=== PATIENT | male | born 1965 | race African-American/Black ===

== ENCOUNTER 2019-12-10 09:25 | Outpatient (CLI) | payer MEDICARE, SELFPAY ==
--- NOTE | 2019-12-10 11:38 | ONC FU_ITS ---
Dr. Leal Patient Follow-Up Note Patient: Alek Hopper Unit #: [id number]: [id number] Dicatated By: Aristeo Leal M.D.Date of Visit:Dec 10, 2019 Onc Med Follow-up/Prog Note Chief Complaint: Colon cancer. 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 He was found on colonoscopy to have a large adenocarcinoma of the ascending colon along with a 2 cm sigmoid polyp with a high-grade dysplasia. His baseline CEAlevel n July 2012 was 4.4 ng/mL. His staging PET/CT on 09/21/2012 revealed an uptake in ascending colon. There were multiple nonspecific findings but no definitive evidence of metastatic disease. These included multiple foci of bilateral axillary and inguinal uptake and FDG-positive left pelvic peritoneal nodular thickening in the close proximity to the prior inguinal surgery. There was a dermal thickening throughout. He had an FDG negative thyroid nodule, a cystic lesion in the right kidney, right fifth rib sclerosis, 2.5 cm left adrenal nodule with SUV of 1.5, and a septal foci in scalp. On 10/22/2012 he underwent a total colectomy by Dr. Jose Luis Serrano, [place], [place]. His surgical pathology showed a 4.5 cm invasive moderately differentiated adenocarcinoma with mucinous features invading into pericolonic fat, with negative margins, indeterminate lymphovascular invasion, but no perineural invasion. There was no involvement in 12 lymph nodes. Thus, his disease was staage IIA (pT3, N0, M0). Post-operatively he had no immediate complications, but he did report a rapid weight loss. He was reportedly referred to the medical oncologist, but he did not proceed with the evaluation at that time. He was first seen by Dr. Weeks on 01/25/2013. Surveillance was established. No adjuvant chemotherapy was given. His PET scan on 02/15/2013 was negative for metastatic disease. His MMR testing showed proficient repair mechanism. Colaris test was negative for HNPCC. CEA was 2.2 ng/mL. Sigmoidoscopy on 05/20/2014 showed only a hyperplastic polyp. He was last seen for a follow-up visit here on 11/16/2015. At that time there was no evidence of recurrence of the colon cancer. He had a subsequent CT abdomen/pelvis on 05/23/2016. It showed no evidence of metastatic disease or disease progression. His other medical illnesses include hypertension, type II diabetes with peripheral neuropathy, peripheral arterial disease, COPD, gout, and depression. He also has chronic pain, managed by Dr. Wilcox in [place]. INTERIM HISTORY: He was seen for a scheduled follow-up visit in 07/06/2017. At that time there was no evidence of recurrence of his colon cancer, but his surveillance CT scans subsequent to the visit showed abnormal soft tissue arising from the distal end of the fundus of the gallbladder or adjacent gallbladder bed, suspicious for a mass lesion. Abdominal MRI on 08/29/2017 showed a complex 1.8 cm lesion at the fundus of the all bladder with moderate enhancement, possibly representing a complicated gallbladder polyp, though primary neoplastic lesion was not excluded. He returned to his surgeon in [place], where his further evaluation showed multicystic lesions in the gallbladder fundus consistent with adenomyomatosis, though underlying carcinoma could not be excluded. He underwent laparoscopic cholecystectomy on 01/04/2018. Pathology showed adenomyoma with no evidence of malignancy. He continued on observation/expectant management. He is seen for a follow-up visit. He has been feeling pretty good generally, though he says his energy comes and goes. He is able to do light work. ECOG score is 1. He says his appetite has not been good. His weight is down about 4 pounds. He does not have fever or night sweats. His breathing is pretty good. He does have a smoker's cough, and he continues to smoke less than a pack of cigarettes daily. He does not complain of chest pain. He has a little bit of nausea. His acid reflux is adequately managed with medication. Bowel function has been okay. He has frequent urination. He has no significant joint or bone pain. He sometimes has headache. He has dizziness if he gets up too fast. He has numbness/tingling in his feet. Medications: Albuterol 2 (90 mcg/act) Aerosol, solution Inhalation q 4 hours PRN, Aspirin Low Dose 1 (81 mg) Tablet Oral daily, Basaglar KwikPen 48 Units (of 100 Units/mL) Subcutaneous at bedtime, [employer] Stool Softener 1 (100 mg) Capsule Oral daily PRN, Famotidine 1 (20 mg) Tablet Oral daily PRN, Hydrocodone-Acetaminophen 1 Tablet (of 10-325 mg) Oral q 4 hours, Metoprolol Tartrate 1 (100 mg) Tablet Oral b.i.d., Neurontin 1 (800 mg) Tablet Oral four times a day, NexIUM 1 (40 mg) Capsule Delayed Release Oral daily, NovoLOG FlexPen 28 Units Subcutaneous t.i.d. Allergies: No Known Allergies. Review of Systems: Constitutional - He has not been doing alot. His appetite is fair and his weight is down 4 pounds from last visit. No fever, night sweats, or hot flashes. ECOG score is 1, ENMT - No sinus congestion/drainage. No mouth sores. No sore throat or difficulty swallowing, Hematologic/Lymphatic - No abnormal bruising or bleeding, Respiratory - No shortness of breath. He has a smoker's cough. No pleuritic pain or hemoptysis, Cardiovascular - No angina pain. No palpitations, Gastrointestinal - He has a little bit of nausea or vomiting. His acid reflux is adequately managed. No diarrhea or constipation. No blood in the stool or black stools, Genitourinary (M) - No dysuria or hematuria. He has urinary frequency. No urgency or incontinence, Musculoskeletal - No joint or bone pain, Integumentary - No skin complications, Neurologic - He sometimes has headache. He has dizziness if he gets up too fast. He has numbness/tingling in his feet. No other focal neurologic symptoms, Psychiatric - No anxiety or depression. He does not sleep well at night. Vital Signs: Performed on Dec 10, 2019 09:40 Height - 70.00 in Weight - 202.8 lbs (LOW) BSA - 2.10 sq.m BMI - 29.10 Temperature - 98.0 F (LOW) Pulse - 91 /min Respiration - 24 /min BP - 163/88 mm(hg) (HIGH) O2 Sat - 96 % Pain - 0 Physical Examination: Constitutional - He looks pretty good generally, Eyes - Sclerae nonicteric. Conjunctivae clear, ENMT - No lesions noted in the oral cavity, Hematologic/Lymphatic - No cervical, clavicular, or axillary adenopathy, Respiratory - Lungs sound clear. He has pretty good air movement bilaterally, Cardiovascular - Heart rhythm is regular. There is no murmur, gallop, or rub noted, Abdomen - Soft and non-tender. Liver and spleen are not enlarged. There is no abdominal mass or ascites noted and there is no inguinal adenopathy, Extremities - No edema, Neurologic - No focal neurologic deficits noted. Impression: 1. Patient with moderately differentiated adenocarcinoma of ascending colon, stage IIA (pT3, N0, M0). He underwent total colectomy on 10/22/12. He had no adjuvant therapy, and he has been followed on surveillance. 2. He has a strong family history of colon cancer and prostate cancer. His other medical illnesses include: 3. Hypertension. 4. Type II diabetes with peripheral neuropathy. 5. Peripheral arterial disease. 6. COPD. 7. Gout. 8. Depression. 9. Chronic pain. On 01/04/2018 he underwent laparoscopic cholecystectomy for adenomyoma of the gallbladder. There was no evidence of malignancy. He has since then continued on observation/expectant management. His clinical status appears stable with no evidence of recurrence of the colon cancer. He does remind me today that he has a strong family history of prostate cancer, and has not recently had any screening for that. Plan: He remains on observation/expectant management. I will include CEA and PSA levels with his next lab draw at Dr. Navarro's office. I will just plan to see him again in 1 year. Signed By: Aristeo Leal M.D. <<Signature on File>>
== END 2019-12-10 09:26 | disposition home or self-care (01) ==
LOC: ONCMED 09:32
PROVIDERS: PCP Family Medicine; Visit Provider Internal Medicine Medical Oncology
DX: Z08 Encounter for follow-up examination after completed treatment for malignant neoplasm (principal); Z85.038 Personal history of other malignant neoplasm of large intestine; Z80.42 Family history of malignant neoplasm of prostate; Z80.0 Family history of malignant neoplasm of digestive organs; Z90.49 Acquired absence of other specified parts of digestive tract; I10 Essential (primary) hypertension; E11.42 Type 2 diabetes mellitus with diabetic polyneuropathy; E11.51 Type 2 diabetes mellitus with diabetic peripheral angiopathy without gangrene; J44.9 Chronic obstructive pulmonary disease, unspecified; M10.9 Gout, unspecified; F32.9 Major depressive disorder, single episode, unspecified; G89.29 Other chronic pain; Z86.018 Personal history of other benign neoplasm
CPT/HCPCS: G0463

== ENCOUNTER 2020-12-31 14:46 | Outpatient (CLI) | payer MEDICARE, SELFPAY ==
--- NOTE | 2021-01-01 07:36 | ONC FU_ITS ---
Dr. Leal Patient Follow-Up Note Patient: Alek Hopper Unit #: [id number]: [id number] Dicatated By: Aristeo Leal M.D.Date of Visit:Dec 31, 2020 Onc Med Follow-up/Prog Note Chief Complaint: Colon cancer. 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 He was found on colonoscopy to have a large adenocarcinoma of the ascending colon along with a 2 cm sigmoid polyp with a high-grade dysplasia. His baseline CEA level n July 2012 was 4.4 ng/mL. His staging PET/CT on 09/21/2012 revealed an uptake in ascending colon. There were multiple nonspecific findings but no definitive evidence of metastatic disease. These included multiple foci of bilateral axillary and inguinal uptake and FDG-positive left pelvic peritoneal nodular thickening in the close proximity to the prior inguinal surgery. There was a dermal thickening throughout. He had an FDG negative thyroid nodule, a cystic lesion in the right kidney, right fifth rib sclerosis, 2.5 cm left adrenal nodule with SUV of 1.5, and a septal foci in scalp. On 10/22/2012 he underwent a total colectomy by Dr. Jose Luis Serrano, [place], [place]. His surgical pathology showed a 4.5 cm invasive moderately differentiated adenocarcinoma with mucinous features invading into pericolonic fat, with negative margins, indeterminate lymphovascular invasion, but no perineural invasion. There was no involvement in 12 lymph nodes. Thus, his disease was staage IIA (pT3, N0, M0). Post-operatively he had no immediate complications, but he did report a rapid weight loss. He was reportedly referred to the medical oncologist, but he did not proceed with the evaluation at that time. He was first seen by Dr. Weeks on 01/25/2013. Surveillance was established. No adjuvant chemotherapy was given. His PET scan on 02/15/2013 was negative for metastatic disease. His MMR testing showed proficient repair mechanism. Colaris test was negative for HNPCC. CEA was 2.2 ng/mL. Sigmoidoscopy on 05/20/2014 showed only a hyperplastic polyp. His CT abdomen/pelvis on 05/23/2016 showed no evidence of recurrent or metastatic disease. He was seen for a scheduled follow-up visit on 07/06/2017. At that time there was no evidence of recurrence of his colon cancer, but his surveillance CT scans subsequent to that visit showed abnormal soft tissue arising from the distal end of the fundus of the gallbladder or adjacent gallbladder bed, suspicious for a mass lesion. Abdominal MRI on 08/29/2017 showed a complex 1.8 cm lesion at the fundus of the all bladder with moderate enhancement, possibly representing a complicated gallbladder polyp, though primary neoplastic lesion was not excluded. He returned to his surgeon in [place] where his further evaluation showed multicystic lesions in the gallbladder fundus consistent with adenomyomatosis, though underlying carcinoma could not be excluded. He underwent laparoscopic cholecystectomy on 01/04/2018. Pathology showed adenomyoma with no evidence of malignancy. His other medical illnesses include hypertension, hyperlipidemia, type II diabetes with peripheral neuropathy, peripheral arterial disease, COPD, gout, and depression. He also has chronic pain, managed by Dr. Wilcox in [place]. INTERIM HISTORY: He is seen for a follow-up visit. He has been feeling good generally. He has been exercising and generally more active. His ECOG score is 0. He has good appetite. With the increased activity, he has been able to lose weight. He does not have fever or night sweats. He has no shortness of breath, cough, or chest pain. He has a little bit of nausea at times. His acid reflux is adequately managed with medication. He says his stools are sometimes watery and he occasionally has a burning in the rectal area. He has no complaints. He has joint pain, mainly in his hands and both hips. He does not complain of headache. He sometimes has dizziness. He has neuropathy in his feet, but gabapentin does help with those symptoms. Medications: Albuterol 2 (90 mcg/act) Aerosol, solution Inhalation q 4 hours PRN, Aspirin Low Dose 1 (81 mg) Tablet Oral daily, Basaglar KwikPen 48 Units (of 100 Units/mL) Subcutaneous at bedtime, [employer] Stool Softener 1 (100 mg) Capsule Oral daily PRN, Famotidine 1 (20 mg) Tablet Oral daily PRN, Hydrocodone-Acetaminophen 1 Tablet (of 10-325 mg) Oral q 4 hours, Metoprolol Tartrate 1 (100 mg) Tablet Oral b.i.d., Neurontin 1 (800 mg) Tablet Oral four times a day, NexIUM 1 (40 mg) Capsule Delayed Release Oral daily, NovoLOG FlexPen 28 Units Subcutaneous t.i.d. Allergies: No Known Allergies. Vital Signs: Performed on Dec 31, 2020 14:58 Height - 70.00 in Weight - 207.8 lbs (HIGH) BSA - 2.12 sq.m BMI - 29.82 Temperature - 97.6 F (LOW) Pulse - 71 /min Respiration - 18 /min BP - 164/88 mm(hg) (HIGH) O2 Sat - 98 % Pain - 0 Fatigue - 2 Physical Examination: Constitutional - He looks pretty good generally, Eyes - Sclerae nonicteric. Conjunctivae clear, ENMT - No lesions noted in the oral cavity, Hematologic/Lymphatic - No cervical, clavicular, or axillary adenopathy, Respiratory - Lungs sound clear, Cardiovascular - Heart rhythm is regular. There is no murmur, gallop, or rub noted, Abdomen - Soft. Liver and spleen are not enlarged. There is no abdominal mass or ascites noted and there is no inguinal adenopathy, Extremities - No edema, Neurologic - No focal neurologic deficits noted. Problem List: 1. Moderately differentiated adenocarcinoma of ascending colon, stage IIA (pT3, N0, M0). He underwent total colectomy on 10/22/2012. 2. On 01/04/2018 he underwent laparoscopic cholecystectomy for adenomyoma of the gallbladder. There was no evidence of malignancy. 3. Hypertension. 4. Type II diabetes with peripheral neuropathy. 5. Peripheral arterial disease. 6. COPD. 7. Gout. 8. Depression. 9. Chronic pain. 10. He has a strong family history of colon cancer and prostate cancer. Problems Addressed with this Encounter and Plan: 1. Patient with moderately differentiated adenocarcinoma of ascending colon, stage IIA (pT3, N0, M0). He underwent total colectomy on 10/22/12. He had no adjuvant therapy, and he was followed on expectant management. Overall, he has been doing well clinically. He is now 8 years out from surgery with no evidence of recurrence of the colon cancer. He remains on expectant management. At this interval from his surgery he does not require any further routine surveillance CT imaging. I will have to verify with his surgeon whether he requires any additional surveillance endoscopy. He did have a follow-up sigmoidoscopy in 2014, and that may need to be repeated. At this point he can otherwise just continue his regular follow-up with Dr. Navarro. He is scheduled to see Dr. Vieira again next week, and he would like to have laboratory studies done here in preparation for that visit. As such, I will have him return tomorrow for fasting labs to include CBC, comprehensive metabolic profile, TSH level, hemoglobin A1c level, and fasting lipid profile. I also will include a CEA level. I will plan to see him again only as needed. 2. He has a strong family history of colon cancer and prostate cancer. His genetic screening was negative. He should, however, continue screening for prostate cancer, and I will recheck his PSA level with his laboratory studies tomorrow. Signed By: Aristeo Leal M.D. <<Signature on File>>
== END 2020-12-31 14:47 | disposition home or self-care (01) ==
LOC: ONCMED 14:51
PROVIDERS: PCP Family Medicine; Visit Provider Internal Medicine Medical Oncology
DX: Z08 Encounter for follow-up examination after completed treatment for malignant neoplasm (principal); I10 Essential (primary) hypertension; E11.42 Type 2 diabetes mellitus with diabetic polyneuropathy; I73.9 Peripheral vascular disease, unspecified; J44.9 Chronic obstructive pulmonary disease, unspecified; F32.A Depression, unspecified; M10.9 Gout, unspecified; Z85.038 Personal history of other malignant neoplasm of large intestine; Z80.42 Family history of malignant neoplasm of prostate; Z80.8 Family history of malignant neoplasm of other organs or systems
CPT/HCPCS: 99214

== ENCOUNTER 2021-01-01 08:53 | Outpatient (CLI) | payer MEDICARE, SELFPAY ==
[2021-01-01 09:19] LABS: Basophils # 0.1 10^3/uL (0.0-0.1); Basophils % 0.7 %; Eosinophils # 0.1 10^3/uL (0.0-0.8); Eosinophils % 1.2 %; Hematocrit 41.6 % (42.0-52.0); Hemoglobin 13.7 g/dL (11.7-16.6); Lymphocytes # 2.7 10^3/uL (0.8-4.8); Lymphocytes % 23.7 %; Mean Corpuscular HGB Conc 32.9 g/dL (30.0-36.0); Mean Corpuscular Hemoglobin 30.6 pg (28.0-34.0); Mean Corpuscular Volume 92.9 fl (80-94); Mean Platelet Volume 10.8 fL (7.4-10.4); Monocytes # 0.7 10^3/uL (0.2-0.9); Neutrophils % 68.1 %; Nucleated Red Blood Cells % 0 %; Platelet Count 196 10^3/cmm (130-400); Red Blood Count 4.48 10^6/uL (4.1-5.3); White Blood Count 11.5 10^3/uL (4.0-10.0)
[2021-01-01 09:50] LABS: Thyroid Stimulating Hormone 0.84 uIU/mL (0.27-4.20)
[2021-01-01 10:01] LABS: Alanine Aminotransferase 12 U/L (0-41); Albumin Level 3.8 g/dL (3.5-5.2); Alkaline Phosphatase 113 IU/L (40-130); Aspartate Amino Transferase 13 U/L (0-40); Blood Urea Nitrogen 11 mg/dL (6-20); Calcium 8.8 mg/dL (8.5-10.5); Carbon Dioxide 25 mmol/L (22-29); Chloride 109 mmol/L (98-107); Chol HDL Ratio 3.57 mg/dL (1.0-5.00); Cholesterol 150 mg/dL (0-200); Globulin 2.9 g/dL (1.3-4.6); Glomerular Filtration Rate 75.5 mL/min (90-130); Glucose 148 mg/dL (65-115); HDL Cholesterol 42 mg/dL (60-100); LDL Cholesterol Calculated 79 mg/dL (50-129); LDL HDL Ratio 1.88 RATIO (0.00-3.22); Osmolality Calculated 296 mOsm/kg (285-295); Sodium 142 mmol/L (136-145); Total Bilirubin 0.2 mg/dL (0.15-1.2); Total Protein 6.7 g/dL (6.6-8.7); Triglycerides 145 mg/dL (0-150)
[2021-01-01 10:06] LABS: Anion Gap 12.8 (5-19); Potassium 4.8 mmol/L (3.5-5.1)
[2021-01-01 10:32] LABS: Estmated Average Glucose 151; Hemoglobin A1C 6.9 % (4.0-6.0)
[2021-01-01 10:34] LABS: Carcinoembryonic Antigen 2.5 ng/mL (0.0-4.7)
== END 2021-01-01 08:54 | disposition home or self-care (01) ==
LOC: ONCMED 08:54
PROVIDERS: PCP Family Medicine; Visit Provider Internal Medicine Medical Oncology
DX: C18.2 Malignant neoplasm of ascending colon (principal); I10 Essential (primary) hypertension; E11.42 Type 2 diabetes mellitus with diabetic polyneuropathy; I73.9 Peripheral vascular disease, unspecified; Z80.42 Family history of malignant neoplasm of prostate; Z12.5 Encounter for screening for malignant neoplasm of prostate
CPT/HCPCS: 36415; 80053; 80061; 82378; 83036; 84153; 84443; 85025

== ENCOUNTER 2021-12-21 10:12 | Emergency (ER) | payer MEDICARE, SELFPAY ==
[2021-12-21 10:37] VITALS: BP 170/75; PULSE 74; RESP 16; TEMP 36.8; O2SAT 92; BMI 29.5
--- NOTE | 2021-12-21 10:56 | XRR_ITS ---
PROCEDURE INFORMATION: Exam: XR Chest Exam date and time: 12/21/2021 11:52 AM Age: 56 years old Clinical indication: Cough and shortness of breath; Patient HX: Cough and wheezing. Patient says for the past week he has had cough with chest congestion. Says his cough is productive and has clear sputum. He endorses having some shortness of breath and wheezing. He says his shortness of breath and cough worsen when he lays flat. TECHNIQUE: Imaging protocol: Radiologic exam of the chest. Views: 1 view. COMPARISON: CR XR chest 1V [id number] 05/20/2018 12:06 AM FINDINGS: Lungs: Subtle airspace disease/atelectasis right and left lung bases. Pleural spaces: Unremarkable. No pleural effusion. No pneumothorax. Heart/Mediastinum: Unremarkable. No cardiomegaly. Bones/joints: Unremarkable. XR/XR chest 1V portable [id number] IMPRESSION: Subtle airspace disease/atelectasis right and left lung bases.
--- NOTE | 2021-12-21 10:59 | W.ED.GENADLT ---
HPI - General Adult General: Chief complaint: General Medical Stated complaint: congestion Time Seen by Provider: 12/21/21 10:44 History of Present Illness: Patient is a 56-year-old male comes to the ED with cough and wheezing. Past medical history of diabetes. Patient says for the past week he has had cough with chest congestion. Says his cough is productive and has clear sputum. He endorses having some shortness of breath and wheezing. He says his shortness of breath and cough worsen when he lays flat. Denies any fevers, chills, chest pain, nausea/vomiting, abdominal pain, bladder or bowel symptoms. Associated symptoms: Reports dyspnea; Deny chest pain, headache(s), nausea, rash, palpitations or vomiting Review of Systems Const: Denies: fever(s), chills or fatigue Eyes: Denies: change in vision or eye discomfort ENMT: Denies: throat pain, odynophagia, nasal discharge or nasal congestion Card: Denies: chest pain, palpitations, edema, swelling of feet/ankles, dyspnea on exertion or orthopnea Resp: Reports: dyspnea, productive cough and wheezing; Denies: non-productive cough GI: Denies: abdominal pain, nausea, vomiting, diarrhea, constipation or hematochezia : Denies: flank pain, difficulty urinating, dysuria or hematuria Musc: Denies: neck pain, back pain or extremity swelling Skin/Breast: Denies: rash or new lesions Neuro: Denies: headache(s), numbness in extremities or weakness in extremities PFSH ED PFSH: Medical History Cancer Diabetes mellitus Glaucoma Hypertension Social History Smoking and tobacco status: current every day smoker Quit status (tobacco): has tried quititng Second hand smoke exposure: Yes Alcohol intake: never Adopted: No Caregiver/support person: No Lives independently: Yes Household members: spouse Housing: Apartment Marital status: Number of children: 4 Number of grandchildren: 1 Highest education level completed: 12th Grade, No Diploma service: No Current occupational status: disabled Current occupational exposures/hazards: No Pets and animals: No History of recent travel: No Leisure activites: exercise and clubs Sexually active: No Current gender identity: Male Shelly/Evangelical: Adventist Special shelly needs: No Agree to transfusion: Yes Financial difficulty paying for basics: Somewhat Hard Physical Exam Const: COMMON NORMALS: no acute distress, patient oriented x3 and alert GENERAL APPEARANCE: cooperative HENMT: COMMON NORMALS: normocephalic HEAD & SCALP: normocephalic MOUTH: Normal oral and palatal mucosa present THROAT: posterior oropharynx normal and uvula midline Neck/C-Spine: COMMON NORMALS: supple GENERAL: Yes normal visual inspection Resp: COMMON NORMALS: normal respiratory effort, No retractions and No use of accessory muscles EFFORT & INSPECTION: Yes able to speak in complete sentences, No respiratory distress and No labored AUSCULTATION: wheezes expiratory wheezes and lower bilaterally Cardio: COMMON NORMALS: regular rate, regular rhythm, S1 normal heart sound present, S2 normal heart sound present, No gallops present (Cardio), No clicks present (Cardio), No murmurs present (Cardio) and Peripheral pulses 2+ throughout RATE: regular rate RHYTHM: regular rhythm HEART SOUNDS: S1 normal heart sound present and S2 normal heart sound present PERIPHERAL PULSES: Peripheral pulses 2+ throughout GI: COMMON NORMALS: Normal to inspection, nondistended, normoactive bowel sounds present, Soft to palpation, non-tender and no masses PALPATION: Yes Soft to palpation : COMMON NORMALS: Yes no CVA tenderness BLADDER/KIDNEY EXAM: Yes no CVA tenderness Back/Pelvis: COMMON NORMALS: no CVA tenderness Extremity: COMMON NORMALS: normal to inspection Neuro: COMMON NORMALS: patient oriented x3 SENSORIUM/ORIENTATION: Yes alert GAIT: Yes Normal gait present Skin: GENERAL SKIN EXAM: dry skin Course Vital Signs: Vital signs: Vital Signs Temperature 98.3 F 12/21/21 10:37 Pulse Rate 71 12/21/21 11:12 Respiratory Rate 16 12/21/21 11:10 Blood Pressure 170/75 12/21/21 10:37 Pulse Oximetry 93 12/21/21 11:10 Oxygen Delivery Tx thod 12/21/21 11:10 [facility] - General Adult Medical Decision Making Patient is a 56-year-old male comes to the ED with cough and wheezing. Past medical history of diabetes. Patient says for the past week he has had cough with chest congestion. Says his cough is productive and has clear sputum. Vitals are stable. Patient appears nontoxic in no acute distress. He has little bit of wheezing in his lower lungs bilaterally but the rest of exam is benign. Chest x-ray shows some subtle atelectasis in the right and left lung bases. Patient was given DuoNeb breathing treatment here in the ED along with Solu-Medrol. Symptoms improved. Patient diagnosed with bronchitis and was discharged home with a prescription for doxycycline. Told to follow-up with his PCP within the next week for reevaluation. Return to ED precautions given. Lab Data Radiology Impressions Chest X-Ray 12/21/21 10:56 IMPRESSION: Subtle airspace disease/atelectasis right and left lung bases. Discharge Plan Discharge Patient Disposition: Home Clinical Impression: Bronchitis Condition: Stable Prescriptions: New doxycycline hyclate 100 mg capsule 100 mg PO BID 10 Days Qty: 20 0RF albuterol sulfate 90 mcg/actuation HFA aerosol inhaler 2 inh inhalation Q6H PRN (Reason: shortness of breath or wheezing) Qty: 8.5 0RF No Action hydrocodone-acetaminophen 10-325 mg tablet 1 tab PO Q4H PRN albuterol sulfate 90 mcg/actuation HFA aerosol inhaler 2 puff inhalation Q6H PRN allopurinol 100 mg tablet 100 mg PO DAILY aspirin [Adult Aspirin Regimen] 81 mg tablet,delayed release (DR/EC) 81 mg PO DAILY colchicine 0.6 mg tablet 0.6 mg PO BID docusate sodium 100 mg capsule 100 mg PO BID dulaglutide 1.5 mg/0.5 mL pen injector SUBCUT esomeprazole magnesium 40 mg capsule,delayed release(DR/EC) 40 mg PO DAILY gabapentin 600 mg tablet 600 mg PO BID hydrocortisone 2.5 % cream 1 applic topical BID PRN insulin aspart U-100 [Novolog PenFill U-100 Insulin] 100 unit/mL cartridge 30 unit SUBCUT TID insulin glargine 100 unit/mL (3 mL) insulin pen 54 unit SUBCUT .QPM lisinopril 10 mg tablet 10 mg PO BID metoprolol tartrate 100 mg tablet 100 mg PO BID amoxicillin-pot clavulanate 875-125 mg tablet 1 tab PO BID 7 Days Qty: 14 0RF ciprofloxacin HCl 500 mg tablet 500 mg PO Q12H Qty: 14 0RF Discharge Orders: Discharge ED (Routine); Ordered 12/21/21 Ordered By: Danny Dos Santos Referrals: Yenny Navarro MD [Primary Care Provider] - Discharge Diet: Regular Discharge Activity: Increase activity as tolerated Patient Instructions: Acute Bronchitis (ED) Activity Restrictions/Additional Instructions: Follow-up with medical provider as directed in the next 5 to 7 days for reevaluation. Take medications as prescribed. Return to the ER or your medical provider if condition worsens. Please read and understand discharge instructions. Thank you for choosing [facility] for your healthcare needs today. Please realize this is an emergency room and that we are providing you with a medical screening exam and this may not be complete and all inclusive of all the testing and or work up that you may need to determine your ailment or severity of your illness. It is very important that you follow up as instructed or that you return to the Emergency Department should you have concerns or if your condition changes or worsens in any way. Coding Level of Care Code ED Mold Clamper for Mary Fwd Exam Comprehensive
[2021-12-21] MEDS: ipratropium-albuterol 3 mL Neb 6 ML INHALATION (11:07)
[2021-12-21 11:10] VITALS: PULSE 74; RESP 16; O2SAT 93
[2021-12-21 11:12] VITALS: PULSE 71
== END 2021-12-21 13:46 | disposition home or self-care (01) ==
PROVIDERS: Emergency Provider Physician Assistant; PCP Family Medicine
DX: J40 Bronchitis, not specified as acute or chronic (principal); Z79.82 Long term (current) use of aspirin; Z79.4 Long term (current) use of insulin; E11.9 Type 2 diabetes mellitus without complications; I10 Essential (primary) hypertension; F17.210 Nicotine dependence, cigarettes, uncomplicated
CPT/HCPCS: 71045; 94640; 96374; 99284; J2930

== ENCOUNTER 2021-12-23 04:20 | Inpatient (IN) | payer MEDICARE, SELFPAY ==
[2021-12-23] VITALS (44 sets, daily range): BP systolic 137–189; BP diastolic 59–100; PULSE 81–113; RESP 0–27; TEMP 36.4–37.4; O2SAT 93–98; BMI 31.5
--- NOTE | 2021-12-23 04:22 | XRR_ITS ---
PROCEDURE INFORMATION: Exam: XR Chest Exam date and time: 12/23/2021 4:43 AM Age: 56 years old Clinical indication: Pain; Chest pressure; Additional info: SOB TECHNIQUE: Imaging protocol: Radiologic exam of the chest. Views: 1 view. COMPARISON: CR XR chest 1V portable [id number] 12/21/2021 11:52 AM FINDINGS: Lungs: There are normal lung volumes. Increased minimal perihilar interstitial prominence is seen, suggestive of pulmonary vascular congestion. Minimal right basilar atelectasis is seen. No airspace opacities in the lungs. Pleural spaces: No pleural effusion. No pneumothorax. Heart/Mediastinum: Normal heart size. Normal mediastinum. Midline trachea. Bones/joints: No acute osseous abnormalities seen. XR/XR chest 1V portable [id number] IMPRESSION: Increased minimal perihilar interstitial prominence, suggestive of pulmonary vascular congestion. Minimal right basilar atelectasis.
--- NOTE | 2021-12-23 04:22 | ECG_ITS ---
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 Measurements Intervals [place] Rate: 90 P: 64 [place]: 171 QRS: 0 QRSD: 100 T: 129 QT: 354 QTc: 434 Interpretive Statements SINUS RHYTHM POSSIBLE LEFT ATRIAL ENLARGEMENT [-0.1mV P-WAVE IN V1/V2] INCOMPLETE RIGHT BUNDLE BRANCH BLOCK [90+ ms QRS DURATION, TERMINAL R IN V1/V2, 40+ ms S IN I/aVL/V4/V5/V6] ST DEVIATION AND MODERATE T-WAVE ABNORMALITY, CONSIDER LATERAL ISCHEMIA [-0.1+ mV T-WAVE IN I/aVL/V5/V6] Compared to ECG 05/20/2018 00:23:14 T-wave abnormality now present Possible ischemia now present Electronically Signed On 12-23-2021 11:07:24 CDT by Bakari Fisher M.D. [id number]
--- NOTE | 2021-12-23 04:30 | W.ED.SOB ---
Documented by User: Maverick Soliz MD 12/23/21 04:32 HPI - SOB/Dyspnea General: Chief Complaint: Shortness of Breath/Dyspnea Stated Complaint: SOB Time Seen by Provider: 12/23/21 04:21 Source: patient Mode of arrival: ambulatory Limitations: no limitations History of Present Illness: HPI Narrative: 56-year-old male who was seen here 2 days ago and diagnosed with bronchitis he has had an inhaler along with antibiotics at home states that tonight he started having worsening shortness of breath he does have wheezing here and tachypnea. He has had a dry cough he denies any chest pain denies any fever denies any worsening or improving factors. Associated symptoms: Deny abdominal pain, chest pain, fever(s), nausea or vomiting Review of Systems Const: Denies: fever(s), chills, body aches or change in appetite Eyes: Denies: blurry vision or eye discomfort ENMT: Denies: throat pain or dental pain Card: Denies: chest pain Resp: Reports: dyspnea and non-productive cough GI: Denies: abdominal pain, nausea, vomiting or diarrhea : Denies: dysuria Musc: Denies: neck pain or back pain Skin/Breast: Denies: rash Neuro: Denies: headache(s) Psych: Denies: depression Robin/Lymph: Denies: easy bruising All/Imm: Denies: urticaria PFSH ED PFSH: Medical History Cancer Diabetes mellitus Glaucoma Hypertension Social History Smoking and tobacco status: current every day smoker Quit status (tobacco): has tried quititng Second hand smoke exposure: Yes Alcohol intake: never Adopted: No Caregiver/support person: No Lives independently: Yes Household members: spouse Housing: Apartment Marital status: Number of children: 4 Number of grandchildren: 1 Highest education level completed: 12th Grade, No Diploma service: No Current occupational status: disabled Current occupational exposures/hazards: No Pets and animals: No History of recent travel: No Leisure activites: exercise and clubs Sexually active: No Current gender identity: Male Shelly/Baptism: Sikh Special shelly needs: No Agree to transfusion: Yes Financial difficulty paying for basics: Somewhat Hard Physical Exam Const: COMMON NORMALS: no acute distress, patient oriented x3 and healthy appearing HENMT: COMMON NORMALS: normocephalic and atraumatic HEAD & SCALP: normocephalic and atraumatic Eye: COMMON NORMALS: Equal, round and reactive pupils present and EOMs intact bilaterally PUPIL: Yes Equal, round and reactive pupils present Neck/C-Spine: COMMON NORMALS: full ROM and supple Chest: COMMONS NORMALS: normal inspection of the chest and normal palpation of entire chest wall Resp: COMMON NORMALS: No retractions EFFORT & INSPECTION: Yes tachypneic and Yes labored AUSCULTATION: wheezes Cardio: COMMON NORMALS: regular rate, regular rhythm and No murmurs present (Cardio) RATE: regular rate RHYTHM: regular rhythm GI: COMMON NORMALS: Normal to inspection, nondistended, normoactive bowel sounds present, Soft to palpation, non-tender and no masses PALPATION: Yes Soft to palpation Extremity: COMMON NORMALS: normal to inspection and full ROM Neuro: COMMON NORMALS: patient oriented x3, moves all extremities and no focal motor deficits Psych: COMMON NORMALS: mental status grossly normal, Normal thought process present and cooperative THOUGHT PROCESS: Normal thought process present Skin: COMMON NORMALS: no rashes or lesions noted and no wounds GENERAL SKIN EXAM: no rashes or lesions noted Course Vital Signs: Vital signs: Vital Signs Temperature 97.6 F 12/23/21 04:25 Pulse Rate 98 12/23/21 09:43 Respiratory Rate 17 12/23/21 07:37 Blood Pressure 153/68 12/23/21 09:43 Pulse Oximetry 98 12/23/21 09:43 Oxygen Delivery Me thod 12/23/21 09:43 MDM - SOB/Dyspnea Lab Data : 12/23/21 04:34 12/23/21 04:34 Labs/Radiology: Radiology Impressions Chest X-Ray 12/23/21 04:22 IMPRESSION: Increased minimal perihilar interstitial prominence, suggestive of pulmonary vascular congestion. Minimal right basilar atelectasis. Chest CTA 12/23/21 05:48 IMPRESSION: 1. No CTA evidence of pulmonary embolism, thoracic aortic aneurysm or thoracic aortic dissection. 2. Minimal right middle lobe, inferior lingular and bilateral lower lobe hazy ground-glass opacities, suggestive of hypoaeration and atelectasis. There may also be mild pulmonary vascular congestion. Tiny bilateral pleural effusions, right greater than left. 3. Nonspecific mediastinal lymphadenopathy, as noted above. Laboratory Results WBC 13.4 10^3/uL (4.0-10.0) H 12/23/21 04:34 RBC 4.03 10^6/uL (4.1-5.3) L 12/23/21 04:34 Hgb 12.4 g/dL (11.7-16.6) 12/23/21 04:34 Hct 38.3 % (42.0-52.0) L 12/23/21 04:34 MCV 95.0 fl (80-94) H 12/23/21 04:34 MCH 30.8 pg (28.0-34.0) 12/23/21 04:34 MCHC 32.4 g/dL (30.0-36.0) 12/23/21 04:34 RDW 12.8 % (12.1-15.1) 12/23/21 04:34 Plt Count 214 10^3/cmm (130-400) 12/23/21 04:34 MPV 11.4 fL (7.4-10.4) H 12/23/21 04:34 Neut % (Auto) 58.7 % 12/23/21 04:34 Lymph % (Auto) 32.3 % 12/23/21 04:34 [place] % (Auto) 6.6 % 12/23/21 04:34 Eos % (Auto) 1.6 % 12/23/21 04:34 Baso % (Auto) 0.5 % 12/23/21 04:34 Neut # (Auto) 7.85 10^3/uL (1.8-7.7) H 12/23/21 04:34 Lymph # (Auto) 4.3 10^3/uL (0.8-4.8) 12/23/21 04:34 [place] # (Auto) 0.9 10^3/uL (0.2-0.9) 12/23/21 04:34 Eos # (Auto) 0.2 10^3/uL (0.0-0.8) 12/23/21 04:34 Baso # (Auto) 0.1 10^3/uL (0.0-0.1) 12/23/21 04:34 Nucleated RBC % (auto) 0 % 12/23/21 04:34 Nucleated RBCs # 0.0 /100WBC 12/23/21 04:34 D-Dimer 0.98 ug/mIFEU (0-0.59) H 12/23/21 04:34 Specimen Type Arterial 12/23/21 04:31 Sample Site Radial, right 12/23/21 04:31 ABG pH 7.38 (7.35-7.45) 12/23/21 04:31 ABG pCO2 41.9 mmHg (35-45) 12/23/21 04:31 ABG pO2 58.5 mmHg (80.0-100.0) L 12/23/21 04:31 ABG HCO3 24.6 mmol/L (22-26) 12/23/21 04:31 ABG Base Excess -0.6 mmol/L (-2.0-2.0) 12/23/21 04:31 Khanh Test Pos 12/23/21 04:31 Hematocrit 35.6 % (42-52) L 12/23/21 04:31 Hgb O2 Saturation 87.0 % (95-100) L 12/23/21 04:31 Carboxyhemoglobin 3.9 %THgb (0.4-20.1) 12/23/21 04:31 Methemoglobin 0.9 % (0.4-1.5) 12/23/21 04:31 Total Hemoglobin 11.6 g/dL (14-18) L 12/23/21 04:31 O2 Delivery Device None 12/23/21 04:31 FiO2 21.0 % 12/23/21 04:31 Catering Convention Services Manager ID Bhargavi 12/23/21 04:31 Sodium 138 mmol/L (136-145) 12/23/21 04:34 Potassium 4.8 mmol/L (3.5-5.1) 12/23/21 04:34 Chloride 104 mmol/L (98-107) 12/23/21 04:34 Carbon Dioxide 24 mmol/L (22-29) 12/23/21 04:34 Anion Gap 14.8 (5-19) 12/23/21 04:34 BUN 22 mg/dL (6-20) H 12/23/21 04:34 Creatinine 1.8 mg/dL (0.7-1.2) H 12/23/21 04:34 GFR Calculation 47.1 mL/min (90-130) L 12/23/21 04:34 Glucose 119 mg/dL (65-115) H 12/23/21 04:34 POC Glucose 145 mg/dL (70-110) H 12/23/21 07:28 Calculated Osmolality 290 mOsm/kg (285-295) 12/23/21 04:34 Calcium 8.8 mg/dL (8.5-10.5) 12/23/21 04:34 Total Bilirubin 0.2 mg/dL (0.15-1.2) 12/23/21 04:34 AST 14 U/L (0-40) 12/23/21 04:34 ALT 14 U/L (0-41) 12/23/21 04:34 Alkaline Phosphatase 117 U/L (40-130) 12/23/21 04:34 Troponin T Baseline 67 ng/L (0-15) H 12/23/21 04:34 Troponin T 120 Minute 57.89 ng/L (0-15) H 12/23/21 06:27 Delta Troponin T -9.11 ABS# (0-10) L 12/23/21 06:27 NT-Pro-B Natriuret Pep 1609 pg/mL (0-125) H 12/23/21 04:34 Total Protein 6.9 g/dL (6.6-8.7) 12/23/21 04:34 Albumin 3.6 g/dL (3.5-5.2) 12/23/21 04:34 Globulin 3.3 g/dL (1.3-4.6) 12/23/21 04:34 SARS-CoV-2 Ag (Rapid) negative (Negative) 12/23/21 05:01 EKG Data EKG 1: I personally reviewed and interpreted this EKG as follows: EKG Interpretation Date: 12/23/21 EKG interpretation time: 04:28 Interpretation: nsr hr [address] or t wave abnormalities qrs 100 qtc 402 Discharge Plan Discharge Patient Disposition: Admitted As Inpatient Clinical Impression: Dyspnea on exertion, Peripheral arterial disease, Stable angina, Diabetes mellitus, Hypertension, COPD (chronic obstructive pulmonary disease) Condition: Stable Prescriptions: No Action hydrocodone-acetaminophen 10-325 mg tablet 1 tab PO Q4H PRN (Reason: Pain) albuterol sulfate 90 mcg/actuation HFA aerosol inhaler 2 puff inhalation Q6H PRN (Reason: Shortness Of Breath) allopurinol 100 mg tablet 100 mg PO DAILY aspirin [Adult Aspirin Regimen] 81 mg tablet,delayed release (DR/EC) 81 mg PO DAILY colchicine 0.6 mg tablet 0.6 mg PO BID docusate sodium 100 mg capsule 100 mg PO BID dulaglutide 1.5 mg/0.5 mL pen injector 1.5 mg SUBCUT Q7D Rx Instructions: On Monday hydrocortisone 2.5 % cream 1 applic topical BID PRN (Reason: Rash) lisinopril 10 mg tablet 10 mg PO BID metoprolol tartrate 100 mg tablet 100 mg PO BID latanoprost 0.005 % drops 2 drp ophthalmic (eye) DAILY doxycycline hyclate 100 mg capsule 100 mg PO BID 10 Days Qty: 20 0RF albuterol sulfate 90 mcg/actuation HFA aerosol inhaler 2 inh inhalation Q6H PRN (Reason: shortness of breath or wheezing) Qty: 8.5 0RF Referrals: Yenny Navarro MD [Primary Care Provider] - Sign Out Sign Out Data: Patient Sign Out occurred on 12/23/21 at 06:02. Patient's care was discussed, and care was transferred from to Boom To DO. Coding Level of Care Code ED Bilingual Teacher Assistant for Chg Fwd Exam Comprehensive Documented by User: Boom To DO 12/23/21 09:48 HPI - SOB/Dyspnea General: Chief Complaint: Shortness of Breath/Dyspnea Stated Complaint: SOB Time Seen by Provider: 12/23/21 04:21 PFSH ED PFSH: Medical History Cancer Diabetes mellitus Glaucoma Hypertension Social History Smoking and tobacco status: current every day smoker Quit status (tobacco): has tried quititng Second hand smoke exposure: Yes Alcohol intake: never Adopted: No Caregiver/support person: No Lives independently: Yes Household members: spouse Housing: Apartment Marital status: Number of children: 4 Number of grandchildren: 1 Highest education level completed: 12th Grade, No Diploma service: No Current occupational status: disabled Current occupational exposures/hazards: No Pets and animals: No History of recent travel: No Leisure activites: exercise and clubs Sexually active: No Current gender identity: Male Shelly/Baptism: Sikh Special shelly needs: No Agree to transfusion: Yes Financial difficulty paying for basics: Somewhat Hard Course Vital Signs: Vital signs: Vital Signs Temperature 97.6 F 12/23/21 04:25 Pulse Rate 98 12/23/21 09:43 Respiratory Rate 17 12/23/21 07:37 Blood Pressure 153/68 12/23/21 09:43 Pulse Oximetry 98 12/23/21 09:43 Oxygen Delivery Me thod 12/23/21 09:43 MDM - SOB/Dyspnea Medical Decision Making Care assumed from Dr. Soliz at change of shift. Initially chest x-ray and BNP seem to suggest congestive heart failure did give him some Lasix his BUN/creatinine are elevated. He is not really having any orthopnea. He was significantly hypertensive he was given medicines to lower his blood pressure. He had been seen couple days ago for what was thought to be a COPD exacerbation. His oxygen sats at rest remain normal but he is reporting severe shortness of breath with activity. Patient is a smoker history hypertension diabetes mellitus and peripheral artery disease. We ambulated him to do home O2 evaluation when he walked just 100 feet he developed chest pain abnormal shortness of breath for his exertional level but no hypoxia was noted. He has significant risk factors for coronary artery disease and should be evaluated further. He was given Lovenox Plavix topical nitro and aspirin discussed with cardiology as well as with hospitalist. Hospitalist to admit cardiology to consult discussed with patient and his family the results and the plan they understand our plan all questions were answered. Medical Records I reviewed the patient's medical records. Lab Data I reviewed the patient's lab results. : 12/23/21 04:34 12/23/21 04:34 Labs/Radiology: Radiology Impressions Chest X-Ray 12/23/21 04:22 IMPRESSION: Increased minimal perihilar interstitial prominence, suggestive of pulmonary vascular congestion. Minimal right basilar atelectasis. Chest CTA 12/23/21 05:48 IMPRESSION: 1. No CTA evidence of pulmonary embolism, thoracic aortic aneurysm or thoracic aortic dissection. 2. Minimal right middle lobe, inferior lingular and bilateral lower lobe hazy ground-glass opacities, suggestive of hypoaeration and atelectasis. There may also be mild pulmonary vascular congestion. Tiny bilateral pleural effusions, right greater than left. 3. Nonspecific mediastinal lymphadenopathy, as noted above. Laboratory Results WBC 13.4 10^3/uL (4.0-10.0) H 12/23/21 04:34 RBC 4.03 10^6/uL (4.1-5.3) L 12/23/21 04:34 Hgb 12.4 g/dL (11.7-16.6) 12/23/21 04:34 Hct 38.3 % (42.0-52.0) L 12/23/21 04:34 MCV 95.0 fl (80-94) H 12/23/21 04:34 MCH 30.8 pg (28.0-34.0) 12/23/21 04:34 MCHC 32.4 g/dL (30.0-36.0) 12/23/21 04:34 RDW 12.8 % (12.1-15.1) 12/23/21 04:34 Plt Count 214 10^3/cmm (130-400) 12/23/21 04:34 MPV 11.4 fL (7.4-10.4) H 12/23/21 04:34 Neut % (Auto) 58.7 % 12/23/21 04:34 Lymph % (Auto) 32.3 % 12/23/21 04:34 [place] % (Auto) 6.6 % 12/23/21 04:34 Eos % (Auto) 1.6 % 12/23/21 04:34 Baso % (Auto) 0.5 % 12/23/21 04:34 Neut # (Auto) 7.85 10^3/uL (1.8-7.7) H 12/23/21 04:34 Lymph # (Auto) 4.3 10^3/uL (0.8-4.8) 12/23/21 04:34 [place] # (Auto) 0.9 10^3/uL (0.2-0.9) 12/23/21 04:34 Eos # (Auto) 0.2 10^3/uL (0.0-0.8) 12/23/21 04:34 Baso # (Auto) 0.1 10^3/uL (0.0-0.1) 12/23/21 04:34 Nucleated RBC % (auto) 0 % 12/23/21 04:34 Nucleated RBCs # 0.0 /100WBC 12/23/21 04:34 D-Dimer 0.98 ug/mIFEU (0-0.59) H 12/23/21 04:34 Specimen Type Arterial 12/23/21 04:31 Sample Site Radial, right 12/23/21 04:31 ABG pH 7.38 (7.35-7.45) 12/23/21 04:31 ABG pCO2 41.9 mmHg (35-45) 12/23/21 04:31 ABG pO2 58.5 mmHg (80.0-100.0) L 12/23/21 04:31 ABG HCO3 24.6 mmol/L (22-26) 12/23/21 04:31 ABG Base Excess -0.6 mmol/L (-2.0-2.0) 12/23/21 04:31 Khanh Test Pos 12/23/21 04:31 Hematocrit 35.6 % (42-52) L 12/23/21 04:31 Hgb O2 Saturation 87.0 % (95-100) L 12/23/21 04:31 Carboxyhemoglobin 3.9 %THgb (0.4-20.1) 12/23/21 04:31 Methemoglobin 0.9 % (0.4-1.5) 12/23/21 04:31 Total Hemoglobin 11.6 g/dL (14-18) L 12/23/21 04:31 O2 Delivery Device None 12/23/21 04:31 FiO2 21.0 % 12/23/21 04:31 Catering Convention Services Manager ID Bhargavi 12/23/21 04:31 Sodium 138 mmol/L (136-145) 12/23/21 04:34 Potassium 4.8 mmol/L (3.5-5.1) 12/23/21 04:34 Chloride 104 mmol/L (98-107) 12/23/21 04:34 Carbon Dioxide 24 mmol/L (22-29) 12/23/21 04:34 Anion Gap 14.8 (5-19) 12/23/21 04:34 BUN 22 mg/dL (6-20) H 12/23/21 04:34 Creatinine 1.8 mg/dL (0.7-1.2) H 12/23/21 04:34 GFR Calculation 47.1 mL/min (90-130) L 12/23/21 04:34 Glucose 119 mg/dL (65-115) H 12/23/21 04:34 POC Glucose 145 mg/dL (70-110) H 12/23/21 07:28 Calculated Osmolality 290 mOsm/kg (285-295) 12/23/21 04:34 Calcium 8.8 mg/dL (8.5-10.5) 12/23/21 04:34 Total Bilirubin 0.2 mg/dL (0.15-1.2) 12/23/21 04:34 AST 14 U/L (0-40) 12/23/21 04:34 ALT 14 U/L (0-41) 12/23/21 04:34 Alkaline Phosphatase 117 U/L (40-130) 12/23/21 04:34 Troponin T Baseline 67 ng/L (0-15) H 12/23/21 04:34 Troponin T 120 Minute 57.89 ng/L (0-15) H 12/23/21 06:27 Delta Troponin T -9.11 ABS# (0-10) L 12/23/21 06:27 NT-Pro-B Natriuret Pep 1609 pg/mL (0-125) H 12/23/21 04:34 Total Protein 6.9 g/dL (6.6-8.7) 12/23/21 04:34 Albumin 3.6 g/dL (3.5-5.2) 12/23/21 04:34 Globulin 3.3 g/dL (1.3-4.6) 12/23/21 04:34 SARS-CoV-2 Ag (Rapid) negative (Negative) 12/23/21 05:01 Discharge Plan Discharge Patient Disposition: Admitted As Inpatient Clinical Impression: Dyspnea on exertion, Peripheral arterial disease, Stable angina, Diabetes mellitus, Hypertension, COPD (chronic obstructive pulmonary disease) Condition: Stable Prescriptions: No Action hydrocodone-acetaminophen 10-325 mg tablet 1 tab PO Q4H PRN (Reason: Pain) albuterol sulfate 90 mcg/actuation HFA aerosol inhaler 2 puff inhalation Q6H PRN (Reason: Shortness Of Breath) allopurinol 100 mg tablet 100 mg PO DAILY aspirin [Adult Aspirin Regimen] 81 mg tablet,delayed release (DR/EC) 81 mg PO DAILY colchicine 0.6 mg tablet 0.6 mg PO BID docusate sodium 100 mg capsule 100 mg PO BID dulaglutide 1.5 mg/0.5 mL pen injector 1.5 mg SUBCUT Q7D Rx Instructions: On Monday hydrocortisone 2.5 % cream 1 applic topical BID PRN (Reason: Rash) lisinopril 10 mg tablet 10 mg PO BID metoprolol tartrate 100 mg tablet 100 mg PO BID latanoprost 0.005 % drops 2 drp ophthalmic (eye) DAILY doxycycline hyclate 100 mg capsule 100 mg PO BID 10 Days Qty: 20 0RF albuterol sulfate 90 mcg/actuation HFA aerosol inhaler 2 inh inhalation Q6H PRN (Reason: shortness of breath or wheezing) Qty: 8.5 0RF Referrals: Yenny Navarro MD [Primary Care Provider] - Sign Out Sign Out Data: Patient Sign Out occurred on 12/23/21 at 06:02. Patient's care was discussed, and care was transferred from to Boom To DO. Coding Level of Care Code ED Bilingual Teacher Assistant for g Fwd Exam Comprehensive
[2021-12-23 04:43] LABS: ABG PCO2 41.9 mmHg (35-45); ABG PH Result 7.38 (7.35-7.45); Arterial Blood Gas Hematocrit 35.6 % (42-52); Base Excess ABG -0.6 mmol/L (-2.0-2.0); Blood Gas Allen Test Pos; Blood Gas Operator Identificat WALCI; Blood Gas Sample Site Radial, right; Blood Gas Sample Type Arterial; Carboxyhemoglobin 3.9 %THgb (0.4-20.1); HCO3 ABG 24.6 mmol/L (22-26); Methemoglobin 0.9 % (0.4-1.5); PO2 ABG 58.5 mmHg (80.0-100.0); Total Hemoglobin 11.6 g/dL (14-18)
[2021-12-23 04:45] LABS: Basophils # 0.1 10^3/uL (0.0-0.1); Basophils % 0.5 %; Eosinophils # 0.2 10^3/uL (0.0-0.8); Eosinophils % 1.6 %; Hematocrit 38.3 % (42.0-52.0); Hemoglobin 12.4 g/dL (11.7-16.6); Lymphocytes # 4.3 10^3/uL (0.8-4.8); Lymphocytes % 32.3 %; Mean Corpuscular HGB Conc 32.4 g/dL (30.0-36.0); Mean Corpuscular Hemoglobin 30.8 pg (28.0-34.0); Mean Platelet Volume 11.4 fL (7.4-10.4); Monocytes # 0.9 10^3/uL (0.2-0.9); Monocytes % 6.6 %; Neutrophils # 7.85 10^3/uL (1.8-7.7); Neutrophils % 58.7 %; Nucleated Red Blood Cells % 0 %; Platelet Count 214 10^3/cmm (130-400); Red Blood Count 4.03 10^6/uL (4.1-5.3); Red Cell Distribution Width 12.8 % (12.1-15.1); White Blood Count 13.4 10^3/uL (4.0-10.0)
[2021-12-23] MEDS: ipratropium-albuterol 3 mL Neb INHALATION (04:45)
[2021-12-23 05:06] LABS: Troponin(5th) Baseline 67 ng/L (0-15)
[2021-12-23 05:13] LABS: Alanine Aminotransferase 14 U/L (0-41); Albumin Level 3.6 g/dL (3.5-5.2); Alkaline Phosphatase 117 U/L (40-130); Anion Gap 14.8 (5-19); Aspartate Amino Transferase 14 U/L (0-40); Blood Urea Nitrogen 22 mg/dL (6-20); Calcium 8.8 mg/dL (8.5-10.5); Carbon Dioxide 24 mmol/L (22-29); Chloride 104 mmol/L (98-107); Globulin 3.3 g/dL (1.3-4.6); Glomerular Filtration Rate 47.1 mL/min (90-130); Glucose 119 mg/dL (65-115); NT Pro B Type Natriuretic Pept 1609 pg/mL (0-125); Osmolality Calculated 290 mOsm/kg (285-295); Potassium 4.8 mmol/L (3.5-5.1); Sodium 138 mmol/L (136-145); Total Bilirubin 0.2 mg/dL (0.15-1.2); Total Protein 6.9 g/dL (6.6-8.7)
[2021-12-23 05:29] LABS: SARS Covid-2 Antigen negative (Negative)
[2021-12-23 05:42] LABS: D Dimer 0.98 ug/mIFEU (0-0.59)
--- NOTE | 2021-12-23 05:48 | CTR_ITS ---
PROCEDURE INFORMATION: Exam: CTA Chest With Contrast Exam date and time: 12/23/2021 6:10 AM Age: 56 years old Clinical indication: Shortness of breath; Patient HX: HX of colon and gb cancer; Additional info: SOB TECHNIQUE: Imaging protocol: Computed tomographic angiography of the chest with contrast. 3D rendering (Not supervised by radiologist): MIP and/or 3D reconstructed images were created by the technologist. Radiation optimization: All CT scans at this facility use at least one of these dose optimization techniques: automated exposure control; mA and/or kV adjustment per patient size (includes targeted exams where dose is matched to clinical indication); or iterative reconstruction. Contrast material: OMNI 350; Contrast volume: 85 ml; Contrast route: INTRAVENOUS (IV); COMPARISON: CT chest w con* [id number] 12/06/2017 12:13 PM RADIATION DOSE METRICS: Total DLP (mGy-cm): 935.35 FINDINGS: Pulmonary arteries: No CTA evidence of segmental or subsegmental pulmonary embolism. Unremarkable CT appearance of the central pulmonary arteries. Aorta: No thoracic aortic aneurysm. No thoracic aortic dissection. Trachea: The central airway is normal. Lungs: Normal lung volumes. Minimal right middle lobe, inferior lingular and bilateral lower lobe hazy ground-glass opacities are seen, suggestive of hypoaeration and atelectasis. There may also be mild pulmonary vascular congestion. No regions of consolidation. No interlobular septal thickening or honeycombing seen to suggest interstitial lung disease on CT. Pleural spaces: Tiny bilateral pleural effusions, right larger than left. No pneumothorax. Heart: The heart size is within normal limits. The RV/LV ratio is normal (no CT evidence of RV strain). There is no pericardial effusion. Minimal coronary arterial atherosclerotic vascular calcifications. Lymph nodes: Enlarged bilateral hilar, pretracheal, right paratracheal and subcarinal lymph nodes are seen, the largest measuring 1.6 x 1 cm. Bones/joints: No acute osseous abnormalities. Unchanged right 5th lateral rib small sclerotic lesion. Soft tissues: Unremarkable. Unchanged prominent bilateral thyroid glands. CT/CT angio chest PE protcl [id number] IMPRESSION: 1. No CTA evidence of pulmonary embolism, thoracic aortic aneurysm or thoracic aortic dissection. 2. Minimal right middle lobe, inferior lingular and bilateral lower lobe hazy ground-glass opacities, suggestive of hypoaeration and atelectasis. There may also be mild pulmonary vascular congestion. Tiny bilateral pleural effusions, right greater than left. 3. Nonspecific mediastinal lymphadenopathy, as noted above.
[2021-12-23] MEDS: iohexol 350 mg/mL 100 mL Btl IV (05:58)
--- NOTE | 2021-12-23 06:01 | ECG_ITS ---
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 Measurements Intervals [place] Rate: 88 P: 60 MI: 180 QRS: -18 QRSD: 108 T: 125 QT: 354 QTc: 430 Interpretive Statements SINUS RHYTHM INCOMPLETE RIGHT BUNDLE BRANCH BLOCK [90+ ms QRS DURATION, TERMINAL R IN V1/V2, 40+ ms S IN I/aVL/V4/V5/V6] ST DEVIATION AND MODERATE T-WAVE ABNORMALITY, CONSIDER LATERAL ISCHEMIA [-0.1+ mV T-WAVE IN I/aVL/V5/V6] Compared to ECG 05/20/2018 00:23:14 T-wave abnormality now present Possible ischemia now present Electronically Signed On 12-23-2021 11:09:08 CDT by Bakari Fisher M.D. [id number]
[2021-12-23] MEDS: FUROsemide 10 mg/mL SDV 4mL 40 MG IVP (06:27)
[2021-12-23] MEDS: hyDRALAzine 20 mg/mL INJ 1 mL IVP (06:27)
[2021-12-23 07:04] LABS: Troponin 5 2HR 57.89 ng/L (0-15)
[2021-12-23 07:10] LABS: Troponin 5 2HR Delta -9.11 ABS# (0-10)
[2021-12-23 07:32] LABS: Glucose Point of Care 145 mg/dL (70-110)
[2021-12-23] MEDS: sodium chloride 0.9% 1,000 ML 999 ML IV (08:02)
--- NOTE | 2021-12-23 08:13 | ECG_ITS ---
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 Measurements Intervals [place] Rate: 98 P: 65 SD: 175 QRS: -35 QRSD: 103 T: 120 QT: 350 QTc: 449 Interpretive Statements SINUS RHYTHM POSSIBLE LEFT ATRIAL ENLARGEMENT [-0.1mV P-WAVE IN V1/V2] LEFT AXIS DEVIATION [QRS AXIS < -30] INCOMPLETE RIGHT BUNDLE BRANCH BLOCK [90+ ms QRS DURATION, TERMINAL R IN V1/V2, 40+ ms S IN I/aVL/V4/V5/V6] ST DEVIATION AND MODERATE T-WAVE ABNORMALITY, CONSIDER LATERAL ISCHEMIA [-0.1+ mV T-WAVE IN I/aVL/V5/V6] Compared to ECG 12/23/2021 06:01:19 Left-axis deviation now present T-wave abnormality still present Possible ischemia still present Electronically Signed On 12-23-2021 11:08:50 CDT by Bakari Fisher M.D. [id number]
--- NOTE | 2021-12-23 09:29 | P.CONIM_ITS ---
Providers/Reason For Consult Consulting Physician/Specialty*: JESUS Vaughn MD/cardiology Reason for Consult*: Patient with chest pain/new EKG changes/shortness of breath Requesting Physician: Dr. Wang/Dr. Navarro Primary Care Provider: Yenny Navarro MD History of Present Illness History of Present Illness Alek Hopper is a 56 year old male with history of hypertension, d yslipidemia, type 2 diabetes, chronic kidney disease, likely artery disease and peripheral artery disease, was brought to the emergency room this morning with complaints acute worsening of shortness of breath. His initial cardiac work-up was negative. He was getting ready to be discharged. As he was walking towards the bathroom, he started having chest pain. The pain was in the mid substernal region radiating across the chest. It was moderate in intensity. Either lasted for 3 or 4 minutes and then subsided spontaneously. His EKG showed some new T wave changes in the inferolateral leads. For this reason, it was decided to admit him to the hospital for further evaluation management. He had 2 more episodes of chest pains in the emergency room with ambulation. He had 1 more episode of pain after being admitted to the telemetry floor. He has no other associated symptoms or radiation of pain. He has no previous history for coronary artery disease, myocardial infarction or congestive heart failure. He is known to have peripheral artery disease and had aortofemoral bypass surgery in 2011. In 2014, he presented with a leg pain. Repeat peripheral angiogram revealed total occlusion of the bypass graft. He had a reconstitution of the superficial femoral artery through collaterals. He had a mild to moderate disease on the right side. He never had a cardiac catheterization. 3 days ago, he was seen in the emergency room with a worsening of shortness of breath. His symptoms are suggesting COPD exacerbation. He was treated with the steroids, bronchodilators and antibiotics. Since the cough improved symptomatically, was discharged from the emergency room. Apparently he had some improvement of the shortness of breath since then up until early this morning. He has no previous history for heart failure. His CT of the chest showed some features of pulmonary venous congestion. His BNP was found to be elevated. The patient has a strong family history for premature atherosclerotic heart disease. He has 5 brothers and 6 sisters. 3 of the brothers had coronary day ry disease starting in their 40s. 2 sisters also are known to have coronary disease starting in their 40s. Both parents had atherosclerotic heart disease in their 60s and 70s and of the same. He smoked 1 1/2 pack a day for 40 years ([id number] history of smoking )or so and now cut back to half a pack a day for the last 6 months. No alcohol use or any other substance abuse. Review of Systems Narrative: CONSTITUTIONAL: No fever or chills. EYES: No blurring of vision or other visual disturbances lately. ENT: No hoarseness of voice, auditory disturbances or sore throat. CARDIOVASCULAR: As mentioned above. RESPIRATORY: As mentioned above GASTROINTESTINAL: No hematemesis or melena. History of stage IIa colon cancer. Also a cardiac catheterization of the gallbladder? GENITOURINARY: History of chronic kidney disease INTEGUMENTARY: No skin rashes or history of skin cancer. NEURO: No transient ischemic attacks or amaurosis. PSYCHIATRIC: No history of psychosis or major depression. HEMATOLOGIC: No bleeding disorders or significant anemia. ENDOCRINE: History of type 2 diabetes MUSCULOSKELETAL: No recent joint pain or swelling. ALLERGY/IMMUNOLOGY: As mentioned above. Medications/Allergies Home Medications Medication Instructions Recorded Confirmed Last Taken Type albuterol sulfate 90 mcg/actuation 2 puff inhalation Q6H PRN 03/10/20 12/23/21 Unknown History aerosol inhaler Shortness Of Breath allopurinol 100 mg tablet 100 mg PO DAILY 03/10/20 12/23/21 Unknown History aspirin 81 mg tablet,delayed 81 mg PO DAILY 03/10/20 12/23/21 12/22/21 History release (Adult Aspirin Regimen) colchicine 0.6 mg tablet 0.6 mg PO BID 03/10/20 12/23/21 12/22/21 History docusate sodium 100 mg capsule 100 mg PO BID 03/10/20 12/23/21 12/22/21 History dulaglutide 1.5 mg/0.5 mL 1.5 mg SUBCUT Q7D 03/10/20 12/23/21 12/19/21 History subcutaneous pen injector hydrocodone 10 mg-acetaminophen 1 tab PO Q4H PRN Pain 03/10/20 12/23/21 Unknown History 325 mg tablet hydrocortisone 2.5 % topical cream 1 applic topical BID PRN Rash 03/10/20 12/23/21 Unknown History lisinopril 10 mg tablet 10 mg PO BID 03/10/20 12/23/21 12/22/21 History metoprolol tartrate 100 mg tablet 100 mg PO BID 03/10/20 12/23/21 12/22/21 History albuterol sulfate 90 mcg/actuation 2 inh inhalation Q6H PRN shortness 12/21/21 12/23/21 Unknown Rx aerosol inhaler of breath or wheezing #8.5 grams doxycycline hyclate 100 mg capsule 100 mg PO BID 10 days #20 caps 12/21/21 12/23/21 12/22/21 Rx latanoprost 0.005 % eye drops 2 drp ophthalmic (eye) DAILY 12/23/21 12/23/21 12/22/21 History Allergies Allergy/AdvReac Type Severity Reaction Status Date / Time No Known Allergies Allergy Verified 12/23/21 04:28 PFSH Acute PFSH: Medical History Cancer Colon cancer Diabetes mellitus Gallbladder cancer Glaucoma Gout Hypertension Peripheral vascular disease History of peripheral stenting Surgical History History of cholecystectomy History of partial colectomy Family History Other CAD (coronary artery disease) Diabetes Social History Smoking and tobacco status: current every day smoker Quit status (tobacco): has tried quititng Second hand smoke exposure: Yes Alcohol intake: never Adopted: No Caregiver/support person: No Lives independently: Yes Household members: spouse Housing: Apartment Marital status: Number of children: 4 Number of grandchildren: 1 Highest education level completed: 12th Grade, No Diploma service: No Current occupational status: disabled Current occupational exposures/hazards: No Pets and animals: No History of recent travel: No Leisure activites: exercise and clubs Sexually active: No Current gender identity: Male Shelly/Lutheran: Restorationist Special shelly needs: No Agree to transfusion: Yes Financial difficulty paying for basics: Somewhat Hard Vitals/I&O/Wt Last Vital Signs Temp 97.6 F 12/23/21 04:25 Pulse 94 12/23/21 08:42 Resp 17 12/23/21 07:37 BP 189/94 12/23/21 08:42 Pulse Ox 95 12/23/21 08:42 O2 Del Method 12/23/21 08:42 Weight last 48 hrs Weight 220 lb Physical Exam Narrative: GENERAL: The patient is alert and oriented times three. Not in any acute distress. HEENT: No significant pallor, icterus or lymphadenopathy.Oral cavity: There are no mucous membrane lesions. NECK: Trachea appears to be central. No masses noted. No JVD or thyromegaly appreciated. RESPIRATORY: Chest is symmetrical. No intercostals muscle retraction or any accessory muscle activation. There is no chest wall tenderness. Breath sounds are heard bilaterally. No rales or rhonchi heard. No evidence of any c onsolidation. BREASTS: Deferred. HEART: The heart sounds are normal. No S3 or S4. No significant murmurs. No pericardial rub ABDOMEN: No vessel pulsations or distention. No tenderness. No organomegaly appreciated. Bowel sounds are normally heard. : Deferred. RECTAL: Deferred. LYMPHATIC: No lymphadenopathy noted in the neck. EXTREMITIES: No edema or cyanosis. The dorsalis pedis and posterior pulses are weak bilaterally more so on the left side. MUSCULOSKELETAL: No acute joint deformities or swelling SKIN: There are no significant rashes or ecchymosis NEUROPSYCHIATRIC: The patient is alert and oriented x3. Appears to be in a good mood. No tremors or rigidity noted. Data : 12/23/21 04:34 12/23/21 04:34 Other Labs: Laboratory Last Values WBC 13.4 10^3/uL (4.0-10.0) H 12/23/21 04:34 RBC 4.03 10^6/uL (4.1-5.3) L 12/23/21 04:34 Hgb 12.4 g/dL (11.7-16.6) 12/23/21 04:34 Hct 38.3 % (42.0-52.0) L 12/23/21 04:34 MCV 95.0 fl (80-94) H 12/23/21 04:34 MCH 30.8 pg (28.0-34.0) 12/23/21 04:34 MCHC 32.4 g/dL (30.0-36.0) 12/23/21 04:34 RDW 12.8 % (12.1-15.1) 12/23/21 04:34 Plt Count 214 10^3/cmm (130-400) 12/23/21 04:34 MPV 11.4 fL (7.4-10.4) H 12/23/21 04:34 Neut % (Auto) 58.7 % 12/23/21 04:34 Lymph % (Auto) 32.3 % 12/23/21 04:34 Valencia % (Auto) 6.6 % 12/23/21 04:34 Eos % (Auto) 1.6 % 12/23/21 04:34 Baso % (Auto) 0.5 % 12/23/21 04:34 Neut # (Auto) 7.85 10^3/uL (1.8-7.7) H 12/23/21 04:34 Lymph # (Auto) 4.3 10^3/uL (0.8-4.8) 12/23/21 04:34 Valencia # (Auto) 0.9 10^3/uL (0.2-0.9) 12/23/21 04:34 Eos # (Auto) 0.2 10^3/uL (0.0-0.8) 12/23/21 04:34 Baso # (Auto) 0.1 10^3/uL (0.0-0.1) 12/23/21 04:34 Nucleated RBC % (auto) 0 % 12/23/21 04:34 Nucleated RBCs # 0.0 /100WBC 12/23/21 04:34 D-Dimer 0.98 ug/mIFEU (0-0.59) H 12/23/21 04:34 Specimen Type Arterial 12/23/21 04:31 Sample Site Radial, right 12/23/21 04:31 ABG pH 7.38 (7.35-7.45) 12/23/21 04:31 ABG pCO2 41.9 mmHg (35-45) 12/23/21 04:31 ABG pO2 58.5 mmHg (80.0-100.0) L 12/23/21 04:31 ABG HCO3 24.6 mmol/L (22-26) 12/23/21 04:31 ABG Base Excess -0.6 mmol/L (-2.0-2.0) 12/23/21 04:31 Khanh Test Pos 12/23/21 04:31 Hematocrit 35.6 % (42-52) L 12/23/21 04:31 Hgb O2 Saturation 87.0 % (95-100) L 12/23/21 04:31 Carboxyhemoglobin 3.9 %THgb (0.4-20.1) 12/23/21 04:31 Methemoglobin 0.9 % (0.4-1.5) 12/23/21 04:31 Total Hemoglobin 11.6 g/dL (14-18) L 12/23/21 04:31 O2 Delivery Device None 12/23/21 04:31 FiO2 21.0 % 12/23/21 04:31 Cutch Cleaner ID [place] 12/23/21 04:31 Sodium 138 mmol/L (136-145) 12/23/21 04:34 Potassium 4.8 mmol/L (3.5-5.1) 12/23/21 04:34 Chloride 104 mmol/L (98-107) 12/23/21 04:34 Carbon Dioxide 24 mmol/L (22-29) 12/23/21 04:34 Anion Gap 14.8 (5-19) 12/23/21 04:34 BUN 22 mg/dL (6-20) H 12/23/21 04:34 Creatinine 1.8 mg/dL (0.7-1.2) H 12/23/21 04:34 GFR Calculation 47.1 mL/min (90-130) L 12/23/21 04:34 Glucose 119 mg/dL (65-115) H 12/23/21 04:34 POC Glucose 145 mg/dL (70-110) H 12/23/21 07:28 Calculated Osmolality 290 mOsm/kg (285-295) 12/23/21 04:34 Calcium 8.8 mg/dL (8.5-10.5) 12/23/21 04:34 Total Bilirubin 0.2 mg/dL (0.15-1.2) 12/23/21 04:34 AST 14 U/L (0-40) 12/23/21 04:34 ALT 14 U/L (0-41) 12/23/21 04:34 Alkaline Phosphatase 117 U/L (40-130) 12/23/21 04:34 Troponin T Baseline 67 ng/L (0-15) H 12/23/21 04:34 Troponin T 120 Minute 57.89 ng/L (0-15) H 12/23/21 06:27 Delta Troponin T -9.11 ABS# (0-10) L 12/23/21 06:27 NT-Pro-B Natriuret Pep 1609 pg/mL (0-125) H 12/23/21 04:34 Total Protein 6.9 g/dL (6.6-8.7) 12/23/21 04:34 Albumin 3.6 g/dL (3.5-5.2) 12/23/21 04:34 Globulin 3.3 g/dL (1.3-4.6) 12/23/21 04:34 SARS-CoV-2 Ag (Rapid) negative (Negative) 12/23/21 05:01 EKG 1: My Interpretation: Rhythm with a rate of 98 bpm. Possible left atrial enlargement. Minimal left axis deviation. Incomplete right bundle branch block. Nonspecific T wave changes in the high lateral leads, V5 V6, 1 and aVL EKG computer-generated impression: Chest X-Ray 12/23/21 04:22 IMPRESSION: Increased minimal perihilar interstitial prominence, suggestive of pulmonary vascular congestion. Minimal right basilar atelectasis. Chest CTA 12/23/21 05:48 IMPRESSION: 1. No CTA evidence of pulmonary embolism, thoracic aortic aneurysm or thoracic aortic dissection. 2. Minimal right middle lobe, inferior lingular and bilateral lower lobe hazy ground-glass opacities, suggestive of hypoaeration and atelectasis. There may also be mild pulmonary vascular congestion. Tiny bilateral pleural effusions, right greater than left. 3. Nonspecific mediastinal lymphadenopathy, as noted above. Patient had peripheral angiogram in 2014 The procedure was done from the right common femoral artery. A right ?femoral venous sheath was also placed into lack of IV access peripherally. ?Lower abdominal angiography with bilateral iliac angiography and runoff on ?the left were performed. The renal arteries and the lower abdominal aorta ?are essentially normal. The bypass graft is occluded at the origin. The ?left commo n iliac artery, external and internal iliac arteries, and the ?femoral vessels are occluded on the left. One can see the profunda ?femoris, superficial femoral and popliteal on the left as they ?reconstitute from collateral flow. On the right, the iliac vessels are ?mildly to moderately diffusely diseased. The femoral vessels are patent. ? ?Collaterals are formed from the right common iliac and right internal ?iliac arteries which extend to the ostial profunda and superficial femoral ?arteries on the left. A&P Assessment and plan (1) Chest pain: Patient's chest pain may suggest underlying coronary ischemia. Seems to have some unstable pattern to the chest pain. The EKG changes are nonspecific. At this point, in view of his multiple risk factors, it would be appropriate to go ahead and treat as unstable angina. For further evaluation of the symptoms, echocardiogram would be helpful. He may be treated with heparin, beta-chele, nitrates and aspirin. Further is no evidence of any myocardial injury (2) Hypertension: The blood pressure is of stage II. Need to optimize antihypertensive medication. (3) Acute diastolic heart failure: Patient has elevated BNP. CT scan evidence of pulmonary venous congestion. Most likely this is related to the ischemia. He will be carefully treated with IV diuretics (4) Diabetes mellitus: Aggressive management of the diabetes would be appropriate. (5) COPD (chronic obstructive pulmonary disease): May continue on the current medication. (6) Tobacco dependency: Strongly advised to quit smoking. (7) Peripheral arterial disease: Currently the patient has no specific symptoms of peripheral artery in sufficiency. May continue on the current treatment measures. Plan After reviewing the echocardiogram a decision as to whether to go ahead with a stress test or angiogram will be decided. Based on the results of the above tests and the patient's clinical progress, further recommendations will be made. Thank you for the opportunity to evaluate this patient make these recommendations Consult Attestations Medical Necessity Statement: Patient requires continued hospital stay for close monitoring and further management Coding Level of Care Code Acute [facility] Pickler for Chg Fwd History Expanded Problem Focused Exam Expanded Problem Focused Medical Decision Making High Complexity Diagnoses Chest pain R07.9 Hypertension I10 Acute diastolic heart failure I50.31 Diabetes mellitus E11.9 COPD (chronic obstructive pulmonary disease) J44.9 Tobacco dependency F17.200 Peripheral arterial disease I73.9
[2021-12-23] MEDS: clopidogrel 300 mg Tablet PO (09:36)
[2021-12-23] MEDS: nitroglycerin 1 gm/inch oint Pkt 1 INCH TOPICAL ×3 (09:36→18:50)
[2021-12-23] MEDS: enoxaparin 100 mg/mL Syringe SUBCUT ×2 (09:36→21:40)
[2021-12-23] MEDS: aspirin 81 mg Chew Tablet 324 MG PO (09:36)
[2021-12-23 11:13] LABS: Troponin 5 6HR 52.02 ng/L (0-15)
--- NOTE | 2021-12-23 11:17 | PM.HP ---
Providers/Chief Complaint Admitting Physician: Mikhail Navarro MD Primary Care Provider: Yenny Navarro MD Chief Complaint: SOB History of Present Illness Alek Hopper is a 56 year old male with complaints of cough and shortness of breath over the last 2 days. He was recently in the emergency department, on December 21 and diagnosed with acute bronchitis and given an inhaler and some doxycycline. While in the emergency department, this visit he had chest discomfort upon walking to the bathroom that went away with rest. He reported this was in his lower chest, and seem to be a pinching type discomfort. He reports he has been coughing up a little bit of clear sputum for the last week. Occasional nausea. No vomiting or diarrhea. No blood in stool. He reports for the last 2 weeks he has felt bloated upon laying down at night, and got short of breath where he had to sit up some. He reports he does not really have a lot of lower extremity edema, which she has had in the past, because he wears KENN hose. No fever at home. Some chills. Denies any ill exposures. Had a rapid COVID in the emergency department that was negative. Denies any prior history of heart disease or heart failure, but does have history of peripheral vascular disease. Also mentions he occasionally has difficulty starting his stream and urinating. In the emergency department he received Lovenox, Plavix, aspirin, hydralazine, a breathing treatment, Solu-Medrol, Nitropaste, and some IV fluids. He also received some Lasix IV. Review of Systems General: Reports: 10 or more systems reviewed and unremarkable except in HPI and below Const: Reports: chills and fatigue; Denies: fever(s) Eyes: Denies: change in vision ENMT: Denies: throat pain Card: Reports: chest pain and orthopnea Resp: Reports: dyspnea and productive cough GI: Reports: nausea; Denies: abdominal pain, vomiting, hematochezia or melena : Reports: difficulty urinating; Denies: flank pain Musc: Denies: neck pain Skin/Breast: Denies: rash Neuro: Denies: headache(s) Psych: Reports: sleeping more; Denies: anxiety or depression Endo: Denies: polyuria Robin/Lymph: Denies: easy bruising All/Imm: Denies: urticaria Medications/Allergies Home Medications Medication Instructions Recorded Confirmed Last Taken Type albuterol sulfate 90 mcg/actuation 2 puff inhalation Q6H PRN 03/10/20 12/23/21 Unknown History aerosol inhaler Shortness Of Breath allopurinol 100 mg tablet 100 mg PO DAILY 03/10/20 12/23/21 Unknown History aspirin 81 mg tablet,delayed 81 mg PO DAILY 03/10/20 12/23/21 12/22/21 History release (Adult Aspirin Regimen) colchicine 0.6 mg tablet 0.6 mg PO BID 03/10/20 12/23/21 12/22/21 History docusate sodium 100 mg capsule 100 mg PO BID 03/10/20 12/23/21 12/22/21 History dulaglutide 1.5 mg/0.5 mL 1.5 mg SUBCUT Q7D 03/10/20 12/23/21 12/19/21 History subcutaneous pen injector hydrocodone 10 mg-acetaminophen 1 tab PO Q4H PRN Pain 03/10/20 12/23/21 Unknown History 325 mg tablet hydrocortisone 2.5 % topical cream 1 applic topical BID PRN Rash 03/10/20 12/23/21 Unknown History lisinopril 10 mg tablet 10 mg PO BID 03/10/20 12/23/21 12/22/21 History metoprolol tartrate 100 mg tablet 100 mg PO BID 03/10/20 12/23/21 12/22/21 History albuterol sulfate 90 mcg/actuation 2 inh inhalation Q6H PRN shortness 12/21/21 12/23/21 Unknown Rx aerosol inhaler of breath or wheezing #8.5 grams doxycycline hyclate 100 mg capsule 100 mg PO BID 10 days #20 caps 12/21/21 12/23/21 12/22/21 Rx latanoprost 0.005 % eye drops 2 drp ophthalmic (eye) DAILY 12/23/21 12/23/21 12/22/21 History Allergies Allergy/AdvReac Type Severity Reaction Status Date / Time No Known Allergies Allergy Verified 12/23/21 04:28 PFSH Acute PFSH: Medical History (Updated 12/23/21 @ 11:36 by Mikhail Navarro MD) Cancer Colon cancer Diabetes mellitus Gallbladder cancer Glaucoma Gout Hypertension Peripheral vascular disease History of peripheral stenting Surgical History (Updated 12/23/21 @ 11:23 by Mikhail Navarro MD) History of cholecystectomy History of partial colectomy Family History Other CAD (coronary artery disease) Diabetes Social History Smoking and tobacco status: current every day smoker Quit status (tobacco): has tried quititng Second hand smoke exposure: Yes Alcohol intake: never Adopted: No Caregiver/support person: No Lives independently: Yes Household members: spouse Housing: Apartment Marital status: Number of children: 4 Number of grandchildren: 1 Highest education level completed: 12th Grade, No Diploma service: No Current occupational status: disabled Current occupational exposures/hazards: No Pets and animals: No History of recent travel: No Leisure activites: exercise and clubs Sexually active: No Current gender identity: Male Shelly/Islam: Catholic Special shelly needs: No Agree to transfusion: Yes Financial difficulty paying for basics: Somewhat Hard Vitals/I&O/Wt Last Vital Signs Temp 97.6 F 12/23/21 04:25 Pulse 98 12/23/21 09:43 Resp 17 12/23/21 07:37 BP 153/68 12/23/21 09:43 Pulse Ox 98 12/23/21 09:43 O2 Del Method 12/23/21 10:51 12/22/21 12/23/21 12/23/21 22:59 06:59 14:59 Intake Total 1000 / 1000 Balance 1000 / 1000 Weight last 48 hrs Weight 99.79 kg Physical Exam Narrative: General exam no distress HEENT: Pupils equally round. Oropharynx clear. Neck supple no lymphadenopathy thyromegaly Cardiovascular regular rate and rhythm, heart sounds distant Lungs crackles right lung base. Left is clear Abdomen is soft nontender positive bowel sounds. No obvious organomegaly exams deferred Extremities no cyanosis clubbing or edema. Note that he had KENN hose on just prior to the exam. Skin no rash Neuro no focal deficits. Data : 12/23/21 04:34 12/23/21 04:34 Other Labs: Dimer 0.98 ABG demonstrates pH 7.38, PCO2 42, PO2 of 58 on room air LFTs are normal Troponin elevated 67, repeat 58 and 6-hour at 52 BNP elevated at 1609 Calcium is normal Chest x-ray today demonstrates interstitial prominence, question pulmonary vascular congestion and minimal right basilar atelectasis. CTA demonstrated no evidence of pulmonary embolism. Some groundglass opacities right middle lobe and teeny bilateral pleural effusions. EKG demonstrates likely left atrial enlargement, incomplete right bundle, flipped T waves noted aVL, 1, V5 and V6. No ST elevation. A&P Assessment and plan (1) Congestive heart failure, acute: Symptoms currently are most consistent with acute congestive heart failure. I think this is likely to be acute diastolic heart failure although echocardiogram will be useful. Cannot rule out underlying coronary disease, with unstable angina. He has received fluids, Lasix IV, radiological dye. Considering he appears clinically stable currently we will hold off on further fluids or Lasix. Hold his MACARIO inhibitor, and recheck renal function tomorrow as long as he remains clinically stable. I do not want to worsen his renal function overnight with continued diuresis considering his clinical comorbidities. Check TSH, blood in lab (2) Elevated troponin: Elevated troponin on admission. This may be secondary to strain versus non-ST elevation myocardial infarction. Is received Plavix, aspirin, full dose anticoagulation, nitroglycerin ointment. He is already on beta-chele. Continue nitroglycerin ointment, Lovenox, aspirin Cardiology consultation Reassess for Plavix need tomorrow Telemetry (3) Diabetes mellitus: Sliding scale insulin Consistent carb diet (4) Hypertension: Continue home medicines with the exception of MACARIO inhibitor (5) Tobacco dependency: Encourage abstinence (6) Acute kidney injury: Patient presents with evidence of acute kidney injury. Check bladder scan Hold MACARIO inhibitor, NSAIDs. Recheck function tomorrow Will not give any significant further fluids secondary to CHF Plan Symptoms suggesting BPH. Initiate Flomax. Check bladder scan. If renal function does not improve consider ultrasound. Check COVID PCR secondary to groundglass noted on CT, history of chills. Rapid was negative. Full code Lovenox will suffice for DVT prophylaxis Attestations Medical Necessity Statement*: Will need greater than 2 midnight stay for evaluation and treatment of elevated troponin, acute CHF, acute kidney injury Coding Level of Care Code Acute Nursing Home Admissions Director for [facility] Fwd Diagnoses Congestive heart failure, acute I50.9 Elevated troponin R77.8 Diabetes mellitus E11.9 Hypertension I10 Tobacco dependency F17.200 Acute kidney injury N17.9
--- NOTE | 2021-12-23 11:23 | USCV_ITS ---
Alek Hopper Age: 56 Gender: M : 1965 Exam Date: 12/23/2021 12:40 Ordering Phys: Mikhail Navarro MD Technologist: Yann Rodriguez [place] [facility] [place] chf BP: 134 / 78 HR: 87 Rhythm: Sinus Technical Quality: Adequate MEASUREMENTS (Male / Female) Normal Values 2D ECHO LV Diastolic Diameter PLAX 3.9 cm 4.2 - 5.9 / 3.9 - 5.3 cm LV Systolic Diameter PLAX 2.5 cm IVS Diastolic Thickness 1.1 cm 0.6 - 1.0 / 0.6 - 0.9 cm IVS Systolic Thickness 1.5 cm LVPW Diastolic Thickness 1.3 cm 0.6 - 1.0 / 0.6 - 0.9 cm LVPW Systolic Thickness 1.8 cm LVOT Diameter 2.0 cm LV Ejection Fraction 2D Teich 67.7 % LV Ejection Fraction MOD 2C 70.4 % LV Ejection Fraction 2C AL 69.5 % LA Diameter 4.1 cm IVC Diameter 1.7 cm M-MODE Aortic Annulus Diameter 3.7 cm LA Ao Ratio MM 1.3 MV E Point Septal Separation 0.9 cm DOPPLER AV Peak Velocity 114.0 cm/s LVOT Peak Velocity 89.0 cm/s AV Area Cont Eq vti 3.3 cm squared AV Area Cont Eq pk 2.5 cm squared MV Area PHT 5.0 cm squared Mitral E to A Ratio 0.7 MV E' Velocity 34.0 cm/s Mitral E to MV E' Ratio 8.0 Mitral E to LV E' Lateral Ratio 6.8 Mitral E to LV E' Septal Ratio 9.7 TR Peak Velocity 160.7 cm/s TR Peak Gradient 10.3 mmHg TV Peak E Velocity 172.0 cm/s Right Atrial Pressure 3.0 mmHg Pulmonary Artery Systolic Pressu 13.3 mmHg FINDINGS Left Ventricle Normal left ventricular size and systolic function, EF 69 %. No regional wall motion abnormalities. Moderate left ventricular hypertrophy. Grade I/IV diastolic dysfunction (abnormal relaxation filling pattern), normal to mildly elevated filling pressures. Right Ventricle The right ventricle is normal in size and function. Right Atrium The right atrium is normal in size. Left Atrium The left atrium is normal in size. Mitral Valve Thickened mitral valve. Trace mitral valve regurgitation. Mild mitral annular calcification. Aortic Valve Thickened aortic valve. Tricuspid Valve Trace tricuspid valve regurgitation. Estimated PA pressure within normal limits Pulmonic Valve No gross abnormalities noted Pericardium Normal pericardium without effusion. Aorta Normal ascending aorta dimension. IVC Normal inferior vena cava. CONCLUSIONS Normal left ventricular size and systolic function, EF 69 %. No regional wall motion abnormalities. Moderate left ventricular hypertrophy. Grade I/IV diastolic dysfunction (abnormal relaxation filling pattern), normal to mildly elevated filling pressures. Thickened mitral valve. Trace mitral valve regurgitation. Mild mitral annular calcification. Trace tricuspid valve regurgitation. Estimated PA pressure within normal limits. Thickened aortic valve. There is no pericardial effusion. There are no intracardiac masses. No similar previous studies are available for comparison Dr Akiko Vaughn MD [facility] (Electronically Signed) Final Date: 23 December 2021 18:14 S
[2021-12-23] MEDS: tamsulosin 0.4 mg Capsule PO (13:00)
[2021-12-23] MEDS: insulin lispro 100 unit/1 mL SUBCUT ×2 (13:06→21:40)
[2021-12-23 13:15] LABS: Glucose Point of Care 164 mg/dL (70-110)
[2021-12-23 17:29] LABS: Glucose Point of Care 135 mg/dL (70-110)
--- NOTE | 2021-12-23 18:26 | ECG_ITS ---
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 Interpretive Statements NAME OF STUDY: LEXISCAN SESTAMIBI STRESS TEST INDICATION: Chest Pain, PROCEDURE: At the baseline, the EKG revealed normal sinus rhythm with some nonspecific T wave changes in the high lateral leads. Possible old high lateral wall OH. The baseline heart was 78 bpm with a blood pressue of 166/95 mm of Hg Lexiscan was infused over a period of 20 seconds. A total of 0.4 milligrams of Lexiscan was infused. The stress phase was continued for a total of 5 minutes. Heart rate at the end of the stress phase was 89 bpm with a blood pressure 175/87 mm of Hg. The EKG at the peak infusion revealed no significant changes. Sestamibi was injected 20 seconds after the Lexiscan infusion. Heart rate at the end of the recovery phase was 89 bpm with a blood pressure of 171/86 mm of Hg. CONCLUSION: 1. No significant EKG changes with the LexiScan infusion 2. No LexiScan induced chest pain or cardiac arrhythmia 3. Normal blood pressure and heart rate response 4. Sestamibi/sestamibi perfusion scan pending; see separate report. Electronically Signed On 12-24-2021 12:42:06 CDT by Akiko Vaughn M.D. [id number]
[2021-12-23] MEDS: colchicine 0.6 mg Tablet PO (18:50)
[2021-12-23] MEDS: metoprolol tartrate 50 mg Tablet 100 MG PO (18:50)
[2021-12-23] MEDS: docusate sodium 100 mg Capsule PO (18:50)
[2021-12-23 21:10] LABS: Adenovirus Not Detected (NOT DETECT); Chlamydia Pneumoniae Not Detected (NOT DETECT); Coronavirus 229E,HKU1,NL63,OC4 Not Detected (NOT DETECT); Human Metapneumovirus Not Detected (NOT DETECT); Human Rhinovirus/Enterovirus Not Detected (NOT DETECT); Influenza A Not Detected (NOT DETECT); Influenza A H1 Not Detected (NOT DETECT); Influenza A H1-2009 Not Detected (NOT DETECT); Influenza A H3 Not Detected (NOT DETECT); Influenza B Not Detected (NOT DETECT); Mycoplasma Pneumoniae Not Detected (NOT DETECT); Parainfluenza Virus Type 1 Not Detected (NOT DETECT); Parainfluenza Virus Type 2 Not Detected (NOT DETECT); Parainfluenza Virus Type 3 Not Detected (NOT DETECT); Parainfluenza Virus Type 4 Not Detected (NOT DETECT); Respiratory Syncytial Virus A Not Detected (NOT DETECT); Respiratory Syncytial Virus B Not Detected (NOT DETECT); SARS-COV-2 Not Detected (NOT DETECT)
[2021-12-23 21:52] LABS: Glucose Point of Care 226 mg/dL (70-110)
[2021-12-24] VITALS (15 sets, daily range): BP systolic 150–171; BP diastolic 77–94; PULSE 72–88; RESP 12–21; TEMP 36.8–37.1; O2SAT 96–97
[2021-12-24] MEDS: nitroglycerin 1 gm/inch oint Pkt 1 INCH TOPICAL ×3 (00:16→12:20)
[2021-12-24 01:35] LABS: Bilirubin Urine Neg (Negative); Blood Urine 2+ (Negative); Glucose Urine UA Norm (Normal); Ketones Urine 1+ (Negative); Leukocyte Esterase Urine Negative (Negative); Nitrate Urine Negative (Negative); Protein Urine 1+ (Negative); Urine Appearance Clear (CLEAR); Urine Color Light Yellow (Yellow); Urobilinogen Urine Norm (Negative); pH Urine 5 (5-7)
[2021-12-24 01:36] LABS: Add Urine Culture? No; Amorphous Sediment Urine 1+ /hpf
[2021-12-24 05:12] LABS: Basophils % 0.1 %; Eosinophils % 0.1 %; Hematocrit 30.7 % (42.0-52.0); Hemoglobin 9.9 g/dL (11.7-16.6); Lymphocytes # 3.4 10^3/uL (0.8-4.8); Lymphocytes % 24.7 %; Mean Corpuscular HGB Conc 32.2 g/dL (30.0-36.0); Mean Corpuscular Hemoglobin 30.3 pg (28.0-34.0); Mean Corpuscular Volume 93.9 fl (80-94); Mean Platelet Volume 11.6 fL (7.4-10.4); Monocytes # 1.3 10^3/uL (0.2-0.9); Monocytes % 9.7 %; Neutrophils # 8.77 10^3/uL (1.8-7.7); Neutrophils % 64.8 %; Nucleated Red Blood Cells % 0 %; Platelet Count 176 10^3/cmm (130-400); Red Blood Count 3.27 10^6/uL (4.1-5.3); Red Cell Distribution Width 12.9 % (12.1-15.1); White Blood Count 13.6 10^3/uL (4.0-10.0)
[2021-12-24 05:55] LABS: Anion Gap 12.5 (5-19); Blood Urea Nitrogen 35 mg/dL (6-20); Calcium 8.2 mg/dL (8.5-10.5); Carbon Dioxide 23 mmol/L (22-29); Chloride 108 mmol/L (98-107); Glomerular Filtration Rate 41.7 mL/min (90-130); Glucose 108 mg/dL (65-115); Osmolality Calculated 297 mOsm/kg (285-295); Potassium 4.5 mmol/L (3.5-5.1); Sodium 139 mmol/L (136-145)
[2021-12-24 06:49] LABS: Glucose Point of Care 107 mg/dL (70-110)
--- NOTE | 2021-12-24 07:23 | PC.NURSE ---
Nurse called and updated the patients , Kait on patients condition and planned Stress test time.
--- NOTE | 2021-12-24 07:36 | US_ITS ---
WS: [id number] RENAL ULTRASOUND HISTORY: renal failure COMPARISON: 04/10/2015 TECHNIQUE: 2-D and color Doppler imaging of the kidney submitted. Right kidney: 12.4 cm x 7.6 cm x 7.8 cm. Normal size kidney. No hydronephrosis. New cortical cysts are identified that were not present on the prior study. The largest in the mid kidney measures 4.2 x 4.3 x 3.6 cm. Smaller cyst in the upper po le measures 3.0 x 2.6 x 2.1 cm. No solid mass. Left kidney: 12.5 cm x 4.2 cm x 4.5 cm. Normal echogenicity with no hydronephrosis or mass. Aorta: Normal. Urinary Bladder: Normal distention. US/US renal BI* [id number] IMPRESSION: 1. No hydronephrosis. 2. Simple cyst RIGHT kidney. The largest measures 4.2 x 4.3 x 3.6 cm.
[2021-12-24] MEDS: regadenoson 0.4 Mg/5 ml Syringe IVP (07:42)
[2021-12-24 08:03] LABS: Procalcitonin 0.14 ng/mL (0-0.5)
[2021-12-24] MEDS: docusate sodium 100 mg Capsule PO ×2 (10:07→17:21)
[2021-12-24] MEDS: enoxaparin 100 mg/mL Syringe SUBCUT (10:07)
[2021-12-24] MEDS: allopurinol 100 mg Tablet PO (10:07)
[2021-12-24] MEDS: tamsulosin 0.4 mg Capsule PO (10:08)
[2021-12-24] MEDS: metoprolol tartrate 50 mg Tablet 100 MG PO ×2 (10:08→17:21)
[2021-12-24] MEDS: aspirin 81 mg EC Tablet PO (10:08)
--- NOTE | 2021-12-24 11:07 | PM.PN ---
Subjective Subjective: Alek reports he is no feels okay. He is not too short of breath. He reports no significant swelling. He is wheezing a little bit. Medications: Reviewed: Yes Vitals/I&O/Wt Last Vital Signs Temp 98.3 F 12/24/21 04:00 Pulse 88 12/24/21 07:56 Resp 14 12/24/21 04:00 BP 171/86 12/24/21 07:56 Pulse Ox 96 12/24/21 04:00 O2 Del Method 12/24/21 04:00 12/23/21 12/24/21 12/24/21 22:59 06:59 14:59 Intake Total 720 / 1720 360 / 2080 120 / 120 Output Total 225 / 225 Balance 720 / 1720 135 / 1855 120 / 120 Weight last 48 hrs Weight 99.79 kg Physical Exam Narrative: General exam no distress Neck supple no lymphadenopathy thyromegaly Cardiovascular regular rate and rhythm, heart sounds distant Lungs faint expiratory wheezing is heard today Abdomen is soft nontender positive bowel sounds. No obvious organomegaly Extremities no cyanosis clubbing or edema. Skin without rash Data : 12/24/21 04:41 12/24/21 04:41 A&P Assessment and plan (1) Congestive heart failure, acute: Symptoms currently are most consistent with acute congestive heart failure. I think this is likely to be acute diastolic heart failure although echocardiogram will be useful. Cannot rule out underlying coronary disease, with unstable angina. He has received fluids, Lasix IV, radiological dye. He appears to be clinically stable today. Creatinine has worsened slightly. Hold off on diuresis today. Encourage oral hydration TSH was checked and normal. Echo shows preserved EF, 1/4 diastolic dysfunction (2) Elevated troponin: Elevated troponin on admission. This may be secondary to strain versus non-ST elevation myocardial infarction. He is receiving Plavix, aspirin, full dose anticoagulation, nitroglycerin ointment. He is already on beta-chele. Continue nitroglycerin ointment, Lovenox, aspirin Cardiology consultation appreciated. Nuclear stress test today. Continue Plavix currently. (3) Diabetes mellitus: Sliding scale insulin Consistent carb diet (4) Hypertension: Continue home medicines with the exception of MACARIO inhibitor Add hydralazine (5) Tobacco dependency: Encourage abstinence (6) Acute kidney injury: Patient presents with evidence of acute kidney injury. Check renal ultrasound Hold MACARIO inhibitor, NSAIDs. Recheck function tomorrow Plan Symptoms suggesting BPH. Initiate Flomax. Check bladder scan. If renal function does not improve consider ultrasound. COVID was checked and negative secondary to groundglass noted on CT, history of chills. He has some consistent wheezing. Continue doxycycline for bronchitis. Pulmonary toilet will be given. Full code Lovenox will suffice for DVT prophylaxis Attestations Medical Necessity Statement*: Needs continued hospital stay for close follow-up of acute kidney injury with worsening creatinine, evaluation of chest discomfort with nuclear stress test Coding Level of Care Code Acute Physician In Private Practice for Chg Fwd Diagnoses Congestive heart failure, acute I50.9 Elevated troponin R77.8 Diabetes mellitus E11.9 Hypertension I10 Tobacco dependency F17.200 Acute kidney injury N17.9
[2021-12-24 11:31] LABS: Glucose Point of Care 160 mg/dL (70-110)
[2021-12-24] MEDS: ipratropium-albuterol 3 mL Neb INHALATION ×3 (11:40→20:37)
--- NOTE | 2021-12-24 12:14 | PC.NURSE ---
Patient left floor for can labeler at 1215.
[2021-12-24] MEDS: clopidogrel 75 mg Tablet PO (12:20)
[2021-12-24] MEDS: insulin lispro 100 unit/1 mL SUBCUT ×2 (12:20→17:19)
[2021-12-24] MEDS: doxycycline 100 mg Tablet PO ×2 (12:20→17:20)
--- NOTE | 2021-12-24 13:02 | P.PN_ITS ---
Subjective Subjective: ? He is doing okay. He has some amount of wheezing. He was given bronchodilator therapy. Seems to be feeling better. He had the Myocardial perfusion imaging today. He was found to have a small to moderate area of scarring with a very small area of ischemia in the distribution of the right cor onary artery. His vital signs remained stable. Has not had any recurrence of chest pain since yesterday afternoon. Medications: Medication Review Details: Current Medications Acetaminophen (Acetaminophen 325 Mg Tablet) 650 mg PO Q6H PRN PRN Reason: Mild/Mod Pain Or Temp >/= 101 Hydrocodone Bitart/Acetaminophen (Hydrocodone-Acetaminophen 10-325 Mg Tablet) 1 tab PO Q4H PRN PRN Reason: Pain Albuterol/Ipratropium (Ipratropium-Albuterol 3 Ml Neb) 3 ml INHALATION Q6H [facility] Last Admin: 12/24/21 11:40 Dose: 3 ml Allopurinol (Allopurinol 100 Mg Tablet) 100 mg PO DAILY EV Last Admin: 12/24/21 10:07 Dose: 100 mg Aminophylline (Aminophylline 25 Mg/Ml Sdv 10 Ml) 25 mg IVP Q2M PRN PRN Reason: see dose instructions Stop: 12/25/21 06:48 Aspirin (Aspirin 81 Mg Ec Tablet) 81 mg PO DAILY EV Last Admin: 12/24/21 10:08 Dose: 81 mg Budesonide (Budesonide 0.5 Mg/2 Ml Neb) 0.5 mg INHALATION BID.RESPIRATORY EV Clopidogrel Bisulfate (Clopidogrel 75 Mg Tablet) 75 mg PO DAILY EV Last Admin: 12/24/21 12:20 Dose: 75 mg Dextrose (Dextrose 50% Syringe 50 Ml) 25 ml IVP ONCE PRN; Protocol PRN Reason: hypoglycemia protocol Dextrose (Dextrose 50% Syringe 50 Ml) 50 ml IVP PRN PRN; Protocol PRN Reason: hypoglycemia protocol Docusate Sodium (Docusate Sodium 100 Mg Capsule) 100 mg PO BID EV Last Admin: 12/24/21 10:07 Dose: 100 mg Doxycycline Monohydrate (Doxycycline 100 Mg Tablet) 100 mg PO BID [facility]; Protocol Last Admin: 12/24/21 12:20 Dose: 100 mg Enoxaparin Sodium (Enoxaparin 100 Mg/Ml Syringe) 100 mg 1 mg/kg (100 mg) SUBCUT Q12H EV Last Admin: 12/24/21 10:07 Dose: 100 mg Glucagon (Glucagon 1 Mg/Ml Inj 1 Ml) 1 mg IM ONCE PRN; Protocol PRN Reason: Adult Acute Hypoglycemia Prot. Hydralazine HCl (Hydralazine 25 Mg Tablet) 25 mg PO TID [facility] Dextrose (D5w) 500 mls @ 100 mls/hr IV ONCE PRN; Protocol PRN Reason: Adult Acute Hypoglycemia Prot Insulin Human Lispro (Insulin Lispro 100 Unit/1 Ml) 0 unit SUBCUT WM&BEDTIME [facility]; Protocol Last Admin: 12/24/21 12:20 Dose: 2 unit Latanoprost (Latanoprost 0.005% Op Soln 2.5 Ml Btl) 2 drop EYE-BOTH DAILY [facility] Last Admin: 12/24/21 10:10 Dose: Not Given Metoprolol Tartrate (Metoprolol Tartrate 50 Mg Tablet) 100 mg PO BID [facility] Last Admin: 12/24/21 10:08 Dose: 100 mg Morphine Sulfate (Morphine 4 Mg/Ml Sdv 1 Ml) 2 mg IVP Q4H PRN PRN Reason: SEVERE PAIN Nitroglycerin (Nitroglycerin 1 Gm/Inch Oint Pkt) 1 inch TOPICAL Q6H [facility] Last Admin: 12/24/21 12:20 Dose: 1 inch Nitroglycerin (Nitroglycerin 0.4 Mg Sublingual Tablet) 0.4 mg SUBLINGUAL Q5M PRN PRN Reason: CHEST PAIN Stop: 12/25/21 06:48 Ondansetron HCl (Ondansetron 2 Mg/Ml Sdv 2 Ml) 4 mg IVP Q6H PRN PRN Reason: NAUSEA AND VOMITING Ondansetron HCl (Ondansetron 2 Mg/Ml Sdv 2 Ml) 4 mg IVP Q2M PRN PRN Reason: NAUSEA Tamsulosin HCl (Tamsulosin 0.4 Mg Capsule) 0.4 mg PO DAILY [facility] Last Admin: 12/24/21 10:08 Dose: 0.4 mg Vitals/I&O/Wt Last Vital Signs Temp 98.2 F 12/24/21 11:48 Pulse 77 12/24/21 11:48 Resp 12 12/24/21 11:48 BP 150/81 12/24/21 11:48 Pulse Ox 96 12/24/21 11:48 O2 Del Method 12/24/21 11:48 12/23/21 12/24/21 12/24/21 22:59 06:59 14:59 Intake Total 720 / 1720 360 / 2080 120 / 120 Output Total 225 / 225 Balance 720 / 1720 135 / 1855 120 / 120 Weight last 48 hrs Weight 220 lb Physical Exam Narrative: GENERAL: The patient is alert and oriented times three. Not in any acute distress. HEENT: No significant pallor, icterus or lymphadenopathy.Oral cavity: There are no mucous membrane lesions. NECK: Trachea appears to be central. No masses noted. No JVD or thyromegaly appreciated. RESPIRATORY: Chest is symmetrical. No intercostals muscle retraction or any accessory muscle activation. There is no chest wall tenderness. Breath sounds are heard bilaterally. No rales or rhonchi heard. No evidence of any consolidation. BREASTS: Deferred. HEART: The heart sounds are normal. No S3 or S4. No significant murmurs. No pericardial rub ABDOMEN: No vessel pulsations or distention. No tenderness. No organomegaly appreciated. Bowel sounds are normally heard. : Deferred. RECTAL: Deferred. LYMPHATIC: No lymphadenopathy noted in the neck. EXTREMITIES: No edema or cyanosis. The dorsalis pedis and posterior pulses are weak bilaterally more so on the left side. MUSCULOSKELETAL: No acute joint deformities or swelling SKIN: There are no significant rashes or ecchymosis NEUROPSYCHIATRIC: The patient is alert and oriented x3. Appears to be in a good mood. No tremors or rigidity noted. Data : 12/24/21 04:41 12/24/21 04:41 Other Labs: Laboratory Last Values WBC 13.6 10^3/uL (4.0-10.0) H 12/24/21 04:41 RBC 3.27 10^6/uL (4.1-5.3) L 12/24/21 04:41 Hgb 9.9 g/dL (11.7-16.6) L 12/24/21 04:41 Hct 30.7 % (42.0-52.0) L 12/24/21 04:41 MCV 93.9 fl (80-94) 12/24/21 04:41 MCH 30.3 pg (28.0-34.0) 12/24/21 04:41 MCHC 32.2 g/dL (30.0-36.0) 12/24/21 04:41 RDW 12.9 % (12.1-15.1) 12/24/21 04:41 Plt Count 176 10^3/cmm (130-400) 12/24/21 04:41 MPV 11.6 fL (7.4-10.4) H 12/24/21 04:41 Neut % (Auto) 64.8 % 12/24/21 04:41 Lymph % (Auto) 24.7 % 12/24/21 04:41 Isabella % (Auto) 9.7 % 12/24/21 04:41 Eos % (Auto) 0.1 % 12/24/21 04:41 Baso % (Auto) 0.1 % 12/24/21 04:41 Neut # (Auto) 8.77 10^3/uL (1.8-7.7) H 12/24/21 04:41 Lymph # (Auto) 3.4 10^3/uL (0.8-4.8) 12/24/21 04:41 Isabella # (Auto) 1.3 10^3/uL (0.2-0.9) H 12/24/21 04:41 Eos # (Auto) 0.0 10^3/uL (0.0-0.8) 12/24/21 04:41 Baso # (Auto) 0.0 10^3/uL (0.0-0.1) 12/24/21 04:41 Nucleated RBC % (auto) 0 % 12/24/21 04:41 Nucleated RBCs # 0.0 /100WBC 12/24/21 04:41 D-Dimer 0.98 ug/mIFEU (0-0.59) H 12/23/21 04:34 Specimen Type Arterial 12/23/21 04:31 Sample Site Radial, right 12/23/21 04:31 ABG pH 7.38 (7.35-7.45) 12/23/21 04:31 ABG pCO2 41.9 mmHg (35-45) 12/23/21 04:31 ABG pO2 58.5 mmHg (80.0-100.0) L 12/23/21 04:31 ABG HCO3 24.6 mmol/L (22-26) 12/23/21 04:31 ABG Base Excess -0.6 mmol/L (-2.0-2.0) 12/23/21 04:31 Khanh Test Pos 12/23/21 04:31 Hematocrit 35.6 % (42-52) L 12/23/21 04:31 Hgb O2 Saturation 87.0 % (95-100) L 12/23/21 04:31 Carboxyhemoglobin 3.9 %THgb (0.4-20.1) 12/23/21 04:31 Methemoglobin 0.9 % (0.4-1.5) 12/23/21 04:31 Total Hemoglobin 11.6 g/dL (14-18) L 12/23/21 04:31 O2 Delivery Device None 12/23/21 04:31 FiO2 21.0 % 12/23/21 04:31 Road Gang Supervisor ID [place] 12/23/21 04:31 Sodium 139 mmol/L (136-145) 12/24/21 04:41 Potassium 4.5 mmol/L (3.5-5.1) 12/24/21 04:41 Chloride 108 mmol/L (98-107) H 12/24/21 04:41 Carbon Dioxide 23 mmol/L (22-29) 12/24/21 04:41 Anion Gap 12.5 (5-19) 12/24/21 04:41 BUN 35 mg/dL (6-20) H 12/24/21 04:41 Creatinine 2.0 mg/dL (0.7-1.2) H 12/24/21 04:41 GFR Calculation 41.7 mL/min (90-130) L 12/24/21 04:41 Glucose 108 mg/dL (65-115) 12/24/21 04:41 POC Glucose 160 mg/dL (70-110) H 12/24/21 11:15 Calculated Osmolality 297 mOsm/kg (285-295) H 12/24/21 04:41 Calcium 8.2 mg/dL (8.5-10.5) L 12/24/21 04:41 Total Bilirubin 0.2 mg/dL (0.15-1.2) 12/23/21 04:34 AST 14 U/L (0-40) 12/23/21 04:34 ALT 14 U/L (0-41) 12/23/21 04:34 Alkaline Phosphatase 117 U/L (40-130) 12/23/21 04:34 Troponin T Baseline 67 ng/L (0-15) H 12/23/21 04:34 Troponin T 120 Minute 57.89 ng/L (0-15) H 12/23/21 06:27 Delta Troponin T -9.11 ABS# (0-10) L 12/23/21 06:27 Troponin T Hi Sens 6Hr 52.02 ng/L (0-15) H 12/23/21 10:36 Troponin T Hi Sens 6Hr Delta -14.98 ng/L (0-12) L 12/23/21 10:36 NT-Pro-B Natriuret Pep 1609 pg/mL (0-125) H 12/23/21 04:34 Total Protein 6.9 g/dL (6.6-8.7) 12/23/21 04:34 Albumin 3.6 g/dL (3.5-5.2) 12/23/21 04:34 Globulin 3.3 g/dL (1.3-4.6) 12/23/21 04:34 Procalcitonin 0.14 ng/mL (0-0.5) 12/24/21 04:41 TSH 2.60 uIU/mL (0.27-4.20) 12/23/21 04:34 Urine Color Light yellow (Yellow) 12/23/21 00:45 Urine Appearance Clear (CLEAR) 12/23/21 00:45 Urine pH 5 (5-7) 12/23/21 00:45 Ur Specific [place] 1.010 (1.005-1.030) 12/23/21 00:45 Urine Protein 1+ (Negative) H 12/23/21 00:45 Urine Glucose (UA) Norm (Normal) 12/23/21 00:45 Urine Ketones 1+ (Negative) H 12/23/21 00:45 Urine Blood 2+ (Negative) H 12/23/21 00:45 Urine Nitrate Negative (Negative) 12/23/21 00:45 Urine Bilirubin Neg (Negative) 12/23/21 00:45 Urine Urobilinogen Norm mg/dL (Negative) 12/23/21 00:45 Ur Leukocyte Esterase Negative (Negative) 12/23/21 00:45 Urine RBC 5-10 /hpf (0-2) H 12/23/21 00:45 Urine WBC None /hpf (0-5) 12/23/21 00:45 Ur Squamous Epith Cells None /hpf (0-5) 12/23/21 00:45 Amorphous Sediment 1+ /hpf 12/23/21 00:45 Urine Bacteria None /hpf (NONE) 12/23/21 00:45 Coronavirus 229E (PCR) Not detected (NOT DETECT) 12/23/21 19:09 SARS-CoV-2 (PCR) Not detected (NOT DETECT) 12/23/21 19:09 SARS-CoV-2 Ag (Rapid) negative (Negative) 12/23/21 05:01 A&P Assessment and plan (1) Chest pain: In view of the abnormal Myocardial perfusion imaging, I may continue the aspirin and Plavix. Discontinue the Lovenox. Also start him on a low-dose of beta- chele and nitrates. Patient is encouraged to ambulate on telemetry. (2) Hypertension: Still the blood pressures are stage II. Hopefully the metoprolol and the isosorbide mononitrate may bring down the blood pressure. (3) Acute diastolic heart failure: Patient clinically appears to be compensated. We will continue on the current medications. (4) Diabetes mellitus: Aggressive management of the diabetes would be appropriate. (5) COPD (chronic obstructive pulmonary disease): May continue on the current medication. Bronchodilator therapy as per the primary (6) Tobacco dependency: Strongly advised to quit smoking. (7) Peripheral arterial disease: Currently the patient has no specific symptoms of peripheral artery insufficienc y. May continue on the current treatment measures. Plan I discussed the patient about implicates the test findings. In view of his abnormal kidney functions and the small area of ischemia by the perfusion scan, diastolic appropriate to optimize medical treatment at this point. If he continues to have chest pain, may need to consider cardiac catheterization. If he continues to remain stable, may be discharged home tomorrow. Discussed my recommendation with the Dr. Navarro. Dr. Vieira concurred with this plan Attestations Medical Necessity Statement*: Disposition as per the primary Coding Level of Care Code Acute Pastrycook for Chg Fwd History Expanded Problem Focused Exam Expanded Problem Focused Medical Decision Making Moderate Complexity Diagnoses Chest pain R07.9 Hypertension I10 Acute diastolic heart failure I50.31 Diabetes mellitus E11.9 COPD (chronic obstructive pulmonary disease) J44.9 Tobacco dependency F17.200 Peripheral arterial disease I73.9
[2021-12-24] MEDS: isosorbide mononitrate ER 30 mg Tablet PO (15:11)
[2021-12-24] MEDS: hyDRALAzine 25 mg Tablet PO ×2 (16:16→21:01)
[2021-12-24 17:02] LABS: Glucose Point of Care 168 mg/dL (70-110)
--- NOTE | 2021-12-24 18:27 | NMCV_ITS ---
NM lynette perf SPECT r/s* [id number] Alek Hopper Age: 56 Gender: M : 1965 Exam Date: 12/24/2021 07:02 Ordering Phys: Akiko Vaughn MD ([email or web address]) Technologist: ANNIE Titus Exam Location: [facility] Indications: CHEST PAIN STRESS TEST [facility] IMAGE PROTOCOL Rest/Stress 1 Lexiscan Day Radiopharmaceutical Dose (mCi) Administration Site Administered by Rest: Tc-99m 10.6 IV ANNIE Hennessy Sestamibi Stress:Tc-99m 32.9 IV ANNIE Hennessy Sestamibi Rest: 24-Dec-2021 60 Discovery 630 Stress: 24-Dec-2021 30 Discovery 630 0.4mg Lexiscan. Images obtained in supine and prone position. SPECT RESULTS Technical Quality: Excellent Raw Data Analysis: Normal Image Corrections: No attenuation or motion correction applied Summed Stress Score: 3 Summed Rest Score: 2 Summed Difference Score: 1 PERFUSION FINDINGS Small to moderate area of moderately decreased tracer uptake y was noted in the inferior wall region. Some reversibility was noted in the apical region FUNCTIONAL RESULTS (calculated via Gated SPECT) Stress Image LV EF (%): 49 Stress EDV (mL):184 TID: 0.99 Stress ESV (mL):94 FUNCTIONAL FINDINGS: Segmental wall motion analysis revealed a mild diffuse hypokinesia of the LV apex IMPRESSIONS 1. Myocardial perfusion imaging revealing features suggesting small to moderate area of myocardial scarring with a very small area of aashish-infarction ischemia, in the distribution of the right coronary artery. 2. Slightly diminished LV ejection fraction 49%. 3. Segmental wall motion analysis revealing mild diffuse hypokinesia of the LV apex. 4. Mildly dilated LV cavity with an end-systolic volume of 94 ml. No similar previous studies are available for comparison Dr Akiko Vaughn MD [facility] (Electronically Signed) Final Date: 24 December 2021 13:01 S
[2021-12-24] MEDS: budesonide 0.5 mg/2 mL Neb INHALATION (20:37)
[2021-12-24 20:45] LABS: Glucose Point of Care 136 mg/dL (70-110)
[2021-12-25] VITALS (13 sets, daily range): BP systolic 150–179; BP diastolic 66–92; PULSE 73–89; RESP 13–20; TEMP 36.4–37; O2SAT 93–98
[2021-12-25] MEDS: ipratropium-albuterol 3 mL Neb INHALATION ×4 (03:00→20:09)
[2021-12-25 04:46] LABS: Basophils # 0.1 10^3/uL (0.0-0.1); Basophils % 0.5 %; Eosinophils # 0.1 10^3/uL (0.0-0.8); Eosinophils % 1.1 %; Hematocrit 31.4 % (42.0-52.0); Hemoglobin 10.3 g/dL (11.7-16.6); Lymphocytes # 4.1 10^3/uL (0.8-4.8); Lymphocytes % 33.9 %; Mean Corpuscular HGB Conc 32.8 g/dL (30.0-36.0); Mean Corpuscular Hemoglobin 30.8 pg (28.0-34.0); Mean Platelet Volume 11.1 fL (7.4-10.4); Monocytes # 1.1 10^3/uL (0.2-0.9); Monocytes % 8.7 %; Neutrophils # 6.77 10^3/uL (1.8-7.7); Neutrophils % 55.5 %; Nucleated Red Blood Cells % 0 %; Platelet Count 179 10^3/cmm (130-400); Red Blood Count 3.34 10^6/uL (4.1-5.3); Red Cell Distribution Width 12.9 % (12.1-15.1); White Blood Count 12.2 10^3/uL (4.0-10.0)
[2021-12-25 05:13] LABS: Anion Gap 12.4 (5-19); Blood Urea Nitrogen 32 mg/dL (6-20); Calcium 8.3 mg/dL (8.5-10.5); Carbon Dioxide 24 mmol/L (22-29); Chloride 107 mmol/L (98-107); Glomerular Filtration Rate 37.4 mL/min (90-130); Glucose 107 mg/dL (65-115); Osmolality Calculated 295 mOsm/kg (285-295); Potassium 4.4 mmol/L (3.5-5.1); Sodium 139 mmol/L (136-145)
[2021-12-25 06:13] LABS: Glucose Point of Care 112 mg/dL (70-110)
[2021-12-25] MEDS: docusate sodium 100 mg Capsule PO ×2 (08:41→17:42)
[2021-12-25] MEDS: allopurinol 100 mg Tablet PO (08:41)
[2021-12-25] MEDS: doxycycline 100 mg Tablet PO ×2 (08:41→17:42)
[2021-12-25] MEDS: hyDRALAzine 25 mg Tablet PO ×3 (08:41→20:24)
[2021-12-25] MEDS: acetaminophen 325 mg Tablet 650 MG PO (08:42)
[2021-12-25] MEDS: metoprolol tartrate 50 mg Tablet 100 MG PO ×2 (08:43→17:42)
[2021-12-25] MEDS: isosorbide mononitrate ER 30 mg Tablet PO ×2 (08:43→12:13)
[2021-12-25] MEDS: aspirin 81 mg EC Tablet PO (08:43)
[2021-12-25] MEDS: clopidogrel 75 mg Tablet PO (08:44)
[2021-12-25] MEDS: budesonide 0.5 mg/2 mL Neb INHALATION ×2 (08:58→20:09)
--- NOTE | 2021-12-25 11:01 | PM.PN ---
Subjective Subjective: He denies any chest pains. BP still running high. Medications: Reviewed: Yes Vitals/I&O/Wt Last Vital Signs Temp 98.4 F 12/25/21 07:54 Pulse 86 12/25/21 07:54 Resp 17 12/25/21 07:54 BP 179/87 12/25/21 07:54 Pulse Ox 98 12/25/21 07:54 O2 Del Method 12/25/21 04:00 12/24/21 12/25/21 12/25/21 22:59 06:59 14:59 Intake Total 460 / 1060 240 / 1300 480 / 480 Output Total 225 / 225 550 / 775 530 / 530 Balance 235 / 835 -310 / 525 -50 / -50 Physical Exam Narrative: GENERAL: obese man laying in bed in no acute distress HEENT: Extraocular movement intact. No pallor or icterus. NECK: central trachea, No JVD, No carotid bruit. CARDIOVASCULAR SYSTEM: S1-S2 regular. No S3 or S4 present. No murmur rubs or gallops. RESPIRATORY SYSTEM: Chest clear to auscultation. Mild wheezes, No rhonchi or rubs heard. ABDOMEN: Soft, nontender and nondistended. Normal bowel sounds present. EXTREMITIES: No cyanosis or edema. No signs of chronic venous insufficiency. 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 No focal neurological deficits. PSYCH: Normal insight and judgment. Data : 12/25/21 04:28 12/25/21 04:28 A&P Assessment and plan (1) Chest pain: Mildly abnormal Myocardial perfusion imaging -continue the aspirin and Plavix, metoprolol and ISNN. -remains CP free with ambulation. -increase ISMN to 60 mg (2) Hypertension: We will continue to monitor closely. -May uptitrate ISMN/hydralalzine based on BP. (3) Acute diastolic heart failure: Clinically appears to be compensated. (4) Peripheral arterial disease: Continue on the current treatment. (5) Diabetes mellitus: Aggressive management of the diabetes would be appropriate. (6) Tobacco dependency: Strongly advised to quit smoking. (7) COPD (chronic obstructive pulmonary disease): As per the primary Plan RIP on CKD: Creatinine has increased today to 2.2 Attestations Medical Necessity Statement*: As per primary team. Time Spent in Patient Care: 16 - 35 minutes Coding Level of Care Code Acute Melter Supervisor [employer] for Chg Fwd Diagnoses Chest pain R07.9 Hypertension I10 Acute diastolic heart failure I50.31 Peripheral arterial disease I73.9 Diabetes mellitus E11.9 Tobacco dependency F17.200 COPD (chronic obstructive pulmonary disease) J44.9
[2021-12-25 12:09] LABS: Glucose Point of Care 137 mg/dL (70-110)
[2021-12-25] MEDS: heparin 5,000 unit/mL INJ 1 mL 5000 UNIT SUBCUT ×2 (12:13→20:24)
--- NOTE | 2021-12-25 12:13 | PM.PN ---
Subjective Subjective: Patient was seen twice this morning, also bedside, family is concerned about patient's elevated kidney function, they have denied any prior history of kidney issues, he does have history of peripheral vascular disease, does have diabetes, does have hypertension, he denies any chest pain, no shortness of breath Vitals/I&O/Wt Last Vital Signs Temp 98.4 F 12/25/21 07:54 Pulse 86 12/25/21 07:54 Resp 17 12/25/21 07:54 BP 179/87 12/25/21 07:54 Pulse Ox 98 12/25/21 07:54 O2 Del Method 12/25/21 04:00 12/24/21 12/25/21 12/25/21 22:59 06:59 14:59 Intake Total 460 / 1060 240 / 1300 480 / 480 Output Total 225 / 225 550 / 775 530 / 530 Balance 235 / 835 -310 / 525 -50 / -50 Physical Exam Const: COMMON NORMALS: no acute distress and patient oriented x3 Resp: COMMON NORMALS: normal respiratory effort, No retractions, No use of accessory muscles and clear to auscultation bilaterally AUSCULTATION: clear to auscultation bilaterally Cardio: COMMON NORMALS: regular rate, regular rhythm, S1 normal heart sound present and S2 normal heart sound present RATE: regular rate RHYTHM: regular rhythm HEART SOUNDS: S1 normal heart sound present and S2 normal heart sound present GI: COMMON NORMALS: Normal to inspection, nondistended, normoactive bowel sounds present, non-tender, no masses and no bruits Extremity: COMMON NORMALS: no pedal edema Neuro: COMMON NORMALS: patient oriented x3 Psych: COMMON NORMALS: mental status grossly normal Data : 12/25/21 04:28 12/25/21 04:28 A&P Assessment and plan (1) Congestive heart failure, acute: Symptoms currently are most consistent with acute congestive heart failure. Cannot rule out underlying coronary disease, with unstable angina. Cardiac echo Normal left ventricular size and systolic function, EF 69 %. No ?regional wall motion abnormalities. Moderate left ventricular ?hypertrophy. Grade I/IV diastolic dysfunction (abnormal ?relaxation filling pattern), normal to mildly elevated filling ?pressures. ?Thickened mitral valve. Trace mitral valve regurgitation. Mild ?mitral annular calcification. ?Trace tricuspid valve regurgitation.? Estimated PA pressure ?within normal limits. ?Thickened aortic valve. ?There is no pericardial effusion. ?There are no intracardiac masses. ?No similar previous studies are available for comparison He has received fluids, Lasix IV, radiological dye. He appears to be clinically stable, creatinine up to 2.1 Creatinine has worsened slightly. Hold off on diuresis today. Encourage oral hydration TSH was checked and normal. Cardiology on consult Full code Heparin for DVT prophylaxis (2) Elevated troponin: Elevated troponin on admission. This may be secondary to strain versus non-ST elevation myocardial infarction. He is receiving Plavix, aspirin, He is already on beta-chele. Continue nitroglycerin ointment, aspirin Cardiology consultation appreciated. Nuclear stress test ?1.? Myocardial perfusion imaging revealing features suggesting small to ?moderate area of myocardial scarring with a very small area of aashish-infarction ?ischemia, in the distribution of the right coronary artery. ?2.? Slightly diminished LV ejection fraction 49%. ?3.? Segmental wall motion analysis revealing mild diffuse hypokinesia of the LV ?apex. ?4.? Mildly dilated LV cavity with an end-systolic volume of 94 ml. ?No similar previous studies are available for comparison Continueasa, Plavix currently. (3) Diabetes mellitus: Sliding scale insulin Consistent carb diet (4) Hypertension: Continue home medicines, given moderate LVH, MACARIO inhibitor's or ARB will be significantly beneficial will consider based on kidney function Add hydralazine (5) Tobacco dependency: Encourage abstinence (6) Acute kidney injury: Patient presents with evidence of acute kidney injury. Hold MACARIO inhibitor, NSAIDs. Consult nephrology Plan Symptoms suggesting BPH. Initiate Flomax. Check bladder scan. If renal function does not improve consider ultrasound. COVID was checked and negative secondary to groundglass noted on CT, history of chills. He has some consistent wheezing. Continue doxycycline for bronchitis. Pulmonary toilet will be given. 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
[2021-12-25] MEDS: tamsulosin 0.4 mg Capsule PO (12:14)
--- NOTE | 2021-12-25 15:32 | P.CONIM_ITS ---
Providers/Reason For Consult Consulting Physician/Specialty*: Lauren Marquez DO, telenephrology Reason for Consult*: Acute kidney injury Requesting Physician: Jose Johnson MD Attending Physician: Jose Johnson MD Primary Care Provider: Yenny Navarro MD History of Present Illness History of Present Illness Alek Hopper is a 56 year old male presented for evaluation of shortness of breath. States he has not had blood work in one year. Has been taking aleve for bilateral leg pain. Review of Systems Card: Denies: chest pain Resp: Reports: other (dyspnea resolved) Medications/Allergies Home Medications Medication Instructions Recorded Confirmed Last Taken Type albuterol sulfate 90 mcg/actuation 2 puff inhalation Q6H PRN 03/10/20 12/23/21 Unknown History aerosol inhaler Shortness Of Breath allopurinol 100 mg tablet 100 mg PO DAILY 03/10/20 12/23/21 Unknown History aspirin 81 mg tablet,delayed 81 mg PO DAILY 03/10/20 12/23/21 12/22/21 History release (Adult Aspirin Regimen) colchicine 0.6 mg tablet 0.6 mg PO BID 03/10/20 12/23/21 12/22/21 History docusate sodium 100 mg capsule 100 mg PO BID 03/10/20 12/23/21 12/22/21 History dulaglutide 1.5 mg/0.5 mL 1.5 mg SUBCUT Q7D 03/10/20 12/23/21 12/19/21 History subcutaneous pen injector hydrocodone 10 mg-acetaminophen 1 tab PO Q4H PRN Pain 03/10/20 12/23/21 Unknown History 325 mg tablet hydrocortisone 2.5 % topical cream 1 applic topical BID PRN Rash 03/10/20 12/23/21 Unknown History lisinopril 10 mg tablet 10 mg PO BID 03/10/20 12/23/21 12/22/21 History metoprolol tartrate 100 mg tablet 100 mg PO BID 03/10/20 12/23/21 12/22/21 History albuterol sulfate 90 mcg/actuation 2 inh inhalation Q6H PRN shortness 12/21/21 12/23/21 Unknown Rx aerosol inhaler of breath or wheezing #8.5 grams doxycycline hyclate 100 mg capsule 100 mg PO BID 10 days #20 caps 12/21/21 12/23/21 12/22/21 Rx latanoprost 0.005 % eye drops 2 drp ophthalmic (eye) DAILY 12/23/21 12/23/21 12/22/21 History Allergies Allergy/AdvReac Type Severity Reaction Status Date / Time No Known Allergies Allergy Verified 12/23/21 04:28 Current Medications Generic Name Dose Route Start Last Admin Trade Name Freq PRN Reason Stop Dose Admin Acetaminophen 650 mg 12/23/21 11:40 12/25/21 08:42 Acetaminophen 325 Mg Tablet PO 650 mg Q6H PRN Administration Mild/Mod Pain Or Temp >/= 101 Albuterol/Ipratropium 3 ml 12/24/21 14:00 12/25/21 14:38 Ipratropium-Albuterol 3 Ml Neb INHALATION 3 ml Q6H.RESP EV Administration Allopurinol 100 mg 12/24/21 09:00 12/25/21 08:41 Allopurinol 100 Mg Tablet PO 100 mg DAILY EV Administration Aspirin 81 mg 12/24/21 09:00 12/25/21 08:43 Aspirin 81 Mg Ec Tablet PO 81 mg DAILY EV Administration Budesonide 0.5 mg 12/24/21 20:00 12/25/21 08:58 Budesonide 0.5 Mg/2 Ml Neb INHALATION 0.5 mg BID.RESPIRATORY EV Administration Clopidogrel Bisulfate 75 mg 12/24/21 11:10 12/25/21 08:44 Clopidogrel 75 Mg Tablet PO 75 mg DAILY EV Administration Docusate Sodium 100 mg 12/23/21 18:00 12/25/21 08:41 Docusate Sodium 100 Mg Capsule PO 100 mg BID EV Administration Doxycycline Monohydrate 100 mg 12/24/21 11:05 12/25/21 08:41 Doxycycline 100 Mg Tablet PO 100 mg BID EV Administration Protocol Heparin Sodium (Porcine) 5,000 unit 12/25/21 10:00 12/25/21 12:13 Heparin 5,000 Unit/Ml Inj 1 Ml SUBCUT 5,000 unit Q12H EV Administration Hydralazine HCl 25 mg 12/24/21 15:00 12/25/21 14:53 Hydralazine 25 Mg Tablet PO 25 mg TID EV Administration Insulin Human Lispro 0 unit 12/23/21 12:00 12/25/21 12:41 Insulin Lispro 100 Unit/1 Ml SUBCUT Not Given WM&BEDTIME EV Protocol Latanoprost 2 drop 12/24/21 09:00 12/25/21 09:47 Latanoprost 0.005% Op Soln 2.5 Ml Btl EYE-BOTH Not Given DAILY EV Metoprolol Tartrate 100 mg 12/23/21 18:00 12/25/21 08:43 Metoprolol Tartrate 50 Mg Tablet PO 100 mg BID EV Administration Tamsulosin HCl 0.4 mg 12/23/21 11:25 12/25/21 12:14 Tamsulosin 0.4 Mg Capsule PO 0.4 mg DAILY EV Administration PFSH Acute PFSH: Medical History Cancer Colon cancer Diabetes mellitus Gallbladder cancer Glaucoma Gout Hypertension Peripheral vascular disease History of peripheral stenting Surgical History History of cholecystectomy History of partial colectomy Family History Other CAD (coronary artery disease) Diabetes Social History Smoking and tobacco status: current every day smoker Quit status (tobacco): has tried quititng Second hand smoke exposure: Yes Alcohol intake: never Adopted: No Caregiver/support person: No Lives independently: Yes Household members: spouse Housing: Apartment Marital status: Number of children: 4 Number of grandchildren: 1 Highest education level completed: 12th Grade, No Diploma service: No Current occupational status: disabled Current occupational exposures/hazards: No Pets and animals: No History of recent travel: No Leisure activites: exercise and clubs Sexually active: No Current gender identity: Male Shelly/Hoahaoism: Sikh Special shelly needs: No Agree to transfusion: Yes Financial difficulty paying for basics: Somewhat Hard Vitals/I&O/Wt Last Vital Signs Temp 97.8 F 12/25/21 12:00 Pulse 82 12/25/21 14:39 Resp 16 12/25/21 14:39 BP 160/86 12/25/21 12:00 Pulse Ox 97 12/25/21 14:39 O2 Del Method 12/25/21 14:39 12/25/21 12/25/21 12/25/21 06:59 14:59 22:59 Intake Total 240 / 1300 960 / 960 Output Total 550 / 775 530 / 530 Balance -310 / 525 430 / 430 Physical Exam Const: COMMON NORMALS: no acute distress and alert Extremity: NARRATIVE EXTREMITY EXAM: no edema Neuro: SENSORIUM/ORIENTATION: Yes alert Data : 12/25/21 04:28 12/25/21 04:28 US: Radiologist's impression: Right kidney: 12.4 cm x 7.6 cm x 7.8 cm. Normal size kidney. No hydronephrosis. New cortical cysts are identified that were not present on the prior study. The largest in the mid kidney measures 4.2 x 4.3 x 3.6 cm. Smaller cyst in the upper pole measures 3.0 x 2.6 x 2.1 cm. No solid mass. Left kidney: 12.5 cm x 4.2 cm x 4.5 cm. Normal echogenicity with no hydronephrosis or mass. Other data: 1.? Myocardial perfusion imaging revealing features suggesting small to moderate area of myocardial scarring with a very small area of aashish-infarction ?ischemia, in the distribution of the right coronary artery. ?2.? Slightly diminished LV ejection fraction 49%. ?3.? Segmental wall motion analysis revealing mild diffuse hypokinesia of the LV?apex. ?4.? Mildly dilated LV cavity with an end-systolic volume of 94 ml. A&P Assessment and plan (1) Acute kidney injury: seen via telemedicine with assistance of RN at bedside Plan 1. Acute kidney injury. Exact duration of impaired renal function unknown. Serum Cr 1.2 mg/dL one year ago. Likely has CKD due to hypertension and diabetes. Acute decline in eGFR due to contrast, diuresis 2. Heart failure 3. Anemia 4. Hypertension 5. Diabetes Rec: Agree with discontinuing ACEi for now. Discontinue colchicine and NSAIDs (pt advised). Increase hydralazine as needed. Quantify urine protein, check HbA1C, iron studies, phos, uric acid. 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
[2021-12-25 17:31] LABS: Glucose Point of Care 171 mg/dL (70-110)
[2021-12-25] MEDS: insulin lispro 100 unit/1 mL SUBCUT (17:42)
[2021-12-25 18:52] LABS: Creatinine Urine, Random 161 mg/dL (39-259)
[2021-12-25 19:07] LABS: Urine Protein Random 60 mg/dL
[2021-12-25 20:16] LABS: Glucose Point of Care 133 mg/dL (70-110)
[2021-12-26] VITALS (8 sets, daily range): BP systolic 145–163; BP diastolic 72–89; PULSE 75–89; RESP 13–18; TEMP 36.9–37.1; O2SAT 94–97
[2021-12-26] MEDS: ipratropium-albuterol 3 mL Neb INHALATION ×2 (02:46→08:01)
[2021-12-26 05:03] LABS: Basophils # 0.1 10^3/uL (0.0-0.1); Basophils % 0.6 %; Eosinophils # 0.2 10^3/uL (0.0-0.8); Eosinophils % 1.4 %; Hemoglobin 10.8 g/dL (11.7-16.6); Lymphocytes # 2.9 10^3/uL (0.8-4.8); Lymphocytes % 26.4 %; Mean Corpuscular HGB Conc 33.8 g/dL (30.0-36.0); Mean Corpuscular Hemoglobin 31.1 pg (28.0-34.0); Mean Corpuscular Volume 92.2 fl (80-94); Mean Platelet Volume 11.5 fL (7.4-10.4); Monocytes # 0.9 10^3/uL (0.2-0.9); Monocytes % 8.6 %; Neutrophils # 6.83 10^3/uL (1.8-7.7); Neutrophils % 62.6 %; Nucleated Red Blood Cells % 0 %; Platelet Count 177 10^3/cmm (130-400); Red Blood Count 3.47 10^6/uL (4.1-5.3); Red Cell Distribution Width 12.7 % (12.1-15.1); White Blood Count 10.9 10^3/uL (4.0-10.0)
[2021-12-26 05:20] LABS: Estmated Average Glucose 123; Hemoglobin A1C 5.9 % (4.0-6.0)
[2021-12-26 05:29] LABS: Anion Gap 14.1 (5-19); Blood Urea Nitrogen 28 mg/dL (6-20); Calcium 8.3 mg/dL (8.5-10.5); Carbon Dioxide 22 mmol/L (22-29); Chloride 109 mmol/L (98-107); Glomerular Filtration Rate 41.7 mL/min (90-130); Glucose 118 mg/dL (65-115); Osmolality Calculated 299 mOsm/kg (285-295); Potassium 4.1 mmol/L (3.5-5.1); Sodium 141 mmol/L (136-145)
[2021-12-26 05:33] LABS: Calcium 8.3 mg/dL (8.5-10.5)
[2021-12-26 05:34] LABS: Phosphorus 4.2 mg/dL (2.5-4.5); Uric Acid 7.8 mg/dL (3.4-7.0)
[2021-12-26 05:41] LABS: Parathyroid Hormone 119.7 pg/mL (15-65)
[2021-12-26 05:54] LABS: Ferritin 129 ng/mL (30-400); Iron 28 ug/dL (59-158); Percent Saturation 12.9 % (20-50); Total Iron Binding Capacity 217 mcg/dl; Unsaturated Iron Binding 189 ug/dL (112-347)
[2021-12-26 06:06] LABS: 25 Hydroxy Vitamin D 16 ng/mL (30-100)
[2021-12-26 06:19] LABS: Glucose Point of Care 133 mg/dL (70-110)
--- NOTE | 2021-12-26 07:14 | PM.PN ---
Subjective Subjective: feels well Vitals/I&O/Wt Last Vital Signs Temp 98.7 F 12/26/21 04:00 Pulse 75 12/26/21 05:55 Resp 13 12/26/21 04:00 BP 146/72 12/26/21 04:00 Pulse Ox 96 12/26/21 04:00 O2 Del Method 12/26/21 04:00 12/25/21 12/26/21 12/26/21 22:59 06:59 14:59 Intake Total 480 / 1440 Output Total 100 / 630 325 / 955 Balance 380 / 810 -325 / 485 Physical Exam Const: COMMON NORMALS: no acute distress and alert Neuro: SENSORIUM/ORIENTATION: Yes alert Data : 12/26/21 04:45 12/26/21 04:45 Other Labs: uric acid 7.8, HbA1C 5.9%, phos 4.2, Ca 8.3, 25(D) 16, PTH 119.7, TSAT 13%, SF 129 u prot/Cr ratio 373 mg/g A&P Assessment and plan (1) Acute kidney injury: seen via telemedicine with assistance of RN at bedside Plan 1. Acute kidney injury. Exact duration of impaired renal function unknown. Serum Cr 1.2 mg/dL one year ago. Likely has CKD due to hypertension and diabetes. Acute decline in eGFR due to contrast, diuresis. Stable 2. Heart failure, improved 3. Anemia, iron deficient. Begin SloFe one daily 4. Hypertension 5. Diabetes, well-controlled. Mild proteinuria 6. vitamin D deficiency, secondary hyperparathyroidism. Begin D3 Rec: Discussed smoking cessation. 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
[2021-12-26] MEDS: budesonide 0.5 mg/2 mL Neb INHALATION (08:01)
--- NOTE | 2021-12-26 09:17 | PC.SOCIAL ---
IMM Update Pg. 2 of IMM updated and reviewed with patient. Copy provided. Initialed, dated, and timed copy in chart.
[2021-12-26] MEDS: aspirin 81 mg EC Tablet PO (10:19)
[2021-12-26] MEDS: allopurinol 100 mg Tablet PO (10:27)
[2021-12-26] MEDS: clopidogrel 75 mg Tablet PO (10:27)
[2021-12-26] MEDS: isosorbide mononitrate ER 60 mg Tablet PO (10:29)
[2021-12-26] MEDS: cholecalciferol (vitamin D3) 1,000 unit Tablet 2000 UNIT PO (10:29)
[2021-12-26] MEDS: doxycycline 100 mg Tablet PO (10:30)
[2021-12-26] MEDS: docusate sodium 100 mg Capsule PO (10:30)
[2021-12-26] MEDS: iron polysaccharide complex 150 mg Capsule PO (10:31)
[2021-12-26] MEDS: hyDRALAzine 25 mg Tablet PO (10:31)
[2021-12-26] MEDS: tamsulosin 0.4 mg Capsule PO (10:32)
[2021-12-26] MEDS: metoprolol tartrate 50 mg Tablet 100 MG PO (10:32)
--- NOTE | 2021-12-26 10:32 | P.DS_ITS ---
Discharge Providers Date of Admission: 12/23/21 10:50 Date of Discharge: December 26, 2021 Attending Provider at Admission: Akiko Vaughn MD Attending Provider at Discharge: Jose Johnson MD Primary Care Provider: Yenny Navarro MD Diagnoses at Discharge Discharge Diagnosis (1) Acute kidney injury: Status: Acute Reason for Visit Reason for Visit: SOB Hospital Course Hospital Course This is a 56-year-old male with a past medical history of colon cancer,'type 2 diabetes mellitus, hypertension, peripheral vascular disease, COPD, who presents to [facility] for chest pain For patient's chest pain, elevated troponins, cardiology was consulted, stress test showed ?1.? Myocardial perfusion imaging revealing features suggesting small to ?moderate area of myocardial scarring with a very small area of aashish-infarction ?ischemia, in the distribution of the right coronary artery. ?2.? Slightly diminished LV ejection fraction 49%. ?3.? Segmental wall motion analysis revealing mild diffuse hypokinesia of the LV ?apex. ?4.? Mildly dilated LV cavity with an end-systolic volume of 94 ml. ?No similar previous studies are available for comparison -Patient was managed with aspirin, Plavix, clinically monitored -Cardiology was consulted -Patient remained chest pain-free during his hospitalization, ambulating without symptomatology -Given patient's RIP on CKD, decision was made to pursue medical management -If patient has recurrent chest pain please go to emergency room, follow-up with cardiology in 1 week -Continue aspirin, Plavix, Imdur, metoprolol and discharge Patient also had exacerbation of diastolic CHF during his hospitalization, received diuresis, given elevated creatinine, diuresis was put on hold, shortness of breath improved Cardiac echo showed Normal left ventricular size and systolic function, EF 69 %. No ?regional wall motion abnormalities. Moderate left ventricular ?hypertrophy. Grade I/IV diastolic dysfunction (abnormal ?relaxation filling pattern), normal to mildly elevated filling ?pressures. ?Thickened mitral valve. Trace mitral valve regurgitation. Mild ?mitral annular calcification. ?Trace tricuspid valve regurgitation.? Estimated PA pressure ?within normal limits. ?Thickened aortic valve. ?There is no pericardial effusion. ?There are no intracardiac masses. ?No similar previous studies are available for comparison -Patient will be discharged on Lasix as needed for shortness of breath -Follow-up with Yenny Navarro in 2 days For patient's RIP on CKD, nephrology was consulted, patient likely has underlying CKD secondary to diabetes hypertension -Follow-up with nephrology as outpatient -Follow-up with cardiology as outpatient -Follow-up with primary care as outpatient Physical Exam Const: COMMON NORMALS: no acute distress and patient oriented x3 Resp: COMMON NORMALS: normal respiratory effort, No retractions, No use of accessory muscles and clear to auscultation bilaterally AUSCULTATION: clear to auscultation bilaterally Cardio: COMMON NORMALS: regular rate, regular rhythm, S1 normal heart sound present and S2 normal heart sound present RATE: regular rate RHYTHM: regular rhythm HEART SOUNDS: S1 normal heart sound present and S2 normal heart sound present GI: COMMON NORMALS: Normal to inspection, nondistended, normoactive bowel sounds present, non-tender and no masses Extremity: COMMON NORMALS: no pedal edema Neuro: COMMON NORMALS: patient oriented x3 Psych: COMMON NORMALS: mental status grossly normal Discharge Data Studies Completed and Pending Completed Studies During Hospitalization Category Date Time Status CT angio chest PE protcl [id number] Stat Cat Scan 12/23/21 05:48 Completed CXRP [XR chest 1V portable [id number]] Stat Exams 12/23/21 04:22 Completed Cardiac Stress Test MIBI [Sestamibi Stress Test Request Exams 12/23/21 18:26 Completed ] Routine NM lynette perf SPECT r/s* [id number] Routine Nuc Med 12/24/21 18:27 Completed CV. echo complete* [id number] Routine Ultrasound 12/23/21 11:23 Completed US renal BI* [id number] Routine Ultrasound 12/24/21 07:36 Completed Pending at discharge Category Date Time Status Basic Metabolic Panel AM LABS Lab 12/27/21 04:00 Ordered Basic Metabolic Panel AM LABS Lab 12/28/21 04:00 Ordered Complete Blood Count w/Auto AM LABS Lab 12/27/21 04:00 Ordered Complete Blood Count w/Auto AM LABS Lab 12/28/21 04:00 Ordered Radiology Impressions Chest X-Ray 12/23/21 04:22 IMPRESSION: Increased minimal perihilar interstitial prominence, suggestive of pulmonary vascular congestion. Minimal right basilar atelectasis. Chest CTA 12/23/21 05:48 IMPRESSION: 1. No CTA evidence of pulmonary embolism, thoracic aortic aneurysm or thoracic aortic dissection. 2. Minimal right middle lobe, inferior lingular and bilateral lower lobe hazy ground-glass opacities, suggestive of hypoaeration and atelectasis. There may also be mild pulmonary vascular congestion. Tiny bilateral pleural effusions, right greater than left. 3. Nonspecific mediastinal lymphadenopathy, as noted above. Renal Ultrasound 12/24/21 07:36 IMPRESSION: 1. No hydronephrosis. 2. Simple cyst RIGHT kidney. The largest measures 4.2 x 4.3 x 3.6 cm. Laboratory Results WBC 10.9 10^3/uL (4.0-10.0) H 12/26/21 04:45 RBC 3.47 10^6/uL (4.1-5.3) L 12/26/21 04:45 Hgb 10.8 g/dL (11.7-16.6) L 12/26/21 04:45 Hct 32.0 % (42.0-52.0) L 12/26/21 04:45 MCV 92.2 fl (80-94) 12/26/21 04:45 MCH 31.1 pg (28.0-34.0) 12/26/21 04:45 MCHC 33.8 g/dL (30.0-36.0) 12/26/21 04:45 RDW 12.7 % (12.1-15.1) 12/26/21 04:45 Plt Count 177 10^3/cmm (130-400) 12/26/21 04:45 MPV 11.5 fL (7.4-10.4) H 12/26/21 04:45 Neut % (Auto) 62.6 % 12/26/21 04:45 Lymph % (Auto) 26.4 % 12/26/21 04:45 [place] % (Auto) 8.6 % 12/26/21 04:45 Eos % (Auto) 1.4 % 12/26/21 04:45 Baso % (Auto) 0.6 % 12/26/21 04:45 Neut # (Auto) 6.83 10^3/uL (1.8-7.7) 12/26/21 04:45 Lymph # (Auto) 2.9 10^3/uL (0.8-4.8) 12/26/21 04:45 [place] # (Auto) 0.9 10^3/uL (0.2-0.9) 12/26/21 04:45 Eos # (Auto) 0.2 10^3/uL (0.0-0.8) 12/26/21 04:45 Baso # (Auto) 0.1 10^3/uL (0.0-0.1) 12/26/21 04:45 Nucleated RBC % (auto) 0 % 12/26/21 04:45 Nucleated RBCs # 0.0 /100WBC 12/26/21 04:45 D-Dimer 0.98 ug/mIFEU (0-0.59) H 12/23/21 04:34 Specimen Type Arterial 12/23/21 04:31 Sample Site Radial, right 12/23/21 04:31 ABG pH 7.38 (7.35-7.45) 12/23/21 04:31 ABG pCO2 41.9 mmHg (35-45) 12/23/21 04:31 ABG pO2 58.5 mmHg (80.0-100.0) L 12/23/21 04:31 ABG HCO3 24.6 mmol/L (22-26) 12/23/21 04:31 ABG Base Excess -0.6 mmol/L (-2.0-2.0) 12/23/21 04:31 Khanh Test Pos 12/23/21 04:31 Hematocrit 35.6 % (42-52) L 12/23/21 04:31 Hgb O2 Saturation 87.0 % (95-100) L 12/23/21 04:31 Carboxyhemoglobin 3.9 %THgb (0.4-20.1) 12/23/21 04:31 Methemoglobin 0.9 % (0.4-1.5) 12/23/21 04:31 Total Hemoglobin 11.6 g/dL (14-18) L 12/23/21 04:31 O2 Delivery Device None 12/23/21 04:31 FiO2 21.0 % 12/23/21 04:31 [employer] Well Service Operator ID Melisalaura 12/23/21 04:31 Sodium 141 mmol/L (136-145) 12/26/21 04:45 Potassium 4.1 mmol/L (3.5-5.1) 12/26/21 04:45 Chloride 109 mmol/L (98-107) H 12/26/21 04:45 Carbon Dioxide 22 mmol/L (22-29) 12/26/21 04:45 Anion Gap 14.1 (5-19) 12/26/21 04:45 BUN 28 mg/dL (6-20) H 12/26/21 04:45 Creatinine 2.0 mg/dL (0.7-1.2) H 12/26/21 04:45 GFR Calculation 41.7 mL/min (90-130) L 12/26/21 04:45 Glucose 118 mg/dL (65-115) H 12/26/21 04:45 POC Glucose 133 mg/dL (70-110) H 12/26/21 06:10 Estimat Average Glucose 123 12/26/21 04:45 Hemoglobin A1c 5.9 % (4.0-6.0) 12/26/21 04:45 Calculated Osmolality 299 mOsm/kg (285-295) H 12/26/21 04:45 Uric Acid 7.8 mg/dL (3.4-7.0) H 12/26/21 04:45 Calcium 8.3 mg/dL (8.5-10.5) L 12/26/21 04:45 Phosphorus 4.2 mg/dL (2.5-4.5) 12/26/21 04:45 Iron 28 ug/dL (59-158) L 12/26/21 04:45 TIBC 217 mcg/dl 12/26/21 04:45 % Saturation 12.9 % (20-50) L 12/26/21 04:45 Unsat Iron Binding 189 ug/dL (112-347) 12/26/21 04:45 Ferritin 129 ng/mL (30-400) 12/26/21 04:45 Total Bilirubin 0.2 mg/dL (0.15-1.2) 12/23/21 04:34 AST 14 U/L (0-40) 12/23/21 04:34 ALT 14 U/L (0-41) 12/23/21 04:34 Alkaline Phosphatase 117 U/L (40-130) 12/23/21 04:34 Troponin T Baseline 67 ng/L (0-15) H 12/23/21 04:34 Troponin T 120 Minute 57.89 ng/L (0-15) H 12/23/21 06:27 Delta Troponin T -9.11 ABS# (0-10) L 12/23/21 06:27 Troponin T Hi Sens 6Hr 52.02 ng/L (0-15) H 12/23/21 10:36 Troponin T Hi Sens 6Hr Delta -14.98 ng/L (0-12) L 12/23/21 10:36 NT-Pro-B Natriuret Pep 1609 pg/mL (0-125) H 12/23/21 04:34 Total Protein 6.9 g/dL (6.6-8.7) 12/23/21 04:34 Albumin 3.6 g/dL (3.5-5.2) 12/23/21 04:34 Globulin 3.3 g/dL (1.3-4.6) 12/23/21 04:34 25-OH Vitamin D Total 16 ng/mL (30-100) L 12/26/21 04:45 Procalcitonin 0.14 ng/mL (0-0.5) 12/24/21 04:41 TSH 2.60 uIU/mL (0.27-4.20) 12/23/21 04:34 PTH Intact 119.7 pg/mL (15-65) H 12/26/21 04:45 Calcium (PTH Intact) 8.3 mg/dL (8.5-10.5) L 12/26/21 04:45 Urine Color Light yellow (Yellow) 12/23/21 00:45 Urine Appearance Clear (CLEAR) 12/23/21 00:45 Urine pH 5 (5-7) 12/23/21 00:45 Ur Specific [place] 1.010 (1.005-1.030) 12/23/21 00:45 Urine Protein 1+ (Negative) H 12/23/21 00:45 Urine Glucose (UA) Norm (Normal) 12/23/21 00:45 Urine Ketones 1+ (Negative) H 12/23/21 00:45 Urine Blood 2+ (Negative) H 12/23/21 00:45 Urine Nitrate Negative (Negative) 12/23/21 00:45 Urine Bilirubin Neg (Negative) 12/23/21 00:45 Urine Urobilinogen Norm mg/dL (Negative) 12/23/21 00:45 Ur Leukocyte Esterase Negative (Negative) 12/23/21 00:45 Urine RBC 5-10 /hpf (0-2) H 12/23/21 00:45 Urine WBC None /hpf (0-5) 12/23/21 00:45 Ur Squamous Epith Cells None /hpf (0-5) 12/23/21 00:45 Amorphous Sediment 1+ /hpf 12/23/21 00:45 Urine Bacteria None /hpf (NONE) 12/23/21 00:45 U Random Total Protein 60 mg/dL 12/25/21 18:31 Urine Creatinine 161 mg/dL (39-259) 12/25/21 18:31 Coronavirus 229E (PCR) Not detected (NOT DETECT) 12/23/21 19:09 SARS-CoV-2 (PCR) Not detected (NOT DETECT) 12/23/21 19:09 SARS-CoV-2 Ag (Rapid) negative (Negative) 12/23/21 05:01 Vitals Last Vital Signs Temp 98.6 F 12/26/21 07:49 Pulse 85 12/26/21 08:04 Resp 16 12/26/21 08:04 BP 163/89 12/26/21 07:49 Pulse Ox 97 12/26/21 08:04 O2 Del Method 12/26/21 08:04 Discharge Plan Discharge Patient Disposition: Home Condition: Stable Prescriptions: New tamsulosin 0.4 mg Capsule 0.4 mg PO DAILY 30 Days Qty: 30 0RF clopidogrel 75 mg Tablet 75 mg PO DAILY 30 Days Qty: 30 0RF isosorbide mononitrate 60 mg Tablet Extended Release 24 Hr 60 mg PO DAILY 30 Days Qty: 30 0RF cholecalciferol (vitamin D3) 25 mcg (1,000 unit) Tablet 2,000 unit PO DAILY 30 Days Qty: 60 0RF polysaccharide iron complex [Ferrex 150] 150 mg iron Capsule 150 mg PO DAILY 30 Days Qty: 30 0RF furosemide [Lasix] 20 mg tablet 20 mg PO DAILY PRN (Reason: edema) 30 Days Qty: 30 0RF Rx Instructions: FOR SOB , edema, 2POUND WEIGHT GAIN, take 1 tablet a day for 3 days, with potassium, then stop potassium chloride [Klor-Con 10] 10 mEq tablet extended release 10 meq PO DAILY PRN (Reason: edema) 30 Days Qty: 30 0RF Rx Instructions: TAKE WITH LASIX INTRUCTED nitroglycerin 0.4 mg tablet, sublingual 0.4 mg sublingual Q5M PRN (Reason: chest pain) 30 Days Qty: 30 0RF Rx Instructions: do not exceed 3 doses per episode hydralazine 25 mg Tablet 25 mg PO TID 30 Days Qty: 90 0RF Continued hydrocodone-acetaminophen 10-325 mg tablet 1 tab PO Q4H PRN (Reason: Pain) albuterol sulfate 90 mcg/actuation HFA aerosol inhaler 2 puff inhalation Q6H PRN (Reason: Shortness Of Breath) allopurinol 100 mg tablet 100 mg PO DAILY aspirin [Adult Aspirin Regimen] 81 mg tablet,delayed release (DR/EC) 81 mg PO DAILY docusate sodium 100 mg capsule 100 mg PO BID dulaglutide 1.5 mg/0.5 mL pen injector 1.5 mg SUBCUT Q7D Rx Instructions: On Monday hydrocortisone 2.5 % cream 1 applic topical BID PRN (Reason: Rash) metoprolol tartrate 100 mg tablet 100 mg PO BID latanoprost 0.005 % drops 2 drp ophthalmic (eye) DAILY albuterol sulfate 90 mcg/actuation HFA aerosol inhaler 2 inh inhalation Q6H PRN (Reason: shortness of breath or wheezing) Qty: 8.5 0RF Discontinued colchicine 0.6 mg tablet 0.6 mg PO BID lisinopril 10 mg tablet 10 mg PO BID doxycycline hyclate 100 mg capsule 100 mg PO BID 10 Days Qty: 20 0RF Discharge Orders: Discharge Order (Routine); Ordered 12/26/21 Ordered By: Jose Johnson Referrals: Yenny Navarro MD [Primary Care Provider] - Javi Viveros MD [Referring] - 1 month Karen Pitt FNP [Nurse Practitioner] - 4-7 days Patient Instructions: Opioid Safety Activity Restrictions/Additional Instructions: - If any recurrent chest pain go to the emergency room -Please take blood pressure medication as prescribed, follow-up with Paz tomorrow or on Monday for blood pressure check -Please take aspirin and Plavix as prescribed if you develop any bloody or black stools go to the emergency room -Please have primary care recheck your kidney function at next visit, creatinine on discharge was 2 -Please continue to be mobile, monitor for lower extremity edema -If you develop shortness of breath, lower extremity edema or you gain more than 2 pounds then can take Lasix 20 mg once daily with 10 mEq once daily of potassium for a total of 3 days, if you remain symptomatic go to the emergency room Discharge Attestations Time Spent in Discharge Care*: less than 30 min Quality Metrics Clinical Quality Measures [ No reported AMI, CVA or VTE this stay] Coding Level of Care Code Acute g FW DE note Diagnoses Acute kidney injury N17.9
--- NOTE | 2021-12-26 12:15 | PC.NURSE ---
Patient given instructions and follow up appointments. New medications sent to pharmacy. Patient verbalized understanding of instructions and knows to call to make follow up appointments. Patient ambulated to front entrance with and nurse.
== END 2021-12-26 12:17 | disposition home or self-care (01) | DRG 682 ==
LOC: ER 09:48 → MEDSURG 13:35
PROVIDERS: Emergency Medicine; Internal Medicine; Admitting Provider Internal Medicine Cardiovascular Disease; Emergency Provider Family Medicine; PCP Family Medicine; Visit Provider Family Medicine
DX: N17.9 Acute kidney failure, unspecified (principal); I50.31 Acute diastolic (congestive) heart failure; I13.0 Hypertensive heart and chronic kidney disease with heart failure and stage 1 through stage 4 chronic kidney disease, or unspecified chronic kidney disease; N25.81 Secondary hyperparathyroidism of renal origin; N18.9 Chronic kidney disease, unspecified; E11.22 Type 2 diabetes mellitus with diabetic chronic kidney disease; E11.51 Type 2 diabetes mellitus with diabetic peripheral angiopathy without gangrene; N40.1 Benign prostatic hyperplasia with lower urinary tract symptoms; R39.198 Other difficulties with micturition; D50.9 Iron deficiency anemia, unspecified; R77.8 Other specified abnormalities of plasma proteins; F17.200 Nicotine dependence, unspecified, uncomplicated; E55.9 Vitamin D deficiency, unspecified; R80.9 Proteinuria, unspecified; E78.5 Hyperlipidemia, unspecified; Z79.82 Long term (current) use of aspirin; Z79.891 Long term (current) use of opiate analgesic; Z85.09 Personal history of malignant neoplasm of other digestive organs; Z90.49 Acquired absence of other specified parts of digestive tract; Z85.038 Personal history of other malignant neoplasm of large intestine; Z95.820 Peripheral vascular angioplasty status with implants and grafts; Z82.49 Family history of ischemic heart disease and other diseases of the circulatory system
CPT/HCPCS: 36415; 36416; 36600; 51798; 71045; 71275; 76770; 78452; 80048; 80053; 81001; 82306; 82310; 82575; 82728; 82805; 82962; 83036; 83540; 83550; 83880; 83970; 84100; 84145; 84156; 84443; 84484; 84550; 85025; 85378; 87426; 87635; 93005; 93017; 93306; 94640; 96361; 96372; 96374; 96375; 99284; 99285; A9500; J0360; J1644; J1650; J1815; J1940; J2785; J2930; J7030; J7626; Q3014; Q9967

== ENCOUNTER 2022-01-03 08:55 | Emergency (ER) | payer MEDICARE, SELFPAY ==
[2022-01-03] VITALS (35 sets, daily range): BP systolic 147–205; BP diastolic 78–104; PULSE 72–95; RESP 6–27; TEMP 36.8; O2SAT 90–95; BMI 30.8
--- NOTE | 2022-01-03 09:14 | ECG_ITS ---
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 Measurements Intervals [place] Rate: 77 P: 60 ID: [id number] QRS: 43 QRSD: 113 T: 137 QT: 387 QTc: 440 Interpretive Statements SINUS RHYTHM INCOMPLETE RIGHT BUNDLE BRANCH BLOCK [90+ ms QRS DURATION, TERMINAL R IN V1/V2, 40+ ms S IN I/aVL/V4/V5/V6] NONSPECIFIC ST & T-WAVE ABNORMALITY Compared to ECG 12/23/2021 08:13:53 Left-axis deviation no longer present Possible ischemia no longer present T-wave abnormality still present Electronically Signed On 01-03-2022 14:53:46 CDT by Constantino Corrales M.D. [id number] f
--- NOTE | 2022-01-03 09:21 | XRR_ITS ---
PROCEDURE INFORMATION: Exam: XR Chest Exam date and time: 01/03/2022 9:53 AM Age: 56 years old Clinical indication: Cough and dyspnea; Prior surgery; Surgery type: Cholecystectomy, colectomy; Patient HX: Cancer (type)--colon and gall bladder; Additional info: Dyspnea/cough TECHNIQUE: Imaging protocol: Radiologic exam of the chest. Views: 1 view. COMPARISON: CR (CHEST, ) 12/23/2021 4:43 AM FINDINGS: Lungs: Improved right lung airspace disease. Similar faint left basilar airspace opacities. Pleural spaces: Unremarkable. No pleural effusion. No pneumothorax. Heart/Mediastinum: Unremarkable. No cardiomegaly. Bones/joints: Unremarkable. XR/XR chest 1V portable [id number] IMPRESSION: Improved right lung airspace disease. Similar faint left basilar airspace opacities relative to 12/23/2021, which may reflect atelectasis versus pneumonia.
--- NOTE | 2022-01-03 09:21 | ECG_ITS ---
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 Measurements Intervals [place] Rate: 77 P: 60 HI: 183 QRS: 43 QRSD: 113 T: 137 QT: 387 QTc: 440 Interpretive Statements SINUS RHYTHM INCOMPLETE RIGHT BUNDLE BRANCH BLOCK [90+ ms QRS DURATION, TERMINAL R IN V1/V2, 40+ ms S IN I/aVL/V4/V5/V6] NONSPECIFIC ST & T-WAVE ABNORMALITY Compared to ECG 12/23/2021 08:13:53 Left-axis deviation no longer present Possible ischemia no longer present T-wave abnormality still present Electronically Signed On 01-03-2022 14:53:40 CDT by Constantino Corrales M.D. [id number]
[2022-01-03 10:05] LABS: Basophils % 0.3 %; Eosinophils # 0.1 10^3/uL (0.0-0.8); Eosinophils % 0.6 %; Hematocrit 30.5 % (42.0-52.0); Hemoglobin 10.2 g/dL (11.7-16.6); Lymphocytes # 2.3 10^3/uL (0.8-4.8); Lymphocytes % 22.1 %; Mean Corpuscular HGB Conc 33.4 g/dL (30.0-36.0); Mean Corpuscular Hemoglobin 31.1 pg (28.0-34.0); Mean Platelet Volume 10.3 fL (7.4-10.4); Monocytes # 0.8 10^3/uL (0.2-0.9); Monocytes % 7.5 %; Neutrophils # 7.12 10^3/uL (1.8-7.7); Nucleated Red Blood Cells % 0 %; Platelet Count 216 10^3/cmm (130-400); Red Blood Count 3.28 10^6/uL (4.1-5.3); Red Cell Distribution Width 12.5 % (12.1-15.1); White Blood Count 10.3 10^3/uL (4.0-10.0)
[2022-01-03 10:31] LABS: Troponin(5th) Baseline 76 ng/L (0-15)
[2022-01-03 10:34] LABS: Alanine Aminotransferase 12 U/L (0-41); Albumin Level 3.2 g/dL (3.5-5.2); Alkaline Phosphatase 109 U/L (40-130); Anion Gap 14.5 (5-19); Aspartate Amino Transferase 10 U/L (0-40); Blood Urea Nitrogen 18 mg/dL (6-20); Calcium 8.4 mg/dL (8.5-10.5); Carbon Dioxide 20 mmol/L (22-29); Chloride 106 mmol/L (98-107); Globulin 2.9 g/dL (1.3-4.6); Glomerular Filtration Rate 50.3 mL/min (90-130); Glucose 118 mg/dL (65-115); Osmolality Calculated 285 mOsm/kg (285-295); Potassium 4.5 mmol/L (3.5-5.1); Sodium 136 mmol/L (136-145); Total Bilirubin 0.3 mg/dL (0.15-1.2); Total Protein 6.1 g/dL (6.6-8.7)
--- NOTE | 2022-01-03 10:44 | ED_ITS ---
HPI - SOB/Dyspnea General: Chief Complaint: Shortness of Breath/Dyspnea Stated Complaint: SOB Time Seen by Provider: 01/03/22 09:20 Source: patient History of Present Illness: HPI Narrative: 56-year-old male presents emergency room with complaints difficulty breathing. He was recently hospitalized with moderate acute kidney injury as well as a worsening of diastolic congestive heart failure he was discharged on symptom diuretics and recently was told to stop he is noticed increasing difficulty breathing generally not feeling well and some swelling in his abdomen. He is diabetic he usually takes insulin but he does not check his blood sugar. He has noticed some increasing orthopnea however he manages it mostly by sleeping on the right side which seems to relieve his symptoms. He denies any chest pain. MD elicited complaint: shortness of breath and cough Pertinent past history: COPD and congestive heart failure Onset (ago): day(s) Context: recent illness Timing: constant Severity: moderate Exacerbating factors: lying flat and exertion Relieving factors: rest and upright position Known history of: congestive heart failure Associated symptoms: Reports orthopnea; Deny abdominal pain, chest congestion, chest pain, cough, diaphoresis, dizziness, extremity pain, fever(s), hemoptysis, lightheadedness, myalgias, nausea, palpitations, paresthesias, polydipsia, polyuria, rash, sense of impending doom, syncope or vomiting Treatment prior to arrival: none Review of Systems Const: Denies: fever(s) or diaphoresis ENMT: Denies: throat pain, ear or mastoid pain, nasal discharge or nasal congestion Card: Reports: orthopnea; Denies: chest pain, palpitations, lightheadedness or syncope Resp: Reports: dyspnea, non-productive cough and wheezing; Denies: productive cough, hemoptysis or chest congestion GI: Denies: abdominal pain, nausea or vomiting : Denies: flank pain, difficulty urinating, dysuria, urinary frequency or urinary urgency Musc: Denies: extremity pain Skin/Breast: Denies: rash or pruritus Neuro: Denies: dizziness Endo: Denies: polyuria or polydipsia PFSH ED PFSH: Medical History Cancer Colon cancer Diabetes mellitus Gallbladder cancer Glaucoma Gout Hypertension Peripheral vascular disease History of peripheral stenting Surgical History History of cholecystectomy History of partial colectomy Family History Other CAD (coronary artery disease) Diabetes Social History Smoking and tobacco status: current every day smoker Quit status (tobacco): has tried quititng Second hand smoke exposure: Yes Alcohol intake: never Adopted: No Caregiver/support person: No Lives independently: Yes Household members: spouse Housing: Apartment Marital status: Number of children: 4 Number of grandchildren: 1 Highest education level completed: 12th Grade, No Diploma service: No Current occupational status: disabled Current occupational exposures/hazards: No Pets and animals: No History of recent travel: No Leisure activites: exercise and clubs Sexually active: No Current gender identity: Male Shelly/Mandaen: Yazidi Special shelly needs: No Agree to transfusion: Yes Financial difficulty paying for basics: Somewhat Hard Physical Exam Const: COMMON NORMALS: no acute distress GENERAL APPEARANCE: cooperative and comfortable ORIENTATION/CONSCIOUSNESS: Yes awake, Yes oriented to person, Yes oriented to place and Yes oriented to time HENMT: COMMON NORMALS: normocephalic and atraumatic HEAD & SCALP: normocephalic and atraumatic Eye: COMMON NORMALS: Equal, round and reactive pupils present, EOMs intact bilaterally, conjunctivae normal and no scleral icterus CONJUNCTIVA: Yes conjunctivae normal PUPIL: Yes Equal, round and reactive pupils present Resp: COMMON NORMALS: normal respiratory effort, No retractions, No use of accessory muscles and clear to auscultation bilaterally AUSCULTATION: clear to auscultation bilaterally Cardio: COMMON NORMALS: regular rate, regular rhythm and No murmurs present (Cardio) RATE: regular rate RHYTHM: regular rhythm GI: COMMON NORMALS: Soft to palpation and No hepatosplenomegaly present AUSCULTATION: Yes normoactive bowel sounds PALPATION: Yes Soft to palpation, No Tenderness to palpation present (GI), No Guarding due to palpation present (GI) and Yes No hepatosplenomegaly present Extremity: COMMON NORMALS: normal to inspection, capillary refill normal, no clubbing, cyanosis or edema, no calf tenderness and no pedal edema Neuro: SENSORIUM/ORIENTATION: Yes oriented to person, Yes oriented to place and Yes oriented to time Skin: COMMON NORMALS: no rashes or lesions noted GENERAL SKIN EXAM: no rashes or lesions noted Course Vital Signs: Vital signs: Vital Signs Temperature 98.2 F 01/03/22 09:00 Pulse Rate 80 01/03/22 13:00 Respiratory Rate 16 01/03/22 13:00 Blood Pressure 205/104 01/03/22 13:00 Pulse Oximetry 91 01/03/22 13:00 Oxygen Delivery Me thod 01/03/22 09:00 MDM - SOB/Dyspnea Medical Decision Making Patient had over thousand out while in the emergency room when he is feeling somewhat better after the IV Lasix. We will reinstitute his Lasix at 20 daily. Use we will see cardiology when in case management call and try to reschedule that that appointment came and went while he was in the emergency room addition ally follow-up with his primary care doctor towards the end of the week for repeat BMP and reevaluation. Medical Records I reviewed the patient's medical records. Lab Data I reviewed the patient's lab results. : 01/03/22 09:55 01/03/22 09:55 Labs/Radiology: Radiology Impressions Chest X-Ray 01/03/22 09:21 IMPRESSION: Improved right lung airspace disease. Similar faint left basilar airspace opacities relative to 12/23/2021, which may reflect atelectasis versus pneumonia. Laboratory Results WBC 10.3 10^3/uL (4.0-10.0) H 01/03/22 09:55 RBC 3.28 10^6/uL (4.1-5.3) L 01/03/22 09:55 Hgb 10.2 g/dL (11.7-16.6) L 01/03/22 09:55 Hct 30.5 % (42.0-52.0) L 01/03/22 09:55 MCV 93.0 fl (80-94) 01/03/22 09:55 MCH 31.1 pg (28.0-34.0) 01/03/22 09:55 MCHC 33.4 g/dL (30.0-36.0) 01/03/22 09:55 RDW 12.5 % (12.1-15.1) 01/03/22 09:55 Plt Count 216 10^3/cmm (130-400) 01/03/22 09:55 MPV 10.3 fL (7.4-10.4) 01/03/22 09:55 Neut % (Auto) 69.0 % 01/03/22 09:55 Lymph % (Auto) 22.1 % 01/03/22 09:55 [place] % (Auto) 7.5 % 01/03/22 09:55 Eos % (Auto) 0.6 % 01/03/22 09:55 Baso % (Auto) 0.3 % 01/03/22 09:55 Neut # (Auto) 7.12 10^3/uL (1.8-7.7) 01/03/22 09:55 Lymph # (Auto) 2.3 10^3/uL (0.8-4.8) 01/03/22 09:55 [place] # (Auto) 0.8 10^3/uL (0.2-0.9) 01/03/22 09:55 Eos # (Auto) 0.1 10^3/uL (0.0-0.8) 01/03/22 09:55 Baso # (Auto) 0.0 10^3/uL (0.0-0.1) 01/03/22 09:55 Nucleated RBC % (auto) 0 % 01/03/22 09:55 Nucleated RBCs # 0.0 /100WBC 01/03/22 09:55 Sodium 136 mmol/L (136-145) 01/03/22 09:55 Potassium 4.5 mmol/L (3.5-5.1) 01/03/22 09:55 Chloride 106 mmol/L (98-107) 01/03/22 09:55 Carbon Dioxide 20 mmol/L (22-29) L 01/03/22 09:55 Anion Gap 14.5 (5-19) 01/03/22 09:55 BUN 18 mg/dL (6-20) 01/03/22 09:55 Creatinine 1.7 mg/dL (0.7-1.2) H 01/03/22 09:55 GFR Calculation 50.3 mL/min (90-130) L 01/03/22 09:55 Glucose 118 mg/dL (65-115) H 01/03/22 09:55 Calculated Osmolality 285 mOsm/kg (285-295) 01/03/22 09:55 Calcium 8.4 mg/dL (8.5-10.5) L 01/03/22 09:55 Total Bilirubin 0.3 mg/dL (0.15-1.2) 01/03/22 09:55 AST 10 U/L (0-40) 01/03/22 09:55 ALT 12 U/L (0-41) 01/03/22 09:55 Alkaline Phosphatase 109 U/L (40-130) 01/03/22 09:55 Troponin T Baseline 76 ng/L (0-15) H 01/03/22 09:55 Troponin T 120 Minute 74.97 ng/L (0-15) H 01/03/22 12:00 Delta Troponin T -1.03 ABS# (0-10) L 01/03/22 12:00 NT-Pro-B Natriuret Pep 1774 pg/mL (0-125) H 01/03/22 09:55 Total Protein 6.1 g/dL (6.6-8.7) L 01/03/22 09:55 Albumin 3.2 g/dL (3.5-5.2) L 01/03/22 09:55 Globulin 2.9 g/dL (1.3-4.6) 01/03/22 09:55 Urine Color Yellow (Yellow) 01/03/22 13:40 Urine Appearance Clear (CLEAR) 01/03/22 13:40 Urine pH 6 (5-7) 01/03/22 13:40 Ur Specific [place] 1.015 (1.005-1.030) 01/03/22 13:40 Urine Protein Neg (Negative) 01/03/22 13:40 Urine Glucose (UA) Norm (Normal) 01/03/22 13:40 Urine Ketones Negative (Negative) 01/03/22 13:40 Urine Blood Neg (Negative) 01/03/22 13:40 Urine Nitrate Negative (Negative) 01/03/22 13:40 Urine Bilirubin Neg (Negative) 01/03/22 13:40 Urine Urobilinogen Norm mg/dL (Negative) 01/03/22 13:40 Ur Leukocyte Esterase 1+ (Negative) H 01/03/22 13:40 Urine RBC None /hpf (0-2) 01/03/22 13:40 Urine WBC None /hpf (0-5) 01/03/22 13:40 Ur Squamous Epith Cells 0-4 /hpf (0-5) H 01/03/22 13:40 Amorphous Sediment Not Reportable 01/03/22 13:40 Urine Bacteria None /hpf (NONE) 01/03/22 13:40 Discharge Plan Discharge Patient Disposition: Home Clinical Impression: Acute on chronic diastolic (congestive) heart failure, Diabetes mellitus, Hypertension, CKD (chronic kidney disease) Condition: Stable Prescriptions: Changed Lasix 20 mg tablet 20 mg PO DAILY 30 Days Qty: 30 0RF Rx Instructions: FOR SOB , edema, 2POUND WEIGHT GAIN, take 1 tablet a day for 3 days, with potassium, then stop No Action hydrocodone-acetaminophen 10-325 mg tablet 1 tab PO Q4H PRN (Reason: Pain) albuterol sulfate 90 mcg/actuation HFA aerosol inhaler 2 puff inhalation Q6H PRN (Reason: Shortness Of Breath) allopurinol 100 mg tablet 100 mg PO DAILY aspirin [Adult Aspirin Regimen] 81 mg tablet,delayed release (DR/EC) 81 mg PO DAILY docusate sodium 100 mg capsule 100 mg PO BID dulaglutide 1.5 mg/0.5 mL pen injector 1.5 mg SUBCUT Q7D Rx Instructions: On Monday metoprolol tartrate 100 mg tablet 100 mg PO BID latanoprost 0.005 % drops 2 drp ophthalmic (eye) DAILY polysaccharide iron complex [Ferrex 150] 150 mg iron Capsule 150 mg PO DAILY 30 Days Qty: 30 0RF hydralazine 25 mg Tablet 25 mg PO TID 30 Days Qty: 90 0RF clopidogrel 75 mg Tablet 75 mg PO DAILY 30 Days Qty: 30 0RF isosorbide mononitrate 60 mg Tablet Extended Release 24 Hr 60 mg PO DAILY 30 Days Qty: 30 0RF tamsulosin 0.4 mg Capsule 0.4 mg PO DAILY 30 Days Qty: 30 0RF cholecalciferol (vitamin D3) 25 mcg (1,000 unit) Tablet 2,000 unit PO DAILY 30 Days Qty: 60 0RF potassium chloride [Klor-Con 10] 10 mEq tablet extended release 10 meq PO DAILY PRN (Reason: edema) 30 Days Qty: 30 0RF Rx Instructions: TAKE WITH LASIX INTRUCTED nitroglycerin 0.4 mg tablet, sublingual 0.4 mg sublingual Q5M PRN (Reason: chest pain) 30 Days Qty: 30 0RF Rx Instructions: do not exceed 3 doses per episode simvastatin 10 mg tablet 10 mg PO BEDTIME albuterol sulfate 90 mcg/actuation HFA aerosol inhaler 2 inh inhalation Q6H PRN (Reason: shortness of breath or wheezing) Qty: 8.5 0RF Discharge Orders: Discharge ED (Routine); Ordered 01/03/22 Ordered By: Boom To Referrals: Yenny Navarro MD [Primary Care Provider] - Discharge Diet: Cardiac Discharge Activity: Increase activity as tolerated Patient Instructions: Opioid Safety, Pain Management Activity Restrictions/Additional Instructions: Resume Lasix 20 mg daily. Case management is working on getting you a rescheduled appointment with cardiology. You should follow-up with your primary care doctor in the office in 3 to 4 days for repeat BMP. Coding Level of Care Code ED [employer] Architect for Mary Anthony
[2022-01-03] MEDS: FUROsemide 10 mg/mL SDV 4mL 40 MG IVP (11:04)
[2022-01-03 11:14] LABS: NT Pro B Type Natriuretic Pept 1774 pg/mL (0-125)
[2022-01-03 12:40] LABS: Troponin 5 2HR 74.97 ng/L (0-15)
[2022-01-03 12:41] LABS: Troponin 5 2HR Delta -1.03 ABS# (0-10)
--- NOTE | 2022-01-03 13:50 | ECG_ITS ---
[facility] Test Date: 2022-01-03 Pat Name: Alek Hopper Department: Room: Gender: Male Physician Advisor: : 1965 Requested By: Boom Butler Order Number: [id number] Krystle MD: Constantino Corrales M.D. Measurements Intervals [place] Rate: 80 P: 61 OK: 188 QRS: 30 QRSD: 121 T: 128 QT: 379 QTc: 438 Interpretive Statements Sinus rhythm Left atrial abnormality Incomplete right bundle branch block Diffuse T wave changes laterally, possible ischemia ABNORMAL RHYTHM ECG Compared to ECG 01/03/2022 09:09:07 No change Electronically Signed On 01-03-2022 14:59:05 CDT by Constantino Corrales M.D. [id number]
[2022-01-03 14:10] LABS: Add Urine Microscopic? YES; Bilirubin Urine Neg (Negative); Blood Urine Neg (Negative); Glucose Urine UA Norm (Normal); Ketones Urine Negative (Negative); Leukocyte Esterase Urine 1+ (Negative); Nitrate Urine Negative (Negative); Protein Urine Neg (Negative); Specific Gravity, Urine 1.015 (1.005-1.030); Urine Appearance Clear (CLEAR); Urine Color Yellow (Yellow); Urobilinogen Urine Norm (Negative); pH Urine 6 (5-7)
[2022-01-03 14:13] LABS: Add Urine Culture? No; Squamous Epithelial Cell Urine 0-4 /hpf (0-5)
--- NOTE | 2022-01-05 08:47 | DCPLANNER ---
Addendum entered by Aimee Mohr 01/07/22 12:42: Patient had a follow up appointment scheduled with Karen Pitt at [facility] - patient did attend appointment. Original Note: territory business manager had message to schedule a follow up appointment for patient with cardiology. territory business manager sent patients information to the front office staff at [facility]. Patients information will be printed and reviewed. Clinic will call patient with appointment information.
== END 2022-01-03 14:43 | disposition home or self-care (01) ==
PROVIDERS: Emergency Provider Family Medicine; PCP Family Medicine
DX: E11.22 Type 2 diabetes mellitus with diabetic chronic kidney disease (principal); I13.0 Hypertensive heart and chronic kidney disease with heart failure and stage 1 through stage 4 chronic kidney disease, or unspecified chronic kidney disease; N18.9 Chronic kidney disease, unspecified; I50.33 Acute on chronic diastolic (congestive) heart failure; Z79.82 Long term (current) use of aspirin; Z79.02 Long term (current) use of antithrombotics/antiplatelets; Z85.038 Personal history of other malignant neoplasm of large intestine; Z85.89 Personal history of malignant neoplasm of other organs and systems; F17.210 Nicotine dependence, cigarettes, uncomplicated
CPT/HCPCS: 71045; 80053; 81001; 83880; 84484; 85025; 93005; 96374; 99285; J1940

== ENCOUNTER → 2022-01-07 11:17 | Outpatient (BNVA) | payer MEDICARE, SELFPAY | PROVIDERS: PCP Family Medicine; Visit Provider Nurse Practitioner Family | DX: I13.0 Hypertensive heart and chronic kidney disease with heart failure and stage 1 through stage 4 chronic kidney disease, or unspecified chronic kidney disease (principal); E11.22 Type 2 diabetes mellitus with diabetic chronic kidney disease; F17.200 Nicotine dependence, unspecified, uncomplicated; N18.9 Chronic kidney disease, unspecified; I50.33 Acute on chronic diastolic (congestive) heart failure; Z79.85 Long-term (current) use of injectable non-insulin antidiabetic drugs | CPT/HCPCS: 99213; 99214 ==

== ENCOUNTER → 2022-02-14 15:19 | Outpatient (BNVA) | payer MEDICARE, SELFPAY | PROVIDERS: PCP Family Medicine; Visit Provider Internal Medicine Cardiovascular Disease | DX: R06.02 Shortness of breath (principal); R09.89 Other specified symptoms and signs involving the circulatory and respiratory systems; I11.0 Hypertensive heart disease with heart failure; I50.31 Acute diastolic (congestive) heart failure; E11.9 Type 2 diabetes mellitus without complications; J44.9 Chronic obstructive pulmonary disease, unspecified; I73.9 Peripheral vascular disease, unspecified; R07.9 Chest pain, unspecified; F17.200 Nicotine dependence, unspecified, uncomplicated | CPT/HCPCS: 80048; 83880; 99214 ==

== ENCOUNTER → 2022-05-04 08:43 | Outpatient (BNVA) | payer MEDICARE, SELFPAY | PROVIDERS: PCP Family Medicine; Visit Provider Podiatrist Foot & Ankle Surgery | DX: E11.21 Type 2 diabetes mellitus with diabetic nephropathy (principal); L60.3 Nail dystrophy; M20.41 Other hammer toe(s) (acquired), right foot; M20.42 Other hammer toe(s) (acquired), left foot; M21.41 Flat foot [pes planus] (acquired), right foot; M21.42 Flat foot [pes planus] (acquired), left foot; I73.9 Peripheral vascular disease, unspecified | CPT/HCPCS: 99214 ==

== ENCOUNTER 2022-06-02 13:46 | Outpatient (CLI) | payer MEDICARE, SELFPAY ==
--- NOTE | 2022-06-02 13:45 | USCV_ITS ---
Alek Hopper Age: 57 Gender: M : 1965 Exam Date: 06/02/2022 14:26 Ordering Phys: Akiko Vaughn MD ([email or web address]) Technologist: ALICIA [place] [facility] [place]: Stenosis Risk Factors: Previous Vascular Surgery: Right Brachial BP: / Left Brachial BP: / Right Left Velocity (cm/s) Spectral Plaque Velocity (cm/s) Spectral Plaque Syst/Diast Broadening Syst/Diast Broadening 80.50/ 16.50 Prox CCA 98.60 / 26.40 77.20/ 9.90 Mid CCA 203.10/ 32.20 78.30/ 14.30 Distal CCA 170.90/ 18.10 95.90/ 19.80 Prox ICA 83.80 / 13.50 90.30/ 22.10 Mid ICA 71.30 / 21.20 81.70/ 28.80 Distal ICA 84.80 / 25.10 100.30 ECA 100.30 1.19 ICA/CCA 0.42 Antegrade Vertebral Antegrade 60.60/ 20.20 cm/s 115.7/ 28.90 cm/s 0 Bi Subclavian Bi 168.3 160.8 0 0 FINDINGS Minimal intimal thickening at the bifurcations No unstable plaques or lesions. Normal Doppler flow velocities Antegrade flow in the vertebral arteries bilaterally CONCLUSIONS Minimal intimal thickening at the bifurcations with no unstable plaques or stenotic lesions No evidence of any significant stenosis in the external carotid, vertebral or subclavian arteries. Dr Akiko Vaughn MD [facility] (Electronically Signed) Final Date: 04 June 2022 08:45 S
== END 2022-06-02 13:47 | disposition home or self-care (01) ==
PROVIDERS: PCP Family Medicine; Visit Provider Internal Medicine Cardiovascular Disease
DX: I77.9 Disorder of arteries and arterioles, unspecified (principal); R09.89 Other specified symptoms and signs involving the circulatory and respiratory systems
CPT/HCPCS: 93880

== ENCOUNTER 2022-06-20 09:28 | Outpatient (CLI) | payer MEDICARE, MEDICAID, SELFPAY ==
[2022-06-20 10:51] LABS: Anion Gap 11.2 (5-19); Blood Urea Nitrogen 26 mg/dL (6-20); Calcium 8.4 mg/dL (8.5-10.5); Carbon Dioxide 22 mmol/L (22-29); Chloride 106 mmol/L (98-107); Glomerular Filtration Rate 33.7 mL/min (90-130); Glucose 116 mg/dL (65-115); NT Pro B Type Natriuretic Pept 1066 pg/mL (0-125); Osmolality Calculated 284 mOsm/kg (285-295); Potassium 5.2 mmol/L (3.5-5.1); Sodium 134 mmol/L (136-145)
== END 2022-06-20 09:29 | disposition home or self-care (01) ==
PROVIDERS: Internal Medicine Cardiovascular Disease; PCP Family Medicine; Visit Provider Internal Medicine Nephrology
DX: N17.9 Acute kidney failure, unspecified (principal); N25.81 Secondary hyperparathyroidism of renal origin; E11.9 Type 2 diabetes mellitus without complications; R07.9 Chest pain, unspecified; I50.31 Acute diastolic (congestive) heart failure; J44.9 Chronic obstructive pulmonary disease, unspecified
CPT/HCPCS: 36415; 80048; 83880

== ENCOUNTER 2022-06-30 08:38 | Outpatient (CLI) | payer MEDICARE, MEDICAID, SELFPAY ==
[2022-06-30 10:02] LABS: Anion Gap 12.4 (5-19); Blood Urea Nitrogen 24 mg/dL (6-20); Calcium 8.4 mg/dL (8.5-10.5); Carbon Dioxide 22 mmol/L (22-29); Chloride 108 mmol/L (98-107); Glomerular Filtration Rate 37.3 mL/min (90-130); Glucose 127 mg/dL (65-115); NT Pro B Type Natriuretic Pept 1358 pg/mL (0-125); Osmolality Calculated 292 mOsm/kg (285-295); Potassium 4.4 mmol/L (3.5-5.1); Sodium 138 mmol/L (136-145)
== END 2022-06-30 08:39 | disposition home or self-care (01) ==
LOC: LAB 08:43
PROVIDERS: Internal Medicine Cardiovascular Disease; PCP Family Medicine; Visit Provider Registered Nurse
DX: I12.9 Hypertensive chronic kidney disease with stage 1 through stage 4 chronic kidney disease, or unspecified chronic kidney disease (principal); N18.32 Chronic kidney disease, stage 3b; I50.31 Acute diastolic (congestive) heart failure; R09.89 Other specified symptoms and signs involving the circulatory and respiratory systems; I73.9 Peripheral vascular disease, unspecified
CPT/HCPCS: 36415; 80048; 83880

== ENCOUNTER 2022-08-12 14:16 | Outpatient (CLI) | payer MEDICARE, MEDICAID, SELFPAY ==
[2022-08-12 15:04] LABS: Basophils % 0.4 %; Eosinophils % 0.2 %; Hematocrit 36.3 % (42.0-52.0); Hemoglobin 11.2 g/dL (11.7-16.6); Lymphocytes # 1.5 10^3/uL (0.8-4.8); Lymphocytes % 13.4 %; Mean Corpuscular HGB Conc 30.9 g/dL (30.0-36.0); Mean Corpuscular Hemoglobin 29.3 pg (28.0-34.0); Mean Platelet Volume 10.9 fL (7.4-10.4); Neutrophils # 8.33 10^3/uL (1.8-7.7); Neutrophils % 76.5 %; Nucleated Red Blood Cells % 0.2 %; Platelet Count 159 10^3/cmm (130-400); Red Blood Count 3.82 10^6/uL (4.1-5.3); Red Cell Distribution Width 14.1 % (12.1-15.1); White Blood Count 10.9 10^3/uL (4.0-10.0)
[2022-08-12 15:22] LABS: Calcium 8.5 mg/dL (8.5-10.5); Chloride 107 mmol/L (98-107); Glomerular Filtration Rate 8.4 mL/min (90-130); Glucose 105 mg/dL (65-115); Phosphorus 6.8 mg/dL (2.5-4.5); Sodium 128 mmol/L (136-145)
[2022-08-12 15:57] LABS: Parathyroid Hormone 78.4 pg/mL (15-65)
[2022-08-12 16:02] LABS: Calcium 8.6 mg/dL (8.5-10.5)
[2022-08-12 16:07] LABS: Anion Gap 20.9 (5-19); Blood Urea Nitrogen 84 mg/dL (6-20); Carbon Dioxide 8 mmol/L (22-29); Potassium 7.9 mmol/L (3.5-5.1)
== END 2022-08-12 14:17 | disposition home or self-care (01) ==
LOC: LAB 14:24
PROVIDERS: PCP Family Medicine; Visit Provider Registered Nurse
DX: N18.32 Chronic kidney disease, stage 3b (principal)
CPT/HCPCS: 80069; 82310; 83970; 85025

== ENCOUNTER 2022-08-12 17:00 | Inpatient (IN) | payer MEDICARE, MEDICAID, SELFPAY ==
[2022-08-12] VITALS (17 sets, daily range): BP systolic 98–172; BP diastolic 40–73; PULSE 42–85; RESP 16–25; TEMP 35.8–37.6; O2SAT 91–97; BMI 28.5
[2022-08-12] MEDS: sodium chloride 0.9% 1,000 ML 999 ML IV ×2 (18:37→19:49)
[2022-08-12] MEDS: insulin regular-human 100 units/1 mL 10 UNIT IVP (18:50)
[2022-08-12] MEDS: calcium gluconate 0.1 gm/mL 10% SDV 10mL 1 GM IVP (18:53)
[2022-08-12] MEDS: sodium polystyrene sulfonate 15 gm/60 mL Btl 30 GM PO (18:53)
[2022-08-12 19:08] LABS: Chloride 108 mmol/L (98-107); Glomerular Filtration Rate 8.9 mL/min (90-130); Glucose 103 mg/dL (65-115); Magnesium 2.1 mg/dL (1.7-2.3); Osmolality Calculated 294 mOsm/kg (285-295); Phosphorus 6.4 mg/dL (2.5-4.5); Sodium 129 mmol/L (136-145)
--- NOTE | 2022-08-12 19:10 | ED_ITS ---
HPI - Recheck/Abnormal Lab/Rx General: Chief Complaint: Recheck/Abnormal Lab/Rx Stated Complaint: abn labs Time Seen by Provider: 08/12/22 18:12 History of Present Illness: Patient presents with complaints of abnormal labs. Patient's potassium was 7.9 upon lab draw earlier today. Patient said that he does not been feeling good and has had had nausea vomiting and diarrhea over the last 2 to 3 weeks. Patient does see touch up painter and his creatinine normally runs in the fours and fives but he is not on dialysis. Patient is on Lasix and potassium. Patient had labs today for yearly screening purposes. And his potassium was 7.9 his BUN/creatinine was 84 and 8.0. Review of Systems General: Reports: 10 or more systems reviewed and unremarkable except in HPI and below PFSH ED PFSH: Medical History Cancer Colon cancer Diabetes mellitus Gallbladder cancer Glaucoma Gout Hypertension Peripheral vascular disease History of peripheral stenting Surgical History History of cholecystectomy History of partial colectomy Family History Brother Bleeding disorder Clotting disorder CAD (coronary artery disease) Cancer Diabetes x 5 Stroke Sister Bleeding disorder Clotting disorder Chronic kidney disease (CKD) Diabetes x 6 Lung disease x 2 Stroke Father Bleeding disorder Clotting disorder CAD (coronary artery disease) Chronic kidney disease (CKD) Diabetes Mother CAD (coronary artery disease) Cancer Diabetes Stroke Grandfather CAD (coronary artery disease) Cancer Diabetes Grandmother Cancer Dementia Diabetes Family/Other Cancer Chronic kidney disease (CKD) Dementia Diabetes Lung disease Denies family history of Suicide Anesthesia complication Social History Smoking and tobacco status: current every day smoker Quit status (tobacco): has tried quititng Second hand smoke exposure: Yes Alcohol intake: never Substance/Drug Use: never Adopted: No Caregiver/support person: No Lives independently: Yes Household members: spouse Housing: Apartment Marital status: Number of children: 4 Number of grandchildren: 1 Highest education level completed: 12th Grade, No Diploma service: No Current occupational status: disabled Current occupational exposures/hazards: No Pets and animals: No Leisure activites: exercise and clubs Sexually active: No Do you think of yourself as: Straight/Heterosexual Current gender identity: Male Shelly/Scientologist: Religious Special shelly needs: No Agree to transfusion: Yes Financial difficulty paying for basics: Somewhat Hard Physical Exam Const: COMMON NORMALS: no acute distress, average body habitus, patient oriented x3, no limitations, healthy appearing, alert and well nourished HENMT: COMMON NORMALS: normocephalic, atraumatic, hearing grossly normal bilaterally, external ears normal and moist oral mucous membranes HEAD & SCALP: normocephalic and atraumatic EXTERNAL EAR: Yes external ears normal Eye: COMMON NORMALS: Equal, round and reactive pupils present, EOMs intact bilaterally, conjunctivae normal and no scleral icterus CONJUNCTIVA: Yes conjunctivae normal PUPIL: Yes Equal, round and reactive pupils present Neck/C-Spine: COMMON NORMALS: full ROM, no lymphadenopathy, supple, no menin geal signs, no JVD and Thyroid normal THYROID: Thyroid normal Lymph: LYMPHATIC: no lymphadenopathy noted Chest: COMMONS NORMALS: normal inspection of the chest and normal palpation of entire chest wall Resp: COMMON NORMALS: normal respiratory effort, No retractions, No use of accessory muscles and clear to auscultation bilaterally AUSCULTATION: clear to auscultation bilaterally Cardio: COMMON NORMALS: no JVD, regular rate, regular rhythm, S1 normal heart sound present and S2 normal heart sound present RATE: regular rate RHYTHM: regular rhythm HEART SOUNDS: S1 normal heart sound present and S2 normal heart sound present GI: COMMON NORMALS: Normal to inspection, nondistended, normoactive bowel sounds present, Soft to palpation, non-tender, No hepatosplenomegaly present and no masses PALPATION: Yes Soft to palpation and Yes No hepatosplenomegaly present : COMMON NORMALS: Yes no CVA tenderness BLADDER/KIDNEY EXAM: Yes no CVA tenderness Back/Pelvis: COMMON NORMALS: no CVA tenderness Extremity: COMMON NORMALS: normal to inspection and full ROM Neuro: COMMON NORMALS: patient oriented x3 SENSORIUM/ORIENTATION: Yes alert MENINGEAL SIGNS: Yes no meningeal signs Course Vital Signs: Vital signs: Vital Signs Temperature 96.5 F L 08/12/22 17:07 Pulse Rate 59 L 08/12/22 20:31 Respiratory Rate 20 H 08/12/22 20:31 Blood Pressure 115/44 08/12/22 19:00 Pulse Oximetry 95 08/12/22 20:31 Oxygen Delivery Me thod Room Air 08/12/22 20:31 MDM - Recheck/Abnormal Lab/Rx Medical Decision Making Patient presents to the ER with complaints of worsening kidney function. Patient had routine labs drawn today for his touch up painter and it showed his potassium was 7.8 his BUN/creatinine was approximately 85 and 8.0. He presented here for further evaluation and treatment. Patient was given 1 amp of D50, 30 g of Kayexalate, 1 L normal saline, 10 units of IV regular insulin, 1 g of calcium gluconate, albuterol 10 mg nebulizer treatment. Lab work was reviewed and a BMP was ordered which showed his potassium was 8 upon arrival here was 8.3 his BUN and creatinine was 85 and 7.6., Phosphorus was 6.4, magnesium 2.1. Dr. Arvin vanessa telemetry nephro was consulted. She suggested patient be placed in the ICU for further evaluation and treatment. She placed further orders. Consulted Dr. Heaton who agreed for placement in the ICU for emergent dialysis for hyperkalemia and further evaluation and treatment. She wanted Dr. Collins who is on-call for general surgery consulted so he can place a temporary dialysis catheter. Patient will be placed in the ICU Differential Diagnosis Unlikely encounter for medication refill, encounter for wound recheck, encounter for recheck of burn, encounter for removal of sutures or warfarin-induced coagulopathy Medical Records I reviewed the patient's medical records. Lab Data I reviewed the patient's lab results. 08/12/22 20:30 Laboratory Results Sodium 130 mmol/L (136-145) L 08/12/22 20:30 Potassium 7.1 mmol/L (3.5-5.1) H* 08/12/22 20:30 Chloride 110 mmol/L (98-107) H 08/12/22 20:30 Carbon Dioxide 9 mmol/L (22-29) L 08/12/22 20:30 Anion Gap 18.1 (5-19) 08/12/22 20:30 BUN 86 mg/dL (6-20) H* 08/12/22 20:30 Creatinine 7.2 mg/dL (0.7-1.2) H* 08/12/22 20:30 GFR Calculation 9.5 mL/min (90-130) L 08/12/22 20:30 Glucose 51 mg/dL (65-115) L 08/12/22 20:30 Calculated Osmolality 294 mOsm/kg (285-295) 08/12/22 20:30 Calcium 8.5 mg/dL (8.5-10.5) 08/12/22 20:30 Phosphorus 6.4 mg/dL (2.5-4.5) H 08/12/22 18:44 Magnesium 2.1 mg/dL (1.7-2.3) 08/12/22 18:44 EKG Data EKG 1: I personally reviewed and interpreted this EKG as follows: EKG interpretation date: 08/12/22 EKG interpretation time: 18:27 Prior EKG tracings: not available for review Interpretation: EKG showed ventricular rate of 61 bpm, SD interval 186, QRS duration 125, QTc of 421, sinus rhythm with sinus arrhythmia, left anterior fascicular block, ST deviation moderate T wave abnormality consider lateral ischemia negative T waves in 1 aVL V5 V6 Discharge Plan Discharge Patient Disposition: Admitted As Inpatient Clinical Impression: Acute hyperkalemia, Acute on chronic renal failure, Hyperphosphatemia, Acute hyponatremia Condition: Stable Referrals: Yenny Navarro MD [Primary Care Provider] - Coding Level of Care Code ED Business Liaison Manager for Mary Anthony
[2022-08-12 19:17] LABS: Carbon Dioxide 9 mmol/L (22-29)
[2022-08-12 19:18] LABS: Anion Gap 20.3 (5-19)
[2022-08-12 19:19] LABS: Blood Urea Nitrogen 85 mg/dL (6-20); Potassium 8.3 mmol/L (3.5-5.1)
[2022-08-12] MEDS: albuterol 2.5 mg/3 mL Neb 10 MG INHALATION (20:28)
[2022-08-12] MEDS: sodium bicarbonate 1 mEq/mL SDV 50mL 100 MEQ IVP (20:39)
[2022-08-12] MEDS: sodium bicarbonate 150 MEQ in dextrose 5% 1,000 ML IV (20:54)
[2022-08-12 21:22] LABS: Anion Gap 18.1 (5-19); Calcium 8.5 mg/dL (8.5-10.5); Chloride 110 mmol/L (98-107); Glomerular Filtration Rate 9.5 mL/min (90-130); Glucose 51 mg/dL (65-115); Osmolality Calculated 294 mOsm/kg (285-295); Sodium 130 mmol/L (136-145)
[2022-08-12 21:23] LABS: Carbon Dioxide 9 mmol/L (22-29)
[2022-08-12 21:24] LABS: Blood Urea Nitrogen 86 mg/dL (6-20); Potassium 7.1 mmol/L (3.5-5.1)
--- NOTE | 2022-08-12 22:26 | P.HP_ITS ---
Providers/Chief Complaint Admitting Physician: Eun Heaton MD Primary Care Provider: Yenny Navarro MD Chief Complaint: abn labs History of Present Illness Alek Hopper is a 57 year old male With past medical history of, colon cancer, diabetes mellitus, gout, hypertension presented to the hospital today with complaint of abnormal labs. He said that earlier today his potassium was 7.9 therefore he came to the hospital. Lately he has not been feeling very good he has been having nausea vomiting diarrhea for the last 3 weeks. He did go see his primary care doctor as well for the same. He ate chicken and had diarrhea. He stated that his nausea vomiting is not really related to food but is constant throughout the day. Patient was given loperamide and sent home. At that point he did deny any abdominal pain fever or chills. 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 Patient is supposed to be on Lasix and potassium tablets at home. Today had labs done as part of yearly screening. Does make urine and not been started on dialysis yet as an outpatient. Patient states that throughout this time he was taking his potassium and Lasix with compliant all his medications despite having nausea vomiting diarrhea. He states that his school office manager supposed to come to cardiology to take him off of the potassium however they were not able to get a message through and he is not informed and therefore he was still taking his potassium tablets. He believes could be a reason why all this has happened today. He complains of a lot of muscle cramps and leg pain. He also complains of abdominal pain at this time. On arrival to ER blood pressure 115/44,, pulse 59, temperature 96.5, saturating 95% room air. Initial labs showed sodium 130, potassium 7.3 with repeat labs s howing potassium going up to 8.3. Creatinine 8.0. Glucose 51, phosphorus 6.4, magnesium 2.1. Bicarb 9. Nephrology was consulted stat. Patient given amp of D50, 30 of Kayexalate 1 L normal saline 10 units of IV regular insulin and 1 g of calcium gluconate albuterol 10 mg bladder treatment. He was recommended by nephrology to place dialysis catheter and emergently dialyzed patient. Surgery was consulted who did place a temporary dialysis catheter for the patient. Patient be transferred to ICU and dialysis will be initiated. Medications/Allergies Home Medications Medication Instructions Recorded Confirmed Last Taken Type albuterol sulfate 90 mcg/actuation 2 puff inhalation Q6H PRN 03/10/20 08/09/22 Unknown History aerosol inhaler Shortness Of Breath allopurinol 100 mg tablet 100 mg PO DAILY 03/10/20 08/09/22 01/03/22 History aspirin 81 mg tablet,delayed 81 mg PO DAILY 03/10/20 08/09/22 01/03/22 History release (Adult Aspirin Regimen) docusate sodium 100 mg capsule 100 mg PO BID 03/10/20 08/09/22 01/03/22 History dulaglutide 1.5 mg/0.5 mL 1.5 mg SUBCUT Q7D 03/10/20 08/09/22 01/02/22 History subcutaneous pen injector hydrocodone 10 mg-acetaminophen 1 tab PO Q4H PRN Pain 03/10/20 08/09/22 Unknown History 325 mg tablet metoprolol tartrate 100 mg tablet 100 mg PO BID 03/10/20 08/09/22 01/03/22 History albuterol sulfate 90 mcg/actuation 2 inh inhalation Q6H PRN shortness 12/21/21 08/09/22 Unknown Rx aerosol inhaler of breath or wheezing #8.5 grams latanoprost 0.005 % eye drops 2 drp ophthalmic (eye) DAILY 12/23/21 08/09/22 01/03/22 History simvastatin 10 mg tablet 10 mg PO BEDTIME 01/03/22 08/09/22 01/02/22 History esomeprazole magnesium 20 mg 20 mg PO DAILY 01/07/22 08/09/22 Unknown History capsule,delayed release isosorbide mononitrate 30 mg 30 mg PO DAILY #30 tabs 02/14/22 08/09/22 Unknown Rx tablet,extended release 24 hr furosemide 20 mg tablet 60 mg PO BID #90 tabs 06/22/22 08/09/22 Unknown Rx potassium chloride 10 mEq See Rx Instructions .Route 08/02/22 08/09/22 Unknown Rx tablet,extended release .COMPLEX #60 tabs loperamide 2 mg capsule 2 mg PO QID PRN loose stool #14 08/09/22 08/09/22 Unknown Rx caps Allergies Allergy/AdvReac Type Severity Reaction Status Date / Time No Known Allergies Allergy Verified 08/09/22 15:21 PFSH Acute PFSH: Medical History Cancer Colon cancer Diabetes mellitus Gallbladder cancer Glaucoma Gout Hypertension Peripheral vascular disease History of peripheral stenting Surgical History History of cholecystectomy History of partial colectomy Family History Brother Bleeding disorder Clotting disorder CAD (coronary artery disease) Cancer Diabetes x 5 Stroke Sister Bleeding disorder Clotting disorder Chronic kidney disease (CKD) Diabetes x 6 Lung disease x 2 Stroke Father Bleeding disorder Clotting disorder CAD (coronary artery disease) Chronic kidney disease (CKD) Diabetes Mother CAD (coronary artery disease) Cancer Diabetes Stroke Grandfather CAD (coronary artery disease) Cancer Diabetes Grandmother Cancer Dementia Diabetes Family/Other Cancer Chronic kidney disease (CKD) Dementia Diabetes Lung disease Denies family history of Suicide Anesthesia complication Social History Smoking and tobacco status: current every day smoker Quit status (tobacco): has tried quititng Second hand smoke exposure: Yes Alcohol intake: never Substance/Drug Use: never Adopted: No Caregiver/support person: No Lives independently: Yes Household members: spouse Housing: Apartment Marital status: Number of children: 4 Number of grandchildren: 1 Highest education level completed: 12th Grade, No Diploma service: No Current occupational status: disabled Current occupational exposures/hazards: No Pets and animals: No Leisure activites: exercise and clubs Sexually active: No Do you think of yourself as: Straight/Heterosexual Current gender identity: Male Shelly/Gnosticist: Church Special shelly needs: No Agree to transfusion: Yes Financial difficulty paying for basics: Somewhat Hard Vitals/I&O/Wt Last Vital Signs Temp 96.5 F L 08/12/22 17:07 Pulse 83 08/12/22 21:45 Resp 20 H 08/12/22 20:31 BP 151/54 08/12/22 21:45 Pulse Ox 94 08/12/22 21:45 O2 Del Method Room Air 08/12/22 21:45 08/12/22 08/12/22 08/12/22 06:59 14:59 22:59 Intake Total 2099 Balance 2099 Weight last 48 hrs Weight 90.265 kg Physical Exam Narrative: General: Alert oriented x3, patient seen laying in bed HEENT: Normocephalic, atraumatic, EOMI, breathing room air Cardio: Regular rate rhythm, normal S1-S2 Respiratory: Clear to auscultation bilaterally with mild rhonchi at right base. GI: Abdomen soft, mildly tender to palpation all 4 quadrants. Bowel sounds + Extremities: No edema noted Data 08/12/22 20:30 A&P Assessment and plan (1) Acute hyperkalemia: (2) Acute on chronic renal failure: Qualifiers: Acute renal failure type: unspecified Chronic kidney disease stage: unspecified stage Qualified Code(s): N17.9 - Acute kidney failure, unspecified; N18.9 - Chronic kidney disease, unspecified (3) Hyperphosphatemia: (4) Acute hyponatremia: (5) Tobacco dependency: (6) Diabetes mellitus: (7) Hypertension: (8) COPD (chronic obstructive pulmonary disease): Plan #Acute renal failure #Hyperkalemia #Hyponatremia #Hyperphosphatemia #High anion gap metabolic acidosis secondary to above #Hypoglycemia #CKD stage V #Nausea vomiting diarrhea mostly secondary to the above #Hypertension #Chronic diastolic heart failure #Peripheral atrial disease #Active smoker #Diabetes mellitus type 2 ? Admit to ICU ? We will hold all home antihyperglycemic's ? Potassium 7-8 range on arrival, creatinine 78 on arrival, patient hyponatremic, low bicarbonate metabolic acidosis due to renal failure. Patient does have CKD stage V and follows with nephrology every year. Had repeat labs done today. Did recently have nausea vomiting diarrhea in the last few weeks which is not related to food. Continue to take potassium tablets despite being sick. ? Nephrology has been consulted. Dialysis catheter has been placed with general surgery. ? Patient will be emergently managed in the ICU setting. ? Repeat BMP 2 hours post dialysis ? Patient already given an amp of dextrose, 10 units of insulin, calcium gluconate, Kayexalate in ER. ? Hypoglycemic blood sugar 51. We will check blood sugar every 1 hour. ? Zofran 4 mg IV every 4 hours for nausea ? Continue patient on bicarbonate drip at this time as per nephrology ? We will check chest x-ray as baseline ? Check TSH, cortisol level. Patient also hypothermic. ? Check blood cultures, urine culture, sputum culture Gram stain ? Check stool culture, ova parasite screen, C. difficile ? Oxygen therapy protocol -Nephrology consulted. Patient to be dialyzed at this time. ? Mild rhonchi right base. Question of aspiration. Patient has been vomiting as an outpatient. Possibly pneumonitis. Has not been febrile at home. We will continue to monitor patient. I am empirically cover with IV Unasyn at this time. She does have a history of pneumonia in the past. He has a history of COPD. Full code SCDs, heparin subcu for DVT prophylaxis Attestations Medical Necessity Statement*: Intubated today for management of acute renal failure in ICU setting. Coding Level of Care Code G0426 (50 min) TH Encounter Time (min): 50 Patient seen via Telehealth in the acute care setting (hospital or ED location) by agreement and consent of patient or patient territory account representative. Telehealth technology used during the visit includes video and audio. This patient encounter is appropriate and reasonable under the circumstances given the patient?s particular presentation at this time. The patient has been advised of the potential risks and limitations of this mode of treatment (including but not limited to the absence of in-person examination at this time) and has agreed to be treated by an off-site physician for this visit. If deemed clinically necessary from this telehealth visit, or if condition or consent for telehealth visit changes, an in-person visit will be arranged. For this encounter, total time for the origination of telehealth care on this date is as shown. Diagnoses Acute hyperkalemia E87.5 Acute on chronic renal failure N17.9; N18.9 Acute renal failure type: unspecified Chronic kidney disease stage: unspecified stage Hyperphosphatemia E83.39 Acute hyponatremia E87.1 Tobacco dependency F17.200 Diabetes mellitus E11.9 Hypertension I10 COPD (chronic obstructive pulmonary disease) J44.9
--- NOTE | 2022-08-12 22:47 | PM.CONSULT ---
Providers/Reason For Consult Consulting Physician/Specialty*: Dr. Justus Collins, DO/General surgery Reason for Consult*: Need for temporary hemodialysis catheter Attending Physician: Mckinley Santiago MD Primary Care Provider: Yenny Navarro MD History of Present Illness History of Present Illness Alek Hopper is a 57 year old male who presents to the hospital and was found to have hyperkalemia. Nephrology requested temporary hemodialysis catheter insertion for hemodialysis Review of Systems General: Reports: 10 or more systems reviewed and unremarkable except in HPI and below Medications/Allergies Home Medications Medication Instructions Recorded Confirmed Last Taken Type allopurinol 100 mg tablet 100 mg PO DAILY 03/10/20 08/13/22 01/03/22 History aspirin 81 mg tablet,delayed 81 mg PO DAILY 03/10/20 08/13/22 01/03/22 History release (Adult Aspirin Regimen) docusate sodium 100 mg capsule 100 mg PO BID 03/10/20 08/13/22 01/03/22 History dulaglutide 1.5 mg/0.5 mL 1.5 mg SUBCUT Q7D 03/10/20 08/13/22 01/02/22 History subcutaneous pen injector hydrocodone 10 mg-acetaminophen 1 tab PO Q4H PRN Pain 03/10/20 08/13/22 Unknown History 325 mg tablet metoprolol tartrate 100 mg tablet 100 mg PO BID 03/10/20 08/13/22 01/03/22 History albuterol sulfate 90 mcg/actuation 2 inh inhalation Q6H PRN shortness 12/21/21 08/13/22 Unknown Rx aerosol inhaler of breath or wheezing #8.5 grams latanoprost 0.005 % eye drops 2 drp ophthalmic (eye) DAILY 12/23/21 08/13/22 01/03/22 History simvastatin 10 mg tablet 10 mg PO BEDTIME 01/03/22 08/13/22 01/02/22 History esomeprazole magnesium 20 mg 20 mg PO DAILY 01/07/22 08/13/22 Unknown History capsule,delayed release isosorbide mononitrate 30 mg 30 mg PO DAILY #30 tabs 02/14/22 08/13/22 Unknown Rx tablet,extended release 24 hr loperamide 2 mg capsule 2 mg PO QID PRN loose stool #14 08/09/22 08/13/22 Unknown Rx caps amlodipine 5 mg tablet 5 mg PO DAILY 08/13/22 08/13/22 Unknown History cholecalciferol (vitamin D3) 25 25 mcg PO DAILY 08/13/22 08/13/22 Unknown History mcg (1,000 unit) tablet (Vitamin D3) citalopram 10 mg tablet 10 mg PO DAILY 08/13/22 08/13/22 Unknown History clopidogrel 75 mg tablet 75 mg PO DAILY 08/13/22 08/13/22 Unknown History furosemide 20 mg tablet 20 mg PO DAILY 08/13/22 08/13/22 Unknown History hydralazine 25 mg tablet 25 mg PO TID 08/13/22 08/13/22 Unknown History tamsulosin 0.4 mg capsule 0.4 mg PO DAILY 08/13/22 08/13/22 Unknown History trazodone 50 mg tablet 50 mg PO BEDTIME 08/13/22 08/13/22 Unknown History Allergies Allergy/AdvReac Type Severity Reaction Status Date / Time No Known Allergies Allergy Verified 08/09/22 15:21 Current Medications Generic Name Dose Route Start Last Admin Trade Name Jose PRN Reason Stop Dose Admin Aspirin 81 mg 08/14/22 09:00 08/14/22 08:19 Aspirin 81 Mg Ec Tablet PO 81 mg DAILY EV Administration Heparin Sodium (Porcine) 5,000 unit 08/12/22 23:00 08/14/22 12:19 Heparin 5,000 Unit/Ml Inj 1 Ml SUBCUT 5,000 unit Q12H EV Administration Hydralazine HCl 25 mg 08/14/22 09:30 08/14/22 09:27 Hydralazine 25 Mg Tablet PO 25 mg TID EV Administration Sodium Chloride 1,000 mls @ 100 mls/hr 08/12/22 21:30 08/14/22 08:18 Sodium Chloride 0.9% IV 125 mls/hr .Q10H EV Administration Ampicillin Sodium/Sulbactam 50 mls @ 100 mls/hr 08/14/22 12:00 08/14/22 12:57 Sodium 3 gm/ Sodium Chloride IV Infused Q8H EV Infusion Protocol Isosorbide Mononitrate 30 mg 08/13/22 09:25 08/14/22 08:19 Isosorbide Mononitrate Er 30 Mg Tablet PO 30 mg DAILY EV Administration Pantoprazole Sodium 40 mg 08/13/22 09:00 08/14/22 08:19 Pantoprazole 40 Mg Sdv IVP 40 mg DAILY EV Administration PFSH Acute PFSH: Medical History Cancer Colon cancer Diabetes mellitus Gallbladder cancer Glaucoma Gout Hypertension Peripheral vascular disease History of peripheral stenting Surgical History History of cholecystectomy History of partial colectomy Family History Brother Bleeding disorder Clotting disorder CAD (coronary artery disease) Cancer Diabetes x 5 Stroke Sister Bleeding disorder Clotting disorder Chronic kidney disease (CKD) Diabetes x 6 Lung disease x 2 Stroke Father Bleeding disorder Clotting disorder CAD (coronary artery disease) Chronic kidney disease (CKD) Diabetes Mother CAD (coronary artery disease) Cancer Diabetes Stroke Grandfather CAD (coronary artery disease) Cancer Diabetes Grandmother Cancer Dementia Diabetes Family/Other Cancer Chronic kidney disease (CKD) Dementia Diabetes Lung disease Denies family history of Suicide Anesthesia complication Social History Smoking and tobacco status: current every day smoker Quit status (tobacco): has tried quititng Second hand smoke exposure: Yes Alcohol intake: never Substance/Drug Use: never Adopted: No Caregiver/support person: No Lives independently: Yes Household members: spouse Housing: Apartment Marital status: Number of children: 4 Number of grandchildren: 1 Highest education level completed: 12th Grade, No Diploma service: No Current occupational status: disabled Current occupational exposures/hazards: No Pets and animals: No Leisure activites: exercise and clubs Sexually active: No Do you think of yourself as: Straight/Heterosexual Current gender identity: Male Shelly/Lutheran: Yazdanism Special shelly needs: No Agree to transfusion: Yes Financial difficulty paying for basics: Somewhat Hard Vitals/I&O/Wt Last Vital Signs Temp 98.9 F 08/14/22 11:52 Pulse 79 08/14/22 12:30 Resp 12 08/14/22 12:30 BP 162/73 08/14/22 12:30 Pulse Ox 94 08/14/22 12:30 O2 Del Method Room Air 08/14/22 12:30 08/13/22 08/14/22 08/14/22 22:59 06:59 14:59 Intake Total 1177.5 / 2632.0 1000 / 3632.0 1832.917 / 1832.917 Output Total 1100 / 1900 Balance 1177.5 / 1832.0 -100 / 1732.0 1832.917 / 1832.917 Weight last 48 hrs Weight 203 lb 4.8 oz Weight 203 lb 4.259 oz Weight 218 lb 9.6 oz Weight 199 lb Physical Exam Narrative: General : Patient is well developed , no acute distress, oriented x3 Head : Normal cephalic, a-traumatic. Ears : Pinnae and external canal are normal. Hearing is normal. Eyes : PERRLA, Sclera and injection are normal. No conjunctival discharge. Nose : Mucous membranes are without erythema. Throat : buccal mucosa is normal, gums are without significant recession or hypertrophy. Lungs : Equal chest rise bilaterally, no use of accessory muscles, trachea is midline. Cor : Rate and rhythm are normal. Abdomen : Soft, ND, NT, no g/r/m Extremities : No edema, no cyanosis or clubbing, dorsalis pedis pulses are present bilaterally, non-tender to palpation of calves. Upper extremities are normal bilaterally. Back : non-tender to palpation, no CVA tenderness. Neuro : CN II - XII intact, Upper and lower extremities have equal and full strength Urinary Catheter Management: Taylor: Cath Placed During This Visit: yes Reason for Continuing Indwelling Catheter: Accurate Measurement of Urinary Output in Critically Ill Patients Urinary Catheter Date of Insertion: 08/13/22 Urinary Catheter Time of Insertion: 00:32 Data 08/14/22 05:22 08/14/22 05:22 Micro: Microbiology 08/12/22 00:23 Enteric Pathogens (PCR) - Final Stool - Stool Aspirate Parasite Antigen Panel - Final C.difficile Toxin B Gene (PCR) - Final 08/12/22 23:28 Blood Culture - Preliminary Blood NEGATIVE TO DATE 08/12/22 23:22 Blood Culture - Preliminary Blood NEGATIVE TO DATE A&P Assessment and plan (1) Acute hyperkalemia: Plan Temporary hemodialysis catheter placement The risks and benefits of the procedure, including but not limited to, bleeding, infection, infection requiring Mediport removal antibiotic therapy and repeat surgery, damage to surrounding structures, scar, numbness, pain, pneumothorax requiring thoracostomy tube, were explained to the patient. He/She is understanding of the risks and wishes to proceed. Coding Level of Care Code Acute Code for Chg Fwd Diagnoses Acute hyperkalemia E87.5
--- NOTE | 2022-08-12 22:48 | P.PCN_ITS ---
Procedure Note: Procedure: Preoperative diagnosis: Acute renal failure requiring emergent dialysis Postoperative diagnosis: Same Procedure: Placement of Mahurkar catheter in the right femoral vein Surgeon: Dr. Justus Collins, DO Anesthesia: Local Description of procedure: The patient's right groin was prepped and draped in a sterile manner. 5 mL of 1% lidocaine was infiltrated at the site of planned entry, an introducer needle was used to access the right femoral vein. Guidewire was passed through the introducer needle and the introducer needle was removed. Serial dilators were passed over the guidewire after the skin incision was extended using 11 blade and Mahurkar catheter was then passed over the azalea dewire and the guidewire was removed. The catheter was sutured to the skin using 2-0 Ethilon suture. Sterile dressings were applied. Coding Level of Care Code Acute Code for Chg Fwd
--- NOTE | 2022-08-12 22:57 | XRR_ITS ---
PROCEDURE INFORMATION: Exam: XR Chest Exam date and time: 08/12/2022 11:08 PM Age: 57 years old Clinical indication: Shortness of breath and wheezing; Additional info: Baseline TECHNIQUE: Imaging protocol: Radiologic exam of the chest. Views: 1 view. COMPARISON: CR XR chest 1V portable [id number] 01/03/2022 9:53 AM FINDINGS: Lungs: Unremarkable. No consolidation. Pleural spaces: Unremarkable. No pleural effusion. No pneumothorax. Heart/Mediastinum: Unremarkable. No cardiomegaly. Bones/joints: Unremarkable. XR/XR chest 1V portable [id number] IMPRESSION: No acute findings.
[2022-08-12 23:22] LABS: Hepatitis B Core AB, Total Non-Reactive (Nonreactive); Hepatitis B Surface AB 226.4 (11.5-1000); Hepatitis B Surface Antigen Non-Reactive (Nonreactive)
[2022-08-12] MEDS: sodium chloride 0.9% 1,000 ML 150 ML IV (23:37)
[2022-08-12] MEDS: heparin 5,000 unit/mL INJ 1 mL 5000 UNIT SUBCUT (23:37)
[2022-08-12 23:49] LABS: Estmated Average Glucose 123; Hemoglobin A1C 5.9 % (4.0-6.0)
[2022-08-12 23:53] LABS: Lactic Sepsis W/Reflex 0.8 mmol/L (0.5-2.2)
[2022-08-13] VITALS (53 sets, daily range): BP systolic 102–206; BP diastolic 54–134; PULSE 76–98; RESP 12–27; TEMP 36.9–37.4; O2SAT 89–98
[2022-08-13 00:02] LABS: Cortisol Random 14.23 ug/dL (2.47-19.5)
[2022-08-13 00:04] LABS: Procalcitonin 0.34 ng/mL (0-0.5); Thyroid Stimulating Hormone 0.33 uIU/mL (0.27-4.20)
[2022-08-13 00:33] LABS: Glucose Point of Care 132 mg/dL (70-110)
[2022-08-13] MEDS: heparin, porcine 1,000 unit/mL INJ 10 mL 1000 UNIT IV (00:37)
[2022-08-13 00:44] LABS: Add Urine Microscopic? YES; Bilirubin Urine Neg (Negative); Blood Urine 2+ (Negative); Glucose Urine UA Norm (Normal); Ketones Urine Negative (Negative); Leukocyte Esterase Urine Negative (Negative); Nitrate Urine Negative (Negative); Protein Urine Trace (Negative); Specific Gravity, Urine 1.015 (1.005-1.030); Urine Appearance Clear (CLEAR); Urine Color Yellow (Yellow); Urobilinogen Urine Norm (Negative); pH Urine 5 (5-7)
[2022-08-13 00:45] LABS: Bacteria Urine 1+ /hpf; RBC Urine 0-4 /hpf (0-2); Squamous Epithelial Cell Urine 0-4 /hpf (0-5); WBC Urine 0-4 /hpf (0-5)
[2022-08-13] MEDS: ampicillin-sulbactam 3 GM in sodium chloride 0.9% (plus) 50 ML IV (03:43)
[2022-08-13 03:55] LABS: Glucose Point of Care 92 mg/dL (70-110)
[2022-08-13 04:37] LABS: Basophils % 0.4 %; Eosinophils % 0.2 %; Hematocrit 28.1 % (42.0-52.0); Hemoglobin 9.5 g/dL (11.7-16.6); Lymphocytes % 19.3 %; Mean Corpuscular HGB Conc 33.8 g/dL (30.0-36.0); Mean Corpuscular Hemoglobin 28.8 pg (28.0-34.0); Mean Corpuscular Volume 85.2 fl (80-94); Mean Platelet Volume 11.8 fL (7.4-10.4); Monocytes # 1.1 10^3/uL (0.2-0.9); Monocytes % 10.7 %; Neutrophils % 69.1 %; Nucleated Red Blood Cells % 0.2 %; Platelet Count 145 10^3/cmm (130-400); Red Cell Distribution Width 13.3 % (12.1-15.1); White Blood Count 10.1 10^3/uL (4.0-10.0)
--- NOTE | 2022-08-13 04:47 | PC.HD ---
Pt admitted with K+ 7.1 (down from 8.3), femoral dialysis cath inserted in ED. Upon arrival to ICU, treatment delayed d/t pt up to BSC for diarrhea, then seen by hospitalist via computer, then up to BSC again. While accessing catheter, large clot aspirated from venous port. Additional aspiration produced no additional clots, and both ports draw and flush well. AP quickly climbed after treatment initiated, would not come down in spite of repeated flushing and reduction in BFR so lines reversed, pressures much improved, and treatment continued at ordered BFR. BP remained high throughout in spite of increased machine temp, but treatment completed without further issues and pt tolerated treatment well.
[2022-08-13 04:59] LABS: Alanine Aminotransferase 19 U/L (0-41); Albumin Level 3.3 g/dL (3.5-5.2); Alkaline Phosphatase 117 U/L (40-130); Anion Gap 13.5 (5-19); Aspartate Amino Transferase 21 U/L (0-40); Blood Urea Nitrogen 41 mg/dL (6-20); Calcium 7.9 mg/dL (8.5-10.5); Carbon Dioxide 25 mmol/L (22-29); Chloride 103 mmol/L (98-107); Globulin 2.8 g/dL (1.3-4.6); Glucose 86 mg/dL (65-115); Magnesium 1.7 mg/dL (1.7-2.3); Osmolality Calculated 295 mOsm/kg (285-295); Potassium 3.5 mmol/L (3.5-5.1); Sodium 138 mmol/L (136-145); Total Bilirubin 0.5 mg/dL (0.15-1.2); Total Protein 6.1 g/dL (6.6-8.7)
[2022-08-13] MEDS: sodium chloride 0.9% 1,000 ML 150 ML IV ×2 (06:01→11:34)
[2022-08-13 07:44] LABS: Glucose Point of Care 98 mg/dL (70-110)
[2022-08-13] MEDS: pantoprazole 40 mg SDV IVP (07:47)
[2022-08-13] MEDS: isosorbide mononitrate ER 30 mg Tablet PO (09:53)
[2022-08-13] MEDS: amlodipine 5 mg Tablet PO (09:53)
[2022-08-13 10:05] LABS: Glucose Point of Care 190 mg/dL (70-110)
--- NOTE | 2022-08-13 11:30 | PC.NURSE ---
Dr. Mckeon gave verbal order while rounding with patient for NS to run at 125ml/hr instead of 150ml.hr. Verbal order followed.
[2022-08-13] MEDS: heparin 5,000 unit/mL INJ 1 mL 5000 UNIT SUBCUT (11:34)
--- NOTE | 2022-08-13 11:50 | PM.CONSULT ---
Providers/Reason For Consult Consulting Physician/Specialty*: [facility]/Nephrology Reason for Consult*: CKD, RIP , hyperkalemia Attending Physician: Mckinley Santiago MD Primary Care Provider: Yenny Navarro MD History of Present Illness History of Present Illness Patient is a 56-year-old male with past medical history diabetes hypertension, CKD, colon cancer, sent to the hospital due to abnormal labs. Patient tells me that he had been having nausea vomiting and diarrhea for the last 3 to 4 weeks and has not been eating well. Patient has a history of chronic kidney disease has not been following with nephrology as outpatient, prior lab data significant for creatinine is in the range of 2-3 range. Yesterday's labs showed potassium of 8.3 creatinine of 8.0 and bicarb level of 9. General surgery was consulted and temporary HD catheter was placed emergently and patient underwent HD for 3 hours. Postdialysis patient has a potassium of 4.5 creatinine of 3.0 and CO2 improved to 25. Patient was briefly on bicarbonate drip that was discontinued currently. Review of Systems Narrative: Other review of systems negative Medications/Allergies Home Medications Medication Instructions Recorded Confirmed Last Taken Type allopurinol 100 mg tablet 100 mg PO DAILY 03/10/20 08/13/22 01/03/22 History aspirin 81 mg tablet,delayed 81 mg PO DAILY 03/10/20 08/13/22 01/03/22 History release (Adult Aspirin Regimen) docusate sodium 100 mg capsule 100 mg PO BID 03/10/20 08/13/22 01/03/22 History dulaglutide 1.5 mg/0.5 mL 1.5 mg SUBCUT Q7D 03/10/20 08/13/22 01/02/22 History subcutaneous pen injector hydrocodone 10 mg-acetaminophen 1 tab PO Q4H PRN Pain 03/10/20 08/13/22 Unknown History 325 mg tablet metoprolol tartrate 100 mg tablet 100 mg PO BID 03/10/20 08/13/22 01/03/22 History albuterol sulfate 90 mcg/actuation 2 inh inhalation Q6H PRN shortness 12/21/21 08/13/22 Unknown Rx aerosol inhaler of breath or wheezing #8.5 grams latanoprost 0.005 % eye drops 2 drp ophthalmic (eye) DAILY 12/23/21 08/13/22 01/03/22 History simvastatin 10 mg tablet 10 mg PO BEDTIME 01/03/22 08/13/22 01/02/22 History esomeprazole magnesium 20 mg 20 mg PO DAILY 01/07/22 08/13/22 Unknown History capsule,delayed release isosorbide mononitrate 30 mg 30 mg PO DAILY #30 tabs 02/14/22 08/13/22 Unknown Rx tablet,extended release 24 hr loperamide 2 mg capsule 2 mg PO QID PRN loose stool #14 08/09/22 08/13/22 Unknown Rx caps amlodipine 5 mg tablet 5 mg PO DAILY 08/13/22 08/13/22 Unknown History cholecalciferol (vitamin D3) 25 25 mcg PO DAILY 08/13/22 08/13/22 Unknown History mcg (1,000 unit) tablet (Vitamin D3) citalopram 10 mg tablet 10 mg PO DAILY 08/13/22 08/13/22 Unknown History clopidogrel 75 mg tablet 75 mg PO DAILY 08/13/22 08/13/22 Unknown History furosemide 20 mg tablet 20 mg PO DAILY 08/13/22 08/13/22 Unknown History hydralazine 25 mg tablet 25 mg PO TID 08/13/22 08/13/22 Unknown History tamsulosin 0.4 mg capsule 0.4 mg PO DAILY 08/13/22 08/13/22 Unknown History trazodone 50 mg tablet 50 mg PO BEDTIME 08/13/22 08/13/22 Unknown History Allergies Allergy/AdvReac Type Severity Reaction Status Date / Time No Known Allergies Allergy Verified 08/09/22 15:21 Current Medications Generic Name Dose Route Start Last Admin Trade Name Jose PRN Reason Stop Dose Admin Amlodipine Besylate 5 mg 08/13/22 10:00 08/13/22 09:53 Amlodipine 5 Mg Tablet PO 5 mg DAILY EV Administration Heparin Sodium (Porcine) 5,000 unit 08/12/22 23:00 08/13/22 11:34 Heparin 5,000 Unit/Ml Inj 1 Ml SUBCUT 5,000 unit Q12H EV Administration Sodium Chloride 1,000 mls @ 150 mls/hr 08/12/22 21:30 08/13/22 11:34 Sodium Chloride 0.9% IV 150 mls/hr .Q6H40M EV Administration Ampicillin Sodium/Sulbactam 50 mls @ 100 mls/hr 08/13/22 02:30 08/13/22 04:15 Sodium 3 gm/ Sodium Chloride IV Infused Q24H EV Infusion Protocol Isosorbide Mononitrate 30 mg 08/13/22 09:25 08/13/22 09:53 Isosorbide Mononitrate Er 30 Mg Tablet PO 30 mg DAILY EV Administration Pantoprazole Sodium 40 mg 08/13/22 09:00 08/13/22 07:47 Pantoprazole 40 Mg Sdv IVP 40 mg DAILY EV Administration PFSH Acute PFSH: Medical History Cancer Colon cancer Diabetes mellitus Gallbladder cancer Glaucoma Gout Hypertension Peripheral vascular disease History of peripheral stenting Surgical History History of cholecystectomy History of partial colectomy Family History Brother Bleeding disorder Clotting disorder CAD (coronary artery disease) Cancer Diabetes x 5 Stroke Sister Bleeding disorder Clotting disorder Chronic kidney disease (CKD) Diabetes x 6 Lung disease x 2 Stroke Father Bleeding disorder Clotting disorder CAD (coronary artery disease) Chronic kidney disease (CKD) Diabetes Mother CAD (coronary artery disease) Cancer Diabetes Stroke Grandfather CAD (coronary artery disease) Cancer Diabetes Grandmother Cancer Dementia Diabetes Family/Other Cancer Chronic kidney disease (CKD) Dementia Diabetes Lung disease Denies family history of Suicide Anesthesia complication Social History Smoking and tobacco status: current every day smoker Quit status (tobacco): has tried quititng Second hand smoke exposure: Yes Alcohol intake: never Substance/Drug Use: never Adopted: No Caregiver/support person: No Lives independently: Yes Household members: spouse Housing: Apartment Marital status: Number of children: 4 Number of grandchildren: 1 Highest education level completed: 12th Grade, No Diploma service: No Current occupational status: disabled Current occupational exposures/hazards: No Pets and animals: No Leisure activites: exercise and clubs Sexually active: No Do you think of yourself as: Straight/Heterosexual Current gender identity: Male Shelly/Cheondoism: Roman Catholic Special shelly needs: No Agree to transfusion: Yes Financial difficulty paying for basics: Somewhat Hard Vitals/I&O/Wt Last Vital Signs Temp 98.7 F 08/13/22 08:30 Pulse 81 08/13/22 10:00 Resp 14 08/13/22 10:00 BP 180/78 08/13/22 10:00 Pulse Ox 94 08/13/22 10:00 O2 Del Method Room Air 08/13/22 10:00 08/12/22 08/13/22 08/13/22 22:59 06:59 14:59 Intake Total 2099 2960 / 5060 1232.5 / 1232.5 Output Total 3456 / 3456 Balance 2099 -496 / 1604 1232.5 / 1232.5 Weight last 48 hrs Weight 92.2 kg Weight 99.155 kg Weight 90.265 kg Physical Exam Narrative: Patient is awake alert, no acute distress HEENT Sinus rhythm. No edema Urinary Catheter Management: Taylor: Cath Placed During This Visit: yes Reason for Continuing Indwelling Catheter: Accurate Measurement of Urinary Output in Critically Ill Patients Urinary Catheter Date of Insertion: 08/13/22 Urinary Catheter Time of Insertion: 00:32 Data 08/13/22 03:30 08/13/22 03:30 Micro: Microbiology 08/12/22 00:23 Stool Lactoferrin - Final Stool 08/12/22 23:28 Blood Culture - Preliminary Blood SPECIMEN COLLECTED 08/12/22 23:22 Blood Culture - Preliminary Blood SPECIMEN COLLECTED A&P Assessment and plan (1) Acute on chronic renal failure: Qualifiers: Acute renal failure type: unspecified Chronic kidney disease stage: unspecified stage Qualified Code(s): N17.9 - Acute kidney failure, unspecified; N18.9 - Chronic kidney disease, unspecified Plan 1. Acute on chronic kidney disease stage III: Baseline creatinine in the 2-3 range. RIP to prerenal from decreased p.o. intake due to nausea vomiting diarrhea. Possible ATN. UA showed 1+ protein and 2+ blood -We will check UPCR, also check CK level and complements. -Patient currently making urine electrolytes stable, no indication for further dialysis currently -Avoid nephrotoxins and IV contrast studies. 2. Hyperkalemia: Status post hemodialysis on low potassium diet, continue med management 3.Severe anion gap metabolic acidosis: Improved after HD 4. Hypertension: Blood pressure better, hold MACARIO inhibitors and diuretics at this time -We will add nifedipine and hydralazine 5. MBD: Elevated Phos and low calcium noted we will check PTH Patient evaluated using audiovisual cart. Time spent 45 minutes Consult Attestations Medical Necessity Statement: per medicine Coding Level of Care Code Acute Code for Chg Fwd Diagnoses Acute on chronic renal failure N17.9; N18.9 Acute renal failure type: unspecified Chronic kidney disease stage: unspecified stage
[2022-08-13 12:37] LABS: Creatine Phosphokinase 877 U/L (39-308)
[2022-08-13 12:46] LABS: Glucose Point of Care 127 mg/dL (70-110)
[2022-08-13] MEDS: hyDRALAzine 25 mg Tablet PO ×2 (15:18→20:27)
--- NOTE | 2022-08-13 17:34 | P.PN_ITS ---
Subjective Subjective: Patient was seen and examined this morning, denied any chest pain shortness of breath, abdominal pain nausea vomiting, diarrhea is improving, currently he is making decent urine, hyperkalemia has resolved. Postdialysis. Patient was dialyzed yesterday for acute renal failure hyperkalemia metabolic acidosis: With removal of 2.5 L, currently his urine output is 1.7 Ls Medications: Medication Review Details: Generic Name Dose Route Start Last Admin Trade Name Freq PRN Reason Stop Dose Admin Amlodipine Besylat e 5 mg 08/13/22 10:00 08/13/22 09:53 Amlodipine 5 Mg Tablet PO 5 mg DAILY EV Administration Heparin Sodium (Po rcine) 5,000 unit 08/12/22 23:00 08/13/22 11:34 Heparin 5,000 Un it/Ml Inj 1 Ml SUBCUT 5,000 unit Q12H EV Administration Hydralazine HCl 25 mg 08/13/22 15:00 08/13/22 15:18 Hydralazine 25 M g Tablet PO 25 mg TID EV Administration Sodium Chloride 1,000 mls @ 150 m ls/hr 08/12/22 21:30 08/13/22 11:34 Sodium Chloride 0.9% IV 150 mls/hr .Q6H40M EV Administration Ampicillin Sodium/ Sulbactam 50 mls @ 100 mls/ hr 08/13/22 02:30 08/13/22 04:15 Sodium 3 gm/ Sod ium Chloride IV Infused Q24H EV Infusion Protocol Isosorbide Mononit rate 30 mg 08/13/22 09:25 08/13/22 09:53 Isosorbide [place] itrate Er 30 Mg Ta blet PO 30 mg DAILY EV Administration Pantoprazole Sodiu m 40 mg 08/13/22 09:00 08/13/22 07:47 Pantoprazole 40 Mg Sdv IVP 40 mg DAILY EV Administration Vitals/I&O/Wt Last Vital Signs Temp 98.7 F 08/13/22 08:30 Pulse 95 08/13/22 16:00 Resp 19 H 08/13/22 16:00 BP 133/63 08/13/22 16:00 Pulse Ox 96 08/13/22 16:00 O2 Del Method Room Air 08/13/22 16:00 08/13/22 08/13/22 08/13/22 06:59 14:59 22:59 Intake Total 2960 / 5060 1454.5 / 1454.5 Output Total 3456 / 3456 800 / 800 Balance -496 / 1604 654.5 / 654.5 Weight last 48 hrs Weight 92.2 kg Weight 99.155 kg Weight 90.265 kg Physical Exam Const: COMMON NORMALS: patient oriented x3 HENMT: COMMON NORMALS: normocephalic and atraumatic HEAD & SCALP: normocephalic and atraumatic Resp: COMMON NORMALS: clear to auscultation bilaterally AUSCULTATION: clear to auscultation bilaterally Cardio: COMMON NORMALS: regular rate, regular rhythm, S1 normal heart sound present, S2 normal heart sound present, No gallops present (Cardio), No murmurs present (Cardio), No rub (Cardio) and Peripheral pulses 2+ throughout RATE: regular rate RHYTHM: regular rhythm HEART SOUNDS: S1 normal heart sound present and S2 normal heart sound present PERIPHERAL PULSES: Peripheral pulses 2+ throughout GI: COMMON NORMALS: Normal to inspection, nondistended, normoactive bowel sounds present, Soft to palpation, non-tender, No hepatosplenomegaly present and no masses AUSCULTATION: Yes normoactive bowel sounds PALPATION: Yes Soft to palpation and Yes No hepatosplenomegaly present RECTAL EXAM: Yes deferred Extremity: COMMON NORMALS: no clubbing, cyanosis or edema and no pedal edema Neuro: COMMON NORMALS: patient oriented x3 Urinary Catheter Management: Taylor: Cath Placed During This Visit: yes Reason for Continuing Indwelling Catheter: Accurate Measurement of Urinary Output in Critically Ill Patients Urinary Catheter Date of Insertion: 08/13/22 Urinary Catheter Time of Insertion: 00:32 Data 08/13/22 03:30 08/13/22 03:30 Micro: Microbiology 08/12/22 00:23 Enteric Pathogens (PCR) - Final Stool - Stool Aspirate C.difficile Toxin B Gene (PCR) - Final 08/12/22 00:23 Stool Lactoferrin - Final Stool 08/12/22 23:28 Blood Culture - Preliminary Blood SPECIMEN COLLECTED 08/12/22 23:22 Blood Culture - Preliminary Blood SPECIMEN COLLECTED A&P Assessment and plan (1) Acute hyperkalemia: (2) Acute on chronic renal failure: Qualifiers: Acute renal failure type: unspecified Chronic kidney disease stage: unspecified stage Qualified Code(s): N17.9 - Acute kidney failure, unspecified; N18.9 - Chronic kidney disease, unspecified (3) Hyperphosphatemia: (4) Acute hyponatremia: (5) Tobacco dependency: (6) Diabetes mellitus: (7) Hypertension: (8) COPD (chronic obstructive pulmonary disease): Plan 57-year-old male with past medical history of hypertension diabetes,HFpEF, CKD stage III, gout;Ca:Colon, he was having significant watery nonbloody diarrhea from 09 august, along with nausea and vomiting, and generalized muscle cramps, p atient denies having any sick contact, eating outside. On his recent lab work done as an outpatient he was found to be severely hyperkalemic and was sent to the ER. Currently he is being managed for: Assessment: Acute renal failure: Possibly prerenal RIP in the setting of severe dehydration secondary to diarrhea. Follow renal ultrasound Random urine sodium Random urine creatinine Random urine total protein FENA UPCR Monitor intake output charting Monitor daily weight Monitor BMP Avoid nephrotoxic's Patient is currently on aggressive IV hydration with normal saline. S/p 1 session of hemodialysis. Nephrology on board Acute hyperkalemia: On arrival in the ER he received hyperkalemia cocktail s/p h/d Serum potassium has normalized Monitor BMP for now Increasing and gap metabolic acidosis secondary to acute renal failure. Initially was on bicarb drip, has been discontinued now Monitor BMP Hypoglycemia: Hold antidiabetic medications Monitor fingerstick glucose frequently Nonbloody watery diarrhea: Follow stool studies: Enteric bacterial panel by PCR negative C. difficile negative Enteric parasitic panel pending: Continue IV hydration Loperamide can be used History of diabetes: Came in with hypoglycemia Currently antidiabetic medication on hold History of hypertension: Continue amlodipine Imdur hydralazine, metoprolol Nausea vomiting: Currently has resolved Has been empirically kept on Unasyn for possible aspiration On Zofran as needed History of heart failure with preserved ejection fraction: Currently well compensated Monitor intake output charting Daily weight Telemetry monitoring History of COPD: DuoNebs as needed CODE STATUS : full code SCDs, heparin subcu for DVT prophylaxis Attestations Medical Necessity Statement*: Patient is in hospital for management of acute renal failure Coding Level of Care Code Acute Code for [facility] Fwd Diagnoses Acute hyperkalemia E87.5 Acute on chronic renal failure N17.9; N18.9 Acute renal failure type: unspecified Chronic kidney disease stage: unspecified stage Hyperphosphatemia E83.39 Acute hyponatremia E87.1 Tobacco dependency F17.200 Diabetes mellitus E11.9 Hypertension I10 COPD (chronic obstructive pulmonary disease) J44.9
--- NOTE | 2022-08-13 17:48 | USR_ITS ---
PROCEDURE INFORMATION: Exam: US Retroperitoneal; Complete; Kidneys and Bladder Exam date and time: 08/13/2022 8:42 PM Age: 57 years old Clinical indication: Abnormal findings; Abnormal lab test; Abnormal kidney function lab tests; Additional info: Dennis TECHNIQUE: Imaging protocol: Real-time ultrasound of the retroperitoneum with image documentation. Complete exam focused on the kidneys and bladder. COMPARISON: US renal BI* [id number] 12/24/2021 8:45 AM FINDINGS: Right kidney: The left kidney measures 16.4 cm in length. Simple cysts noted in the right kidney measuring up to 4.3 cm in size. No hydronephrosis. Left kidney: The left kidney measures 14.5 cm in length. Mild hydronephrosis. Urinary bladder: Taylor catheter noted within a decompressed bladder. US/US renal BI* [id number] IMPRESSION: 1. Mild hydronephrosis of the left kidney. 2. Right renal simple cysts.
[2022-08-13 17:51] LABS: Glucose Point of Care 143 mg/dL (70-110)
[2022-08-13] MEDS: sodium chloride 0.9% 1,000 ML 125 ML IV (17:57)
--- NOTE | 2022-08-13 21:57 | PC.NURSE ---
Line was already present upon shift arrival
[2022-08-13 22:07] LABS: Glucose Point of Care 97 mg/dL (70-110)
[2022-08-14] VITALS (52 sets, daily range): BP systolic 140–190; BP diastolic 65–101; PULSE 71–97; RESP 5–24; TEMP 37–37.7; O2SAT 88–98
[2022-08-14] MEDS: heparin 5,000 unit/mL INJ 1 mL 5000 UNIT SUBCUT ×2 (00:19→12:19)
[2022-08-14] MEDS: sodium chloride 0.9% 1,000 ML 125 ML IV ×2 (02:07→08:18)
[2022-08-14] MEDS: ampicillin-sulbactam 3 GM in sodium chloride 0.9% (plus) 50 ML IV ×3 (02:08→20:03)
[2022-08-14 05:41] LABS: Basophils # 0.1 10^3/uL (0.0-0.1); Basophils % 0.4 %; Eosinophils # 0.1 10^3/uL (0.0-0.8); Eosinophils % 0.8 %; Hematocrit 30.1 % (42.0-52.0); Lymphocytes # 2.1 10^3/uL (0.8-4.8); Mean Corpuscular HGB Conc 33.2 g/dL (30.0-36.0); Mean Corpuscular Hemoglobin 29.6 pg (28.0-34.0); Mean Corpuscular Volume 89.1 fl (80-94); Mean Platelet Volume 11.2 fL (7.4-10.4); Monocytes # 1.5 10^3/uL (0.2-0.9); Monocytes % 13.5 %; Neutrophils # 7.61 10^3/uL (1.8-7.7); Neutrophils % 66.9 %; Nucleated Red Blood Cells % 0 %; Platelet Count 151 10^3/cmm (130-400); Red Blood Count 3.38 10^6/uL (4.1-5.3); Red Cell Distribution Width 13.8 % (12.1-15.1); White Blood Count 11.4 10^3/uL (4.0-10.0)
[2022-08-14 06:08] LABS: Alanine Aminotransferase 15 U/L (0-41); Albumin Level 2.9 g/dL (3.5-5.2); Alkaline Phosphatase 106 U/L (40-130); Anion Gap 13.2 (5-19); Aspartate Amino Transferase 17 U/L (0-40); Blood Urea Nitrogen 36 mg/dL (6-20); Calcium 7.5 mg/dL (8.5-10.5); Carbon Dioxide 21 mmol/L (22-29); Chloride 108 mmol/L (98-107); Globulin 2.7 g/dL (1.3-4.6); Glomerular Filtration Rate 37.3 mL/min (90-130); Glucose 76 mg/dL (65-115); Osmolality Calculated 293 mOsm/kg (285-295); Potassium 4.2 mmol/L (3.5-5.1); Sodium 138 mmol/L (136-145); Total Bilirubin 0.3 mg/dL (0.15-1.2); Total Protein 5.6 g/dL (6.6-8.7)
[2022-08-14] MEDS: amlodipine 5 mg Tablet PO ×2 (06:38→09:27)
[2022-08-14] MEDS: hyDRALAzine 25 mg Tablet PO ×3 (06:38→15:14)
--- NOTE | 2022-08-14 06:38 | PC.NURSE ---
Patient has elevated BP and trending upwards. Dr. Heaton gave orders to administer morning cardiac meds early.
[2022-08-14] MEDS: isosorbide mononitrate ER 30 mg Tablet PO (08:19)
[2022-08-14] MEDS: aspirin 81 mg EC Tablet PO (08:19)
[2022-08-14] MEDS: pantoprazole 40 mg SDV IVP (08:19)
[2022-08-14 08:33] LABS: Glucose Point of Care 96 mg/dL (70-110)
--- NOTE | 2022-08-14 10:19 | PM.PN ---
Subjective Subjective: doing well No new complaints Medications: Reviewed: Yes Vitals/I&O/Wt Last Vital Signs Temp 99.8 F H 08/14/22 08:00 Pulse 90 08/14/22 09:30 Resp 15 08/14/22 09:30 BP 155/86 08/14/22 09:30 Pulse Ox 95 08/14/22 09:30 O2 Del Method Room Air 08/14/22 09:30 08/13/22 08/14/22 08/14/22 22:59 06:59 14:59 Intake Total 1177.5 / 2632.0 1000 / 3632.0 1302.917 / 1302.917 Output Total 1100 / 1900 Balance 1177.5 / 1832.0 -100 / 1732.0 1302.917 / 1302.917 Weight last 48 hrs Weight 92.215 kg Weight 92.2 kg Weight 99.155 kg Weight 90.265 kg Physical Exam Narrative: Patient is awake alert, no acute distress HEENT Sinus rhythm. No edema Urinary Catheter Management: Taylor: Cath Placed During This Visit: yes Reason for Continuing Indwelling Catheter: Accurate Measurement of Urinary Output in Critically Ill Patients Urinary Catheter Date of Insertion: 08/13/22 Urinary Catheter Time of Insertion: 00:32 Data 08/14/22 05:22 08/14/22 05:22 Micro: Microbiology 08/12/22 23:28 Blood Culture - Preliminary Blood NEGATIVE TO DATE 08/12/22 23:22 Blood Culture - Preliminary Blood NEGATIVE TO DATE 08/12/22 00:23 Enteric Pathogens (PCR) - Final Stool - Stool Aspirate C.difficile Toxin B Gene (PCR) - Final A&P Assessment and plan (1) Acute on chronic renal failure: Qualifiers: Acute renal failure type: unspecified Chronic kidney disease stage: unspecified stage Qualified Code(s): N17.9 - Acute kidney failure, unspecified; N18.9 - Chronic kidney disease, unspecified Plan 1. Acute on chronic kidney disease stage III: Baseline creatinine in the 2-3 range. RIP to prerenal from decreased p.o. intake due to nausea vomiting diarrhea. Possible ATN. UA showed 1+ protein and 2+ blood -We will check UPCR, also check CK level and complements. -Patient currently making urine electrolytes stable, no indication for further dialysis , can DC temp HD cathetwr -Avoid nephrotoxins and IV contrast studies. 2. Hyperkalemia: Status post hemodialysis on low potassium diet, continue med management 3.Severe anion gap metabolic acidosis: Improved after HD 4. Hypertension: Blood pressure better, hold MACARIO inhibitors -titrating PO meds , on Amlodipine , hydralazine and Metoprolol 5. MBD: Elevated Phos and low calcium noted we will check PTH Patient evaluated using audiovisual cart. Time spent 45 minutes Attestations Medical Necessity Statement*: per medicine Coding Level of Care Code Acute Code for Chg Fwd Diagnoses Acute on chronic renal failure N17.9; N18.9 Acute renal failure type: unspecified Chronic kidney disease stage: unspecified stage
[2022-08-14 11:19] LABS: Calcium 7.5 mg/dL (8.5-10.5)
[2022-08-14 11:25] LABS: Parathyroid Hormone 129.7 pg/mL (15-65)
[2022-08-14 12:41] LABS: Glucose Point of Care 169 mg/dL (70-110)
[2022-08-14 13:19] LABS: Total Protein, Random Urine 170.1 mg/dL (0.0-20.0)
--- NOTE | 2022-08-14 13:31 | PC.PT ---
Physical therapy is on hold due to nurse stating that she is about to pull [employer]OSPITAL [employer]SEKEEPER sheath. THerapy will be on hold until nursing clears therapy for activity. General sheath restrictions is 6 hours. [employer] sheath restrictions maybe longer.
[2022-08-14] MEDS: guaiFENesin-dextromethorphan UDC 10 mL 5 ML PO ×3 (14:37→22:56)
--- NOTE | 2022-08-14 14:42 | PC.NURSE ---
Dialysis catheter removal: 1357 catheter removed per protocol, 15 minutes of pressure applied, no hemotoma formation or bleeding noted. Dressing applied. Patient educated on S/S to notify nurse. At first Q15 minute check, Patient coughed and called out to nurse. This nurse immediately assessed patient and found site to be bleeding, copious amounts. Pressure immediately applied and charge nurse notified. Staff continued to apply pressure, Dr. Santiago notified. At 1433, bleeding stopped, new dressing and sand bag applied to site.
--- NOTE | 2022-08-14 14:59 | PC.NURSE ---
Verbal order: Dr. Santiago verbal order to stop NS. See MAR for titration.
[2022-08-14] MEDS: metoprolol tartrate 50 mg Tablet 100 MG PO (17:38)
--- NOTE | 2022-08-14 17:48 | PM.PN ---
Subjective Subjective: Patient was seen and examined this morning, overall patient is doing better, continue to have good urine output, hyperkalemia has completely resolved, serum creatinine is progressing towards the baseline BUN has significantly trended down, blood sugar is relatively stable, patient has been slightly hypertensive adjustment to antihypertensive medications is being done. Medications: Medication Review Details: Generic Name Dose Route Start Last Admin Trade Name Jack PRN Reason Stop Dose Admin Aspirin 81 mg 08/14/22 09:00 08/14/22 08:19 Aspirin 81 Mg Ec Tablet PO 81 mg DAILY EV Administration Guaifenesin/Dextro methorphan 5 ml 08/14/22 14:45 08/14/22 17:38 Guaifenesin-Dext romethorphan Udc 1 0 Ml PO 5 ml Q4H EV Administration Heparin Sodium (Po rcine) 5,000 unit 08/12/22 23:00 08/14/22 12:19 Heparin 5,000 Un it/Ml Inj 1 Ml SUBCUT 5,000 unit Q12H EV Administration Ampicillin Sodium/ Sulbactam 50 mls @ 100 mls/ hr 08/14/22 12:00 08/14/22 12:57 Sodium 3 gm/ Sod ium Chloride IV Infused Q8H EV Infusion Protocol Isosorbide Mononit rate 30 mg 08/13/22 09:25 08/14/22 08:19 Isosorbide [place] itrate Er 30 Mg Ta blet PO 30 mg DAILY EV Administration Metoprolol Tartrat e 100 mg 08/14/22 18:00 08/14/22 17:38 Metoprolol Tartr ate 50 Mg Tablet PO 100 mg DAILY@1800 EV Administration Pantoprazole Sodiu m 40 mg 08/13/22 09:00 08/14/22 08:19 Pantoprazole 40 Mg Sdv IVP 40 mg DAILY VE Administration Vitals/I&O/Wt Last Vital Signs Temp 98.9 F 08/14/22 11:52 Pulse 94 08/14/22 16:00 Resp 19 H 08/14/22 16:00 BP 166/70 08/14/22 16:00 Pulse Ox 96 08/14/22 16:00 O2 Del Method Room Air 08/14/22 16:00 08/14/22 08/14/22 08/14/22 06:59 14:59 22:59 Intake Total 1000 / 3632.0 2668.334 / 2668.334 Output Total 1100 / 1900 Balance -100 / 1732.0 2668.334 / 2668.334 Weight last 48 hrs Weight 92.215 kg Weight 92.2 kg Weight 99.155 kg Physical Exam Const: COMMON NORMALS: patient oriented x3 HENMT: COMMON NORMALS: normocephalic and atraumatic HEAD & SCALP: normocephalic and atraumatic Resp: COMMON NORMALS: clear to auscultation bilaterally AUSCULTATION: clear to auscultation bilaterally Cardio: COMMON NORMALS: regular rate, regular rhythm, S1 normal heart sound present, S2 normal heart sound present, No gallops present (Cardio), No murmurs present (Cardio), No rub (Cardio) and Peripheral pulses 2+ throughout RATE: regular rate RHYTHM: regular rhythm HEART SOUNDS: S1 normal heart sound present and S2 normal heart sound present PERIPHERAL PULSES: Peripheral pulses 2+ throughout GI: COMMON NORMALS: Normal to inspection, nondistended, normoactive bowel sounds present, Soft to palpation, non-tender, No hepatosplenomegaly present and no masses AUSCULTATION: Yes normoactive bowel sounds PALPATION: Yes Soft to palpation and Yes No hepatosplenomegaly present RECTAL EXAM: Yes deferred Extremity: COMMON NORMALS: no clubbing, cyanosis or edema and no pedal edema Neuro: COMMON NORMALS: patient oriented x3 Urinary Catheter Management: Taylor: Cath Placed During This Visit: yes Reason for Continuing Indwelling Catheter: Accurate Measurement of Urinary Output in Critically Ill Patients Urinary Catheter Date of Insertion: 08/13/22 Urinary Catheter Time of Insertion: 00:32 Data 08/14/22 05:22 08/14/22 05:22 Micro: Microbiology 08/12/22 00:23 Enteric Pathogens (PCR) - Final Stool - Stool Aspirate Parasite Antigen Panel - Final C.difficile Toxin B Gene (PCR) - Final 08/12/22 23:28 Blood Culture - Preliminary Blood NEGATIVE TO DATE 08/12/22 23:22 Blood Culture - Preliminary Blood NEGATIVE TO DATE A&P Assessment and plan (1) Acute hyperkalemia: (2) Acute on chronic renal failure: Qualifiers: Acute renal failure type: unspecified Chronic kidney disease stage: unspecified stage Qualified Code(s): N17.9 - Acute kidney failure, unspecified; N18.9 - Chronic kidney disease, unspecified (3) Hyperphosphatemia: (4) Acute hyponatremia: (5) Tobacco dependency: (6) Diabetes mellitus: (7) Hypertension: (8) COPD (chronic obstructive pulmonary disease): Plan 57-year-old male with past medical history of hypertension diabetes,HFpEF, CKD stage III, gout;Ca:Colon, he was having significant watery nonbloody diarrhea from 09 august, along with nausea and vomiting, and generalized muscle cramps, patient denies having any sick contact, eating outside. On his recent lab work done as an outpatient he was found to be severely hyperkalemic and was sent to the ER. Currently he is being managed for: Assessment: Acute renal failure: Possibly prerenal RIP on pre-existing CKD in the setting of severe dehydration secondary to diarrhea. Currently resolved Renal ultrasound: Mild hydronephrosis of the left kidney. No obstruction, patient may possibly get a repeat renal ultrasound in some time as outpatient, patient see a photonic laboratory technician as outpatient which can be done later. Random urine sodium Random urine creatinine Random urine total protein:170 FENA UPCR Monitor intake output charting Monitor daily weight Monitor BMP Avoid nephrotoxic's Patient was on aggressive IV hydration with normal saline. S/p 1 session of hemodialysis. Dialysis catheter was removed on 08/14 Nephrology on board Acute hyperkalemia: On arrival in the ER he received hyperkalemia cocktail s/p h/d Serum potassium has normalized Monitor BMP for now Increased ANION gap metabolic acidosis secondary to acute renal failure. Initially was on bicarb drip, has been discontinued now Monitor BMP Hypoglycemia: Hold antidiabetic medications Monitor fingerstick glucose frequently Nonbloody watery diarrhea: Follow stool studies: Enteric bacterial panel by PCR negative C. difficile negative Enteric parasitic panel pending: Was on IV hydration Loperamide can be used History of diabetes: Came in with hypoglycemia Currently antidiabetic medication on hold History of hypertension: Continue amlodipine Imdur hydralazine, metoprolol. Dose adjustment to home antihypertensive medication has been made. Nausea vomiting: Currently has resolved Has been empirically kept on Unasyn for possible aspiration On Zofran as needed History of heart failure with preserved ejection fraction: Currently well compensated Monitor intake output charting Daily weight Telemetry monitoring History of COPD: DuoNebs as needed CODE STATUS : full code SCDs, heparin subcu for DVT prophylaxis Attestations Medical Necessity Statement*: Currently in hospital for monitoring of kidney function. Coding Level of Care Code Acute Code for Chg Fwd Diagnoses Acute hyperkalemia E87.5 Acute on chronic renal failure N17.9; N18.9 Acute renal failure type: unspecified Chronic kidney disease stage: unspecified stage Hyperphosphatemia E83.39 Acute hyponatremia E87.1 Tobacco dependency F17.200 Diabetes mellitus E11.9 Hypertension I10 COPD (chronic obstructive pulmonary disease) J44.9
--- NOTE | 2022-08-14 17:50 | PC.NURSE ---
Sand bag removal: 1725 Right femoral sand bag removed, Q15 and Q30 minute checks had no bleeding, distal pulses remain. Dressing in place and intact.
[2022-08-14] MEDS: hyDRALAzine 25 mg Tablet 50 MG PO (18:08)
[2022-08-14] MEDS: morphine 4 mg/mL SDV 1 mL 2 MG IVP (19:41)
[2022-08-14] MEDS: hyDRALAzine 20 mg/mL INJ 1 mL 5 MG IVP (20:48)
[2022-08-14 23:31] LABS: Glucose Point of Care 134 mg/dL (70-110)
[2022-08-15] VITALS (37 sets, daily range): BP systolic 136–183; BP diastolic 55–123; PULSE 67–93; RESP 12–32; TEMP 36.6–37.1; O2SAT 92–100; BMI 31.5
[2022-08-15] MEDS: guaiFENesin-dextromethorphan UDC 10 mL 5 ML PO ×4 (03:29→18:06)
[2022-08-15] MEDS: ampicillin-sulbactam 3 GM in sodium chloride 0.9% (plus) 50 ML IV (03:29)
[2022-08-15 03:46] LABS: Basophils # 0.1 10^3/uL (0.0-0.1); Basophils % 0.5 %; Eosinophils # 0.3 10^3/uL (0.0-0.8); Eosinophils % 2.9 %; Hematocrit 26.8 % (42.0-52.0); Hemoglobin 8.7 g/dL (11.7-16.6); Lymphocytes # 2.3 10^3/uL (0.8-4.8); Lymphocytes % 19.9 %; Mean Corpuscular HGB Conc 32.5 g/dL (30.0-36.0); Mean Corpuscular Hemoglobin 28.5 pg (28.0-34.0); Mean Corpuscular Volume 87.9 fl (80-94); Mean Platelet Volume 11.5 fL (7.4-10.4); Monocytes # 1.4 10^3/uL (0.2-0.9); Monocytes % 12.8 %; Neutrophils # 7.15 10^3/uL (1.8-7.7); Neutrophils % 63.5 %; Nucleated Red Blood Cells % 0 %; Platelet Count 153 10^3/cmm (130-400); Red Blood Count 3.05 10^6/uL (4.1-5.3); Red Cell Distribution Width 13.7 % (12.1-15.1); White Blood Count 11.3 10^3/uL (4.0-10.0)
[2022-08-15 04:02] LABS: Alanine Aminotransferase 15 U/L (0-41); Albumin Level 2.8 g/dL (3.5-5.2); Alkaline Phosphatase 95 U/L (40-130); Anion Gap 11.4 (5-19); Aspartate Amino Transferase 14 U/L (0-40); Blood Urea Nitrogen 31 mg/dL (6-20); Calcium 7.8 mg/dL (8.5-10.5); Carbon Dioxide 23 mmol/L (22-29); Chloride 109 mmol/L (98-107); Globulin 2.5 g/dL (1.3-4.6); Glomerular Filtration Rate 41.6 mL/min (90-130); Glucose 150 mg/dL (65-115); Osmolality Calculated 297 mOsm/kg (285-295); Potassium 4.4 mmol/L (3.5-5.1); Sodium 139 mmol/L (136-145); Total Bilirubin 0.2 mg/dL (0.15-1.2); Total Protein 5.3 g/dL (6.6-8.7)
[2022-08-15 04:17] LABS: Creatine Phosphokinase 426 U/L (39-308)
[2022-08-15 07:36] LABS: Glucose Point of Care 125 mg/dL (70-110)
[2022-08-15] MEDS: amlodipine 10 mg Tablet PO (08:14)
[2022-08-15] MEDS: pantoprazole 40 mg SDV IVP (08:14)
[2022-08-15] MEDS: aspirin 81 mg EC Tablet PO (08:15)
[2022-08-15] MEDS: hyDRALAzine 25 mg Tablet 50 MG PO ×3 (08:15→20:34)
[2022-08-15] MEDS: isosorbide mononitrate ER 30 mg Tablet PO ×2 (08:15→10:55)
[2022-08-15 08:58] LABS: Creatinine Urine, Random 283 mg/dL (39-259); Urine Random Sodium 22 mmol/L
[2022-08-15] MEDS: heparin 5,000 unit/mL INJ 1 mL 5000 UNIT SUBCUT ×2 (10:55→22:33)
[2022-08-15 11:11] LABS: Glucose Point of Care 150 mg/dL (70-110)
--- NOTE | 2022-08-15 11:16 | PC.SOCIAL ---
Pg 2 IMM Explained to pt Pg 2 IMM. No questions voiced. Provided pt a copy. Initialed, dated, & timed a copy & placed in chart.
[2022-08-15 11:41] LABS: Vitamin B12 289 pg/mL (232-1245)
[2022-08-15] MEDS: cyanocobalamin 1,000 mcg/mL SDV 1000 MCG IM (12:41)
--- NOTE | 2022-08-15 13:25 | PM.PN ---
Subjective Subjective: doing well BP better controlled Medications: Reviewed: Yes Vitals/I&O/Wt Last Vital Signs Temp 97.8 F 08/15/22 00:00 Pulse 82 08/15/22 10:30 Resp 15 08/15/22 10:30 BP 161/73 08/15/22 10:30 Pulse Ox 96 08/15/22 10:30 O2 Del Method Room Air 08/15/22 08:18 08/14/22 08/15/22 08/15/22 22:59 06:59 14:59 Intake Total 660 / 3328.334 290 / 3618.334 50 / 50 Output Total 700 / 700 650 / 1350 Balance -40 / 2628.334 -360 / 2268.334 50 / 50 Weight last 48 hrs Weight 99.79 kg Weight 92.215 kg Physical Exam Narrative: Patient is awake alert, no acute distress HEENT Sinus rhythm. No edema Urinary Catheter Management: Taylor: Cath Placed During This Visit: yes, but has since been removed by the nurse Reason for Continuing Indwelling Catheter: Accurate Measurement of Urinary Output in Critically Ill Patients Urinary Catheter Date of Insertion: 08/13/22 Urinary Catheter Time of Insertion: 00:32 Date Urinary Catheter Removed: 08/15/22 Time Urinary Catheter Discontinued: 11:30 Data 08/15/22 02:57 08/15/22 02:57 Micro: Microbiology 08/12/22 00:23 Enteric Pathogens (PCR) - Final Stool - Stool Aspirate Parasite Antigen Panel - Final C.difficile Toxin B Gene (PCR) - Final A&P Assessment and plan (1) Acute on chronic renal failure: Qualifiers: Acute renal failure type: unspecified Chronic kidney disease stage: unspecified stage Qualified Code(s): N17.9 - Acute kidney failure, unspecified; N18.9 - Chronic kidney disease, unspecified Plan 1. Acute on chronic kidney disease stage III: Baseline creatinine in the 2-3 range. RIP to prerenal from decreased p.o. intake due to nausea vomiting diarrhea. Possible ATN. UA showed 1+ protein and 2+ blood -Patient currently making urine electrolytes stable, no indication for further dialysis ,Dcd temp HD cathetwr -Avoid nephrotoxins and IV contrast studies. 2. Hyperkalemia: Status post hemodialysis , on low potassium diet, continue med management 3.Severe anion gap metabolic acidosis: Improved after HD 4. Hypertension: Blood pressure better, hold MACARIO inhibitors -titrating PO meds , on Amlodipine , hydralazine and 5. MBD: Elevated Phos and low calcium noted we will check PTH Patient evaluated using audiovisual cart. Time spent 45 minutes Attestations Medical Necessity Statement*: per medicine Coding Level of Care Code Acute Code for Chg Fwd Diagnoses Acute on chronic renal failure N17.9; N18.9 Acute renal failure type: unspecified Chronic kidney disease stage: unspecified stage
[2022-08-15 16:41] LABS: Glucose Point of Care 99 mg/dL (70-110)
--- NOTE | 2022-08-15 17:03 | P.PN_ITS ---
Subjective Subjective: Hospital course, labs appreciated. Seen with family at bedside. Patient lying comfortably in bed. States diarrhea has resolved. Denies any nausea, vomiting, headache. Dialysis catheter removed yesterday. Urine output within last 24 hours more than 1 L. Patient states he is feeling better. Vitals reviewed. Blood pressure better but still elevated with systolic of around 180. Blood work appreciated for white count of 11.3, hemoglobin stable at 8.7, creatinine improving to 2, BUN of 31 Vitals/I&O/Wt Last Vital Signs Temp 97.8 F 08/15/22 00:00 Pulse 80 08/15/22 16:00 Resp 16 08/15/22 16:00 BP 144/55 08/15/22 16:00 Pulse Ox 100 08/15/22 16:00 O2 Del Method Room Air 08/15/22 16:00 08/15/22 08/15/22 08/15/22 06:59 14:59 22:59 Intake Total 290 / 3618.334 290 / 290 164.583 / 454.583 Output Total 650 / 1350 400 / 400 Balance -360 / 2268.334 -110 / -110 164.583 / 54.583 Weight last 48 hrs Weight 99.79 kg Weight 92.215 kg Physical Exam Const: COMMON NORMALS: patient oriented x3 HENMT: COMMON NORMALS: normocephalic and atraumatic HEAD & SCALP: normocephalic and atraumatic Resp: COMMON NORMALS: clear to auscultation bilaterally AUSCULTATION: clear to auscultation bilaterally Cardio: COMMON NORMALS: regular rate, regular rhythm, S1 normal heart sound present, S2 normal heart sound present, No gallops present (Cardio), No murmurs present (Cardio), No rub (Cardio) and Peripheral pulses 2+ throughout RATE: regular rate RHYTHM: regular rhythm HEART SOUNDS: S1 normal heart sound present and S2 normal heart sound present PERIPHERAL PULSES: Peripheral pulses 2+ throughout GI: COMMON NORMALS: Normal to inspection, nondistended, normoactive bowel sounds present, Soft to palpation, non-tender, No hepatosplenomegaly present and no masses AUSCULTATION: Yes normoactive bowel sounds PALPATION: Yes Soft to palpation and Yes No hepatosplenomegaly present RECTAL EXAM: Yes deferred Extremity: COMMON NORMALS: no clubbing, cyanosis or edema and no pedal edema Neuro: COMMON NORMALS: patient oriented x3 Urinary Catheter Management: Taylor: Cath Placed During This Visit: yes, but has since been removed by the nurse Reason for Continuing Indwelling Catheter: Accurate Measurement of Urinary Output in Critically Ill Patients Urinary Catheter Date of Insertion: 08/13/22 Urinary Catheter Time of Insertion: 00:32 Date Urinary Catheter Removed: 08/15/22 Time Urinary Catheter Discontinued: 11:30 Data 08/15/22 02:57 08/15/22 02:57 Micro: Microbiology 08/12/22 00:23 Enteric Pathogens (PCR) - Final Stool - Stool Aspirate Parasite Antigen Panel - Final C.difficile Toxin B Gene (PCR) - Final A&P Assessment and plan (1) Acute hyperkalemia: (2) Acute on chronic renal failure: Qualifiers: Acute renal failure type: unspecified Chronic kidney disease stage: unspecified stage Qualified Code(s): N17.9 - Acute kidney failure, unspecified; N18.9 - Chronic kidney disease, unspecified (3) Hyperphosphatemia: (4) Acute hyponatremia: (5) Tobacco dependency: (6) Diabetes mellitus: (7) Hypertension: (8) COPD (chronic obstructive pulmonary disease): Plan 57-year-old male with past medical history of hypertension diabetes,HFpEF, CKD stage III, gout;Ca:Colon, he was having significant watery nonbloody diarrhea from 09 august, along with nausea and vomiting, and generalized muscle cramps, patient denies having any sick contact, eating outside. On his recent lab work done as an outpatient he was found to be severely hyperkalemic and was sent to the ER. Currently he is being managed for: Assessment: Acute renal failure: Most likely RIP in setting of CKD secondary to severe dehydration from diarrhea. Urine output improving. Post 1 session of dialysis. Temporary dialysis catheter removed. Appreciate nephrology recommendations. Appreciate urine studies and renal ultrasound. Medical reconciliation done for nephrotoxic drugs. Monitor BMP daily for now. No electrolyte abnormality or metabolic acidosis. Hyperkalemia: Resolved. Hyponatremia: Resolved. High anion gap metabolic acidosis: Resolved. Diarrhea: Seems to have resolved. Stool studies negative. Type 2 diabetes mellitus: Hypoglycemia on admission: A1c 5.9 on admission. Most likely will discharge off hypoglycemics. Hypertension: Goal blood pressure less than 140/90 mmHg. Blood pressure elevated. Continue with amlodipine 10 mg daily, hydralazine 50 mg 3 times daily. Switch metoprolol to Coreg 6.25 mg twice daily. Increase Imdur to 60 mg oral daily. Will uptitrate as for goal blood pressures. History of heart failure with preserved ejection fraction: Currently well compensated Monitor intake output charting Daily weight Telemetry monitoring History of COPD: DuoNebs as needed CODE STATUS : full code SCDs, heparin subcu for DVT prophylaxis Protonix for PUD prophylaxis. Discharge plan: If remains hemodynamically stable can discharge the next 24 hours. Transfer to [facility] floor. Attestations Medical Necessity Statement*: Requires further hospitalization for management of resolving acute renal failure requiring dialysis while antihypertensives are adjusted. Diagnoses Acute hyperkalemia E87.5 Acute on chronic renal failure N17.9; N18.9 Acute renal failure type: unspecified Chronic kidney disease stage: unspecified stage Hyperphosphatemia E83.39 Acute hyponatremia E87.1 Tobacco dependency F17.200 Diabetes mellitus E11.9 Hypertension I10 COPD (chronic obstructive pulmonary disease) J44.9
[2022-08-15] MEDS: carvedilol 12.5 mg Tablet 6.25 MG PO (18:01)
[2022-08-15 20:35] LABS: Glucose Point of Care 191 mg/dL (70-110)
[2022-08-15] MEDS: trazodone 50 mg Tablet PO (20:35)
[2022-08-15] MEDS: atorvastatin 40 mg Tablet 20 MG PO (20:35)
[2022-08-15] MEDS: benzonatate 100 mg Capsule PO (22:34)
[2022-08-16 01:38] VITALS: BP 142/78
[2022-08-16 03:34] VITALS: BP 150/78; PULSE 76; RESP 17; TEMP 36.4; O2SAT 96
[2022-08-16 04:00] VITALS: BP 150/78; PULSE 76; RESP 17; TEMP 36.4
[2022-08-16 05:07] LABS: Basophils # 0.1 10^3/uL (0.0-0.1); Basophils % 0.6 %; Eosinophils # 0.5 10^3/uL (0.0-0.8); Eosinophils % 4.6 %; Hematocrit 28.9 % (42.0-52.0); Hemoglobin 9.5 g/dL (11.7-16.6); Lymphocytes # 2.2 10^3/uL (0.8-4.8); Lymphocytes % 20.1 %; Mean Corpuscular HGB Conc 32.9 g/dL (30.0-36.0); Mean Corpuscular Hemoglobin 29.8 pg (28.0-34.0); Mean Corpuscular Volume 90.6 fl (80-94); Mean Platelet Volume 11.3 fL (7.4-10.4); Monocytes % 9.2 %; Neutrophils # 7.07 10^3/uL (1.8-7.7); Neutrophils % 64.9 %; Nucleated Red Blood Cells % 0 %; Platelet Count 174 10^3/cmm (130-400); Red Blood Count 3.19 10^6/uL (4.1-5.3); White Blood Count 10.9 10^3/uL (4.0-10.0)
[2022-08-16 05:30] VITALS: BP 154/78
[2022-08-16 05:36] LABS: Alanine Aminotransferase 13 U/L (0-41); Albumin Level 3.1 g/dL (3.5-5.2); Alkaline Phosphatase 103 U/L (40-130); Anion Gap 12.6 (5-19); Aspartate Amino Transferase 15 U/L (0-40); Blood Urea Nitrogen 28 mg/dL (6-20); Calcium 8.3 mg/dL (8.5-10.5); Carbon Dioxide 23 mmol/L (22-29); Chloride 108 mmol/L (98-107); Chol HDL Ratio 2.92 mg/dL (1.0-5.00); Cholesterol 111 mg/dL (0-200); Globulin 2.7 g/dL (1.3-4.6); Glomerular Filtration Rate 44.1 mL/min (90-130); Glucose 96 mg/dL (65-115); HDL Cholesterol 38 mg/dL (60-100); LDL Cholesterol Calculated 57 mg/dL (50-129); Osmolality Calculated 293 mOsm/kg (285-295); Potassium 4.6 mmol/L (3.5-5.1); Sodium 139 mmol/L (136-145); Total Bilirubin 0.2 mg/dL (0.15-1.2); Total Protein 5.8 g/dL (6.6-8.7); Triglycerides 82 mg/dL (0-150); VLDL Cholestrol Calculation 16 mg/dL (0-30)
[2022-08-16 05:39] LABS: Creatinine Clr Calc Pharmacy 49.5687
[2022-08-16 05:50] LABS: Folate Level 5.3 ng/mL (4.5-32.2)
[2022-08-16 06:37] LABS: Glucose Point of Care 94 mg/dL (70-110)
[2022-08-16 07:40] VITALS: BP 168/74; PULSE 74; RESP 17; TEMP 36.9; O2SAT 94
[2022-08-16] MEDS: carvedilol 12.5 mg Tablet 6.25 MG PO (08:16)
[2022-08-16] MEDS: hyDRALAzine 25 mg Tablet 50 MG PO (08:17)
[2022-08-16] MEDS: citalopram 20 mg Tablet 10 MG PO (08:17)
[2022-08-16] MEDS: cyanocobalamin 1,000 mcg Tablet 500 MCG PO (08:17)
[2022-08-16] MEDS: clopidogrel 75 mg Tablet PO (08:17)
[2022-08-16] MEDS: tamsulosin 0.4 mg Capsule PO (08:17)
[2022-08-16] MEDS: allopurinol 100 mg Tablet PO (08:17)
[2022-08-16] MEDS: pantoprazole DR 40 mg Tablet PO (08:17)
[2022-08-16] MEDS: amlodipine 10 mg Tablet PO (08:17)
[2022-08-16] MEDS: isosorbide mononitrate ER 30 mg Tablet 60 MG PO (08:18)
[2022-08-16] MEDS: aspirin 81 mg EC Tablet PO (08:18)
--- NOTE | 2022-08-16 09:16 | P.DS_ITS ---
Discharge Providers Date of Admission: 08/12/22 22:15 Date of Discharge: August 16, 2022 Attending Provider at Admission: Eun Heaton MD Attending Provider at Discharge: Alejandro Padilla MD Consults: Telemetry nephrology Surgery: Dr. Collins Primary Care Provider: Yenny Navarro MD Diagnoses at Discharge Discharge Diagnosis (1) Acute hyperkalemia: Status: Acute (2) Acute on chronic renal failure: Status: Acute Qualifiers: Acute renal failure type: unspecified Chronic kidney disease stage: unspecified stage Qualified Code(s): N17.9 - Acute kidney failure, unspecified; N18.9 - Chronic kidney disease, unspecified (3) Hyperphosphatemia: Status: Acute (4) Acute hyponatremia: Status: Acute (5) Tobacco dependency: Status: Acute (6) Diabetes mellitus: Status: Acute (7) Hypertension: Status: Acute (8) COPD (chronic obstructive pulmonary disease): Status: Acute (9) Acute hemodialysis patient: Status: Acute Reason for Visit Reason for Visit: abn labs Brief History: History as per HPI: Alek Hopper is a 57 year old male With past medical history of, colon cancer, diabetes mellitus, gout, hypertension presented to the hospital today with complaint of abnormal labs.? He said that earlier today his potassium was 7.9 therefore he came to the hospital.? Lately he has not been feeling very good he has been having nausea vomiting diarrhea for the last 3 weeks.? He did go see his primary care doctor as well for the same.? He ate chicken and had diarrhea.? He stated that his nausea vomiting is not really related to food but is constant throughout the day.? Patient was given loperamide and sent home.? At that point he did deny any abdominal pain fever or chills.? He does see his cartoonist special effects as an outpatient and typically his creatinine is 4-5 range but he has not been started on dialysis yet.? Patient is supposed to be on Lasix and potassium tablets at home.? Today had labs done as part of yearly screening.? Does make urine and not been started on dialysis yet as an outpatient.? Patient states that throughout this time he was taking his potassium and Lasix with compliant all his medications despite having nausea vomiting diarrhea.? He states that his cartoonist special effects supposed to come to cardiology to take him off of the potassium however they were not able to get a message through and he is not informed and therefore he was still taking his potassium tablets.? He believes could be a reason why all this has happened today.? He complains of a lot of muscle cramps and leg pain.? He also complains of abdominal pain at this time. On arrival to ER blood pressure 115/44,, pulse 59, temperature 96.5, saturating 95% room air.? Initial labs showed sodium 130, potassium 7.3 with repeat labs showing potassium going up to 8.3.? Creatinine 8.0.? Glucose 51, phosphorus 6.4, magnesium 2.1.? Bicarb 9.? Nephrology was consulted stat.? Patient given amp of D50, 30 of Kayexalate 1 L normal saline 10 units of IV regular insulin and 1 g of calcium gluconate albuterol 10 mg bladder treatment.? He was recommended by nephrology to place dialysis catheter and emergently dialyzed patient.? Surgery was consulted who did place a temporary dialysis catheter for the patient.? Patient be transferred to ICU and dialysis will be initiated. Hospital Course Hospital Course Patient was admitted to the ICU for further evaluation and management of hyperkalemia, high anion gap metabolic acidosis, hyperglycemia and multiple other electrolyte abnormality in setting of acute renal failure with baseline CKD. Given concerns for significant hyperkalemia telemetry nephrology was emergently consulted and he underwent emergent dialysis after placement of tempo rary dialysis catheter. Post dialysis patient showed steady improvement with improvement in his urine output and resolution of RIP. His hospitalization was complicated by multiple episodes of hypertensive urgency for his antihypertensives were adjusted. He has been discharged hemodynamically stable condition advised to follow-up with a primary care provider within next 1 week for repeat CMP. He is to check his blood pressures daily and maintain a blood pressure diary and follow-up with a primary care provider within next 1 week for further adjustment of antihypertensives. Multiple antihypertensives have been adjusted and have been discussed in detail with patient and family at bedside. Physical Exam Const: COMMON NORMALS: patient oriented x3 HENMT: COMMON NORMALS: normocephalic and atraumatic HEAD & SCALP: normocephalic and atraumatic Resp: COMMON NORMALS: clear to auscultation bilaterally AUSCULTATION: clear to auscultation bilaterally Cardio: COMMON NORMALS: regular rate, regular rhythm, S1 normal heart sound present, S2 normal heart sound present, No gallops present (Cardio), No murmurs present (Cardio), No rub (Cardio) and Peripheral pulses 2+ throughout RATE: regular rate RHYTHM: regular rhythm HEART SOUNDS: S1 normal heart sound present and S2 normal heart sound present PERIPHERAL PULSES: Peripheral pulses 2+ throughout GI: COMMON NORMALS: Normal to inspection, nondistended, normoactive bowel sounds present, Soft to palpation, non-tender, No hepatosplenomegaly present and no masses AUSCULTATION: Yes normoactive bowel sounds PALPATION: Yes Soft to palpation and Yes No hepatosplenomegaly present RECTAL EXAM: Yes deferred Extremity: COMMON NORMALS: no clubbing, cyanosis or edema and no pedal edema Neuro: COMMON NORMALS: patient oriented x3 Urinary Catheter Management: Taylor: Cath Placed During This Visit: yes, but has since been removed by the nurse Reason for Continuing Indwelling Catheter: Accurate Measurement of Urinary Output in Critically Ill Patients Urinary Catheter Date of Insertion: 08/13/22 Urinary Catheter Time of Insertion: 00:32 Date Urinary Catheter Removed: 08/15/22 Time Urinary Catheter Discontinued: 11:30 Discharge Data Studies Completed and Pending Completed Studies During Hospitalization Category Date Time Status XR chest 1V portable [id number] Routine Exams 08/12/22 22:57 Completed US renal BI* [id number] Routine Ultrasound 08/13/22 17:48 Completed Pending at discharge Category Date Time Status Blood Culture Stat Lab 08/12/22 23:28 Results Sputum Culture and Gram Stain Stat Lab 08/12/22 22:58 Uncollected Radiology Impressions Chest X-Ray 08/12/22 22:57 IMPRESSION: No acute findings. Renal Ultrasound 08/13/22 17:48 IMPRESSION: 1. Mild hydronephrosis of the left kidney. 2. Right renal simple cysts. Laboratory Results WBC 10.9 10^3/uL (4.0-10.0) H 08/16/22 04:24 RBC 3.19 10^6/uL (4.1-5.3) L 08/16/22 04:24 Hgb 9.5 g/dL (11.7-16.6) L 08/16/22 04:24 Hct 28.9 % (42.0-52.0) L 08/16/22 04:24 MCV 90.6 fl (80-94) 08/16/22 04:24 MCH 29.8 pg (28.0-34.0) 08/16/22 04:24 MCHC 32.9 g/dL (30.0-36.0) 08/16/22 04:24 RDW 14.0 % (12.1-15.1) 08/16/22 04:24 Plt Count 174 10^3/cmm (130-400) 08/16/22 04:24 MPV 11.3 fL (7.4-10.4) H 08/16/22 04:24 Neut % (Auto) 64.9 % 08/16/22 04:24 Lymph % (Auto) 20.1 % 08/16/22 04:24 Garrard % (Auto) 9.2 % 08/16/22 04:24 Eos % (Auto) 4.6 % 08/16/22 04:24 Baso % (Auto) 0.6 % 08/16/22 04:24 Neut # (Auto) 7.07 10^3/uL (1.8-7.7) 08/16/22 04:24 Lymph # (Auto) 2.2 10^3/uL (0.8-4.8) 08/16/22 04:24 Garrard # (Auto) 1.0 10^3/uL (0.2-0.9) H 08/16/22 04:24 Eos # (Auto) 0.5 10^3/uL (0.0-0.8) 08/16/22 04:24 Baso # (Auto) 0.1 10^3/uL (0.0-0.1) 08/16/22 04:24 Nucleated RBC % (auto) 0 % 08/16/22 04:24 Nucleated RBCs # 0.0 /100WBC 08/16/22 04:24 Sodium 139 mmol/L (136-145) 08/16/22 04:24 Potassium 4.6 mmol/L (3.5-5.1) 08/16/22 04:24 Chloride 108 mmol/L (98-107) H 08/16/22 04:24 Carbon Dioxide 23 mmol/L (22-29) 08/16/22 04:24 Anion Gap 12.6 (5-19) 08/16/22 04:24 BUN 28 mg/dL (6-20) H 08/16/22 04:24 Creatinine 1.9 mg/dL (0.7-1.2) H 08/16/22 04:24 GFR Calculation 44.1 mL/min (90-130) L 08/16/22 04:24 Glucose 96 mg/dL (65-115) 08/16/22 04:24 POC Glucose 94 mg/dL (70-110) 08/16/22 06:28 Estimat Average Glucose 123 08/12/22 23:22 Hemoglobin A1c 5.9 % (4.0-6.0) 08/12/22 23:22 Calculated Osmolality 293 mOsm/kg (285-295) 08/16/22 04:24 Lactic Acid 0.8 mmol/L (0.5-2.2) 08/12/22 23:22 Calcium 8.3 mg/dL (8.5-10.5) L 08/16/22 04:24 Phosphorus 3.0 mg/dL (2.5-4.5) D 08/13/22 03:30 Magnesium 1.7 mg/dL (1.7-2.3) 08/13/22 03:30 Total Bilirubin 0.2 mg/dL (0.15-1.2) 08/16/22 04:24 AST 15 U/L (0-40) 08/16/22 04:24 ALT 13 U/L (0-41) 08/16/22 04:24 Alkaline Phosphatase 103 U/L (40-130) 08/16/22 04:24 Creatine Kinase 426 U/L (39-308) H* 08/15/22 02:57 Total Protein 5.8 g/dL (6.6-8.7) L 08/16/22 04:24 Albumin 3.1 g/dL (3.5-5.2) L 08/16/22 04:24 Globulin 2.7 g/dL (1.3-4.6) 08/16/22 04:24 Triglycerides 82 mg/dL (0-150) 08/16/22 04:24 Cholesterol 111 mg/dL (0-200) 08/16/22 04:24 LDL Cholesterol, Calc 57 mg/dL (50-129) 08/16/22 04:24 Total VLDL Cholesterol 16 mg/dL (0-30) 08/16/22 04:24 HDL Cholesterol 38 mg/dL (60-100) L 08/16/22 04:24 Cholesterol/HDL Ratio 2.92 mg/dL (1.0-5.00) 08/16/22 04:24 Vitamin B12 289 pg/mL (232-1245) 08/15/22 02:57 Folate 5.3 ng/mL (4.5-32.2) 08/16/22 04:24 Procalcitonin 0.34 ng/mL (0-0.5) 08/12/22 23:22 TSH 0.33 uIU/mL (0.27-4.20) 08/12/22 23:22 PTH Intact 129.7 pg/mL (15-65) H 08/14/22 05:22 Calcium (PTH Intact) 7.5 mg/dL (8.5-10.5) L 08/14/22 05:22 Random Cortisol 14.23 ug/dL (2.47-19.5) 08/12/22 23:22 Urine Color Yellow (Yellow) 08/12/22 00:23 Urine Appearance Clear (CLEAR) 08/12/22 00:23 Urine pH 5 (5-7) 08/12/22 00:23 Ur Specific [place] 1.015 (1.005-1.030) 08/12/22 00:23 Urine Protein Trace (Negative) 08/12/22 00:23 Urine Glucose (UA) Norm (Normal) 08/12/22 00:23 Urine Ketones Negative (Negative) 08/12/22 00:23 Urine Blood 2+ (Negative) H 08/12/22 00:23 Urine Nitrate Negative (Negative) 08/12/22 00:23 Urine Bilirubin Neg (Negative) 08/12/22 00:23 Urine Urobilinogen Norm mg/dL (Negative) 08/12/22 00:23 Ur Leukocyte Esterase Negative (Negative) 08/12/22 00:23 Urine RBC 0-4 /hpf (0-2) H 08/12/22 00:23 Urine WBC 0-4 /hpf (0-5) H 08/12/22 00:23 Ur Squamous Epith Cells 0-4 /hpf (0-5) H 08/12/22 00:23 Amorphous Sediment Not Reportable 08/12/22 00:23 Urine Bacteria 1+ /hpf (NONE) H 08/12/22 00:23 Ur Random Sodium 22 mmol/L 08/14/22 12:27 Urine Creatinine 283 mg/dL (39-259) H 08/14/22 12:27 Urine Total Protein 170.1 mg/dL (0.0-20.0) H 08/14/22 12:27 Hep Bs Antigen Non-reactive (Nonreactive) 08/12/22 20:30 Hep Bs Antibody 226.4 (11.5-1000) 08/12/22 20:30 Hep B Core Total Ab Non-reactive (Nonreactive) 08/12/22 20:30 Vitals Last Vital Signs Temp 98.5 F 08/16/22 07:40 Pulse 74 08/16/22 07:40 Resp 17 08/16/22 07:40 BP 168/74 08/16/22 07:40 Pulse Ox 94 08/16/22 07:40 O2 Del Method Room Air 08/16/22 03:34 Discharge Plan Discharge Patient Disposition: Home Condition: Stable Prescriptions: New carvedilol 12.5 mg Tablet 12.5 mg PO BID 60 Days Qty: 120 0RF isosorbide mononitrate 30 mg Tablet Extended Release 24 Hr 60 mg PO DAILY 30 Days Qty: 60 0RF Vitamin B-12 1,000 mcg Tablet 500 mcg PO DAILY Qty: 30 0RF amlodipine 10 mg Tablet 10 mg PO DAILY 30 Days Qty: 30 0RF hydralazine 50 mg tablet 50 mg PO TID Qty: 90 0RF Continued hydrocodone-acetaminophen 10-325 mg tablet 1 tab PO Q4H PRN (Reason: Pain) allopurinol 100 mg tablet 100 mg PO DAILY aspirin [Adult Aspirin Regimen] 81 mg tablet,delayed release (DR/EC) 81 mg PO DAILY docusate sodium 100 mg capsule 100 mg PO BID dulaglutide 1.5 mg/0.5 mL pen injector 1.5 mg SUBCUT Q7D Rx Instructions: On Monday esomeprazole magnesium 20 mg capsule,delayed release(DR/EC) 20 mg PO DAILY loperamide 2 mg capsule 2 mg PO QID PRN (Reason: loose stool) Qty: 14 0RF Rx Instructions: 2 tabs on first dose, 1 tab after that after each unformed stool, up to 7 tabs/day latanoprost 0.005 % drops 2 drp ophthalmic (eye) DAILY simvastatin 10 mg tablet 10 mg PO BEDTIME trazodone 50 mg tablet 50 mg PO BEDTIME citalopram 10 mg tablet 10 mg PO DAILY clopidogrel 75 mg tablet 75 mg PO DAILY tamsulosin 0.4 mg capsule 0.4 mg PO DAILY Vitamin D3 25 mcg (1,000 unit) Tablet 25 mcg PO DAILY albuterol sulfate 90 mcg/actuation HFA aerosol inhaler 2 inh inhalation Q6H PRN (Reason: shortness of breath or wheezing) Qty: 8.5 0RF Discontinued metoprolol tartrate 100 mg tablet 100 mg PO BID isosorbide mononitrate 30 mg tablet extended release 24 hr See Rx Instructions .ROUTE .COMPLEX Qty: 30 4RF Dose Instruction: Take 1 tablet by mouth once daily Rx Instructions: Take 1 tablet by mouth once daily hydralazine 25 mg tablet 25 mg PO TID amlodipine 5 mg tablet 5 mg PO DAILY furosemide 20 mg tablet 20 mg PO DAILY Discharge Orders: Discharge Order (Routine); Ordered 08/16/22 Ordered By: Alejandro Padilla Referrals: Yenny Navarro MD [Primary Care Provider] - 4-7 days (DR OFFICE WILL CALL WITH APPOINTMENT) Discharge Diet: Cardiac and Diabetic Discharge Activity: Resume usual activity and Increase activity as tolerated Patient Instructions: Hydralazine (By mouth), Amlodipine (By mouth), Isosorbide Mononitrate (By mouth), Carvedilol (By mouth), Chronic Kidney Disease Diet (DC), Chronic Kidney Disease Diet (GEN), Opioid Safety Activity Restrictions/Additional Instructions: Please follow-up with a primary care provider within next 1 week for repeat CMP. Please check your blood pressure daily at home and maintain a blood pressure diary and follow-up with a primary care provider onsite appointment for further adjustment of antihypertensives as needed. Multiple medication changes have been done. Metoprolol has been changed to Coreg 12.5 mg twice daily. Dose of hydralazine has been increased to 50 mg 3 times daily. Dose of Imdur has been increased to 60 mg daily. Amlodipine has been increased to 10 mg daily. Discharge Attestations Time Spent in Discharge Care*: greater than 30 min Specific Discharge Activities: educating patient, educating and/or supporting family/caregiver, discussing with pcp/other providers, discussing with special education case manager/social workers/dc planners, documenting/other paperwork and evaluating patient/reviewing data Status at Discharge: Cognitive status at discharge: cognitively intact , Behavioral status at discharge: cooperative , Functional status at discharge: independent ambulation , Overall status at discharge: patient is progressing back to baseline Quality Metrics Clinical Quality Measures [ No reported AMI, CVA or VTE this stay] Coding Level of Care Code 15978 Total time (in minutes) for Discharge: 60 Diagnoses Acute hyperkalemia E87.5 Acute on chronic renal failure N17.9; N18.9 Acute renal failure type: unspecified Chronic kidney disease stage: unspecified stage Hyperphosphatemia E83.39 Acute hyponatremia E87.1 Tobacco dependency F17.200 Diabetes mellitus E11.9 Hypertension I10 COPD (chronic obstructive pulmonary disease) J44.9 Acute hemodialysis patient Z99.2
--- NOTE | 2022-08-16 10:02 | PC.NURSE ---
Pt notified nurse that dressing applied to groin had fallen off. Nurse assessed site and there was no bleeding present and site is now open to air. Nurse educated patient on s/s and to notify nurse if any bleeding occurs.
[2022-08-16 11:16] LABS: Glucose Point of Care 135 mg/dL (70-110)
== END 2022-08-16 12:00 | disposition home or self-care (01) | DRG 641 ==
LOC: ER 22:06 → ICU 22:16 → MEDSURG 08-15 15:57
PROVIDERS: Hospitalist; Internal Medicine; Admitting Provider Internal Medicine; Emergency Provider Emergency Medicine; PCP Family Medicine; Visit Provider Student in an Organized Health Care Education/Training Program
DX: E87.5 Hyperkalemia (principal); I13.0 Hypertensive heart and chronic kidney disease with heart failure and stage 1 through stage 4 chronic kidney disease, or unspecified chronic kidney disease; I50.32 Chronic diastolic (congestive) heart failure; N17.9 Acute kidney failure, unspecified; E11.649 Type 2 diabetes mellitus with hypoglycemia without coma; H40.9 Unspecified glaucoma; M10.9 Gout, unspecified; E11.22 Type 2 diabetes mellitus with diabetic chronic kidney disease; N18.30 Chronic kidney disease, stage 3 unspecified; E11.51 Type 2 diabetes mellitus with diabetic peripheral angiopathy without gangrene; Z79.82 Long term (current) use of aspirin; J44.9 Chronic obstructive pulmonary disease, unspecified; E87.20 Acidosis, unspecified; E86.0 Dehydration; R19.7 Diarrhea, unspecified; E83.39 Other disorders of phosphorus metabolism; E87.1 Hypo-osmolality and hyponatremia; I16.0 Hypertensive urgency
CPT/HCPCS: 12345; 36415; 36416; 51702; 71045; 76770; 80048; 80053; 80061; 80069; 81001; 82310; 82533; 82550; 82575; 82607; 82746; 82962; 83036; 83605; 83630; 83735; 83970; 84100; 84145; 84156; 84300; 84443; 85025; 86705; 86706; 87040; 87340; 87493; 87506; 90935; 94640; 94664; 96361; 96372; 96374; 96375; 96376; 97116; 97161; 99285; C1750; C1751; C9113; J0295; J0360; J0612; J1644; J1815; J2270; J3420; J7030; J7070; J7613; Q3014

== ENCOUNTER → 2022-08-25 12:42 | Outpatient (BNVA) | payer MEDICARE, SELFPAY | PROVIDERS: PCP Family Medicine; Visit Provider Specialist | DX: R06.02 Shortness of breath (principal); I10 Essential (primary) hypertension; E78.5 Hyperlipidemia, unspecified; F17.210 Nicotine dependence, cigarettes, uncomplicated | CPT/HCPCS: 99214 ==

== ENCOUNTER 2022-09-02 12:20 | Outpatient (CLI) | payer MEDICARE, SELFPAY ==
[2022-09-02 13:02] LABS: Basophils # 0.1 10^3/uL (0.0-0.1); Basophils % 0.8 %; Eosinophils # 0.1 10^3/uL (0.0-0.8); Eosinophils % 0.9 %; Hematocrit 27.6 % (42.0-52.0); Hemoglobin 8.9 g/dL (11.7-16.6); Lymphocytes # 1.3 10^3/uL (0.8-4.8); Lymphocytes % 19.7 %; Mean Corpuscular HGB Conc 32.2 g/dL (30.0-36.0); Mean Corpuscular Volume 89.9 fl (80-94); Mean Platelet Volume 9.1 fL (7.4-10.4); Monocytes # 0.5 10^3/uL (0.2-0.9); Monocytes % 7.9 %; Neutrophils # 4.58 10^3/uL (1.8-7.7); Neutrophils % 70.5 %; Nucleated Red Blood Cells % 0 %; Platelet Count 302 10^3/cmm (130-400); Red Blood Count 3.07 10^6/uL (4.1-5.3); Red Cell Distribution Width 14.1 % (12.1-15.1); White Blood Count 6.5 10^3/uL (4.0-10.0)
[2022-09-02 13:17] LABS: Alanine Aminotransferase 11 U/L (0-41); Albumin Level 3.5 g/dL (3.5-5.2); Alkaline Phosphatase 107 U/L (40-130); Anion Gap 13.9 (5-19); Aspartate Amino Transferase 11 U/L (0-40); Blood Urea Nitrogen 21 mg/dL (6-20); Calcium 8.6 mg/dL (8.5-10.5); Carbon Dioxide 23 mmol/L (22-29); Chloride 106 mmol/L (98-107); Globulin 2.9 g/dL (1.3-4.6); Glomerular Filtration Rate 35.4 mL/min (90-130); Glucose 100 mg/dL (65-115); Osmolality Calculated 289 mOsm/kg (285-295); Potassium 4.9 mmol/L (3.5-5.1); Sodium 138 mmol/L (136-145); Total Bilirubin 0.3 mg/dL (0.15-1.2); Total Protein 6.4 g/dL (6.6-8.7)
[2022-09-02 13:27] LABS: Creatinine Urine, Random 162 mg/dL (39-259); Urine Creatinine 149 mg/dL (39-259)
[2022-09-02 13:29] LABS: Urine Protein Random 89 mg/dL
[2022-09-02 13:39] LABS: Microalbum Creatinine Ratio Ur 407 mg/dL (0-20); Microalbumin Random Urine 66 ug/dL (0-20)
[2022-09-02 14:30] LABS: Calcium 8.4 mg/dL (8.5-10.5)
[2022-09-02 14:38] LABS: Parathyroid Hormone 89.2 pg/mL (15-65)
[2022-09-03 08:39] LABS: PROTEIN, TOTAL 6.1 g/dL (6.1-8.1)
[2022-09-05 14:20] LABS: Anti-Double Strand DNA AB <1 IU/mL; Jo-1 Antibody <1.0 NEG AI (<1.0 NEG); SM/RNP Antibodies <1.0 NEG AI (<1.0 NEG); SS-B/LA IGG <1.0 NEG AI (<1.0 NEG); Scleroderma Ab(Scl-70) Ab <1.0 NEG AI (<1.0 NEG); Ss-A/Ro Igg <1.0 NEG AI (<1.0 NEG)
[2022-09-05 15:58] LABS: ALBUMIN 3.2 g/dL (3.8-4.8); ALPHA 1 GLOBULIN 0.3 g/dL (0.2-0.3); ALPHA 2 GLOBULIN 0.8 g/dL (0.5-0.9); BETA 1 GLOBULIN 0.3 g/dL (0.4-0.6); BETA 2 GLOBULIN 0.3 g/dL (0.2-0.5); GAMMA GLOBULIN 1.1 g/dL (0.8-1.7)
[2022-09-07 13:55] LABS: ANCA Screen NEGATIVE (NEGATIVE)
== END 2022-09-02 12:21 | disposition home or self-care (01) ==
PROVIDERS: PCP Family Medicine; Visit Provider Registered Nurse
DX: N18.32 Chronic kidney disease, stage 3b (principal)
CPT/HCPCS: 36415; 80053; 82044; 82310; 82570; 83970; 84155; 84156; 84165; 85025; 86036; 86225; 86235

== ENCOUNTER 2022-09-08 10:33 | Outpatient (CLI) | payer MEDICARE, MEDICAID, SELFPAY ==
--- NOTE | 2022-09-08 10:45 | CT_ITS ---
WS: [id number] CT ABDOMEN PELVIS TECHNIQUE: Noncontrast CT of the abdomen and pelvis with coronal and sagittal reformatted images. CLINICAL INFORMATION: HYDRONEPHROSIS COMPARISON: Ultrasound August 13, 2022 DLP: 564.[address] scans at [facility] use at least one of these dose optimization techniques: automated e xposure control; mA and/or kV adjustment per patient size (includes targeted exams where dose is matc hed to clinical indication); or iterative reconstruction. FINDINGS: Small bilateral pleural effusions. Interstitial edema in the lung bases. Noncontrast liver appears no rmal. Cholecystectomy clips. Noncontrast spleen appears normal. Normal GE junction. Small pericardial effusion partially visualized. Noncontrast pancreas appears normal. RIGHT renal cysts the largest measuring 4.9 x 4.3 CM. No obstructing renal or ureteral calculi. Mild diffuse bladder wall thickening can be seen with cystitis or bladder outlet obstruction. Prostate pedro sures 4.1 CCM. Femorofemoral bypass graft visualized. Diffuse body wall anasarca. Normal caliber abdo dixon aorta. Aortic calcification. LEFT adrenal lesion compatible with adenoma measuring 2.1 x 2.5 CM . Tiny fat-containing umbilical hernia. Evidence of prior partial colectomy with anastomosis. CT/CT abdomen pelvis wo con [id number] IMPRESSION: 1. No hydronephrosis in either kidney today. 2. Simple RIGHT renal cysts the largest in the lower pole measuring 4.9 x 4.3 cm. 3. LEFT adrenal adenoma measuring 2.5 x 2.1 CM. 4. Small bilateral pleural effusions with interstitial edema in the lung bases . 5. Prior cholecystectomy. 6. Prior postoperative changes subtotal colonic resection with anastomosis. 7. Partially visualized femorofemoral bypass graft. 8. Mild diffuse bladder wall thickening can be seen with bladder outlet obstru ction or chronic cystitis. 9. Prostate measures 4.1 CM. Recommend correlation PSA.
== END 2022-09-08 10:34 | disposition home or self-care (01) ==
LOC: RAD 10:37
PROVIDERS: PCP Family Medicine; Visit Provider Registered Nurse
DX: N13.30 Unspecified hydronephrosis (principal); N28.1 Cyst of kidney, acquired; D35.02 Benign neoplasm of left adrenal gland; J90 Pleural effusion, not elsewhere classified; N32.89 Other specified disorders of bladder; Z90.49 Acquired absence of other specified parts of digestive tract; Z95.828 Presence of other vascular implants and grafts; Z98.0 Intestinal bypass and anastomosis status
CPT/HCPCS: 74176

== ENCOUNTER → 2022-09-12 08:55 | Outpatient (BNVA) | payer MEDICARE, MEDICAID, SELFPAY | PROVIDERS: PCP Family Medicine; Visit Provider Podiatrist Foot & Ankle Surgery | DX: I73.9 Peripheral vascular disease, unspecified (principal); L60.3 Nail dystrophy; L84 Corns and callosities; E11.8 Type 2 diabetes mellitus with unspecified complications; E11.21 Type 2 diabetes mellitus with diabetic nephropathy; M20.41 Other hammer toe(s) (acquired), right foot; M20.42 Other hammer toe(s) (acquired), left foot; M21.41 Flat foot [pes planus] (acquired), right foot; M21.42 Flat foot [pes planus] (acquired), left foot | CPT/HCPCS: 11056; 11721 ==

== ENCOUNTER 2022-11-24 10:42 | Emergency (ER) | payer MEDICARE, MEDICAID, SELFPAY ==
[2022-11-24 10:44] VITALS: BP 142/69; PULSE 71; RESP 16; O2SAT 98
[2022-11-24] MEDS: fluorescein 1 mg Strip EYE-BOTH (11:39)
[2022-11-24] MEDS: tetracaine 0.5% Op Soln 4 mL Btl 2 DROP EYE-LEFT (11:39)
--- NOTE | 2022-11-24 11:42 | ED_ITS ---
HPI - Eye Problem General: Chief complaint: Eye Problems Stated complaint: left eye injury Time Seen by Provider: 11/24/22 11:15 Source: patient Mode of arrival: ambulatory Limitations: no limitations History of Present Illness: This 57-year-old male with a history of hypertension, diabetes and chronic renal insufficiency presents to the ER with left eye pain that started 2 days ago. Patient denies any history of fall or trauma to the eye prior to onset. There is excessive tearing, photophobia, headache and associated blurry vision. Patient does not wear contacts but does wear corrective lenses. He denies fever, nausea, vomiting or any other systemic symptoms. Associated symptoms: Denies headache(s) or neck pain Review of Systems Const: Denies: chills, body aches or change in appetite Eyes: Reports: blurry vision, photophobia, eye discomfort, eye discharge (Watery), eye redness and increased production of tears ENMT: Denies: throat pain, dental pain or nasal discharge Card: Denies: chest pain or lightheadedness : Denies: dysuria Musc: Denies: neck pain or back pain Neuro: Denies: headache(s) or weakness in extremities Psych: Denies: depression Robin/Lymph: Denies: easy bruising All/Imm: Denies: urticaria, tongue swelling or facial swelling PFSH ED PFSH: Medical History Abscess of face Cancer Carotid bruit Chest pain Colon cancer COPD (chronic obstructive pulmonary disease) Diabetes mellitus Gallbladder cancer Glaucoma Gout Hypertension Peripheral arterial disease Peripheral vascular disease History of peripheral stenting Surgical History History of cholecystectomy History of partial colectomy History of PTCA Family History Brother Bleeding disorder Clotting disorder CAD (coronary artery disease) Cancer Diabetes x 5 Stroke Sister Bleeding disorder Clotting disorder Chronic kidney disease (CKD) Diabetes x 6 Lung disease x 2 Stroke Father Bleeding disorder Clotting disorder CAD (coronary artery disease) Chronic kidney disease (CKD) Diabetes Mother CAD (coronary artery disease) Cancer Diabetes Stroke Grandfather CAD (coronary artery disease) Cancer Diabetes Grandmother Cancer Dementia Diabetes Family/Other Cancer Chronic kidney disease (CKD) Dementia Diabetes Lung disease Denies family history of Suicide Anesthesia complication Social History Smoking and tobacco status: current every day smoker Quit status (tobacco): has tried quititng Second hand smoke exposure: Yes Alcohol intake: never Substance/Drug Use: never Adopted: No Caregiver/support person: No Lives independently: Yes Household members: spouse Housing: Apartment Marital status: Number of children: 4 Number of grandchildren: 1 Highest education level completed: 12th Grade, No Diploma service: No Current occupational status: disabled Current occupational exposures/hazards: No Pets and animals: No Leisure activites: exercise and clubs Sexually active: No Do you think of yourself as: Straight/Heterosexual Current gender identity: Male Shelly/Temple: Roman Catholic Special shelly needs: No Agree to transfusion: Yes Financial difficulty paying for basics: Somewhat Hard Physical Exam Const: COMMON NORMALS: no acute distress, patient oriented x3, no limitations and alert HENMT: COMMON NORMALS: normocephalic HEAD & SCALP: normocephalic Eye: COMMON NORMALS: EOMs intact bilaterally CONJUNCTIVA: Yes conjunctival abnormal positive left conjunctival injection PUPIL: Yes Pupil accommodation reflex normal Neck/C-Spine: COMMON NORMALS: full ROM and supple Chest: COMMONS NORMALS: normal inspection of the chest Resp: COMMON NORMALS: normal respiratory effort, No retractions, No use of accessory muscles and clear to auscultation bilaterally AUSCULTATION: clear to auscultation bilaterally Cardio: COMMON NORMALS: regular rate, regular rhythm and No murmurs present (Cardio) RATE: regular rate RHYTHM: regular rhythm GI: COMMON NORMALS: Normal to inspection, nondistended, normoactive bowel sounds present and non-tender : COMMON NORMALS: Yes no CVA tenderness BLADDER/KIDNEY EXAM: Yes no CVA tenderness Back/Pelvis: COMMON NORMALS: no CVA tenderness and no thoracic nor lumbar tenderness Extremity: GENERAL: Yes normal exam except as noted Neuro: COMMON NORMALS: patient oriented x3 and no focal motor deficits SENSORIUM/ORIENTATION: Yes alert Psych: COMMON NORMALS: mental status grossly normal and cooperative Course Vital Signs: Vital signs: Vital Signs Pulse Rate 71 11/24/22 10:44 Respiratory Rate 16 11/24/22 10:44 Blood Pressure 142/69 11/24/22 10:44 Pulse Oximetry 98 11/24/22 10:44 Oxygen Delivery Me thod Room Air 11/24/22 10:44 MDM - Eye Problem Medical Decision Making Medical decision making: History as above. After numbing the eye with tetracaine drop and staining it with fluorescein, Arora lamp reveals no corneal abrasion. Tonometer reveals an IOP of 14 mmHg. He does have hyperemia around the the cornea. Findings are most consistent with acute iritis. He will be discharged home with steroid eyedrops in addition to Maxitrol and cyclopentolate. He was advised to follow-up with an tour sales representative as soon as possible. He should return if he develops any new or concerning symptoms. No radiology studies performed this visit Discharge Plan Discharge Patient Disposition: Home Clinical Impression: Acute iritis Condition: Stable Prescriptions: New Pred Forte 1 % drops,suspension 1 drp ophthalmic (eye) Q3H 2 Days Qty: 10 0RF Rx Instructions: After 48 hrs, apply the drops every 6 hours for 2 weeks. Maxitrol 3.5 mg/g-10,000 unit/g-0.1 % ointment 1 applic ophthalmic (eye) ONCE Qty: 3.5 0RF Rx Instructions: Apply at nighttime cyclopentolate 0.5 % drops 1 drp ophthalmic (eye) TID PRN (Reason: For photophobia.) Qty: 15 0RF Rx Instructions: compress lacrimal sac for 1-2 minutes after instillation No Action hydrocodone-acetaminophen 10-325 mg tablet 1 tab PO Q4H PRN (Reason: Pain) allopurinol 100 mg tablet 100 mg PO DAILY aspirin [Adult Aspirin Regimen] 81 mg tablet,delayed release (DR/EC) 81 mg PO DAILY docusate sodium 100 mg capsule 100 mg PO BID dulaglutide 1.5 mg/0.5 mL pen injector 1.5 mg SUBCUT Q7D Rx Instructions: On Monday esomeprazole magnesium 20 mg capsule,delayed release(DR/EC) 20 mg PO DAILY bumetanide 1 mg tablet 1 mg PO DAILY loperamide 2 mg capsule 2 mg PO QID PRN (Reason: loose stool) Qty: 14 0RF Rx Instructions: 2 tabs on first dose, 1 tab after that after each unformed stool, up to 7 tabs/day isosorbide mononitrate 60 mg tablet extended release 24 hr 60 mg PO DAILY Qty: 90 3RF hydralazine 50 mg tablet 50 mg PO TID Qty: 270 3RF latanoprost 0.005 % drops 2 drp ophthalmic (eye) DAILY simvastatin 10 mg tablet 10 mg PO BEDTIME trazodone 50 mg tablet 50 mg PO BEDTIME citalopram 10 mg tablet 10 mg PO DAILY clopidogrel 75 mg tablet 75 mg PO DAILY tamsulosin 0.4 mg capsule 0.4 mg PO DAILY Vitamin D3 25 mcg (1,000 unit) Tablet 25 mcg PO DAILY Vitamin B-12 1,000 mcg Tablet 500 mcg PO DAILY Qty: 30 0RF albuterol sulfate 90 mcg/actuation HFA aerosol inhaler 2 inh inhalation Q6H PRN (Reason: shortness of breath or wheezing) Qty: 8.5 0RF Discharge Orders: Discharge ED (Routine); Ordered 11/24/22 Ordered By: Esvin Devi Referrals: Yenny Navarro MD [Primary Care Provider] - Discharge Diet: Usual diet Discharge Activity: Resume usual activity Patient Instructions: Opioid Safety, Pain Management Activity Restrictions/Additional Instructions: Use the eyedrops as directed. Establish care with an tour sales representative as soon as possible for reevaluation. Return with new or worsening symptoms. Coding Level of Care Code ED Laminating Machine Operator for Mary Anthony
== END 2022-11-24 12:42 | disposition home or self-care (01) ==
PROVIDERS: Emergency Provider Family Medicine; PCP Family Medicine
DX: H20.00 Unspecified acute and subacute iridocyclitis (principal); Z79.82 Long term (current) use of aspirin; Z79.02 Long term (current) use of antithrombotics/antiplatelets; F17.210 Nicotine dependence, cigarettes, uncomplicated; Z85.038 Personal history of other malignant neoplasm of large intestine; J44.9 Chronic obstructive pulmonary disease, unspecified; E11.9 Type 2 diabetes mellitus without complications; Z85.89 Personal history of malignant neoplasm of other organs and systems; I10 Essential (primary) hypertension
CPT/HCPCS: 99283

== ENCOUNTER → 2022-12-12 09:15 | Outpatient (BNVA) | payer MEDICARE, MEDICAID, SELFPAY | PROVIDERS: PCP Family Medicine; Visit Provider Podiatrist Foot & Ankle Surgery | DX: I73.9 Peripheral vascular disease, unspecified; E11.21 Type 2 diabetes mellitus with diabetic nephropathy; L60.3 Nail dystrophy; M20.40 Other hammer toe(s) (acquired), unspecified foot; M21.40 Flat foot [pes planus] (acquired), unspecified foot; L84 Corns and callosities; M21.42 Flat foot [pes planus] (acquired), left foot; M21.41 Flat foot [pes planus] (acquired), right foot | CPT/HCPCS: 11056; 11721 ==

== ENCOUNTER 2023-01-30 14:48 | Outpatient (CLI) | payer MEDICARE, MEDICAID, SELFPAY ==
[2023-01-30 16:34] LABS: Basophils # 0.1 10^3/uL (0.0-0.1); Basophils % 0.6 %; Eosinophils # 0.1 10^3/uL (0.0-0.8); Eosinophils % 0.6 %; Hematocrit 36.2 % (37-53); Lymphocytes # 1.5 10^3/uL (0.8-4.8); Lymphocytes % 17.3 %; Mean Corpuscular HGB Conc 31.8 g/dL (30-55); Mean Corpuscular Hemoglobin 29.5 pg (27-33); Mean Corpuscular Volume 92.8 fl (82-101); Monocytes # 0.6 10^3/uL (0.2-0.9); Monocytes % 6.3 %; Nucleated Red Blood Cells % 0 %; Platelet Count 172 10^3/cmm (157-399); Red Cell Distribution Width 15.1 % (12.1-15.1); White Blood Count 8.67 10^3/uL (3.29-11.43)
[2023-01-30 16:40] LABS: Creatinine Urine, Random 296 mg/dL (39-259); Microalbum Creatinine Ratio Ur 37 mg/dL (0-20); Microalbumin Random Urine 11 ug/dL (0-20)
[2023-01-30 16:51] LABS: Calcium 8.7 mg/dL (8.5-10.5)
[2023-01-30 16:52] LABS: Albumin Level 3.9 g/dL (3.5-5.2); Anion Gap 16.6 (5-19); Blood Urea Nitrogen 42 mg/dL (6-20); Calcium 8.6 mg/dL (8.5-10.5); Carbon Dioxide 14 mmol/L (22-29); Chloride 109 mmol/L (98-107); Ferritin 103 ng/mL (30-400); Glomerular Filtration Rate 23.3 mL/min (90-130); Glucose 145 mg/dL (65-115); Iron 60 ug/dL (59-158); Percent Saturation 22.3 % (20-50); Phosphorus 4.4 mg/dL (2.5-4.5); Potassium 5.6 mmol/L (3.5-5.1); Sodium 134 mmol/L (136-145); Total Iron Binding Capacity 269 mcg/dl; Unsaturated Iron Binding 209 ug/dL (112-347)
[2023-01-30 17:08] LABS: 25 Hydroxy Vitamin D 20 ng/mL (30-100)
== END 2023-01-30 14:49 | disposition home or self-care (01) ==
LOC: LAB 14:54
PROVIDERS: PCP Family Medicine; Visit Provider Registered Nurse
DX: D50.8 Other iron deficiency anemias (principal); E55.9 Vitamin D deficiency, unspecified; N18.32 Chronic kidney disease, stage 3b
CPT/HCPCS: 36415; 80069; 82044; 82306; 82310; 82728; 83540; 83550; 83970; 85025

== ENCOUNTER 2023-02-03 09:12 | Outpatient (CLI) | payer MEDICARE, MEDICAID, SELFPAY ==
[2023-02-03 10:57] LABS: Albumin Level 3.9 g/dL (3.5-5.2); Anion Gap 14.6 (5-19); Blood Urea Nitrogen 40 mg/dL (6-20); Calcium 8.6 mg/dL (8.5-10.5); Carbon Dioxide 18 mmol/L (22-29); Chloride 109 mmol/L (98-107); Glomerular Filtration Rate 29.4 mL/min (90-130); Glucose 119 mg/dL (65-115); Phosphorus 3.6 mg/dL (2.5-4.5); Potassium 4.6 mmol/L (3.5-5.1); Sodium 137 mmol/L (136-145)
== END 2023-02-03 09:13 | disposition home or self-care (01) ==
LOC: LAB 09:13
PROVIDERS: PCP Family Medicine; Visit Provider Internal Medicine Nephrology
DX: I73.9 Peripheral vascular disease, unspecified (principal); I10 Essential (primary) hypertension; F17.200 Nicotine dependence, unspecified, uncomplicated
CPT/HCPCS: 36415; 80069; 99214

== ENCOUNTER 2023-02-13 09:25 | Emergency (ER) | payer MEDICARE, MEDICAID, SELFPAY ==
[2023-02-13] VITALS (24 sets, daily range): BP systolic 128–192; BP diastolic 67–94; PULSE 62–77; RESP 18; TEMP 36.7; O2SAT 91–98; BMI 29.2
--- NOTE | 2023-02-13 10:16 | XR_ITS ---
WS: [id number] Exam: XR foot RT min 3V* [id number] Date/Time of Exam: 02/13/2023 10:17 AM Reason For Exam: Pain and swelling Exam: XR foot RT min 3V* [id number] Date/Time of Exam: 02/13/2023 10:17 AM Reason For Exam: Pain and swelling No acute fracture or dislocation. Minimal degenerative changes. No soft tissue foreign bodies noted. Small heel spur. IMPRESSION: 1. No fracture, bone destruction or other significant finding.
--- NOTE | 2023-02-13 10:36 | W.ED.EXTPRO ---
HPI - Extremity Problem General: Chief complaint: Extremity Problem,Nontraumatic Stated complaint: pain and swollen right foot Time Seen by Provider: 02/13/23 10:26 Source: patient Mode of arrival: ambulatory History of Present Illness: 58-year-old male presents emergency room with onset of right ankle and foot pain causing limp and discomfort. He has tried ice elevation Tylenol with minimal relief of symptoms. He is gradually progressed to the point where he is unable to bear weight no trauma or injury that he can recall. MD Complaint: extremity pain and extremity swelling Associated symptoms: Deny chest pain, fever(s) or rash Review of Systems Const: Denies: fever(s) or chills Card: Denies: chest pain Resp: Denies: dyspnea GI: Denies: abdominal pain : Denies: dysuria, urinary frequency or urinary urgency Musc: Denies: neck pain or back pain Skin/Breast: Denies: rash PFSH ED PFSH: Medical History Chest pain Carotid bruit Gout Peripheral vascular disease History of peripheral stenting Gallbladder cancer Colon cancer COPD (chronic obstructive pulmonary disease) Abscess of face Peripheral arterial disease Diabetes mellitus Cancer Hypertension Glaucoma Surgical History History of PTCA History of partial colectomy History of cholecystectomy Family History Brother Bleeding disorder Clotting disorder CAD (coronary artery disease) Cancer Diabetes x 5 Stroke Sister Bleeding disorder Clotting disorder Chronic kidney disease (CKD) Diabetes x 6 Lung disease x 2 Stroke Father Bleeding disorder Clotting disorder CAD (coronary artery disease) Chronic kidney disease (CKD) Diabetes Mother CAD (coronary artery disease) Cancer Diabetes Stroke Grandfather CAD (coronary artery disease) Cancer Diabetes Grandmother Cancer Dementia Diabetes Family/Other Cancer Chronic kidney disease (CKD) Dementia Diabetes Lung disease Denies family history of Suicide Anesthesia complication Social History Smoking and tobacco/nicotine status: current every day tobacco/nicotine user Quit status (tobacco/nicotine): has tried quititng Second hand smoke exposure: Yes Alcohol intake: never Substance/Drug Use: never Adopted: No Caregiver/support person: No Lives independently: Yes Household members: spouse Housing: Apartment Marital status: Number of children: 4 Number of grandchildren: 1 Highest education level completed: 12th Grade, No Diploma service: No Current occupational status: disabled Current occupational exposures/hazards: No Pets and animals: No Leisure activites: exercise and clubs Sexually active: No Do you think of yourself as: Straight/Heterosexual Current gender identity: Male Shelly/Protestant: Jehovah'S Witness Special shelly needs: No Agree to transfusion: Yes Physical Exam Const: COMMON NORMALS: no acute distress GENERAL APPEARANCE: cooperative and comfortable ORIENTATION/CONSCIOUSNESS: Yes awake, Yes oriented to person, Yes oriented to place and Yes oriented to time HENMT: COMMON NORMALS: normocephalic, atraumatic and hearing grossly normal bilaterally HEAD & SCALP: normocephalic and atraumatic Resp: COMMON NORMALS: normal respiratory effort, No retractions, No use of accessory muscles and clear to auscultation bilaterally AUSCULTATION: clear to auscultation bilaterally Cardio: COMMON NORMALS: regular rate, regular rhythm and No murmurs present (Cardio) RATE: regular rate RHYTHM: regular rhythm GI: COMMON NORMALS: Soft to palpation and No hepatosplenomegaly present AUSCULTATION: Yes normoactive bowel sounds PALPATION: Yes Soft to palpation, No Tenderness to palpation present (GI), No Guarding due to palpation present (GI) and Yes No hepatosplenomegaly present Extremity: OTHER: Moderate swelling at the ankle exquisitely tender to even light touch and any manipulation neurovascular intact. Neuro: SENSORIUM/ORIENTATION: Yes oriented to person, Yes oriented to place and Yes oriented to time Skin: COMMON NORMALS: no rashes or lesions noted GENERAL SKIN EXAM: no rashes or lesions noted Course Vital Signs: Vital signs: Vital Signs Temperature 98.1 F 02/13/23 09:39 Pulse Rate 62 02/13/23 10:14 Respiratory Rate 18 02/13/23 09:39 Blood Pressure 157/72 02/13/23 11:00 Pulse Oximetry 95 02/13/23 11:00 Oxygen Delivery Me thod Room Air 02/13/23 10:20 MDM - Extremity (Nontraumatic) Medical Decision Making Acute gouty arthritis. Patient has chronic kidney disease. Will discharge home with steroid taper and pain medications follow-up with primary care return if has further problems. Medical Records I reviewed the patient's medical records. Lab Data I reviewed the patient's lab results. 02/13/23 10:54 02/13/23 10:54 Laboratory Results WBC 9.42 10^3/uL (3.29-11.43) 02/13/23 10:54 RBC 3.68 10^6/uL (3.85-5.65) L 02/13/23 10:54 Hgb 11.00 g/dL (11.27-16.99) L 02/13/23 10:54 Hct 34.3 % (37-53) L 02/13/23 10:54 MCV 93.2 fl (82-101) 02/13/23 10:54 MCH 29.9 pg (27-33) 02/13/23 10:54 MCHC 32.1 g/dL (30-55) 02/13/23 10:54 RDW 15.3 % (12.1-15.1) H 02/13/23 10:54 Plt Count 164 10^3/cmm (157-399) 02/13/23 10:54 MPV 10.6 fL (7.4-10.4) H 02/13/23 10:54 Neut % (Auto) 76.2 % 02/13/23 10:54 Lymph % (Auto) 13.4 % 02/13/23 10:54 Daggett % (Auto) 9.2 % 02/13/23 10:54 Eos % (Auto) 0.5 % 02/13/23 10:54 Baso % (Auto) 0.4 % 02/13/23 10:54 Neut # (Auto) 7.17 10^3/uL (1.8-7.7) 02/13/23 10:54 Lymph # (Auto) 1.3 10^3/uL (0.8-4.8) 02/13/23 10:54 Daggett # (Auto) 0.9 10^3/uL (0.2-0.9) 02/13/23 10:54 Eos # (Auto) 0.1 10^3/uL (0.0-0.8) 02/13/23 10:54 Baso # (Auto) 0.0 10^3/uL (0.0-0.1) 02/13/23 10:54 Nucleated RBC % (auto) 0 % 02/13/23 10:54 Nucleated RBCs # 0.0 /100WBC 02/13/23 10:54 Sodium 140 mmol/L (136-145) 02/13/23 10:54 Potassium 5.1 mmol/L (3.5-5.1) 02/13/23 10:54 Chloride 112 mmol/L (98-107) H 02/13/23 10:54 Carbon Dioxide 19 mmol/L (22-29) L 02/13/23 10:54 Anion Gap 14.1 (5-19) 02/13/23 10:54 BUN 28 mg/dL (8-23) H 02/13/23 10:54 Creatinine 2.5 mg/dL (0.7-1.2) H 02/13/23 10:54 GFR Calculation 32.0 mL/min (90-130) L 02/13/23 10:54 Glucose 122 mg/dL (65-115) H 02/13/23 10:54 Calculated Osmolality 297 mOsm/kg (285-295) H 02/13/23 10:54 Calcium 8.6 mg/dL (8.5-10.5) 02/13/23 10:54 Total Bilirubin 0.3 mg/dL (0.15-1.2) 02/13/23 10:54 AST 9 U/L (0-40) 02/13/23 10:54 ALT 11 U/L (0-41) 02/13/23 10:54 Alkaline Phosphatase 107 U/L (40-130) 02/13/23 10:54 Total Protein 6.5 g/dL (6.6-8.7) L 02/13/23 10:54 Albumin 3.5 g/dL (3.5-5.2) 02/13/23 10:54 Globulin 3.0 g/dL (1.3-4.6) 02/13/23 10:54 All radiology interpretation(s) finalized by discharge Discharge Plan Discharge Patient Disposition: Home Clinical Impression: Gout Condition: Stable Prescriptions: New prednisone 20 mg tablet 20 mg PO TID Qty: 15 0RF Rx Instructions: 1 p.o. 3 times daily x3 days, 1 p.o. twice daily x2 days, 1 p.o. daily x2 days hydrocodone-acetaminophen 5-325 mg tablet 1 tab PO Q6H PRN (Reason: pain) Qty: 10 0RF No Action hydrocodone-acetaminophen 10-325 mg tablet 1 tab PO QID PRN (Reason: Pain) allopurinol 100 mg tablet 100 mg PO DAILY aspirin [Adult Aspirin Regimen] 81 mg tablet,delayed release (DR/EC) 81 mg PO DAILY docusate sodium 100 mg capsule 100 mg PO BID PRN (Reason: Constipation) dulaglutide 1.5 mg/0.5 mL pen injector 1.5 mg SUBCUT Q7D Rx Instructions: On Monday hydralazine 50 mg tablet 50 mg PO TID Qty: 270 3RF isosorbide mononitrate 60 mg tablet extended release 24 hr 60 mg PO DAILY Qty: 90 3RF loperamide 2 mg capsule 2 mg PO QID PRN (Reason: loose stool) Qty: 14 0RF Rx Instructions: 2 tabs on first dose, 1 tab after that after each unformed stool, up to 7 tabs/day simvastatin 10 mg tablet 10 mg PO BEDTIME trazodone 50 mg tablet 50 mg PO BEDTIME clopidogrel 75 mg tablet 75 mg PO DAILY tamsulosin 0.4 mg capsule 0.4 mg PO DAILY cholecalciferol (vitamin D3) [Vitamin D3] 25 mcg (1,000 unit) Tablet 25 mcg PO BEDTIME cyanocobalamin (vitamin B-12) [Vitamin B-12] 1,000 mcg Tablet 500 mcg PO DAILY Qty: 30 0RF albuterol sulfate 90 mcg/actuation HFA aerosol inhaler 2 inh inhalation Q6H PRN (Reason: shortness of breath or wheezing) Qty: 8.5 0RF cyclopentolate 0.5 % drops 1 drp ophthalmic (eye) TID PRN (Reason: For photophobia.) Qty: 15 0RF Rx Instructions: compress lacrimal sac for 1-2 minutes after instillation carvedilol 12.5 mg tablet 12.5 mg PO BID amlodipine 5 mg tablet 5 mg PO DAILY citalopram 20 mg tablet 20 mg PO DAILY esomeprazole magnesium 40 mg capsule,delayed release(DR/EC) 40 mg PO BID bumetanide 0.5 mg tablet 0.5 mg PO BID Symbicort 160-4.5 mcg/actuation Hfa Aerosol Inhaler 1 puff INHALATION BID PRN (Reason: unknown) Discharge Orders: Discharge ED (Routine); Ordered 02/13/23 Ordered By: Boom To Referrals: Yenny Navarro MD [Primary Care Provider] - Discharge Diet: Usual diet Discharge Activity: Limit activity as instructed Patient Instructions: Gout (ED), Opioid Safety, Pain Management Activity Restrictions/Additional Instructions: Thank you for choosing [facility] for your healthcare needs today. Please realize this is an emergency room and that we are providing you with a medical screening exam and this may not be complete and all inclusive of all the testing and or work up that you may need to determine your ailment or severity of your illness. It is very important that you follow up as instructed or that you return to the Emergency Department should you have concerns or if your condition changes or worsens in any way. You are seen today for gouty arthritis given a dose of steroids here start oral steroids this evening. Coding Level of Care Code ED Marine Extension Agent for Mary Anthony
--- NOTE | 2023-02-13 10:45 | PC.PHAR ---
pts verified pts medications
[2023-02-13 11:06] LABS: Basophils % 0.4 %; Eosinophils # 0.1 10^3/uL (0.0-0.8); Eosinophils % 0.5 %; Hematocrit 34.3 % (37-53); Lymphocytes # 1.3 10^3/uL (0.8-4.8); Lymphocytes % 13.4 %; Mean Corpuscular HGB Conc 32.1 g/dL (30-55); Mean Corpuscular Hemoglobin 29.9 pg (27-33); Mean Corpuscular Volume 93.2 fl (82-101); Mean Platelet Volume 10.6 fL (7.4-10.4); Monocytes # 0.9 10^3/uL (0.2-0.9); Monocytes % 9.2 %; Neutrophils # 7.17 10^3/uL (1.8-7.7); Neutrophils % 76.2 %; Nucleated Red Blood Cells % 0 %; Platelet Count 164 10^3/cmm (157-399); Red Blood Count 3.68 10^6/uL (3.85-5.65); Red Cell Distribution Width 15.3 % (12.1-15.1); White Blood Count 9.42 10^3/uL (3.29-11.43)
[2023-02-13] MEDS: dexamethasone 10 mg/mL INJ IV (11:09)
[2023-02-13] MEDS: ketorolac 30 mg/mL INJ IVP (11:09)
[2023-02-13 11:23] LABS: Alanine Aminotransferase 11 U/L (0-41); Albumin Level 3.5 g/dL (3.5-5.2); Alkaline Phosphatase 107 U/L (40-130); Anion Gap 14.1 (5-19); Aspartate Amino Transferase 9 U/L (0-40); Blood Urea Nitrogen 28 mg/dL (8-23); Calcium 8.6 mg/dL (8.5-10.5); Carbon Dioxide 19 mmol/L (22-29); Chloride 112 mmol/L (98-107); Glucose 122 mg/dL (65-115); Osmolality Calculated 297 mOsm/kg (285-295); Potassium 5.1 mmol/L (3.5-5.1); Sodium 140 mmol/L (136-145); Total Bilirubin 0.3 mg/dL (0.15-1.2); Total Protein 6.5 g/dL (6.6-8.7)
== END 2023-02-13 11:59 | disposition home or self-care (01) ==
PROVIDERS: Emergency Provider Family Medicine; PCP Family Medicine
DX: M10.9 Gout, unspecified (principal); Z79.82 Long term (current) use of aspirin; Z79.02 Long term (current) use of antithrombotics/antiplatelets; Z79.84 Long term (current) use of oral hypoglycemic drugs; I12.9 Hypertensive chronic kidney disease with stage 1 through stage 4 chronic kidney disease, or unspecified chronic kidney disease; E11.22 Type 2 diabetes mellitus with diabetic chronic kidney disease; N18.9 Chronic kidney disease, unspecified; Z85.038 Personal history of other malignant neoplasm of large intestine; Z85.89 Personal history of malignant neoplasm of other organs and systems; J44.9 Chronic obstructive pulmonary disease, unspecified; Z72.0 Tobacco use
CPT/HCPCS: 36415; 73630; 80053; 85025; 96374; 96375; 99284; J1100; J1885

== ENCOUNTER 2023-03-01 10:25 | Emergency (ER) | payer MEDICARE, MEDICAID, SELFPAY ==
--- NOTE | 2023-03-01 10:26 | XRR_ITS ---
PROCEDURE INFORMATION: Exam: XR Chest Exam date and time: 03/01/2023 11:39 AM Age: 58 years old Clinical indication: Cough TECHNIQUE: Imaging protocol: Radiologic exam of the chest. Views: 1 view. COMPARISON: CR XR chest 1V portable [id number] 08/12/2022 11:08 PM FINDINGS: Lungs: Unremarkable. No consolidation. Pleural spaces: Unremarkable. No pleural effusion. No pneumothorax. Heart/Mediastinum: Unremarkable. No cardiomegaly. Bones/joints: There is a dextroconvex curvature of the thoracic spine with degenerative change. XR/XR chest 1V portable [id number] IMPRESSION: No acute findings.
[2023-03-01 10:31] VITALS: BP 125/65; PULSE 77; RESP 16; TEMP 36.6; O2SAT 97; BMI 35.9
[2023-03-01 10:33] VITALS: RESP 16; O2SAT 100
--- NOTE | 2023-03-01 11:30 | W.ED.URI ---
HPI - URI/Sore Throat General: Chief Complaint: Upper Respiratory Infection Stated Complaint: Cough,Congestion Time Seen by Provider: 03/01/23 11:12 Source: patient Mode of arrival: ambulatory Limitations: no limitations History of Present Illness: 58-year-old male states over the last 6 days he has been having cough congestion body aches states he had subjective fevers he is afebrile here. Does have a history of COPD. He denies any severe weakness denies any vomiting or diarrhea. Associated symptoms: Deny abdominal pain, chills, chest pain, diarrhea, fever(s), headache(s), nausea or vomiting Review of Systems Const: Reports: body aches; Denies: fever(s), chills or change in appetite ENMT: Denies: throat pain or dental pain Card: Denies: chest pain Resp: Reports: non-productive cough; Denies: dyspnea GI: Denies: abdominal pain, nausea, vomiting or diarrhea Musc: Denies: neck pain or back pain Skin/Breast: Denies: rash Neuro: Denies: headache(s) PFSH ED PFSH: Medical History Chest pain Carotid bruit Gout Peripheral vascular disease History of peripheral stenting Gallbladder cancer Colon cancer COPD (chronic obstructive pulmonary disease) Abscess of face Peripheral arterial disease Diabetes mellitus Cancer Hypertension Glaucoma Surgical History History of PTCA History of partial colectomy History of cholecystectomy Family History Brother Bleeding disorder Clotting disorder CAD (coronary artery disease) Cancer Diabetes x 5 Stroke Sister Bleeding disorder Clotting disorder Chronic kidney disease (CKD) Diabetes x 6 Lung disease x 2 Stroke Father Bleeding disorder Clotting disorder CAD (coronary artery disease) Chronic kidney disease (CKD) Diabetes Mother CAD (coronary artery disease) Cancer Diabetes Stroke Grandfather CAD (coronary artery disease) Cancer Diabetes Grandmother Cancer Dementia Diabetes Family/Other Cancer Chronic kidney disease (CKD) Dementia Diabetes Lung disease Denies family history of Suicide Anesthesia complication Social History Smoking and tobacco/nicotine status: current every day tobacco/nicotine user Quit status (tobacco/nicotine): has tried quititng Second hand smoke exposure: Yes Alcohol intake: never Substance/Drug Use: never Adopted: No Caregiver/support person: No Lives independently: Yes Household members: spouse Housing: Apartment Marital status: Number of children: 4 Number of grandchildren: 1 Highest education level completed: 12th Grade, No Diploma service: No Current occupational status: disabled Current occupational exposures/hazards: No Pets and animals: No Leisure activites: exercise and clubs Sexually active: No Do you think of yourself as: Straight/Heterosexual Current gender identity: Male Shelly/Hindu: Pentecostalism Special shelly needs: No Agree to transfusion: Yes Physical Exam Const: COMMON NORMALS: no acute distress, patient oriented x3 and healthy appearing HENMT: COMMON NORMALS: normocephalic and atraumatic HEAD & SCALP: normocephalic and atraumatic Eye: COMMON NORMALS: Equal, round and reactive pupils present and EOMs intact bilaterally PUPIL: Yes Equal, round and reactive pupils present Neck/C-Spine: COMMON NORMALS: full ROM and supple Chest: COMMONS NORMALS: normal inspection of the chest and normal palpation of entire chest wall Resp: COMMON NORMALS: normal respiratory effort, No retractions, No use of accessory muscles and clear to auscultation bilaterally AUSCULTATION: clear to auscultation bilaterally Cardio: COMMON NORMALS: regular rate, regular rhythm and No murmurs present (Cardio) RATE: regular rate RHYTHM: regular rhythm GI: COMMON NORMALS: Normal to inspection, nondistended, normoactive bowel sounds present, Soft to palpation, non-tender and no masses PALPATION: Yes Soft to palpation Extremity: COMMON NORMALS: normal to inspection and full ROM Neuro: COMMON NORMALS: patient oriented x3, moves all extremities and no focal motor deficits Psych: COMMON NORMALS: mental status grossly normal, Normal thought process present and cooperative THOUGHT PROCESS: Normal thought process present Skin: COMMON NORMALS: no rashes or lesions noted and no wounds GENERAL SKIN EXAM: no rashes or lesions noted Course Vital Signs: Vital signs: Vital Signs Temperature 97.8 F 03/01/23 10:31 Pulse Rate 78 03/01/23 12:07 Respiratory Rate 18 03/01/23 12:07 Blood Pressure 125/65 03/01/23 10:31 Pulse Oximetry 95 03/01/23 12:07 Oxygen Delivery Me thod Room Air 03/01/23 12:07 MDM - URI/Sore Throat Medical Decision Making Patient presents here with cough congestion has a history of COPD is likely an upper respiratory infection he is well-appearing here in no distress did give him Decadron here we will prescribe him a Z-Tha he is follow-up with PCP and return if worsening. Medical Records I reviewed the patient's medical records. Lab Data I reviewed the patient's lab results. Radiology Impressions Chest X-Ray 03/01/23 10:26 IMPRESSION: No acute findings. Laboratory Results Influenza Type A Ag negative (Negative) 03/01/23 11:16 Influenza Type B Ag negative (Negative) 03/01/23 11:16 SARS-CoV-2 Ag (Rapid) Negative (Negative) 03/01/23 11:16 All radiology interpretation(s) finalized by discharge Discharge Plan Discharge Patient Disposition: Home Clinical Impression: Upper respiratory infection Qualifiers: URI type: unspecified URI Qualified Code(s): J06.9 - Acute upper respiratory infection, unspecified Condition: Stable Prescriptions: New Zithromax Z-Tha 250 mg tablet See Rx Instructions .ROUTE .COMPLEX Qty: 6 0RF Rx Instructions: take 500 mg today (day 1), then 250 mg for 4 days (days 2-5) No Action hydrocodone-acetaminophen 10-325 mg tablet 1 tab PO QID PRN (Reason: Pain) allopurinol 100 mg tablet 100 mg PO DAILY aspirin [Adult Aspirin Regimen] 81 mg tablet,delayed release (DR/EC) 81 mg PO DAILY docusate sodium 100 mg capsule 100 mg PO BID PRN (Reason: Constipation) dulaglutide 1.5 mg/0.5 mL pen injector 1.5 mg SUBCUT Q7D Rx Instructions: On Monday hydralazine 50 mg tablet 50 mg PO TID Qty: 270 3RF isosorbide mononitrate 60 mg tablet extended release 24 hr 60 mg PO DAILY Qty: 90 3RF loperamide 2 mg capsule 2 mg PO QID PRN (Reason: loose stool) Qty: 14 0RF Rx Instructions: 2 tabs on first dose, 1 tab after that after each unformed stool, up to 7 tabs/day simvastatin 10 mg tablet 10 mg PO BEDTIME trazodone 50 mg tablet 50 mg PO BEDTIME clopidogrel 75 mg tablet 75 mg PO DAILY tamsulosin 0.4 mg capsule 0.4 mg PO DAILY cholecalciferol (vitamin D3) [Vitamin D3] 25 mcg (1,000 unit) Tablet 25 mcg PO BEDTIME cyanocobalamin (vitamin B-12) [Vitamin B-12] 1,000 mcg Tablet 500 mcg PO DAILY Qty: 30 0RF albuterol sulfate 90 mcg/actuation HFA aerosol inhaler 2 inh inhalation Q6H PRN (Reason: shortness of breath or wheezing) Qty: 8.5 0RF cyclopentolate 0.5 % drops 1 drp ophthalmic (eye) TID PRN (Reason: For photophobia.) Qty: 15 0RF Rx Instructions: compress lacrimal sac for 1-2 minutes after instillation carvedilol 12.5 mg tablet 12.5 mg PO BID amlodipine 5 mg tablet 5 mg PO DAILY citalopram 20 mg tablet 20 mg PO DAILY esomeprazole magnesium 40 mg capsule,delayed release(DR/EC) 40 mg PO BID bumetanide 0.5 mg tablet 0.5 mg PO BID Symbicort 160-4.5 mcg/actuation Hfa Aerosol Inhaler 1 puff INHALATION BID PRN (Reason: unknown) prednisone 20 mg tablet 20 mg PO TID Qty: 15 0RF Rx Instructions: 1 p.o. 3 times daily x3 days, 1 p.o. twice daily x2 days, 1 p.o. daily x2 days hydrocodone-acetaminophen 5-325 mg tablet 1 tab PO Q6H PRN (Reason: pain) Qty: 10 0RF Discharge Orders: Discharge ED (Routine); Ordered 03/01/23 Ordered By: Maverick Soliz Referrals: Yenny Navarro MD [Primary Care Provider] - Discharge Diet: Advance as tolerated Discharge Activity: Resume usual activity Patient Instructions: Upper Respiratory Infection (ED) Coding Level of Care Code ED [employer] Coxswain for Mary Anthony
[2023-03-01] MEDS: dexamethasone 10 mg/mL INJ IM (11:31)
[2023-03-01 11:38] LABS: Influenza A by IFA negative (Negative); Influenza B by IFA negative (Negative)
[2023-03-01 11:41] LABS: SARS Covid-2 Antigen Negative (Negative)
[2023-03-01 12:07] VITALS: PULSE 78; RESP 18; O2SAT 95
== END 2023-03-01 12:26 | disposition home or self-care (01) ==
PROVIDERS: Emergency Provider Emergency Medicine; PCP Family Medicine
DX: J06.9 Acute upper respiratory infection, unspecified (principal); Z79.02 Long term (current) use of antithrombotics/antiplatelets; Z79.82 Long term (current) use of aspirin; Z11.52 Encounter for screening for COVID-19; Z72.0 Tobacco use; Z85.038 Personal history of other malignant neoplasm of large intestine; Z85.89 Personal history of malignant neoplasm of other organs and systems; J44.9 Chronic obstructive pulmonary disease, unspecified; E11.9 Type 2 diabetes mellitus without complications; I10 Essential (primary) hypertension
CPT/HCPCS: 71045; 87426; 87804; 94640; 96372; 99284; J1100

== ENCOUNTER 2023-04-05 11:31 | Outpatient (CLI) | payer MEDICARE, SELFPAY ==
[2023-04-05 12:27] LABS: Basophils # 0.1 10^3/uL (0.0-0.1); Basophils % 0.6 %; Eosinophils # 0.1 10^3/uL (0.0-0.8); Eosinophils % 1.3 %; Hematocrit 32.2 % (37-53); Lymphocytes # 1.5 10^3/uL (0.8-4.8); Lymphocytes % 18.9 %; Mean Corpuscular HGB Conc 32.6 g/dL (30-55); Mean Corpuscular Hemoglobin 30.5 pg (27-33); Mean Corpuscular Volume 93.6 fl (82-101); Mean Platelet Volume 10.2 fL (7.4-10.4); Monocytes # 0.6 10^3/uL (0.2-0.9); Monocytes % 7.7 %; Neutrophils # 5.48 10^3/uL (1.8-7.7); Neutrophils % 71.1 %; Nucleated Red Blood Cells % 0 %; Platelet Count 144 10^3/cmm (157-399); Red Blood Count 3.44 10^6/uL (3.85-5.65); Red Cell Distribution Width 14.6 % (12.1-15.1); White Blood Count 7.71 10^3/uL (3.29-11.43)
[2023-04-05 12:51] LABS: Albumin Level 3.7 g/dL (3.5-5.2); Anion Gap 14.7 (5-19); Blood Urea Nitrogen 31 mg/dL (8-23); Calcium 8.4 mg/dL (8.5-10.5); Carbon Dioxide 20 mmol/L (22-29); Chloride 105 mmol/L (98-107); Glomerular Filtration Rate 33.6 mL/min (90-130); Glucose 101 mg/dL (65-115); Phosphorus 4.2 mg/dL (2.5-4.5); Potassium 4.7 mmol/L (3.5-5.1); Sodium 135 mmol/L (136-145)
[2023-04-05 12:52] LABS: Calcium 8.5 mg/dL (8.5-10.5)
[2023-04-05 12:58] LABS: Parathyroid Hormone 112.4 pg/mL (15-65)
[2023-04-05 13:06] LABS: 25 Hydroxy Vitamin D 23 ng/mL (30-100)
[2023-04-05 13:06] LABS: Creatinine Urine, Random 173 mg/dL (39-259); Microalbumin Random Urine 16 ug/dL (0-20)
[2023-04-05 13:08] LABS: Microalbum Creatinine Ratio Ur 92 mg/dL (0-20)
== END 2023-04-05 11:32 | disposition home or self-care (01) ==
PROVIDERS: PCP Family Medicine; Visit Provider Internal Medicine Nephrology
DX: N18.32 Chronic kidney disease, stage 3b (principal)
CPT/HCPCS: 36415; 80069; 82044; 82306; 82310; 83970; 85025

== ENCOUNTER 2023-06-19 11:53 | Outpatient (CLI) | payer MEDICARE, SELFPAY ==
[2023-06-19 12:50] LABS: Basophils # 0.1 10^3/uL (0.0-0.1); Basophils % 0.8 %; Eosinophils # 0.1 10^3/uL (0.0-0.8); Eosinophils % 0.8 %; Hematocrit 35.9 % (37-53); Lymphocytes # 1.2 10^3/uL (0.8-4.8); Mean Corpuscular HGB Conc 32.6 g/dL (30-55); Mean Corpuscular Hemoglobin 30.7 pg (27-33); Mean Corpuscular Volume 94.2 fl (82-101); Mean Platelet Volume 10.4 fL (7.4-10.4); Monocytes # 0.5 10^3/uL (0.2-0.9); Monocytes % 7.2 %; Neutrophils # 5.35 10^3/uL (1.8-7.7); Neutrophils % 73.9 %; Nucleated Red Blood Cells % 0 %; Platelet Count 168 10^3/cmm (157-399); Red Blood Count 3.81 10^6/uL (3.85-5.65); Red Cell Distribution Width 13.4 % (12.1-15.1); White Blood Count 7.24 10^3/uL (3.29-11.43)
[2023-06-19 13:13] LABS: Albumin Level 3.8 g/dL (3.5-5.2); Anion Gap 12.5 (5-19); Blood Urea Nitrogen 34 mg/dL (8-23); Calcium 8.6 mg/dL (8.5-10.5); Carbon Dioxide 21 mmol/L (22-29); Chloride 109 mmol/L (98-107); Glucose 136 mg/dL (65-115); Phosphorus 3.8 mg/dL (2.5-4.5); Potassium 4.5 mmol/L (3.5-5.1); Sodium 138 mmol/L (136-145)
[2023-06-19 13:18] LABS: Parathyroid Hormone 121.3 pg/mL (15-65)
[2023-06-19 13:19] LABS: Creatinine Urine, Random 181 mg/dL (39-259); Microalbumin Random Urine 26 ug/dL (0-20)
[2023-06-19 13:20] LABS: Microalbum Creatinine Ratio Ur 144 mg/dL (0-20)
[2023-06-19 13:28] LABS: 25 Hydroxy Vitamin D 24 ng/mL (30-100)
== END 2023-06-19 11:54 | disposition home or self-care (01) ==
LOC: LAB 11:57
PROVIDERS: PCP Family Medicine; Visit Provider Registered Nurse
DX: E55.9 Vitamin D deficiency, unspecified (principal); N18.32 Chronic kidney disease, stage 3b; D63.1 Anemia in chronic kidney disease
CPT/HCPCS: 36415; 80069; 82044; 82306; 82310; 83970; 85025

== ENCOUNTER 2023-06-26 12:54 | Emergency (ER) | payer MEDICARE, MEDICAID, SELFPAY ==
[2023-06-26 12:59] VITALS: BP 128/48; PULSE 83; RESP 16; TEMP 36.6; O2SAT 98
--- NOTE | 2023-06-26 13:20 | XRR_ITS ---
PROCEDURE INFORMATION: Exam: XR Chest Exam date and time: 06/26/2023 1:34 PM Age: 58 years old Clinical indication: Cough; Additional info: Cough/congestion TECHNIQUE: Imaging protocol: Radiologic exam of the chest. Views: 1 view. COMPARISON: CR XR chest 1V portable [id number] 03/01/2023 11:39 AM FINDINGS: Lungs: No significant active pathology. Pleural spaces: No pleural effusion or pneumothorax. Heart/Mediastinum: Unremarkable. Bones/joints: No significant pathology. XR/XR chest 1V portable [id number] IMPRESSION: No acute pathology or significant interval change.
[2023-06-26 13:55] VITALS: PULSE 81; RESP 18; O2SAT 99
--- NOTE | 2023-06-26 13:56 | W.ED.URI ---
HPI - URI/Sore Throat General: Chief Complaint: Upper Respiratory Infection Stated Complaint: cough Time Seen by Provider: 06/26/23 13:20 Source: patient and family Mode of arrival: ambulatory Limitations: no limitations History of Present Illness: Patient is a 58-year-old male who presents to ED today with a complaint of a productive cough over the past 2 weeks or so. Patient states cough initially was productive with a yellow thick phlegm but this has seemed to slowly improve and is now mainly clear. He states he has been on a round of antibiotics from his primary care provider. He is not having shortness of breath at rest. No hemoptysis. Denies sore throat. He does have somewhat of a scratchy throat. MD elicited complaint: cough Onset (ago): day(s) Consistency: constant Severity: moderate Description of mucous: clear and yellow Able to tolerate fluids by mouth: Yes Exacerbating factors: nothing Relieving factors: nothing Associated symptoms: Reports no associated symptoms; Deny abdominal pain, chills, chest pain, ear or mastoid pain, fever(s), headache(s), nasal congestion, nausea, sinus pain or vomiting Treatments prior to arrival: antibiotics Review of Systems Const: Denies: fever(s), chills, body aches or fatigue Eyes: Denies: change in vision, blurry vision, photophobia, eye discomfort or eye discharge ENMT: Reports: other (scratchy throat); Denies: throat pain, enlarged tonsils, odynophagia, swelling of lips/tongue, oral sores, ear or mastoid pain, ear discharge, nasal discharge, nasal congestion, post nasal drip or sinus pain Card: Denies: chest pain Resp: Reports: productive cough, change in phlegm color and chest congestion; Denies: dyspnea, non-productive cough, wheezing or hemoptysis GI: Denies: abdominal pain, nausea or vomiting Skin/Breast: Denies: rash Neuro: Denies: headache(s) All/Imm: Denies: facial swelling or seasonal rhinorrhea PFS ED PFSH: Medical History Chest pain Carotid bruit Gout Peripheral vascular disease History of peripheral stenting Gallbladder cancer Colon cancer COPD (chronic obstructive pulmonary disease) Abscess of face Peripheral arterial disease Diabetes mellitus Cancer Hypertension Glaucoma Surgical History History of PTCA History of partial colectomy History of cholecystectomy Family History Brother Bleeding disorder Clotting disorder CAD (coronary artery disease) Cancer Diabetes x 5 Stroke Sister Bleeding disorder Clotting disorder Chronic kidney disease (CKD) Diabetes x 6 Lung disease x 2 Stroke Father Bleeding disorder Clotting disorder CAD (coronary artery disease) Chronic kidney disease (CKD) Diabetes Mother CAD (coronary artery disease) Cancer Diabetes Stroke Grandfather CAD (coronary artery disease) Cancer Diabetes Grandmother Cancer Dementia Diabetes Family/Other Cancer Chronic kidney disease (CKD) Dementia Diabetes Lung disease Denies family history of Suicide Anesthesia complication Social History Smoking and tobacco/nicotine status: current every day tobacco/nicotine user Quit status (tobacco/nicotine): has tried quititng Second hand smoke exposure: Yes Alcohol intake: never Substance/Drug Use: never Adopted: No Caregiver/support person: No Lives independently: Yes Household members: spouse Housing: Apartment Marital status: Number of children: 4 Number of grandchildren: 1 Highest education level completed: 12th Grade, No Diploma service: No Current occupational status: disabled Current occupational exposures/hazards: No Pets and animals: No Leisure activites: exercise and clubs Sexually active: No Do you think of yourself as: Straight/Heterosexual Current gender identity: Male Shelly/Roman Catholic: Buddhist Special shelly needs: No Agree to transfusion: Yes Physical Exam Const: COMMON NORMALS: no acute distress, average body habitus, patient oriented x3, no limitations, healthy appearing, alert and well nourished GENERAL APPEARANCE: cooperative ORIENTATION/CONSCIOUSNESS: Yes awake, Yes oriented to person and Yes oriented to time HENMT: COMMON NORMALS: normocephalic, atraumatic, hearing grossly normal bilaterally, external ears normal, EAC's normal, TM's normal bilaterally, Normal external nose present, Normal nasal mucous membranes and turbinates present, moist oral mucous membranes and oropharynx normal HEAD & SCALP: normal to inspection, normocephalic and atraumatic FACE & SINUS: normal facial exam and sinuses nontender NOSE: Normal external nose present and Normal nasal mucous membranes and turbinates present EXTERNAL EAR: Yes external ears normal EXTERNAL AUDITORY CANAL: EAC's normal TYMPANIC MEMBRANE: TM's normal bilaterally MOUTH: Normal oral and palatal mucosa present and lip normal THROAT: posterior oropharynx normal, tonsils normal and uvula midline Eye: COMMON NORMALS: Equal, round and reactive pupils present, EOMs intact bilaterally and conjunctivae normal CONJUNCTIVA: Yes conjunctivae normal PUPIL: Yes Equal, round and reactive pupils present Neck/C-Spine: COMMON NORMALS: no lymphadenopathy Resp: COMMON NORMALS: normal respiratory effort and clear to auscultation bilaterally AUSCULTATION: clear to auscultation bilaterally Cardio: COMMON NORMALS: regular rate and regular rhythm RATE: regular rate RHYTHM: regular rhythm Neuro: COMMON NORMALS: patient oriented x3 SENSORIUM/ORIENTATION: Yes alert, Yes oriented to person and Yes oriented to time Course Vital Signs: Vital signs: Vital Signs Temperature 97.8 F 06/26/23 12:59 Pulse Rate 86 06/26/23 14:32 Respiratory Rate 18 06/26/23 14:32 Blood Pressure 128/48 06/26/23 12:59 Pulse Oximetry 99 06/26/23 14:32 Oxygen Delivery Me thod Room Air 06/26/23 13:55 MDM - URI/Sore Throat Medical Decision Making Patient appears in no acute distress. His vital signs are stable. CXR showing no acute pathology. With his clear congestion and scratchy throat, I question whether this could be allergic in nature. Will go ahead and place him on Xyzal and steroids. He can follow-up with primary care in 1 to 2 weeks if he does not feel like symptoms are improving. Lab Data Radiology Impressions Chest X-Ray 06/26/23 13:20 IMPRESSION: No acute pathology or significant interval change. All radiology interpretation(s) finalized by discharge Discharge Plan Discharge Patient Disposition: Home Clinical Impression: Cough productive of clear sputum Condition: Stable Prescriptions: New Medrol (Tha) 4 mg tablets,dose pack See Rx Instructions .ROUTE .COMPLEX Qty: 21 0RF Rx Instructions: orally per package directions 24HR Allergy Relief 5 mg tablet 5 mg PO DAILY PRN (Reason: allergy symptoms) Qty: 20 0RF No Action hydrocodone-acetaminophen 10-325 mg tablet 1 tab PO QID PRN (Reason: Pain) allopurinol 100 mg tablet 100 mg PO DAILY aspirin [Adult Aspirin Regimen] 81 mg tablet,delayed release (DR/EC) 81 mg PO DAILY docusate sodium 100 mg capsule 100 mg PO BID PRN (Reason: Constipation) dulaglutide 1.5 mg/0.5 mL pen injector 1.5 mg SUBCUT Q7D Rx Instructions: On Monday hydralazine 50 mg tablet 50 mg PO TID Qty: 270 3RF isosorbide mononitrate 60 mg tablet extended release 24 hr 60 mg PO DAILY Qty: 90 3RF loperamide 2 mg capsule 2 mg PO QID PRN (Reason: loose stool) Qty: 14 0RF Rx Instructions: 2 tabs on first dose, 1 tab after that after each unformed stool, up to 7 tabs/day simvastatin 10 mg tablet 10 mg PO BEDTIME trazodone 50 mg tablet 50 mg PO BEDTIME clopidogrel 75 mg tablet 75 mg PO DAILY tamsulosin 0.4 mg capsule 0.4 mg PO DAILY cholecalciferol (vitamin D3) [Vitamin D3] 25 mcg (1,000 unit) Tablet 25 mcg PO BEDTIME cyanocobalamin (vitamin B-12) [Vitamin B-12] 1,000 mcg Tablet 500 mcg PO DAILY Qty: 30 0RF albuterol sulfate 90 mcg/actuation HFA aerosol inhaler 2 inh inhalation Q6H PRN (Reason: shortness of breath or wheezing) Qty: 8.5 0RF cyclopentolate 0.5 % drops 1 drp ophthalmic (eye) TID PRN (Reason: For photophobia.) Qty: 15 0RF Rx Instructions: compress lacrimal sac for 1-2 minutes after instillation carvedilol 12.5 mg tablet 12.5 mg PO BID amlodipine 5 mg tablet 5 mg PO DAILY citalopram 20 mg tablet 20 mg PO DAILY esomeprazole magnesium 40 mg capsule,delayed release(DR/EC) 40 mg PO BID bumetanide 0.5 mg tablet 0.5 mg PO BID Symbicort 160-4.5 mcg/actuation Hfa Aerosol Inhaler 1 puff INHALATION BID PRN (Reason: unknown) prednisone 20 mg tablet 20 mg PO TID Qty: 15 0RF Rx Instructions: 1 p.o. 3 times daily x3 days, 1 p.o. twice daily x2 days, 1 p.o. daily x2 days hydrocodone-acetaminophen 5-325 mg tablet 1 tab PO Q6H PRN (Reason: pain) Qty: 10 0RF Zithromax Z-Tha 250 mg tablet See Rx Instructions .ROUTE .COMPLEX Qty: 6 0RF Rx Instructions: take 500 mg today (day 1), then 250 mg for 4 days (days 2-5) Discharge Orders: Discharge ED (Routine); Ordered 06/26/23 Ordered By: Zulema Samuels Referrals: Yenny Navarro MD [Primary Care Provider] - Activity Restrictions/Additional Instructions: As we discussed you may follow-up with your primary care provider next week if symptoms do not seem to be improving or worsening. Your chest x-ray here did not show any evidence of pneumonia. Coding Level of Care Code ED [employer] Back Tender for Mary Anthony
[2023-06-26 14:32] VITALS: PULSE 86; RESP 18; O2SAT 99
== END 2023-06-26 14:33 | disposition home or self-care (01) ==
PROVIDERS: Emergency Provider Physician Assistant; PCP Family Medicine
DX: R05.8 Other specified cough (principal); Z79.02 Long term (current) use of antithrombotics/antiplatelets; Z79.82 Long term (current) use of aspirin; Z72.0 Tobacco use; Z85.038 Personal history of other malignant neoplasm of large intestine; Z85.89 Personal history of malignant neoplasm of other organs and systems; J44.9 Chronic obstructive pulmonary disease, unspecified; E11.9 Type 2 diabetes mellitus without complications; I10 Essential (primary) hypertension
CPT/HCPCS: 71045; 99283

== ENCOUNTER → 2023-07-04 08:17 | Outpatient (BNVA) | payer MEDICARE, MEDICAID, SELFPAY | PROVIDERS: PCP Family Medicine; Visit Provider Podiatrist Foot & Ankle Surgery | DX: I73.9 Peripheral vascular disease, unspecified (principal); E11.21 Type 2 diabetes mellitus with diabetic nephropathy; L60.3 Nail dystrophy; L84 Corns and callosities | CPT/HCPCS: 11056; 11721 ==

== ENCOUNTER → 2023-07-27 14:50 | Outpatient (BNVA) | payer MEDICARE, SELFPAY | PROVIDERS: PCP Family Medicine; Visit Provider Internal Medicine Cardiovascular Disease | DX: R00.2 Palpitations (principal); I73.9 Peripheral vascular disease, unspecified; F17.200 Nicotine dependence, unspecified, uncomplicated; E78.2 Mixed hyperlipidemia; E13.9 Other specified diabetes mellitus without complications; R42 Dizziness and giddiness; I11.0 Hypertensive heart disease with heart failure; I50.31 Acute diastolic (congestive) heart failure | CPT/HCPCS: 99214 ==

== ENCOUNTER → 2023-08-15 09:35 | Outpatient (BNVA) | payer MEDICARE, SELFPAY | PROVIDERS: PCP Family Medicine; Referring Provider Family Medicine; Visit Provider Student in an Organized Health Care Education/Training Program | DX: M65.322 Trigger finger, left index finger | CPT/HCPCS: 73130; 99204 ==

== ENCOUNTER → 2023-10-03 08:41 | Outpatient (BNVA) | payer MEDICARE, SELFPAY | PROVIDERS: PCP Family Medicine; Visit Provider Podiatrist Foot & Ankle Surgery | DX: I73.9 Peripheral vascular disease, unspecified (principal); E11.21 Type 2 diabetes mellitus with diabetic nephropathy; L60.3 Nail dystrophy; L84 Corns and callosities | CPT/HCPCS: 11056; 11721 ==

== ENCOUNTER 2023-11-15 13:18 | Outpatient (CLI) | payer MEDICARE, SELFPAY ==
[2023-11-15 13:40] LABS: Basophils # 0.1 10^3/uL (0.0-0.1); Basophils % 0.8 %; Eosinophils # 0.1 10^3/uL (0.0-0.8); Eosinophils % 1.1 %; Hematocrit 32.3 % (37-53); Lymphocytes # 1.2 10^3/uL (0.8-4.8); Lymphocytes % 19.8 %; Mean Corpuscular HGB Conc 32.8 g/dL (30-55); Mean Corpuscular Volume 94.4 fl (82-101); Mean Platelet Volume 10.5 fL (7.4-10.4); Monocytes # 0.9 10^3/uL (0.2-0.9); Monocytes % 14.2 %; Neutrophils % 63.9 %; Nucleated Red Blood Cells % 0 %; Platelet Count 158 10^3/cmm (157-399); Red Blood Count 3.42 10^6/uL (3.85-5.65); Red Cell Distribution Width 13.8 % (12.1-15.1); White Blood Count 6.26 10^3/uL (3.29-11.43)
[2023-11-15 14:16] LABS: Albumin Level 3.4 g/dL (3.5-5.2); Anion Gap 15.6 (5-19); Blood Urea Nitrogen 28 mg/dL (8-23); Calcium 8.2 mg/dL (8.5-10.5); Carbon Dioxide 19 mmol/L (22-29); Chloride 108 mmol/L (98-107); Glomerular Filtration Rate 30.6 mL/min (90-130); Glucose 91 mg/dL (65-115); Potassium 4.6 mmol/L (3.5-5.1); Sodium 138 mmol/L (136-145)
[2023-11-15 14:17] LABS: Calcium 8.1 mg/dL (8.5-10.5)
[2023-11-15 14:23] LABS: Parathyroid Hormone 143.7 pg/mL (15-65)
[2023-11-15 14:27] LABS: Creatinine Urine, Random 220 mg/dL (39-259)
[2023-11-15 14:32] LABS: 25 Hydroxy Vitamin D 25 ng/mL (30-100)
[2023-11-15 14:39] LABS: Microalbum Creatinine Ratio Ur 177 mg/dL (0-20); Microalbumin Random Urine 39 ug/dL (0-20)
== END 2023-11-15 13:19 | disposition home or self-care (01) ==
PROVIDERS: PCP Family Medicine; Visit Provider Registered Nurse
DX: E55.9 Vitamin D deficiency, unspecified (principal); N18.32 Chronic kidney disease, stage 3b; D63.1 Anemia in chronic kidney disease
CPT/HCPCS: 36415; 80069; 82044; 82306; 82310; 83970; 85025

== ENCOUNTER 2023-11-26 19:03 | Emergency (ER) | payer MEDICARE, MEDICAID, SELFPAY ==
[2023-11-26 19:29] LABS: Basophils # 0.1 10^3/uL (0.0-0.1); Basophils % 0.6 %; Eosinophils # 0.1 10^3/uL (0.0-0.8); Eosinophils % 1.3 %; Lymphocytes # 1.6 10^3/uL (0.8-4.8); Lymphocytes % 19.6 %; Mean Corpuscular HGB Conc 31.8 g/dL (30-55); Mean Corpuscular Hemoglobin 30.3 pg (27-33); Mean Corpuscular Volume 95.1 fl (82-101); Mean Platelet Volume 9.9 fL (7.4-10.4); Monocytes # 0.7 10^3/uL (0.2-0.9); Monocytes % 8.2 %; Neutrophils # 5.55 10^3/uL (1.8-7.7); Neutrophils % 69.9 %; Nucleated Red Blood Cells % 0 %; Platelet Count 200 10^3/cmm (157-399); Red Blood Count 3.47 10^6/uL (3.85-5.65); Red Cell Distribution Width 13.3 % (12.1-15.1); White Blood Count 7.94 10^3/uL (3.29-11.43)
[2023-11-26 19:45] VITALS: BP 166/72; PULSE 86; RESP 16; TEMP 36.3; O2SAT 97
[2023-11-26 19:47] LABS: Alanine Aminotransferase 16 U/L (0-41); Albumin Level 3.6 g/dL (3.5-5.2); Alkaline Phosphatase 125 U/L (40-130); Anion Gap 13.2 (5-19); Aspartate Amino Transferase 14 U/L (0-40); Blood Urea Nitrogen 31 mg/dL (8-23); Calcium 8.3 mg/dL (8.5-10.5); Carbon Dioxide 22 mmol/L (22-29); Chloride 106 mmol/L (98-107); Globulin 2.9 g/dL (1.3-4.6); Glucose 120 mg/dL (65-115); Lipase 61 U/L (13-60); Osmolality Calculated 292 mOsm/kg (285-295); Potassium 4.2 mmol/L (3.5-5.1); Sodium 137 mmol/L (136-145); Total Bilirubin 0.3 mg/dL (0.15-1.2); Total Protein 6.5 g/dL (6.6-8.7)
[2023-11-26 20:01] LABS: Creatinine Clr Calc Pharmacy 37.0459
--- NOTE | 2023-11-26 21:23 | XRR_ITS ---
PROCEDURE INFORMATION: Exam: XR Abdomen Exam date and time: 11/26/2023 9:48 PM Age: 58 years old Clinical indication: Prior surgery; Surgery date: 6+ months; Surgery type: Colon resection; Cholecystectomy; Patient HX: Abdomen pain/distention; Constipation TECHNIQUE: Imaging protocol: Radiologic exam of the abdomen. Views: Frontal supine view of the abdomen. 1 View. COMPARISON: CT abdomen pelvis wo con [id number] 09/08/2022 10:51 AM FINDINGS: Gastrointestinal tract: Normal. No bowel dilation. Organs: Cholecystectomy clips. Bones/joints: Scattered degenerative changes. XR/XR KUB [id number] IMPRESSION: No acute findings.
--- NOTE | 2023-11-26 22:10 | W.ED.ABDPA2 ---
HPI - Abdominal Pain General: Chief Complaint: Abdominal Pain Stated Complaint: Lower abd pain Time Seen by Provider: 11/26/23 20:36 History of Present Illness: 58-year-old male patient comes in today for complaints of abdominal discomfort. Patient felt bloated and has taken bisacodyl tabs and a 10 ounce bottle of mag citrate this morning in order to have a bowel movement. Patient feels more discomfort tonight. Patient has a history of colon cancer with bowel resection has not had follow-up since moving from [facility] to here. Patient reports surgery occurred about 10 years ago. Patient appears in no severe pain. Patient appears nontoxic. Patient has a history of chronic kidney disease. Related Data Home Medications Medication Instructions Recorded Confirmed allopurinol 100 mg tablet 100 mg PO DAILY 03/10/20 10/03/23 aspirin 81 mg tablet,delayed 81 mg PO DAILY 03/10/20 10/03/23 release (Adult Aspirin Regimen) docusate sodium 100 mg capsule 100 mg PO BID PRN Constipation 03/10/20 10/03/23 dulaglutide 1.5 mg/0.5 mL 1.5 mg SUBCUT Q7D 03/10/20 10/03/23 subcutaneous pen injector simvastatin 10 mg tablet 10 mg PO BEDTIME 01/03/22 10/03/23 cholecalciferol (vitamin D3) 25 25 mcg PO BEDTIME 08/13/22 10/03/23 mcg (1,000 unit) tablet (Vitamin D3) clopidogrel 75 mg tablet 75 mg PO DAILY 08/13/22 10/03/23 tamsulosin 0.4 mg capsule 0.4 mg PO DAILY 08/13/22 10/03/23 trazodone 50 mg tablet 50 mg PO BEDTIME 08/13/22 10/03/23 amlodipine 5 mg tablet 5 mg PO DAILY 02/13/23 10/03/23 budesonide-formoterol HFA 160 1 puff inhalation BID PRN unknown 02/13/23 10/03/23 mcg-4.5 mcg/actuation aerosol inhaler (Symbicort) bumetanide 0.5 mg tablet 0.5 mg PO BID 02/13/23 10/03/23 carvedilol 12.5 mg tablet 12.5 mg PO BID 02/13/23 10/03/23 citalopram 20 mg tablet 20 mg PO DAILY 02/13/23 10/03/23 esomeprazole magnesium 40 mg 40 mg PO BID 02/13/23 10/03/23 capsule,delayed release sodium bicarbonate 650 mg tablet mg PO 07/04/23 10/03/23 Previous Rx's Medication Instructions Recorded albuterol sulfate 90 mcg/actuation 2 inh inhalation Q6H PRN shortness 12/21/21 aerosol inhaler of breath or wheezing #8.5 grams loperamide 2 mg capsule 2 mg PO QID PRN loose stool #14 08/09/22 caps cyanocobalamin (vitamin B-12) 500 mcg (1/2 x 1,000 mcg) PO DAILY 08/16/22 1,000 mcg tablet (Vitamin B-12) #30 tabs cyclopentolate 0.5 % eye drops 1 drp ophthalmic (eye) TID PRN For 11/24/22 photophobia. #15 mL hydrocodone 5 mg-acetaminophen 325 1 tab PO Q6H PRN pain #10 tabs 02/13/23 mg tablet prednisone 20 mg tablet 20 mg PO TID #15 tabs 02/13/23 levocetirizine 5 mg tablet (24HR 5 mg PO DAILY PRN allergy symptoms 06/26/23 Allergy Relief) #20 tabs hydralazine 50 mg tablet 50 mg PO TID #270 tabs 09/26/23 isosorbide mononitrate 60 mg 60 mg PO DAILY #90 tabs 10/06/23 tablet,extended release 24 hr Allergies Allergy/AdvReac Type Severity Reaction Status Date / Time No Known Allergies Allergy Verified 11/26/23 19:51 Review of Systems General: Reports: 10 or more systems reviewed and unremarkable except in HPI and below PFSH ED PFSH: Medical History Chest pain Carotid bruit Gout Peripheral vascular disease History of peripheral stenting Gallbladder cancer Colon cancer COPD (chronic obstructive pulmonary disease) Abscess of face Peripheral arterial disease Diabetes mellitus Cancer Hypertension Glaucoma Surgical History History of PTCA History of partial colectomy History of cholecystectomy Family History Brother Bleeding disorder Clotting disorder CAD (coronary artery disease) Cancer Diabetes x 5 Stroke Sister Bleeding disorder Clotting disorder Chronic kidney disease (CKD) Diabetes x 6 Lung disease x 2 Stroke Father Bleeding disorder Clotting disorder CAD (coronary artery disease) Chronic kidney disease (CKD) Diabetes Mother CAD (coronary artery disease) Cancer Diabetes Stroke Grandfather CAD (coronary artery disease) Cancer Diabetes Grandmother Cancer Dementia Diabetes Family/Other Cancer Chronic kidney disease (CKD) Dementia Diabetes Lung disease Denies family history of Suicide Anesthesia complication Social History Smoking and tobacco/nicotine status: current every day tobacco/nicotine user Quit status (tobacco/nicotine): has tried quititng Second hand smoke exposure: Yes Alcohol intake: never Substance/Drug Use: never Adopted: No Caregiver/support person: No Lives independently: Yes Household members: spouse Housing: Apartment Marital status: Number of children: 4 Number of grandchildren: 1 Highest education level completed: 12th Grade, No Diploma service: No Current occupational status: disabled Current occupational exposures/hazards: No Pets and animals: No Leisure activites: exercise and clubs Sexually active: No Do you think of yourself as: Straight/Heterosexual Current gender identity: Male Shelly/Mandaeism: Mormon Special shelly needs: No Agree to transfusion: Yes Physical Exam Const: COMMON NORMALS: alert HENMT: COMMON NORMALS: normocephalic HEAD & SCALP: normocephalic Neck/C-Spine: COMMON NORMALS: full ROM Resp: COMMON NORMALS: normal respiratory effort and clear to auscultation bilaterally AUSCULTATION: clear to auscultation bilaterally Cardio: COMMON NORMALS: regular rate RATE: regular rate GI: AUSCULTATION: Yes Hyperactive bowel sounds present PALPATION: Yes Firmness to palpation present (GI) (Mildly distended), No Tenderness to palpation present (GI), No Guarding due to palpation present (GI) and No Rigid due to palpation Extremity: COMMON NORMALS: normal to inspection Neuro: SENSORIUM/ORIENTATION: Yes alert Skin: COMMON NORMALS: turgor normal GENERAL SKIN EXAM: turgor normal Course Vital Signs: Vital signs: Vital Signs Temperature 97.3 F L 11/26/23 19:45 Pulse Rate 75 11/26/23 22:44 Respiratory Rate 16 11/26/23 22:44 Blood Pressure 159/63 11/26/23 22:44 Pulse Oximetry 97 11/26/23 22:44 Oxygen Delivery Me thod Room Air 11/26/23 22:44 MDM - Abdominal Pain Medical Decision Making 58-year-old male patient comes in today with constipation. Patient reports that last bowel movement was 3 to 4 days ago. Patient had taken some bisacodyl tablets and mag citrate this morning. Patient has not had results. Patient reports some increased discomfort to the abdomen. Exam notes a mildly distended abdomen with hyperactive bowel sounds. Vital signs are normal. Differential diagnosis includes bowel obstruction, constipation, colon cancer. Laboratory values are stable when compared to prior exams. Abdominal x-ray notes mild to moderate constipation with no signs of obstruction. Patient was given a dose of Constulose and a dose of milk of magnesia along with 1 L of normal saline. Patient was then discharged home with a fleets enema to use Magic at home. Encourage patient drink plenty of fluids and follow-up with primary care. Lab Data 11/26/23 19:11/26/23 19:24 Labs/Radiology: Laboratory Results WBC 7.94 10^3/uL (3.29-11.43) 11/26/23 19: RBC 3.47 10^6/uL (3.85-5.65) L 11/26/23 19: Hgb 10.50 g/dL (11.27-16.99) L 11/26/23 19: Hct 33.0 % (37-53) L 11/26/23 19: MCV 95.1 fl (82-101) 11/26/23: MCH 30.3 pg (27-33) 11/26/23 19: MCHC 31.8 g/dL (30-55) 11/26/23 19: RDW 13.3 % (12.1-15.1) 11/26/23 19: Plt Count 200 10^3/cmm (157-399) 11/26/23 19: MPV 9.9 fL (7.4-10.4) 11/26/23 19: Neut % (Auto) 69.9 % 11/26/23 19: Lymph % (Auto) 19.6 % 11/26/23: Orange % (Auto) 8.2 % 11/26/23 19: Eos % (Auto) 1.3 % 11/26/23 19:24 Baso % (Auto) 0.6 % 11/26/23 19:24 Neut # (Auto) 5.55 10^3/uL (1.8-7.7) 11/26/23 19:24 Lymph # (Auto) 1.6 10^3/uL (0.8-4.8) 11/26/23 19:24 Orange # (Auto) 0.7 10^3/uL (0.2-0.9) 11/26/23 19:24 Eos # (Auto) 0.1 10^3/uL (0.0-0.8) 11/26/23 19: Baso # (Auto) 0.1 10^3/uL (0.0-0.1) 11/26/23 19:24 Nucleated RBC % (auto) 0 % 11/26/23 19: Nucleated RBCs # 0.0 /100WBC 11/26/23 19:24 Sodium 137 mmol/L (136-145) 11/26/23 19:24 Potassium 4.2 mmol/L (3.5-5.1) 11/26/23 19: Chloride 106 mmol/L (98-107) 11/26/23 19:24 Carbon Dioxide 22 mmol/L (22-29) 11/26/23 19:24 Anion Gap 13.2 (5-19) 11/26/23 19:24 BUN 31 mg/dL (8-23) H 11/26/23 19:24 Creatinine 2.5 mg/dL (0.7-1.2) H 11/26/23 19:24 GFR Calculation 32.0 mL/min (90-130) L 11/26/23 19:24 Glucose 120 mg/dL (65-115) H 11/26/23 19:24 Calculated Osmolality 292 mOsm/kg (285-295) 11/26/23 19:24 Calcium 8.3 mg/dL (8.5-10.5) L 11/26/23 19:24 Total Bilirubin 0.3 mg/dL (0.15-1.2) 11/26/23 19:24 AST 14 U/L (0-40) 11/26/23 19:24 ALT 16 U/L (0-41) 11/26/23 19:24 Alkaline Phosphatase 125 U/L (40-130) 11/26/23 19:24 Total Protein 6.5 g/dL (6.6-8.7) L 11/26/23 19:24 Albumin 3.6 g/dL (3.5-5.2) 11/26/23 19:24 Globulin 2.9 g/dL (1.3-4.6) 11/26/23 19:24 Lipase 61 U/L (13-60) H 11/26/23 19:24 XR interpretation done by ED provider, pending radiology final review Discharge Plan Discharge Patient Disposition: Home Clinical Impression: History of colon cancer, no staging Constipation Qualifiers: Constipation type: unspecified constipation type Qualified Code(s): K59.00 - Constipation, unspecified Condition: Stable Prescriptions: No Action allopurinol 100 mg tablet 100 mg PO DAILY aspirin [Adult Aspirin Regimen] 81 mg tablet,delayed release (DR/EC) 81 mg PO DAILY docusate sodium 100 mg capsule 100 mg PO BID PRN (Reason: Constipation) dulaglutide 1.5 mg/0.5 mL pen injector 1.5 mg SUBCUT Q7D Rx Instructions: On Monday loperamide 2 mg capsule 2 mg PO QID PRN (Reason: loose stool) Qty: 14 0RF Rx Instructions: 2 tabs on first dose, 1 tab after that after each unformed stool, up to 7 tabs/day sodium bicarbonate 650 mg tablet PO hydralazine 50 mg tablet 50 mg PO TID Qty: 270 3RF isosorbide mononitrate 60 mg tablet extended release 24 hr 60 mg PO DAILY Qty: 90 3RF simvastatin 10 mg tablet 10 mg PO BEDTIME trazodone 50 mg tablet 50 mg PO BEDTIME clopidogrel 75 mg tablet 75 mg PO DAILY tamsulosin 0.4 mg capsule 0.4 mg PO DAILY cholecalciferol (vitamin D3) [Vitamin D3] 25 mcg (1,000 unit) Tablet 25 mcg PO BEDTIME cyanocobalamin (vitamin B-12) [Vitamin B-12] 1,000 mcg Tablet 500 mcg PO DAILY Qty: 30 0RF albuterol sulfate 90 mcg/actuation HFA aerosol inhaler 2 inh inhalation Q6H PRN (Reason: shortness of breath or wheezing) Qty: 8.5 0RF cyclopentolate 0.5 % drops 1 drp ophthalmic (eye) TID PRN (Reason: For photophobia.) Qty: 15 0RF Rx Instructions: compress lacrimal sac for 1-2 minutes after instillation carvedilol 12.5 mg tablet 12.5 mg PO BID amlodipine 5 mg tablet 5 mg PO DAILY citalopram 20 mg tablet 20 mg PO DAILY esomeprazole magnesium 40 mg capsule,delayed release(DR/EC) 40 mg PO BID bumetanide 0.5 mg tablet 0.5 mg PO BID Symbicort 160-4.5 mcg/actuation Hfa Aerosol Inhaler 1 puff INHALATION BID PRN (Reason: unknown) prednisone 20 mg tablet 20 mg PO TID Qty: 15 0RF Rx Instructions: 1 p.o. 3 times daily x3 days, 1 p.o. twice daily x2 days, 1 p.o. daily x2 days hydrocodone-acetaminophen 5-325 mg tablet 1 tab PO Q6H PRN (Reason: pain) Qty: 10 0RF 24HR Allergy Relief 5 mg tablet 5 mg PO DAILY PRN (Reason: allergy symptoms) Qty: 20 0RF Discharge Orders: Discharge ED (Routine); Ordered 11/26/23 Ordered By: Les Wise Referrals: Yenny Navarro MD [Primary Care Provider] - Discharge Diet: Usual diet Discharge Activity: Increase activity as tolerated Patient Instructions: Constipation (ED) Activity Restrictions/Additional Instructions: Drink plenty of water and fluids unless restricted by medical advice. Continue with routine care as directed. Follow-up with primary care in 2 to 3 days for recheck. Return to ED for worsening symptoms such as blood in vomit or stool, fever greater than 100.4, or new concerns. Coding Level of Care Code ED Detasseling Crew Supervisor for Mary Anthony
[2023-11-26 22:44] VITALS: BP 159/63; PULSE 75; RESP 16; O2SAT 97
[2023-11-26 23:00] VITALS: BP 168/73; PULSE 78; RESP 16; O2SAT 96
[2023-11-26 23:30] VITALS: BP 163/77
[2023-11-26] MEDS: magnesium hydroxide 30 mL UDC PO (23:30)
[2023-11-26] MEDS: lactulose oral liq 20 gm/30 mL UDC PO (23:30)
[2023-11-27] VITALS: BP 174/82; PULSE 79; RESP 16; O2SAT 94
[2023-11-27] MEDS: Fleet Enema 133 mL Enema PR (00:26)
[2023-11-27] MEDS: sodium chloride 0.9% 1,000 ML 999 ML IV (00:26)
[2023-11-27 00:30] VITALS: BP 161/76; PULSE 77; RESP 14; O2SAT 96
[2023-11-27 01:00] VITALS: BP 168/83; PULSE 77; RESP 14; O2SAT 95
[2023-11-27 01:48] VITALS: BP 166/59; PULSE 85; O2SAT 92
--- NOTE | 2023-11-27 09:23 | DCPLANNER ---
messaged gen surg for er f/u
== END 2023-11-27 01:50 | disposition home or self-care (01) ==
PROVIDERS: Emergency Medicine; Emergency Provider Nurse Practitioner Family; PCP Family Medicine
DX: K59.00 Constipation, unspecified (principal); Z85.038 Personal history of other malignant neoplasm of large intestine; Z79.82 Long term (current) use of aspirin; Z79.85 Long-term (current) use of injectable non-insulin antidiabetic drugs; Z79.02 Long term (current) use of antithrombotics/antiplatelets; Z72.0 Tobacco use; Z85.89 Personal history of malignant neoplasm of other organs and systems; J44.9 Chronic obstructive pulmonary disease, unspecified; E11.9 Type 2 diabetes mellitus without complications; I10 Essential (primary) hypertension
CPT/HCPCS: 36415; 74018; 80053; 83690; 85025; 99284; J7030

== ENCOUNTER 2024-01-02 22:55 | Inpatient (IN) | payer MEDICARE, MEDICAID, SELFPAY ==
[2024-01-02 23:03] VITALS: BP 162/83; PULSE 88; RESP 26; TEMP 36.9; O2SAT 85
--- NOTE | 2024-01-02 23:12 | XRR_ITS ---
PROCEDURE INFORMATION: Exam: XR Chest Exam date and time: 01/02/2024 11:22 PM Age: 58 years old Clinical indication: Shortness of breath TECHNIQUE: Imaging protocol: Radiologic exam of the chest. Views: 1 view. COMPARISON: CR XR chest 1V portable [id number] 06/26/2023 1:34 PM FINDINGS: Lungs: Right cardiophrenic and left lower lobe hazy airspace opacities may represent an infectious process. Pleural spaces: Small left-sided pleural effusion. No pneumothoraces. Heart/Mediastinum: Unremarkable. No cardiomegaly. Bones/joints: Unremarkable. XR/XR chest 1V portable [id number] IMPRESSION: 1. Bilateral lower lobe hazy airspace opacities may represent an infectious process. 2. Small left-sided pleural effusion.
--- NOTE | 2024-01-02 23:18 | ECG_ITS ---
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 Measurements Intervals [place] Rate: 85 P: 56 OH: 198 QRS: 11 QRSD: 103 T: 112 QT: 397 QTc: 472 Interpretive Statements SINUS RHYTHM ABNORMAL QRS-T ANGLE [QRS-T AXIS DIFFERENCE > 60] Compared to ECG 01/03/2022 13:50:38 Atrial abnormality no longer present Incomplete right bundle-branch block no longer present Electronically Signed On 01-03-2024 16:50:24 CDT by Nicole Salinas M.D. [email or web address]
[2024-01-02 23:34] LABS: ABG PCO2 37.2 mmHg (35-45); ABG PH Result 7.42 (7.35-7.45); Arterial Blood Gas Hematocrit 26.5 % (42-52); Base Excess ABG -0.2 mmol/L (-2.0-2.0); Blood Gas Allen Test Pos; Blood Gas Sample Site Radial, right; Blood Gas Sample Type Arterial; Carboxyhemoglobin 2.9 %THgb (0.4-20.1); HCO3 ABG 24.1 mmol/L (22-26); HGB O2 Sat 86.5 % (95-100); Ionized Calcium Level - ABG 1.2 mmol/L (1.1-1.4); Methemoglobin 1.5 % (0.4-1.5); Oxygen Device NC; Oxygen Saturation ABG 90.5; PO2 ABG 57.7 mmHg (80.0-100.0); Potassium Level - ABG 3.8 mmol/L (3.5-5.0); Total Hemoglobin 8.6 g/dL (14-18)
[2024-01-02 23:40] LABS: Basophils % 0.5 %; Eosinophils # 0.1 10^3/uL (0.0-0.8); Eosinophils % 1.6 %; Lymphocytes # 1.5 10^3/uL (0.8-4.8); Lymphocytes % 19.2 %; Mean Corpuscular HGB Conc 31.9 g/dL (30-55); Mean Corpuscular Hemoglobin 29.7 pg (27-33); Mean Corpuscular Volume 93.1 fl (82-101); Mean Platelet Volume 9.9 fL (7.4-10.4); Monocytes # 0.5 10^3/uL (0.2-0.9); Monocytes % 6.6 %; Neutrophils % 71.7 %; Nucleated Red Blood Cells % 0 %; Platelet Count 207 10^3/cmm (157-399); Red Cell Distribution Width 13.7 % (12.1-15.1); White Blood Count 7.54 10^3/uL (3.29-11.43)
--- NOTE | 2024-01-02 23:40 | ED_ITS ---
HPI - SOB/Dyspnea 2 General: Chief Complaint: Shortness of Breath/Dyspnea Stated Complaint: SOB Time Seen by Provider: 01/02/24 23:09 History of Present Illness: HPI Narrative: 58-year-old man with a history of COPD, chronic kidney disease, peripheral arterial disease, diabetes, hypertension and they also report congestive heart failure who presents to the emergency room with shortness of breath. He says this been going on for about 3 weeks. Became much worse today. On presentation today is O2 sats are 85% on room air. He is not on oxygen at home. No chest pain. No altered mental status. No nausea or vomiting. He does not appear to have any lower extremity swelling at this time. No known fevers. He has a increased cough. He does continue to smoke. Related Data Home Medications Medication Instructions Recorded Confirmed allopurinol 100 mg tablet 100 mg PO DAILY 03/10/20 10/03/23 aspirin 81 mg tablet,delayed 81 mg PO DAILY 03/10/20 10/03/23 release (Adult Aspirin Regimen) docusate sodium 100 mg capsule 100 mg PO BID PRN Constipation 03/10/20 10/03/23 dulaglutide 1.5 mg/0.5 mL 1.5 mg SUBCUT Q7D 03/10/20 10/03/23 subcutaneous pen injector simvastatin 10 mg tablet 10 mg PO BEDTIME 01/03/22 10/03/23 cholecalciferol (vitamin D3) 25 25 mcg PO BEDTIME 08/13/22 10/03/23 mcg (1,000 unit) tablet (Vitamin D3) clopidogrel 75 mg tablet 75 mg PO DAILY 08/13/22 10/03/23 tamsulosin 0.4 mg capsule 0.4 mg PO DAILY 08/13/22 10/03/23 trazodone 50 mg tablet 50 mg PO BEDTIME 08/13/22 10/03/23 amlodipine 5 mg tablet 5 mg PO DAILY 02/13/23 10/03/23 budesonide-formoterol HFA 160 1 puff inhalation BID PRN unknown 02/13/23 10/03/23 mcg-4.5 mcg/actuation aerosol inhaler (Symbicort) bumetanide 0.5 mg tablet 0.5 mg PO BID 02/13/23 10/03/23 carvedilol 12.5 mg tablet 12.5 mg PO BID 02/13/23 10/03/23 citalopram 20 mg tablet 20 mg PO DAILY 02/13/23 10/03/23 esomeprazole magnesium 40 mg 40 mg PO BID 02/13/23 10/03/23 capsule,delayed release sodium bicarbonate 650 mg tablet mg PO 07/04/23 10/03/23 Previous Rx's Medication Instructions Recorded albuterol sulfate 90 mcg/actuation 2 inh inhalation Q6H PRN shortness 12/21/21 aerosol inhaler of breath or wheezing #8.5 grams loperamide 2 mg capsule 2 mg PO QID PRN loose stool #14 08/09/22 caps cyanocobalamin (vitamin B-12) 500 mcg (1/2 x 1,000 mcg) PO DAILY 08/16/22 1,000 mcg tablet (Vitamin B-12) #30 tabs cyclopentolate 0.5 % eye drops 1 drp ophthalmic (eye) TID PRN For 11/24/22 photophobia. #15 mL hydrocodone 5 mg-acetaminophen 325 1 tab PO Q6H PRN pain #10 tabs 02/13/23 mg tablet prednisone 20 mg tablet 20 mg PO TID #15 tabs 02/13/23 levocetirizine 5 mg tablet (24HR 5 mg PO DAILY PRN allergy symptoms 06/26/23 Allergy Relief) #20 tabs hydralazine 50 mg tablet 50 mg PO TID #270 tabs 09/26/23 isosorbide mononitrate 60 mg 60 mg PO DAILY #90 tabs 10/06/23 tablet,extended release 24 hr Allergies Allergy/AdvReac Type Severity Reaction Status Date / Time No Known Allergies Allergy Verified 01/02/24 23:08 Review of Systems 2 Narrative: Constitutional symptoms: Negative except as documented in HPI. Skin symptoms: Negative except as documented in HPI. Eye symptoms: Negative except as documented in HPI. ENMT symptoms: Negative except as documented in HPI. Respiratory symptoms: Negative except as documented in HPI. Cardiovascular symptoms: Negative except as documented in HPI. Gastrointestinal symptoms: Negative except as documented in HPI. Genitourinary symptoms: Negative except as documented in HPI. Musculoskeletal symptoms: Negative except as documented in HPI. Neurologic symptoms: Negative except as documented in HPI. Psychiatric symptoms: Negative except as documented in HPI. Endocrine symptoms: Negative except as documented in HPI. PFSH ED 2 PFSH: Medical History Chest pain Carotid bruit Gout Peripheral vascular disease History of peripheral stenting Gallbladder cancer Colon cancer COPD (chronic obstructive pulmonary disease) Abscess of face Peripheral arterial disease Diabetes mellitus Cancer Hypertension Glaucoma Surgical History History of PTCA History of partial colectomy History of cholecystectomy Family History Brother Bleeding disorder Clotting disorder CAD (coronary artery disease) Cancer Diabetes x 5 Stroke Sister Bleeding disorder Clotting disorder Chronic kidney disease (CKD) Diabetes x 6 Lung disease x 2 Stroke Father Bleeding disorder Clotting disorder CAD (coronary artery disease) Chronic kidney disease (CKD) Diabetes Mother CAD (coronary artery disease) Cancer Diabetes Stroke Grandfather CAD (coronary artery disease) Cancer Diabetes Grandmother Cancer Dementia Diabetes Family/Other Cancer Chronic kidney disease (CKD) Dementia Diabetes Lung disease Denies family history of Suicide Anesthesia complication Social History Smoking and tobacco/nicotine status: current every day tobacco/nicotine user Quit status (tobacco/nicotine): has tried quititng Second hand smoke exposure: Yes Alcohol intake: never Substance/Drug Use: never Adopted: No Caregiver/support person: No Lives independently: Yes Household members: spouse Housing: Apartment Marital status: Number of children: 4 Number of grandchildren: 1 Highest education level completed: 12th Grade, No Diploma service: No Current occupational status: disabled Current occupational exposures/hazards: No Pets and animals: No Leisure activites: exercise and clubs Sexually active: No Do you think of yourself as: Straight/Heterosexual Current gender identity: Male Shelly/Caodaism: Yazdanism Special shelly needs: No Agree to transfusion: Yes Physical Exam 2 Narrative: EXAM NARRATIVE: General: Alert, no acute distress. Skin: Warm, dry. Head: Normocephalic, atraumatic. Neck: Supple, trachea midline. Eye: Extraocular movements are intact. Ears, nose, mouth and throat: Oral mucosa moist. Cardiovascular: Regular rate and rhythm, Normal peripheral perfusion. Respiratory: coarse, scattered wheeze, mild increased wob. tachypnea, breath sounds are equal, Symmetrical chest wall expansion. Gastrointestinal: Soft, Nontender, Non distended, Normal bowel sounds. Musculoskeletal: Normal ROM, no deformity. Neurological: Alert and oriented to person, place, time, and situation, No focal neurological deficit observed. Psychiatric: Cooperative, appropriate mood & affect. Course 2 Vital Signs: Vital signs: Vital Signs Temperature 98.4 F 01/02/24 23:03 Pulse Rate 86 01/03/24 01:09 Respiratory Rate 18 01/03/24 01:09 Blood Pressure 162/75 01/03/24 01:09 Pulse Oximetry 91 01/03/24 01:09 Oxygen Delivery Me thod Room Air 01/02/24 23:03 MDM - SOB/Dyspnea Medical Decision Making Differential diagnosis for patient with shortness of breath includes but is not limited to and based on the above HPI, review of systems and physical exam: Pneumonia. Bronchitis. Asthma or COPD with acute exacerbation. Acute coronary syndrome / [place]. Pulmonary embolism. Anxiety. Congestive heart failure. Viral infections including influenza and Covid-19. Atrial fibrillation. Anxiety. Pleural effusion. Pneumothorax. Orders placed to evaluate differential diagnosis based on the above differential, HPI and physical exam EKG: Time 2318. Rate 85. Normal sinus rhythm, No ST-T changes, no ectopy, normal CT & QRS intervals, This was reviewed and interpreted by myself the ER physician at 2320 Lab Review: Laboratory results were reviewed and interpreted by myself the emergency room physician. No leukocytosis. Hemoglobin is a bit lower than usual at 8.6. No reports of recent GI bleeding. BUN and creatinine are slightly above his baseline at 24 and 2.3. He has chronic kidney disease. Chest x-ray: Bilateral lower lobe hazy airspace opacities that may represent something infectious. Small left-sided pleural effusion. This was reviewed and interpreted by myself the emergency room physician. I also reviewed the radiology report. CT of the chest without contrast was ordered secondary to abnormal chest x-ray: Reports of a possible atypical pneumonia bilaterally. Also worsening pleural effusions. This was reviewed and interpreted by myself the emergency room physician. I also reviewed the radiology report. I reviewed the patient's medical record. Reexamination: Patient remained stable. No increased work of breathing now that he is at rest, no altered mental status. No focal motor deficits. Consultation: I spoke with the hospitalist on-call Dr. Suazo who agrees to admission. Assessment and plan: Hypoxemia Pneumonia Pleural effusions Tobacco dependence COPD with acute exacerbation Chronic kidney disease ?IV Lasix, IV doxycycline, IV Solu-Medrol, 2 updrafts. Stable on 2 L nasal cannula. -I discussed the patient with the hospitalist on-call who is admitting the patient. - Discussed findings and plan with patient. Answered any questions. - All laboratory values were reviewed and interpreted personally by myself, the ER physician - All imaging was reviewed and interpreted personally by myself, the ER physician. - Evaluation and treatment of this problem were appropriate in the emergency setting Critical care -I spent a total of >35 minutes of critical care time managing the patient, independent of any other practitioner. -The time involved in the performance of separately reportable procedures was not counted towards critical care time. Lab Data 01/02/24 23:20 01/02/24 23:20 Labs/Radiology: Radiology Impressions Chest X-Ray 01/02/24 23:12 IMPRESSION: 1. Bilateral lower lobe hazy airspace opacities may represent an infectious process. 2. Small left-sided pleural effusion. Chest CT 01/03/24 00:13 IMPRESSION: 1. New areas of nodular airspace opacification and possible tree-in-bud opacities in the ezta-clizbff-tdfc-right anterior upper lobes. Correlate with atypical infection. 2. Mild pericardial effusion, new compared to prior study. 3. Orrsx-hc-rwahzljp bilateral pleural effusions, increased in size compared to prior study. Laboratory Results WBC 7.54 10^3/uL (3.29-11.43) 01/02/24 23:20 RBC 2.90 10^6/uL (3.85-5.65) L 01/02/24 23:20 Hgb 8.60 g/dL (11.27-16.99) L 01/02/24 23:20 Hct 27.0 % (37-53) L 01/02/24 23:20 MCV 93.1 fl (82-101) 01/02/24 23:20 MCH 29.7 pg (27-33) 01/02/24 23:20 MCHC 31.9 g/dL (30-55) 01/02/24 23:20 RDW 13.7 % (12.1-15.1) 01/02/24 23:20 Plt Count 207 10^3/cmm (157-399) 01/02/24 23:20 MPV 9.9 fL (7.4-10.4) 01/02/24 23:20 Neut % (Auto) 71.7 % 01/02/24 23:20 Lymph % (Auto) 19.2 % 01/02/24 23:20 [place] % (Auto) 6.6 % 01/02/24 23:20 Eos % (Auto) 1.6 % 01/02/24 23:20 Baso % (Auto) 0.5 % 01/02/24 23:20 Neut # (Auto) 5.40 10^3/uL (1.8-7.7) 01/02/24 23:20 Lymph # (Auto) 1.5 10^3/uL (0.8-4.8) 01/02/24 23:20 [place] # (Auto) 0.5 10^3/uL (0.2-0.9) 01/02/24 23:20 Eos # (Auto) 0.1 10^3/uL (0.0-0.8) 01/02/24 23:20 Baso # (Auto) 0.0 10^3/uL (0.0-0.1) 01/02/24 23:20 Nucleated RBC % (auto) 0 % 01/02/24 23:20 Nucleated RBCs # 0.0 /100WBC 01/02/24 23:20 Specimen Type Arterial 01/02/24 23:24 Sample Site Radial, right 01/02/24 23:24 ABG pH 7.42 (7.35-7.45) 01/02/24 23:24 ABG pCO2 37.2 mmHg (35-45) 01/02/24 23:24 ABG pO2 57.7 mmHg (80.0-100.0) L 01/02/24 23:24 ABG HCO3 24.1 mmol/L (22-26) 01/02/24 23:24 ABG O2 Saturation 90.5 01/02/24 23:24 ABG Base Excess -0.2 mmol/L (-2.0-2.0) 01/02/24 23:24 Khanh Test Pos 01/02/24 23:24 A-a O2 Gradient 6.0 mmHg (5-10) 01/02/24 23:24 Hematocrit 26.5 % (42-52) L 01/02/24 23:24 Hgb O2 Saturation 86.5 % (95-100) L 01/02/24 23:24 Carboxyhemoglobin 2.9 %THgb (0.4-20.1) 01/02/24 23:24 Methemoglobin 1.5 % (0.4-1.5) 01/02/24 23:24 Total Hemoglobin 8.6 g/dL (14-18) L 01/02/24 23:24 Sodium 142.0 mmol/L (131-143) 01/02/24 23:24 Potassium 3.8 mmol/L (3.5-5.0) 01/02/24 23:24 Glucose 102.0 mg/dL (70-115) 01/02/24 23:24 Ionized Calcium 1.2 mmol/L (1.1-1.4) 01/02/24 23:24 O2 Delivery Device Nc 01/02/24 23:24 O2 Liters/Min 2.0 % 01/02/24 23:24 Hydraulic Rockbreaker Operator ID [email or web address] 01/02/24 23:24 Sodium 142 mmol/L (136-145) 01/02/24 23:20 Potassium 4.0 mmol/L (3.5-5.1) 01/02/24 23:20 Chloride 110 mmol/L (98-107) H 01/02/24 23:20 Carbon Dioxide 24 mmol/L (22-29) 01/02/24 23:20 Anion Gap 12.0 (5-19) 01/02/24 23:20 BUN 24 mg/dL (8-23) H 01/02/24 23:20 Creatinine 2.3 mg/dL (0.7-1.2) H 01/02/24 23:20 GFR Calculation 35.3 mL/min (90-130) L 01/02/24 23:20 Glucose 103 mg/dL (65-115) 01/02/24 23:20 Calculated Osmolality 298 mOsm/kg (285-295) H 01/02/24 23:20 Lactic Acid 0.8 mmol/L (0.5-2.2) 01/02/24 23:20 Calcium 7.7 mg/dL (8.5-10.5) L 01/02/24 23:20 Total Bilirubin 0.4 mg/dL (0.15-1.2) 01/02/24 23:20 AST 9 U/L (0-40) 01/02/24 23:20 ALT 7 U/L (0-41) 01/02/24 23:20 Alkaline Phosphatase 118 U/L (40-130) 01/02/24 23:20 Troponin T Baseline 91 ng/L (0-15) H 01/02/24 23:20 Troponin T 120 Minute 88.87 ng/L (0-15) H 01/03/24 01:20 Delta Troponin T -2.13 ABS# (0-10) L 01/03/24 01:20 NT-Pro-B Natriuret Pep 1166 pg/mL (0-125) H 01/02/24 23:20 Total Protein 6.0 g/dL (6.6-8.7) L 01/02/24 23:20 Albumin 3.7 g/dL (3.5-5.2) 01/02/24 23:20 Globulin 2.3 g/dL (1.3-4.6) 01/02/24 23:20 Coronavirus (PCR) Negative (Negative) 01/02/24 23:20 Influenza A (PCR) Negative (Negative) 01/02/24 23:20 Influenza Type B (PCR) Negative (Negative) 01/02/24 23:20 RSV (PCR) Negative (Negative) 01/02/24 23:20 All radiology interpretation(s) finalized by discharge Discharge Plan Discharge Patient Disposition: Admitted As Inpatient Clinical Impression: Pneumonia, Tobacco dependence, Hypoxemia, Pleural effusion, COPD with acute exacerbation Condition: Stable Coding Level of Care Code ED Kick Press Operator for Mary Anthony
[2024-01-02 23:46] LABS: Troponin(5th) Baseline 91 ng/L (0-15)
[2024-01-02 23:47] LABS: Lactic Sepsis W/Reflex 0.8 mmol/L (0.5-2.2)
[2024-01-03] VITALS (11 sets, daily range): BP systolic 151–168; BP diastolic 69–80; PULSE 85–93; RESP 16–18; TEMP 36.8–37.2; O2SAT 89–97
[2024-01-03 00:08] LABS: Alanine Aminotransferase 7 U/L (0-41); Albumin Level 3.7 g/dL (3.5-5.2); Alkaline Phosphatase 118 U/L (40-130); Aspartate Amino Transferase 9 U/L (0-40); Blood Urea Nitrogen 24 mg/dL (8-23); Calcium 7.7 mg/dL (8.5-10.5); Carbon Dioxide 24 mmol/L (22-29); Chloride 110 mmol/L (98-107); Globulin 2.3 g/dL (1.3-4.6); Glomerular Filtration Rate 35.3 mL/min (90-130); Glucose 103 mg/dL (65-115); NT Pro B Type Natriuretic Pept 1166 pg/mL (0-125); Osmolality Calculated 298 mOsm/kg (285-295); Sodium 142 mmol/L (136-145); Total Bilirubin 0.4 mg/dL (0.15-1.2)
[2024-01-03 00:11] LABS: Covid PCR NEGATIVE (Negative); Influenza A NEGATIVE (Negative); Influenza B NEGATIVE (Negative); Respiratory Syncytial Virus Ce NEGATIVE (Negative)
--- NOTE | 2024-01-03 00:13 | CTR_ITS ---
PROCEDURE INFORMATION: Exam: CT Chest Without Contrast; Diagnostic Exam date and time: 01/03/2024 12:36 AM Age: 58 years old Clinical indication: Fever and shortness of breath; Additional info: Abnormal chest xray TECHNIQUE: Imaging protocol: Diagnostic computed tomography of the chest without contrast. Radiation optimization: All CT scans at this facility use at least one of these dose optimization techniques: automated exposure control; mA and/or kV adjustment per patient size (includes targeted exams where dose is matched to clinical indication); or iterative reconstruction. COMPARISON: CT angio chest PE protcl [id number] 12/23/2021 6:10 AM RADIATION DOSE METRICS: Total DLP (mGy-cm): 668.07 FINDINGS: Lungs: New areas of nodular airspace opacification and possible tree-in-bud opacities in the fflu-qmmytuu-crdv-right anterior upper lobes. Worsening bibasilar atelectasis. Pleural spaces: Oxmwh-ka-ytiixnbi bilateral pleural effusions, increased in size compared to prior study. Heart: Heart size is within normal limits. Mild pericardial effusion, new compared to prior study. Coronary arteries: Moderate coronary artery calcification. Lymph nodes: Multiple prominent and mildly enlarged mediastinal lymph nodes, stable. Vasculature: Atherosclerotic calcifications of the aorta are present. No aneurysm is identified. Bones/joints: Chronic rib abnormalities are stable. No acute osseous abnormalities are seen. Soft tissues: Mild diffuse subcutaneous edema. CT/CT chest wo con [id number] IMPRESSION: 1. New areas of nodular airspace opacification and possible tree-in-bud opacities in the fatz-cedlkiu-wict-right anterior upper lobes. Correlate with atypical infection. 2. Mild pericardial effusion, new compared to prior study. 3. Nzlvq-jd-sweeoucd bilateral pleural effusions, increased in size compared to prior study.
--- NOTE | 2024-01-03 01:13 | ECG_ITS ---
[facility] Test Date: 2024-01-03 Pat Name: Alek Hopper Department: Room: Gender: Male Coal Loader: : 1965 Requested By: Crissy Butler Order Number: [id number] Krystle MD: Nicole Salinas M.D. Measurements Intervals [place] Rate: 84 P: 56 CT: 207 QRS: 14 QRSD: 107 T: 113 QT: 399 QTc: 473 Interpretive Statements SINUS RHYTHM ABNORMAL QRS-T ANGLE [QRS-T AXIS DIFFERENCE > 60] Compared to ECG 01/02/2024 23:18:06 No significant changes Electronically Signed On 01-03-2024 18:03:01 CDT by Nicole Salinas M.D. [email or web address]
[2024-01-03 01:46] LABS: Troponin 5 2HR 88.87 ng/L (0-15)
[2024-01-03 01:48] LABS: Troponin 5 2HR Delta -2.13 ABS# (0-10)
[2024-01-03] MEDS: doxycycline 100 MG in sodium chloride 0.9% (plus) 100 ML IV (02:10)
[2024-01-03] MEDS: FUROsemide 10 mg/mL SDV 10mL 60 MG IVP (02:10)
[2024-01-03] MEDS: methylPREDNISolone sod succ 125 mg/2 mL INJ IVP (02:10)
[2024-01-03] MEDS: albuterol 2.5 mg/3 mL Neb INHALATION ×3 (03:33→14:43)
[2024-01-03] MEDS: ipratropium-albuterol 3 mL Neb INHALATION (03:33)
--- NOTE | 2024-01-03 03:50 | P.HP_ITS ---
Providers/Chief Complaint 2 Admitting Physician: Asif Suazo MD Primary Care Provider: Yenny Navarro MD Chief Complaint: SOB History of Present Illness Alek Hopper is a 58 year old male presented to the hospital with shortness of breath cough wheezing. He smokes half pack per day. Patient saw Dr. Yenny Navarro MD couple weeks ago and was treated with a Z-Tha. He does not think he improved very much and was supposed to see her again but says he refused to go when out of stubbornness and was treating his cough with warm compresses, heating pad increased heat in the car and Vicks rub on the chest. The patient has not had fevers but he has had cough productive of yellow and green phlegm he reports muscle aches and malaise but denies nausea vomiting diarrhea Patient reports mild leg edema he has a history of chronic kidney disease related to diabetes Review of Systems 2 Narrative: General No fevers yes for chills Respiratory positive for cough productive of yellow phlegm Cardiovascular some leg edema no chest pain GI no nausea vomiting diarrhea Medications/Allergies Home Medications Medication Instructions Recorded Confirmed Last Taken Type allopurinol 100 mg tablet 100 mg PO DAILY 03/10/20 10/03/23 01/03/22 History aspirin 81 mg tablet,delayed 81 mg PO DAILY 03/10/20 10/03/23 02/12/23 History release (Adult Aspirin Regimen) docusate sodium 100 mg capsule 100 mg PO BID PRN Constipation 03/10/20 10/03/23 01/03/22 History dulaglutide 1.5 mg/0.5 mL 1.5 mg SUBCUT Q7D 03/10/20 10/03/23 01/02/22 History subcutaneous pen injector albuterol sulfate 90 mcg/actuation 2 inh inhalation Q6H PRN shortness 12/21/21 10/03/23 Unknown Rx aerosol inhaler of breath or wheezing #8.5 grams simvastatin 10 mg tablet 10 mg PO BEDTIME 01/03/22 10/03/23 02/12/23 History loperamide 2 mg capsule 2 mg PO QID PRN loose stool #14 08/09/22 10/03/23 Unknown Rx caps cholecalciferol (vitamin D3) 25 25 mcg PO BEDTIME 08/13/22 10/03/23 02/12/23 History mcg (1,000 unit) tablet (Vitamin D3) clopidogrel 75 mg tablet 75 mg PO DAILY 08/13/22 10/03/23 02/12/23 History tamsulosin 0.4 mg capsule 0.4 mg PO DAILY 08/13/22 10/03/23 02/12/23 History trazodone 50 mg tablet 50 mg PO BEDTIME 08/13/22 10/03/23 02/12/23 History cyanocobalamin (vitamin B-12) 500 mcg (1/2 x 1,000 mcg) PO DAILY 08/16/22 10/03/23 02/12/23 Rx 1,000 mcg tablet (Vitamin B-12) #30 tabs cyclopentolate 0.5 % eye drops 1 drp ophthalmic (eye) TID PRN For 11/24/22 10/03/23 Unknown Rx photophobia. #15 mL amlodipine 5 mg tablet 5 mg PO DAILY 02/13/23 10/03/23 02/12/23 History budesonide-formoterol HFA 160 1 puff inhalation BID PRN unknown 02/13/23 10/03/23 Unknown History mcg-4.5 mcg/actuation aerosol inhaler (Symbicort) bumetanide 0.5 mg tablet 0.5 mg PO BID 02/13/23 10/03/23 02/12/23 History carvedilol 12.5 mg tablet 12.5 mg PO BID 02/13/23 10/03/23 02/12/23 History citalopram 20 mg tablet 20 mg PO DAILY 02/13/23 10/03/23 02/12/23 History esomeprazole magnesium 40 mg 40 mg PO BID 02/13/23 10/03/23 02/12/23 History capsule,delayed release hydrocodone 5 mg-acetaminophen 325 1 tab PO Q6H PRN pain #10 tabs 02/13/23 10/03/23 Unknown Rx mg tablet prednisone 20 mg tablet 20 mg PO TID #15 tabs 02/13/23 10/03/23 Unknown Rx levocetirizine 5 mg tablet (24HR 5 mg PO DAILY PRN allergy symptoms 06/26/23 10/03/23 Unknown Rx Allergy Relief) #20 tabs sodium bicarbonate 650 mg tablet mg PO 07/04/23 10/03/23 Unknown History hydralazine 50 mg tablet 50 mg PO TID #270 tabs 09/26/23 10/03/23 Unknown Rx isosorbide mononitrate 60 mg 60 mg PO DAILY #90 tabs 10/06/23 Unknown Rx tablet,extended release 24 hr Allergies Allergy/AdvReac Type Severity Reaction Status Date / Time No Known Allergies Allergy Verified 01/02/24 23:08 PFSH Acute 2 PFSH: Medical History (Updated 01/03/24 @ 03:44 by Asif Suazo MD) Chronic kidney disease CKD (chronic kidney disease) Chest pain Carotid bruit Gout Peripheral vascular disease History of peripheral stenting Gallbladder cancer Colon cancer COPD (chronic obstructive pulmonary disease) Abscess of face Peripheral arterial disease Diabetes mellitus Cancer Hypertension Glaucoma Surgical History History of PTCA History of partial colectomy History of cholecystectomy Family History Brother Bleeding disorder Clotting disorder CAD (coronary artery disease) Cancer Diabetes x 5 Stroke Sister Bleeding disorder Clotting disorder Chronic kidney disease (CKD) Diabetes x 6 Lung disease x 2 Stroke Father Bleeding disorder Clotting disorder CAD (coronary artery disease) Chronic kidney disease (CKD) Diabetes Mother CAD (coronary artery disease) Cancer Diabetes Stroke Grandfather CAD (coronary artery disease) Cancer Diabetes Grandmother Cancer Dementia Diabetes Family/Other Cancer Chronic kidney disease (CKD) Dementia Diabetes Lung disease Denies family history of Suicide Anesthesia complication Social History Smoking and tobacco/nicotine status: current every day tobacco/nicotine user Quit status (tobacco/nicotine): has tried quititng Second hand smoke exposure: Yes Alcohol intake: never Substance/Drug Use: never Adopted: No Caregiver/support person: No Lives independently: Yes Household members: spouse Housing: Apartment Marital status: Number of children: 4 Number of grandchildren: 1 Highest education level completed: 12th Grade, No Diploma service: No Current occupational status: disabled Current occupational exposures/hazards: No Pets and animals: No Leisure activites: exercise and clubs Sexually active: No Do you think of yourself as: Straight/Heterosexual Current gender identity: Male Shelly/Adventist: [employer] Special shelly needs: No Agree to transfusion: Yes Vitals/I&O/Wt Last Vital Signs Temp 98.4 F 01/02/24 23:03 Pulse 90 10/30/24 03:40 Resp 18 01/03/24 03:33 BP 158/80 01/03/24 03:01 Pulse Ox 93 01/03/24 03:40 O2 Del Method Nasal Cannula 01/03/24 03:40 O2 Flow Rate 2 01/03/24 03:40 01/02/24 01/02/24 01/03/24 14:59 22:59 06:59 Intake Total 100 / 100 Balance 100 / 100 Weight last 48 hrs Weight 101.378 kg Weight 100.698 kg Physical Exam 2 Narrative: General Well-developed well-nourished overweight black man in no acute cardiopulmonary distress he is laying on his left side appears malaised CV regular rate and rhythm Lungs prolonged expiratory phase with wheezing good air movement bilaterally Abdomen positive bowel sounds soft nontender Calves trace ankle edema Mood and affect normal Data 01/02/24 23:20 01/02/24 23:20 Micro: Microbiology 01/03/24 00:29 Blood Culture - Preliminary Blood SPECIMEN COLLECTED 01/03/24 00:25 Blood Culture - Preliminary Blood SPECIMEN COLLECTED A&P Assessment and plan (1) Pneumonia: Continue doxycycline and Rocephin. Add steroids nebulizers (2) COPD with acute exacerbation: Patient encouraged to quit smoking and start nicotine patch. He is agreeable to that at least here in the hospital. Continue with nebulizers and steroids as well as treatment for pneumonia (3) CKD (chronic kidney disease): Stable continue home meds (4) Diabetes mellitus: Stable continue home meds 1800-calorie ADA diet Start sliding scale insulin before every meal and nightly Qualifiers: Diabetes mellitus complication status: without complication Diabetes mellitus ferry terminal agent insulin use: unspecified ferry terminal agent insulin use status D iabetes mellitus type: other specified (including AKJAL) Qualified Code(s): E 13.9 - Other specified diabetes mellitus without complications (5) Hypertension: Blood pressure currently elevated resume home meds and monitor Qualifiers: Hypertension type: primary hypertension Qualified Code(s): I10 - Essential (primary) hypertension (6) Tobacco dependency: Start nicotine patch Attestations 2 Medical Necessity Statement*: Patient is admitted for atypical pneumonia failed outpatient treatment with azithromycin and will be treated with doxycycline and Rocephin. Steroids will be given along with nebulizer treatments Anticipate that he will be in the hospital for greater than 2 midnights Time Spent in Patient Care: 50 minutes spent in evaluation coordinat ion of care for this patient today Coding Level of Care Code 88908 Diagnoses Pneumonia J18.9 COPD with acute exacerbation J44.1 CKD (chronic kidney disease) N18.9 Diabetes mellitus of other type without complication, unspecified whether ferry terminal agent insulin use E13.9 Diabetes mellitus complication status: without complication Diabetes mellitus prison insulin use: unspecified prison insulin use status Diabetes mellitus type: other specified (including KAJAL) Primary hypertension I10 Hypertension type: primary hypertension Tobacco dependency F17.200 Time Spent (min) 50
--- NOTE | 2024-01-03 05:13 | ECG_ITS ---
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 Measurements Intervals [place]ctor Rate: 91 P: 66 IN: 208 QRS: 7 QRSD: 106 T: 111 QT: 390 QTc: 480 Interpretive Statements SINUS RHYTHM ABNORMAL QRS-T ANGLE [QRS-T AXIS DIFFERENCE > 60] Compared to ECG 01/03/2024 01:12:50 No significant changes Electronically Signed On 01-03-2024 17:17:37 CDT by Nicole Salinas M.D. [email or web address]
[2024-01-03] MEDS: cefTRIAXone 1,000 mg SDV 1000 MG IVP (06:04)
[2024-01-03] MEDS: enoxaparin 40 mg/0.4 mL Syringe SUBCUT (06:05)
[2024-01-03 06:17] LABS: Glucose Point of Care 156 mg/dL (70-110)
[2024-01-03 07:01] LABS: Troponin 5 6HR 92.81 ng/L (0-15); Troponin 5 6HR Delta 1.81 ng/L (0-12)
[2024-01-03] MEDS: insulin lispro 100 unit/1 mL SUBCUT ×4 (07:54→21:52)
[2024-01-03] MEDS: isosorbide mononitrate ER 60 mg Tablet PO (09:15)
[2024-01-03] MEDS: aspirin 81 mg EC Tablet PO (09:16)
[2024-01-03] MEDS: hyDRALAzine 50 mg Tablet PO ×3 (09:16→21:11)
[2024-01-03] MEDS: citalopram 20 mg Tablet PO (09:16)
[2024-01-03] MEDS: amlodipine 5 mg Tablet PO (09:16)
[2024-01-03] MEDS: sodium bicarbonate 650 mg Tablet PO ×3 (09:16→21:11)
[2024-01-03] MEDS: pantoprazole DR 40 mg Tablet PO ×2 (09:16→17:10)
[2024-01-03] MEDS: allopurinol 100 mg Tablet PO (09:16)
[2024-01-03] MEDS: carvedilol 12.5 mg Tablet PO ×2 (09:16→17:10)
[2024-01-03] MEDS: bumetanide 1 mg Tablet 0.5 MG PO ×2 (09:16→17:10)
[2024-01-03] MEDS: clopidogrel 75 mg Tablet PO (09:16)
[2024-01-03] MEDS: tamsulosin 0.4 mg Capsule PO (09:17)
[2024-01-03] MEDS: predniSONE 20 mg Tablet PO ×3 (09:17→21:11)
[2024-01-03] MEDS: AZITHROMYCIN ADD-Vantage 500 MG in 0.9% NaCl ADD-Vantage 250 ML 250 MG IV (09:23)
[2024-01-03] MEDS: cyanocobalamin 1,000 mcg Tablet 500 MCG PO (09:24)
[2024-01-03] MEDS: benzonatate 100 mg Capsule PO (11:17)
[2024-01-03 12:11] LABS: Glucose Point of Care 279 mg/dL (70-110)
--- NOTE | 2024-01-03 15:44 | P.PN_ITS ---
Subjective 2 Subjective: Patient was seen this morning, denies any fevers, does report a cough, no fevers, no chills, is requiring up to 2 L Vitals/I&O/Wt Last Vital Signs Temp 98.2 F 01/03/24 12:00 Pulse 85 01/03/24 14:44 Resp 18 01/03/24 14:44 BP 164/70 01/03/24 12:00 Pulse Ox 93 01/03/24 14:44 O2 Del Method Nasal Cannula 01/03/24 14:44 O2 Flow Rate 2 01/03/24 14:44 01/03/24 01/03/24 01/03/24 06:59 14:59 22:59 Intake Total 220 / 220 720 / 720 250 / 970 Balance 220 / 220 720 / 720 250 / 970 Weight last 48 hrs Weight 101.423 kg Weight 101.378 kg Weight 100.698 kg Physical Exam 2 Const: COMMON NORMALS: no acute distress and patient oriented x3 Resp: COMMON NORMALS: normal respiratory effort, No retractions and No use of accessory muscles AUSCULTATION: wheezes Cardio: COMMON NORMALS: regular rate, regular rhythm, S1 normal heart sound present and S2 normal heart sound present RATE: regular rate RHYTHM: r egular rhythm HEART SOUNDS: S1 normal heart sound present and S2 normal heart sound present GI: COMMON NORMALS: Normal to inspection, nondistended, normoactive bowel sounds present and non-tender Extremity: COMMON NORMALS: no pedal edema Neuro: COMMON NORMALS: patient oriented x3 Psych: COMMON NORMALS: mental status grossly normal Data 01/02/24 23:20 01/02/24 23:20 Micro: Microbiology 01/03/24 00:29 Blood Culture - Preliminary Blood SPECIMEN COLLECTED 01/03/24 00:25 Blood Culture - Preliminary Blood SPECIMEN COLLECTED A&P Assessment and plan (1) Pneumonia: (2) COPD with acute exacerbation: (3) CKD (chronic kidney disease): Stable continue home meds (4) Diabetes mellitus: Stable continue home meds 1800-calorie ADA diet Start sliding scale insulin before every meal and nightly Qualifiers: Diabetes mellitus complication status: without complication Diabetes mellitus marine oil terminal 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 New areas of nodular airspace opacification and possible tree-in-bud opacities in the inan-neaoevm-njds-right anterior upper lobes. Correlate with atypical infection. 2. Mild pericardial effusion, new compared to prior study. 3. Oekyk-wd-mjzcxdet bilateral pleural effusions, increased in size compared to prior study. -Secondary to COPD exacerbation # Elevated BNP, history of diastolic CHF Plan ? Continue Rocephin -Start azithromycin ? DuoNeb ? Budesonide ? Continue p.o. steroids ? Continue home p.o. bumetanide ? Monitor respiratory status closely ? Follow blood cultures Plan History of CAD continue aspirin, statin, Plavix, Coreg Hypertension, continue home Imdur, Coreg, Norvasc, hydralazine Full code Lovenox for DVT prophylaxis Attestations 2 Medical Necessity Statement*: Patient requires hospitalization, inpatient, greater than 2 midnights, for COPD exacerbation, pneumonia, hypoxia, Diagnoses Pneumonia J18.9 COPD with acute exacerbation J44.1 CKD (chronic kidney disease) N18.9 Diabetes mellitus of other type without complication, unspecified whether alf insulin use E13.9 Diabetes mellitus complication status: without complication Diabetes mellitus 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
[2024-01-03 16:41] LABS: Glucose Point of Care 180 mg/dL (70-110)
[2024-01-03] MEDS: cholecalciferol (vitamin D3) 1,000 unit Tablet 1000 UNIT PO (21:10)
[2024-01-03] MEDS: trazodone 50 mg Tablet PO (21:11)
[2024-01-03] MEDS: atorvastatin 40 mg Tablet 20 MG PO (21:11)
[2024-01-03 21:50] LABS: Glucose Point of Care 200 mg/dL (70-110)
[2024-01-04] VITALS (10 sets, daily range): BP systolic 138–172; BP diastolic 64–83; PULSE 83–101; RESP 16–20; TEMP 36.7–37.2; O2SAT 90–97
[2024-01-04] MEDS: cefTRIAXone 1,000 mg SDV 1000 MG IVP (05:28)
[2024-01-04] MEDS: enoxaparin 40 mg/0.4 mL Syringe SUBCUT (05:28)
[2024-01-04 06:24] LABS: Basophils % 0.1 %; Hematocrit 28.2 % (37-53); Lymphocytes # 0.7 10^3/uL (0.8-4.8); Lymphocytes % 9.2 %; Mean Corpuscular HGB Conc 32.6 g/dL (30-55); Mean Corpuscular Hemoglobin 30.3 pg (27-33); Mean Corpuscular Volume 92.8 fl (82-101); Mean Platelet Volume 10.6 fL (7.4-10.4); Monocytes # 0.3 10^3/uL (0.2-0.9); Monocytes % 4.1 %; Neutrophils # 6.68 10^3/uL (1.8-7.7); Neutrophils % 86.2 %; Nucleated Red Blood Cells % 0 %; Platelet Count 227 10^3/cmm (157-399); Red Blood Count 3.04 10^6/uL (3.85-5.65); Red Cell Distribution Width 13.8 % (12.1-15.1); White Blood Count 7.75 10^3/uL (3.29-11.43)
[2024-01-04] MEDS: benzonatate 100 mg Capsule PO (06:26)
[2024-01-04 06:30] LABS: Glucose Point of Care 186 mg/dL (70-110)
[2024-01-04] MEDS: albuterol 2.5 mg/3 mL Neb INHALATION (06:41)
[2024-01-04 06:42] LABS: Anion Gap 14.6 (5-19); Blood Urea Nitrogen 33 mg/dL (8-23); Calcium 7.9 mg/dL (8.5-10.5); Carbon Dioxide 22 mmol/L (22-29); Chloride 106 mmol/L (98-107); Glucose 160 mg/dL (65-115); Osmolality Calculated 297 mOsm/kg (285-295); Potassium 4.6 mmol/L (3.5-5.1); Sodium 138 mmol/L (136-145)
[2024-01-04] MEDS: citalopram 20 mg Tablet PO (08:16)
[2024-01-04] MEDS: cyanocobalamin 1,000 mcg Tablet 500 MCG PO (08:16)
[2024-01-04] MEDS: isosorbide mononitrate ER 60 mg Tablet PO (08:17)
[2024-01-04] MEDS: allopurinol 100 mg Tablet PO (08:17)
[2024-01-04] MEDS: tamsulosin 0.4 mg Capsule PO (08:17)
[2024-01-04] MEDS: predniSONE 20 mg Tablet PO ×3 (08:17→20:16)
[2024-01-04] MEDS: sodium bicarbonate 650 mg Tablet PO ×3 (08:17→20:16)
[2024-01-04] MEDS: amlodipine 5 mg Tablet PO (08:17)
[2024-01-04] MEDS: hyDRALAzine 50 mg Tablet PO ×3 (08:17→20:17)
[2024-01-04] MEDS: carvedilol 12.5 mg Tablet PO ×2 (08:18→18:06)
[2024-01-04] MEDS: aspirin 81 mg EC Tablet PO (08:18)
[2024-01-04] MEDS: clopidogrel 75 mg Tablet PO (08:18)
[2024-01-04] MEDS: bumetanide 1 mg Tablet 0.5 MG PO ×2 (08:18→18:06)
[2024-01-04] MEDS: pantoprazole DR 40 mg Tablet PO ×2 (08:18→18:06)
[2024-01-04] MEDS: AZITHROMYCIN ADD-Vantage 500 MG in 0.9% NaCl ADD-Vantage 250 ML 250 MG IV (08:22)
[2024-01-04] MEDS: insulin lispro 100 unit/1 mL SUBCUT ×4 (08:24→21:21)
[2024-01-04 10:49] LABS: Glucose Point of Care 176 mg/dL (70-110)
[2024-01-04] MEDS: ipratropium-albuterol 3 mL Neb INHALATION ×3 (14:17→21:49)
--- NOTE | 2024-01-04 16:09 | PM.PN ---
Subjective Subjective: Patient was seen this morning, he does complain of persistent wheezing, cough, intermittent shortness of breath with exertion, currently on 2 L, no nausea, no vomiting, no fevers, no chills Vitals/I&O/Wt Last Vital Signs Temp 98.9 F 01/04/24 16:00 Pulse 87 01/04/24 16:00 Resp 17 01/04/24 16:00 BP 140/72 01/04/24 16:00 Pulse Ox 93 01/04/24 16:00 O2 Del Method Room Air 01/04/24 16:00 O2 Flow Rate 2 01/03/24 21:15 01/04/24 01/04/24 01/04/24 06:59 14:59 22:59 Intake Total 1090 / 1090 Balance 1090 / 1090 Weight last 48 hrs Weight 103.136 kg Weight 101.423 kg Weight 101.378 kg Weight 100.698 kg Physical Exam Const: COMMON NORMALS: no acute distress and patient oriented x3 Neck/C-Spine: COMMON NORMALS: no JVD Resp: COMMON NORMALS: normal respiratory effort, No retractions and No use of accessory muscles AUSCULTATION: wheezes Cardio: COMMON NORMALS: no JVD, regular rate, regular rhythm, S1 normal heart sound present and S2 normal heart sound present RATE: regular rate RHYTHM: regular rhythm HEART SOUNDS: S1 normal heart sound present and S2 normal heart sound present GI: COMMON NORMALS: Normal to inspection, nondistended, normoactive bowel sounds present and non-tender Extremity: COMMON NORMALS: no pedal edema Neuro: COMMON NORMALS: patient oriented x3 Psych: COMMON NORMALS: mental status grossly normal Data 01/04/24 05:49 01/04/24 05:49 Micro: Microbiology 01/03/24 00:29 Blood Culture - Preliminary Blood NEGATIVE TO DATE 01/03/24 00:25 Blood Culture - Preliminary Blood NEGATIVE TO DATE A&P Assessment and plan (1) Pneumonia: (2) COPD with acute exacerbation: (3) CKD (chronic kidney disease): Stable continue home meds (4) Diabetes mellitus: Stable continue home meds 1800-calorie ADA diet Start sliding scale insulin before every meal and nightly Qualifiers: Diabetes mellitus complication status: without complication Diabetes mellitus marine oil terminal 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 New areas of nodular airspace opacification and possible tree-in-bud opacities in the uzey-zpmlqay-nuzl-right anterior upper lobes. Correlate with atypical infection. 2. Mild pericardial effusion, new compared to prior study. 3. Uuizs-bu-lhondwkg bilateral pleural effusions, increased in size compared to prior study. -Secondary to COPD exacerbation # Elevated BNP, history of diastolic CHF Plan ? Continue Rocephin -Continue azithromycin ? DuoNeb ? Budesonide ? Continue p.o. steroids ? Continue home p.o. bumetanide ? Monitor respiratory status closely ? Follow blood cultures Plan History of CAD continue aspirin, statin, Plavix, Coreg Hypertension, continue home Imdur, Coreg, Norvasc, hydralazine Full code Lovenox for DVT prophylaxis Attestations Medical Necessity Statement*: Patient requires hospitalization for pneumonia, COPD, persistent wheezing requiring inpatient monitoring, IV antibiotics, steroids Diagnoses Pneumonia J18.9 COPD with acute exacerbation J44.1 CKD (chronic kidney disease) N18.9 Diabetes mellitus of other type without complication, unspecified whether senior care insulin use E13.9 Diabetes mellitus complication status: without complication Diabetes mellitus 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
[2024-01-04 16:59] LABS: Glucose Point of Care 255 mg/dL (70-110)
[2024-01-04] MEDS: HYDROcodone-acetaminophen 5-325 mg Tablet 1 TAB PO (20:15)
[2024-01-04] MEDS: atorvastatin 40 mg Tablet 20 MG PO (20:16)
[2024-01-04] MEDS: trazodone 50 mg Tablet PO (20:17)
[2024-01-04] MEDS: cholecalciferol (vitamin D3) 1,000 unit Tablet 1000 UNIT PO (20:17)
[2024-01-04 21:14] LABS: Glucose Point of Care 214 mg/dL (70-110)
[2024-01-04] MEDS: budesonide 0.5 mg/2 mL Neb INHALATION (21:49)
[2024-01-05] VITALS (14 sets, daily range): BP systolic 147–168; BP diastolic 62–86; PULSE 77–88; RESP 16–18; TEMP 36.6–37.1; O2SAT 90–98
[2024-01-05] MEDS: ipratropium-albuterol 3 mL Neb INHALATION ×6 (00:35→20:03)
[2024-01-05] MEDS: cefTRIAXone 1,000 mg SDV 1000 MG IVP (05:06)
[2024-01-05] MEDS: enoxaparin 40 mg/0.4 mL Syringe SUBCUT (05:07)
[2024-01-05 05:20] LABS: Hematocrit 26.9 % (37-53); Lymphocytes # 0.8 10^3/uL (0.8-4.8); Lymphocytes % 9.4 %; Mean Corpuscular HGB Conc 31.6 g/dL (30-55); Mean Corpuscular Hemoglobin 30.2 pg (27-33); Mean Corpuscular Volume 95.7 fl (82-101); Monocytes # 0.2 10^3/uL (0.2-0.9); Monocytes % 2.8 %; Neutrophils # 7.19 10^3/uL (1.8-7.7); Neutrophils % 87.3 %; Nucleated Red Blood Cells % 0 %; Platelet Count 197 10^3/cmm (157-399); Red Blood Count 2.81 10^6/uL (3.85-5.65); Red Cell Distribution Width 13.9 % (12.1-15.1); White Blood Count 8.23 10^3/uL (3.29-11.43)
[2024-01-05 05:40] LABS: Anion Gap 14.8 (5-19); Blood Urea Nitrogen 42 mg/dL (8-23); Calcium 7.7 mg/dL (8.5-10.5); Carbon Dioxide 21 mmol/L (22-29); Chloride 107 mmol/L (98-107); Creatinine Clr Calc Pharmacy 35.2165; Glomerular Filtration Rate 29.3 mL/min (90-130); Glucose 160 mg/dL (65-115); Osmolality Calculated 300 mOsm/kg (285-295); Potassium 4.8 mmol/L (3.5-5.1); Sodium 138 mmol/L (136-145)
[2024-01-05 06:39] LABS: Glucose Point of Care 210 mg/dL (70-110)
[2024-01-05] MEDS: budesonide 0.5 mg/2 mL Neb INHALATION ×2 (07:56→20:03)
[2024-01-05] MEDS: clopidogrel 75 mg Tablet PO (08:51)
[2024-01-05] MEDS: aspirin 81 mg EC Tablet PO (08:51)
[2024-01-05] MEDS: bumetanide 1 mg Tablet 0.5 MG PO (08:51)
[2024-01-05] MEDS: tamsulosin 0.4 mg Capsule PO (08:51)
[2024-01-05] MEDS: pantoprazole DR 40 mg Tablet PO ×2 (08:51→17:50)
[2024-01-05] MEDS: allopurinol 100 mg Tablet PO (08:51)
[2024-01-05] MEDS: carvedilol 12.5 mg Tablet PO ×2 (08:51→17:50)
[2024-01-05] MEDS: sodium chloride 0.9% 1,000 ML 30 ML IV (08:51)
[2024-01-05] MEDS: isosorbide mononitrate ER 60 mg Tablet PO (08:52)
[2024-01-05] MEDS: citalopram 20 mg Tablet PO (08:52)
[2024-01-05] MEDS: sodium bicarbonate 650 mg Tablet PO ×3 (08:52→20:21)
[2024-01-05] MEDS: amlodipine 5 mg Tablet PO (08:52)
[2024-01-05] MEDS: AZITHROMYCIN ADD-Vantage 500 MG in 0.9% NaCl ADD-Vantage 250 ML 250 MG IV (08:52)
[2024-01-05] MEDS: hyDRALAzine 50 mg Tablet PO ×3 (08:52→20:21)
[2024-01-05] MEDS: predniSONE 20 mg Tablet PO ×2 (08:52→17:50)
[2024-01-05] MEDS: cyanocobalamin 1,000 mcg Tablet 500 MCG PO (08:52)
[2024-01-05] MEDS: insulin lispro 100 unit/1 mL SUBCUT ×4 (09:09→20:35)
[2024-01-05 10:24] LABS: Glucose Point of Care 184 mg/dL (70-110)
--- NOTE | 2024-01-05 10:53 | PC.SLP ---
No FIELD SERVICE TECH treatment provided. Patient reported he did well with his meal with no difficulty with choking/coughing or mastication.
--- NOTE | 2024-01-05 11:41 | PC.SOCIAL ---
IMM Updated Updated pt on IMM. No questions voiced. Provided pt a copy. Initialed, dated, & timed a copy & placed in chart.
--- NOTE | 2024-01-05 13:07 | PC.CHAP ---
Pastoral Care Encounter/Spiritual Assessment Type of Contact [] Declined rental sales associate visit [] Patient/Family/Request visit [] Outpatient visit [] Follow-up visit [] Physician referral [] Code/Alert [x] Routine visit [] Staff referral [] Actively dying [] Patient sleeping [] Family support [] [] Out of room [] Palliative care [] [] Receiving care in room [] Pre-surgical visit [] Trauma [] Long length of stay [] ICU visit [] Other: Relational/Emotional Strength [x] Patient feels connected with others/family/visitors/staff [] Distress [] Loneliness/isolation [] Abandonment Spirituality of Patient [x] Person of Shelly [x] Attends Evangelical of their Shelly [x] Believes in Prayer []x Reads Bible or Mandaen materials [] There are Spiritual issues to be addressed General Assignment Reporter Interventions [x] Prayer [x] Active listening [] Non-anxious presence [] Spiritual/emotional support [] Crisis/trauma care [] Spiritual counseling [] Bereavement support [] Provided bereavement packet [] Provided Bible/devotional materials [] Provided toy/stuffed animal, coloring book to patient or family member [] Provided Communion [] Anointing/[place] [] Salvation [] Completed spiritual assessment [] Other: Impact on Illness or Injury [] Angry [] Fearful [x] Anxious [] Often cries [] Exhaustion [] Unable to work [] Unable to attend taoist [] Unable to walk/stand [] Unable to read [] Unable to drive [] Unable to eat/drink [] Unable to sleep [] Unable to be with family [] Patient intubated [] Other: Summary P+1 Time spent with patient 40 min
--- NOTE | 2024-01-05 14:29 | P.PN_ITS ---
Subjective 2 Subjective: Patient was examined this morning continues to have wheezing, shortness of breath complaints, no cough Vitals/I&O/Wt Last Vital Signs Temp 97.9 F 01/05/24 11:41 Pulse 80 01/05/24 11:41 Resp 18 01/05/24 11:41 BP 147/62 01/05/24 11:41 Pulse Ox 95 01/05/24 11:41 O2 Del Method Nasal Cannula 01/05/24 11:41 O2 Flow Rate 2 01/05/24 11:27 01/04/24 01/05/24 01/05/24 22:59 06:59 14:59 Intake Total 730 / 730 Balance 730 / 730 Weight last 48 hrs Weight 104.44 kg Weight 103.136 kg Physical Exam 2 Const: COMMON NORMALS: no acute distress and patient oriented x3 Resp: COMMON NORMALS: normal respiratory effort, No retractions and No use of accessory muscles AUSCULTATION: wheezes Cardio: COMMON NORMALS: regular rate, regular rhythm, S1 normal heart sound present and S2 normal heart sound present RATE: regular rate RHYTHM: r egular rhythm HEART SOUNDS: S1 normal heart sound present and S2 normal heart sound present GI: COMMON NORMALS: Normal to inspection, nondistended, normoactive bowel sounds present and non-tender Extremity: COMMON NORMALS: no pedal edema Neuro: COMMON NORMALS: patient oriented x3 Psych: COMMON NORMALS: mental status grossly normal Data 01/05/24 05:07 01/05/24 05:07 A&P Assessment and plan (1) Pneumonia: (2) COPD with acute exacerbation: (3) CKD (chronic kidney disease): Stable continue home meds (4) Diabetes mellitus: Stable continue home meds 1800-calorie ADA diet Start sliding scale insulin before every meal and nightly Qualifiers: Diabetes mellitus complication status: without complication Diabetes mellitus salvage determiner insulin use: unspecified senior care insulin use status D iabetes mellitus type: other specified (including KAJAL) Qualified Code(s): E 13.9 - Other specified diabetes mellitus without complications (5) Hypertension: Blood pressure currently elevated resume home meds and monitor Qualifiers: Hypertension type: primary hypertension Qualified Code(s): I10 - Essential (primary) hypertension (6) Tobacco dependency: Start nicotine patch (7) Acute hypoxic respiratory failure: - Acute hypoxic respiratory failure -Multifactorial # Pneumonia CT/CT chest wo con [id number] IMPRESSION: 1. New areas of nodular airspace opacification and possible tree-in-bud opacities in the xagm-xcnmtaz-gaew-right anterior upper lobes. Correlate with atypical infection. 2. Mild pericardial effusion, new compared to prior study. 3. Ecqux-yj-dikavcfp bilateral pleural effusions, increased in size compared to prior study. -Secondary to COPD exacerbation # Elevated BNP, history of diastolic CHF Plan ? Continue Rocephin -Continue azithromycin ? DuoNeb ? Budesonide ? Continue p.o. steroids ? Continue home p.o. bumetanide ? Monitor respiratory status closely ? Follow blood cultures Plan History of CAD continue aspirin, statin, Plavix, Coreg Hypertension, continue home Imdur, Coreg, Norvasc, hydralazine Full code Lovenox for DVT prophylaxis Creatinine up to 2.7, elevated BUN, IV fluids, hold Bumex Attestations 2 Medical Necessity Statement*: Patient requires hospitalization for acute hypoxia secondary to pneumonia Diagnoses Pneumonia J18.9 COPD with acute exacerbation J44.1 CKD (chronic kidney disease) N18.9 Diabetes mellitus of other type without complication, unspecified whether senior care insulin use E13.9 Diabetes mellitus complication status: without complication Diabetes mellitus salvage determiner insulin use: unspecified senior care insulin use status Diabetes mellitus type: other specified (including KAJAL) Primary hypertension I10 Hypertension type: primary hypertension Tobacco dependency F17.200 Acute hypoxic respiratory failure J96.01
[2024-01-05 16:37] LABS: Glucose Point of Care 232 mg/dL (70-110)
[2024-01-05] MEDS: cholecalciferol (vitamin D3) 1,000 unit Tablet 1000 UNIT PO (20:21)
[2024-01-05] MEDS: trazodone 50 mg Tablet PO (20:21)
[2024-01-05] MEDS: atorvastatin 40 mg Tablet 20 MG PO (20:21)
[2024-01-05 20:25] LABS: Glucose Point of Care 259 mg/dL (70-110)
[2024-01-06] VITALS (8 sets, daily range): BP systolic 151–168; BP diastolic 61–76; PULSE 78–83; RESP 14–18; TEMP 36.4–36.7; O2SAT 87–97; BMI 33.9
[2024-01-06] MEDS: ipratropium-albuterol 3 mL Neb INHALATION ×3 (00:16→07:39)
[2024-01-06 04:47] LABS: Hematocrit 27.5 % (37-53); Lymphocytes # 0.7 10^3/uL (0.8-4.8); Lymphocytes % 8.2 %; Mean Corpuscular HGB Conc 31.6 g/dL (30-55); Mean Corpuscular Hemoglobin 30.4 pg (27-33); Mean Corpuscular Volume 96.2 fl (82-101); Mean Platelet Volume 10.4 fL (7.4-10.4); Monocytes # 0.5 10^3/uL (0.2-0.9); Monocytes % 5.5 %; Neutrophils % 85.8 %; Nucleated Red Blood Cells % 0 %; Platelet Count 194 10^3/cmm (157-399); Red Blood Count 2.86 10^6/uL (3.85-5.65); Red Cell Distribution Width 13.7 % (12.1-15.1); White Blood Count 8.62 10^3/uL (3.29-11.43)
[2024-01-06] MEDS: cefTRIAXone 1,000 mg SDV 1000 MG IVP (05:04)
[2024-01-06] MEDS: enoxaparin 40 mg/0.4 mL Syringe SUBCUT (05:04)
[2024-01-06 05:20] LABS: Anion Gap 12.2 (5-19); Blood Urea Nitrogen 48 mg/dL (8-23); Calcium 7.5 mg/dL (8.5-10.5); Carbon Dioxide 23 mmol/L (22-29); Chloride 107 mmol/L (98-107); Creatinine Clr Calc Pharmacy 35.2165; Glomerular Filtration Rate 29.3 mL/min (90-130); Glucose 177 mg/dL (65-115); Osmolality Calculated 301 mOsm/kg (285-295); Potassium 5.2 mmol/L (3.5-5.1); Sodium 137 mmol/L (136-145)
[2024-01-06 06:55] LABS: Glucose Point of Care 259 mg/dL (70-110)
[2024-01-06] MEDS: budesonide 0.5 mg/2 mL Neb INHALATION (07:39)
[2024-01-06] MEDS: cyanocobalamin 1,000 mcg Tablet 500 MCG PO (08:39)
[2024-01-06] MEDS: pantoprazole DR 40 mg Tablet PO (08:39)
[2024-01-06] MEDS: tamsulosin 0.4 mg Capsule PO (08:39)
[2024-01-06] MEDS: citalopram 20 mg Tablet PO (08:39)
[2024-01-06] MEDS: hyDRALAzine 50 mg Tablet PO (08:39)
[2024-01-06] MEDS: allopurinol 100 mg Tablet PO (08:40)
[2024-01-06] MEDS: carvedilol 12.5 mg Tablet PO (08:40)
[2024-01-06] MEDS: clopidogrel 75 mg Tablet PO (08:40)
[2024-01-06] MEDS: sodium bicarbonate 650 mg Tablet PO (08:40)
[2024-01-06] MEDS: predniSONE 20 mg Tablet PO (08:40)
[2024-01-06] MEDS: amlodipine 5 mg Tablet PO (08:40)
[2024-01-06] MEDS: aspirin 81 mg EC Tablet PO (08:40)
[2024-01-06] MEDS: isosorbide mononitrate ER 60 mg Tablet PO (08:40)
[2024-01-06] MEDS: AZITHROMYCIN ADD-Vantage 500 MG in 0.9% NaCl ADD-Vantage 250 ML 250 MG IV (08:40)
[2024-01-06] MEDS: insulin lispro 100 unit/1 mL SUBCUT (08:41)
--- NOTE | 2024-01-06 10:16 | P.DS_ITS ---
Discharge Providers Date of Admission: 01/03/24 03:00 Date of Discharge: January 06, 2024 Attending Provider at Admission: Asif Suazo MD Attending Provider at Discharge: Jose Johnson MD Primary Care Provider: Yenny Navarro MD Diagnoses at Discharge Discharge Diagnosis (1) Pneumonia: Status: Acute (2) COPD with acute exacerbation: Status: Acute (3) CKD (chronic kidney disease): Status: Chronic (4) Diabetes mellitus: Status: Acute Qualifiers: Diabetes mellitus complication status: without complication Diabetes mellitus wat[employer] insulin use: unspecified skilled nursing insulin use status Diabetes mellitus type: other specified (including KAJAL) Qualified Code(s): E13 .9 - Other specified diabetes mellitus without complications (5) Hypertension: Status: Acute Qualifiers: Hypertension type: primary hypertension Qualified Code(s): I10 - Essential (primary) hypertension (6) Tobacco dependency: Status: Acute (7) Acute hypoxic respiratory failure: Status: Acute Reason for Visit Reason for Visit: SOB Hospital Course Hospital Course This is a 58-year-old male with a past medical history of type 2 diabetes mellitus, CKD, COPD, hypertension, who presents [facility] for shortness of breath, cough Patient was admitted to [facility] for COPD exacerbation, pneumonia, required broad-spectrum antibiotic therapy, oxygen therapy, steroid therapy, overall clinically improved. Patient will be discharged on prednisone burst, Levaquin renally dosed for 5 days, 2 L nasal cannula, with a close follow-up with primary care provider as outpatient - Please have your primary care provider recheck your kidney function in 1 week -Hold Bumex until Monday -Take antibiotics as prescribed -Take steroids as prescribed -Albuterol as needed -Your blood sugars have been high here in the hospital, likely secondary to steroids, likely secondary pneumonia -Please monitor your blood sugars closely -Monitor your blood sugars 3 times daily as after meals -Please record your blood sugars, and a blood sugar log -For your NovoLog -Please inject blood sugar after meals based on sliding scale provided -Do not inject insulin if you do not eat as hypoglycemia kills -This is a NovoLog sliding scale -Insulin sliding ?fingerstick? Insulin ?141-180?0 units/sq 181-220?2 units/sq ?221-260?4 units/sq ?261-300 6 units/sq ?301-350?8 units/sq ?351-400 10 units/sq ?401-450?12 units/sq >450? 14units/sq -If your blood sugar is greater than 500 go to the emergency room -If your blood sugar is less than 60 or at anytime you feel lightheaded or dizzy or diaphoretic or have chest palpitations check your blood sugar, and eat a hard candy or drink orange juice and go immediately to the emergency room -Remember hypoglycemia kills, so if his blood sugar is less than 60 we have to increase it by taking in a sugary meal such as a hard candy or orange juice and go to the emergency room -If you have any questions please call us where here to help Physical Exam Const: COMMON NORMALS: no acute distress and patient oriented x3 Resp: COMMON NORMALS: normal respiratory effort, No retractions, No use of accessory muscles and clear to auscultation bilaterally AUSCULTATION: clear to auscultation bilaterally Cardio: COMMON NORMALS: regular rate, regular rhythm, S1 normal heart sound present and S2 normal heart sound present RATE: regular rate RHYTHM: regular rhythm HEART SOUNDS: S1 normal heart sound present and S2 normal heart sound present GI: COMMON NORMALS: Normal to inspection, nondistended, normoactive bowel sounds present and non-tender Extremity: COMMON NORMALS: no pedal edema Neuro: COMMON NORMALS: patient oriented x3 Psych: COMMON NORMALS: mental status grossly normal Discharge Data Studies Completed and Pending Completed Studies During Hospitalization Category Date Time Status CT chest wo con [id number] Stat Cat Scan 01/03/24 00:13 Completed XR chest 1V portable [id number] Stat Exams 01/02/24 23:12 Completed Pending at discharge Category Date Time Status Basic Metabolic Panel AM LABS Lab 01/07/24 04:00 Ordered Blood Culture Stat Lab 01/02/24 23:12 Results Complete Blood Count w/Auto AM LABS Lab 01/07/24 04:00 Ordered Radiology Impressions Chest X-Ray 01/02/24 23:12 IMPRESSION: 1. Bilateral lower lobe hazy airspace opacities may represent an infectious process. 2. Small left-sided pleural effusion. Chest CT 01/03/24 00:13 IMPRESSION: 1. New areas of nodular airspace opacification and possible tree-in-bud opacities in the hssk-aiopatq-diiv-right anterior upper lobes. Correlate with atypical infection. 2. Mild pericardial effusion, new compared to prior study. 3. Kngjm-cd-oitdtgys bilateral pleural effusions, increased in size compared to prior study. Laboratory Results WBC 8.62 10^3/uL (3.29-11.43) 01/06/24 03:53 RBC 2.86 10^6/uL (3.85-5.65) L 01/06/24 03:53 Hgb 8.70 g/dL (11.27-16.99) L 01/06/24 03:53 Hct 27.5 % (37-53) L 01/06/24 03:53 MCV 96.2 fl (82-101) 01/06/24 03:53 MCH 30.4 pg (27-33) 01/06/24 03:53 MCHC 31.6 g/dL (30-55) 01/06/24 03:53 RDW 13.7 % (12.1-15.1) 01/06/24 03:53 Plt Count 194 10^3/cmm (157-399) 01/06/24 03:53 MPV 10.4 fL (7.4-10.4) 01/06/24 03:53 Neut % (Auto) 85.8 % 01/06/24 03:53 Lymph % (Auto) 8.2 % 01/06/24 03:53 [place] % (Auto) 5.5 % 01/06/24 03:53 Eos % (Auto) 0.0 % 01/06/24 03:53 Baso % (Auto) 0.0 % 01/06/24 03:53 Neut # (Auto) 7.40 10^3/uL (1.8-7.7) 01/06/24 03:53 Lymph # (Auto) 0.7 10^3/uL (0.8-4.8) L 01/06/24 03:53 [place] # (Auto) 0.5 10^3/uL (0.2-0.9) 01/06/24 03:53 Eos # (Auto) 0.0 10^3/uL (0.0-0.8) 01/06/24 03:53 Baso # (Auto) 0.0 10^3/uL (0.0-0.1) 01/06/24 03:53 Nucleated RBC % (auto) 0 % 01/06/24 03:53 Nucleated RBCs # 0.0 /100WBC 01/06/24 03:53 Specimen Type Arterial 01/02/24 23:24 Sample Site Radial, right 01/02/24 23:24 ABG pH 7.42 (7.35-7.45) 01/02/24 23:24 ABG pCO2 37.2 mmHg (35-45) 01/02/24 23: ABG pO2 57.7 mmHg (80.0-100.0) L 01/02/24 23: ABG HCO3 24.1 mmol/L (22-26) 01/02/24 23: ABG O2 Saturation 90.5 01/02/24 23:24 ABG Base Excess -0.2 mmol/L (-2.0-2.0) 01/02/24 23:24 Khanh Test Pos 01/02/24 23:24 A-a O2 Gradient 6.0 mmHg (5-10) 01/02/24 23:24 Hematocrit 26.5 % (42-52) L 01/02/24 23:24 Hgb O2 Saturation 86.5 % (95-100) L 01/02/24 23:24 Carboxyhemoglobin 2.9 %THgb (0.4-20.1) 01/02/24 23:24 Methemoglobin 1.5 % (0.4-1.5) 01/02/24 23:24 Total Hemoglobin 8.6 g/dL (14-18) L 01/02/24 23:24 Sodium 142.0 mmol/L (131-143) 01/02/24 23:24 Potassium 3.8 mmol/L (3.5-5.0) 01/02/24 23:24 Glucose 102.0 mg/dL (70-115) 01/02/24 23:24 Ionized Calcium 1.2 mmol/L (1.1-1.4) 01/02/24 23:24 O2 Delivery Device Nc 01/02/24 23:24 O2 Liters/Min 2.0 % 01/02/24 23:24 Front Desk Monitor ID [email or web address] 01/02/24 23:24 Sodium 137 mmol/L (136-145) 01/06/24 03:53 Potassium 5.2 mmol/L (3.5-5.1) H 01/06/24 03:53 Chloride 107 mmol/L (98-107) 01/06/24 03:53 Carbon Dioxide 23 mmol/L (22-29) 01/06/24 03:53 Anion Gap 12.2 (5-19) 01/06/24 03:53 BUN 48 mg/dL (8-23) H 01/06/24 03:53 Creatinine 2.7 mg/dL (0.7-1.2) H 01/06/24 03:53 GFR Calculation 29.3 mL/min (90-130) L 01/06/24 03:53 Glucose 177 mg/dL (65-115) H 01/06/24 03:53 POC Glucose 259 mg/dL (70-110) H 01/06/24 06:52 Calculated Osmolality 301 mOsm/kg (285-295) H 01/06/24 03:53 Lactic Acid 0.8 mmol/L (0.5-2.2) 01/02/24 23:20 Calcium 7.5 mg/dL (8.5-10.5) L 01/06/24 03:53 Total Bilirubin 0.4 mg/dL (0.15-1.2) 01/02/24 23:20 AST 9 U/L (0-40) 01/02/24 23:20 ALT 7 U/L (0-41) 01/02/24 23:20 Alkaline Phosphatase 118 U/L (40-130) 01/02/24 23:20 Troponin T Baseline 91 ng/L (0-15) H 01/02/24 23:20 Troponin T 120 Minute 88.87 ng/L (0-15) H 01/03/24 01:20 Delta Troponin T -2.13 ABS# (0-10) L 01/03/24 01:20 Troponin T Hi Sens 6Hr 92.81 ng/L (0-15) H 01/03/24 06:08 Troponin T Hi Sens 6Hr Delta 1.81 ng/L (0-12) 01/03/24 06:08 NT-Pro-B Natriuret Pep 1166 pg/mL (0-125) H 01/02/24 23:20 Total Protein 6.0 g/dL (6.6-8.7) L 01/02/24 23:20 Albumin 3.7 g/dL (3.5-5.2) 01/02/24 23:20 Globulin 2.3 g/dL (1.3-4.6) 01/02/24 23:20 Coronavirus (PCR) Negative (Negative) 01/02/24 23:20 Influenza A (PCR) Negative (Negative) 01/02/24 23:20 Influenza Type B (PCR) Negative (Negative) 01/02/24 23:20 RSV (PCR) Negative (Negative) 01/02/24 23:20 Vitals Last Vital Signs Temp 98.0 F 01/06/24 08:00 Pulse 83 01/06/24 08:00 Resp 14 01/06/24 08:00 BP 151/61 01/06/24 08:00 Pulse Ox 91 01/06/24 09:48 O2 Del Method Nasal Cannula 01/06/24 08:00 O2 Flow Rate 2 01/06/24 09:48 Discharge Plan Discharge Patient Disposition: Home Condition: Stable Prescriptions: New benzonatate 100 mg Capsule 100 mg PO TID PRN (Reason: Cough) 5 Days Qty: 15 0RF prednisone 20 mg Tablet 20 mg PO BID 5 Days Qty: 10 0RF (DME) glucometer testing kit See Rx Instructions .Route .MEDSUPPLY Qty: 1 0RF Rx Instructions: Glucometer testing kit, check blood sugars 3 times daily Lancets #100 Strips #100 insulin aspart U-100 [Novolog FlexPen U-100 Insulin] 100 unit/mL (3 mL) insulin pen See Rx Instructions .ROUTE .COMPLEX Qty: 15 0RF Rx Instructions: Inject, subcut, 3 times daily, after meals, based on sliding scale provided levofloxacin 500 mg tablet 500 mg PO DAILY 5 Days Qty: 5 0RF Continued allopurinol 100 mg tablet 100 mg PO DAILY aspirin [Adult Aspirin Regimen] 81 mg tablet,delayed release (DR/EC) 81 mg PO DAILY docusate sodium 100 mg capsule 100 mg PO BID PRN (Reason: Constipation) dulaglutide 1.5 mg/0.5 mL pen injector 1.5 mg SUBCUT Q7D Rx Instructions: On Monday loperamide 2 mg capsule 2 mg PO QID PRN (Reason: loose stool) Qty: 14 0RF Rx Instructions: 2 tabs on first dose, 1 tab after that after each unformed stool, up to 7 tabs/day sodium bicarbonate 650 mg tablet 650 mg PO DAILY hydralazine 50 mg tablet 50 mg PO TID Qty: 270 3RF isosorbide mononitrate 60 mg tablet extended release 24 hr 60 mg PO DAILY Qty: 90 3RF simvastatin 10 mg tablet 10 mg PO BEDTIME trazodone 50 mg tablet 50 mg PO BEDTIME clopidogrel 75 mg tablet 75 mg PO DAILY tamsulosin 0.4 mg capsule 0.4 mg PO DAILY cholecalciferol (vitamin D3) [Vitamin D3] 25 mcg (1,000 unit) Tablet 75 mcg PO BEDTIME cyanocobalamin (vitamin B-12) [Vitamin B-12] 1,000 mcg Tablet 500 mcg PO DAILY Qty: 30 0RF carvedilol 12.5 mg tablet 12.5 mg PO BID esomeprazole magnesium 40 mg capsule,delayed release(DR/EC) 40 mg PO BID budesonide-formoterol [Symbicort] 160-4.5 mcg/actuation Hfa Aerosol Inhaler 1 puff INHALATION BID PRN (Reason: unknown) hydrocodone-acetaminophen 5-325 mg tablet 1 tab PO Q6H PRN (Reason: pain) Qty: 10 0RF levocetirizine [24HR Allergy Relief] 5 mg tablet 5 mg PO DAILY PRN (Reason: allergy symptoms) Qty: 20 0RF Changed albuterol sulfate 90 mcg/actuation HFA aerosol inhaler 1 inh inhalation Q6H PRN (Reason: shortness of breath or wheezing) Qty: 8.5 0RF Held bumetanide 0.5 mg tablet 0.5 mg PO BID Hold Instructions: Resume on 01/08/24. Discharge Orders: Discharge Order (Routine); Ordered 01/06/24 Ordered By: Jose Johnson Other Ambulatory Orders: DME: Oxygen (Order) Location: None Selected Ordered By: Jose Johnson Referrals: Yenny Navarro MD [Primary Care Provider] - 01/11/24 11:00 am (You have a hospital follow-up appointment to see Dr Navarro January 10 at 11:00. ) Discharge Diet: Cardiac Discharge Activity: Resume usual activity Patient Instructions: COPD, Prednisone (By mouth), Levofloxacin (By mouth), Insulin Aspart, Recombinant (By injection), Using Oxygen at Home (DC), COPD Stoplight, Opioid Safety Activity Restrictions/Additional Instructions: - Please have your primary care provider recheck your kidney function in 1 week -Hold Bumex until Monday -Take antibiotics as prescribed -Take steroids as prescribed -Albuterol as needed -Your blood sugars have been high here in the hospital, likely secondary to steroids, likely secondary pneumonia -Please monitor your blood sugars closely -Monitor your blood sugars 3 times daily as after meals -Please record your blood sugars, and a blood sugar log -For your NovoLog -Please inject blood sugar after meals based on sliding scale provided -Do not inject insulin if you do not eat as hypoglycemia kills -This is a NovoLog sliding scale -Insulin sliding ?fingerstick? Insulin ?141-180?0 units/sq 181-220?2 units/sq ?221-260?4 units/sq ?261-300 6 units/sq ?301-350?8 units/sq ?351-400 10 units/sq ?401-450?12 units/sq >450? 14units/sq -If your blood sugar is greater than 500 go to the emergency room -If your blood sugar is less than 60 or at anytime you feel lightheaded or dizzy or diaphoretic or have chest palpitations check your blood sugar, and eat a hard candy or drink orange juice and go immediately to the emergency room -Remember hypoglycemia kills, so if his blood sugar is less than 60 we have to increase it by taking in a sugary meal such as a hard candy or orange juice and go to the emergency room -If you have any questions please call us where here to help Discharge Attestations Time Spent in Discharge Care*: greater than 30 min Status at Discharge: Cognitive status at discharge: cognitively intact , Behavioral status at discharge: cooperative , Quality Metrics Clinical Quality Measures [ No reported AMI, CVA or VTE this stay] Coding Level of Care Code Acute Code for [facility] Fwd Diagnoses Pneumonia J18.9 COPD with acute exacerbation J44.1 CKD (chronic kidney disease) N18.9 Diabetes mellitus of other type without complication, unspecified whether [employer] insulin use E13.9 Diabetes mellitus complication status: without complication Diabetes mellitus skilled nursing insulin use: unspecified watcher [employer] insulin use status Diabetes mellitus type: other specified (including KAJAL) Primary hypertension I10 Hypertension type: primary hypertension Tobacco dependency F17.200 Acute hypoxic respiratory failure J96.01
--- NOTE | 2024-01-06 10:24 | PC.NURSE ---
Patient qualifies for 2L O2 per NC while ambulating. Choice for DME obtained, patient chose [facility], choice sheet signed and placed in chart. This nurse spoke with Xin at [facility] who will call the automobile service station mechanic drivers' cash clerk for [facility] to get patient set up with home oxygen and a tank to go home on.
== END 2024-01-06 14:00 | disposition home or self-care (01) | DRG 193 ==
LOC: ER 01-03 02:35 → MEDSURG 01-03 03:00
PROVIDERS: Admitting Provider Internal Medicine; Emergency Provider Emergency Medicine; PCP Family Medicine; Visit Provider Family Medicine
DX: J18.9 Pneumonia, unspecified organism (principal); J96.01 Acute respiratory failure with hypoxia; J44.0 Chronic obstructive pulmonary disease with (acute) lower respiratory infection; J44.1 Chronic obstructive pulmonary disease with (acute) exacerbation; I13.0 Hypertensive heart and chronic kidney disease with heart failure and stage 1 through stage 4 chronic kidney disease, or unspecified chronic kidney disease; I50.30 Unspecified diastolic (congestive) heart failure; F17.200 Nicotine dependence, unspecified, uncomplicated; E11.51 Type 2 diabetes mellitus with diabetic peripheral angiopathy without gangrene; E11.22 Type 2 diabetes mellitus with diabetic chronic kidney disease; N18.9 Chronic kidney disease, unspecified; M10.9 Gout, unspecified; I25.10 Atherosclerotic heart disease of native coronary artery without angina pectoris; Z79.82 Long term (current) use of aspirin; Z79.02 Long term (current) use of antithrombotics/antiplatelets; Z79.85 Long-term (current) use of injectable non-insulin antidiabetic drugs; Z79.01 Long term (current) use of anticoagulants; Z85.038 Personal history of other malignant neoplasm of large intestine; Z85.09 Personal history of malignant neoplasm of other digestive organs
CPT/HCPCS: 0241U; 36415; 36416; 36600; 71045; 71250; 80048; 80051; 80053; 82330; 82805; 82962; 83605; 83880; 84484; 85025; 87040; 92610; 93005; 94640; 94760; 96365; 96372; 96375; 99285; J0456; J0696; J1650; J1815; J1940; J2919; J3490; J7030; J7050; J7512; J7613; J7626

== ENCOUNTER 2024-01-12 13:47 | Outpatient (CLI) | payer MEDICARE, MEDICAID, SELFPAY ==
[2024-01-12 14:44] LABS: Anion Gap 15.9 (5-19); Blood Urea Nitrogen 51 mg/dL (8-23); Calcium 7.6 mg/dL (8.5-10.5); Carbon Dioxide 19 mmol/L (22-29); Chloride 105 mmol/L (98-107); Glomerular Filtration Rate 29.3 mL/min (90-130); Glucose 193 mg/dL (65-115); Osmolality Calculated 299 mOsm/kg (285-295); Potassium 4.9 mmol/L (3.5-5.1); Sodium 135 mmol/L (136-145)
== END 2024-01-12 13:48 | disposition home or self-care (01) ==
LOC: LAB 13:49
PROVIDERS: PCP Family Medicine; Visit Provider Family Medicine
DX: N18.30 Chronic kidney disease, stage 3 unspecified (principal)
CPT/HCPCS: 36415; 80048

== ENCOUNTER 2024-01-15 20:40 | Inpatient (IN) | payer MEDICARE, MEDICAID, SELFPAY ==
[2024-01-15 20:41] VITALS: BP 139/61; PULSE 86; RESP 22; TEMP 36.8; O2SAT 91; BMI 33.7
--- NOTE | 2024-01-15 20:44 | XRR_ITS ---
PROCEDURE INFORMATION: Exam: XR Chest Exam date and time: 01/15/2024 9:01 PM Age: 58 years old Clinical indication: Shortness of breath TECHNIQUE: Imaging protocol: Radiologic exam of the chest. Views: 1 view. COMPARISON: X-ray chest 06/26/2023 1:34 PM FINDINGS: Lungs: No CHF/pulmonary edema. Mild left lower lung opacities could represent atelectasis/scarring and/or pneumonia. Please correlate clinically. Visible lungs otherwise appear essentially clear. Pleural spaces: Suspect a small bilateral pleural effusions, greater on the left. No visible pneumothorax. Heart/Mediastinum: Heart size appears upper range of normal. Bones/joints: No significant acute finding. XR/XR chest 1V portable [id number] IMPRESSION: 1. Mild left lower lung opacities, see above discussion. 2. Suspect small bilateral pleural effusions. 3. No definite CHF/pulmonary edema. 4. Other findings discussed above.
--- NOTE | 2024-01-15 20:44 | ECG_ITS ---
[facility] Test Date: 2024-01-15 Pat Name: Alek Hopper Department: Room: Gender: Male Gandy Dancer: : 1965 Requested By: Crissy Butler Order Number: [id number] Dalton MD: Akiko Vaughn M.D. Measurements Intervals [place] Rate: 85 P: 58 AL: 159 QRS: 17 QRSD: 97 T: 85 QT: 363 QTc: 433 Interpretive Statements SINUS RHYTHM INCOMPLETE RIGHT BUNDLE BRANCH BLOCK [90+ ms QRS DURATION, TERMINAL R IN V1/V2, 40+ ms S IN I/aVL/V4/V5/V6] SEPTAL MYOCARDIAL INFARCTION , OF INDETERMINATE AGE [40+ ms Q WAVE IN V1/V2] Compared to ECG 01/03/2024 05:25:29 Incomplete right bundle-branch block now present Myocardial infarct finding now present Electronically Signed On 01-18-2024 21:31:16 [employer] by Akiko Vaughn M.D. [email or web address]
[2024-01-15 21:01] VITALS: BP 137/88; PULSE 94; RESP 18; TEMP 36.8; O2SAT 98; BMI 27.2
--- NOTE | 2024-01-15 21:01 | W.ED.SOB ---
HPI - SOB/Dyspnea General: Chief Complaint: Upper Respiratory Infection Stated Complaint: SOb Time Seen by Provider: 01/15/24 20:43 History of Present Illness: HPI Narrative: 58-year-old man with history of COPD, chronic hypoxemic respiratory failure on 2 L nasal cannula at all times, chronic kidney disease, possible congestive heart failure and diabetes who presents emergency room with shortness of breath. He was admitted to the hospital recently and treated for acute kidney injury and pneumonia. He been taken off his diuretic for a few days and now his swelling has increased quite a bit in his feet. I say that check labs at his primary about 4 days ago and his potassium was up and they restarted his Bumex. He is had some cough. They say just never really got better but he had told the hospitalist that he was doing better so he could go home. No altered mental status. No focal motor deficits. He did have some chest pain this afternoon. Related Data Home Medications Medication Instructions Recorded Confirmed allopurinol 100 mg tablet 100 mg PO DAILY 03/10/20 01/03/24 aspirin 81 mg tablet,delayed 81 mg PO DAILY 03/10/20 01/03/24 release (Adult Aspirin Regimen) docusate sodium 100 mg capsule 100 mg PO BID PRN Constipation 03/10/20 01/03/24 dulaglutide 1.5 mg/0.5 mL 1.5 mg SUBCUT Q7D 03/10/20 01/03/24 subcutaneous pen injector simvastatin 10 mg tablet 10 mg PO BEDTIME 01/03/22 01/03/24 cholecalciferol (vitamin D3) 25 75 mcg PO BEDTIME 08/13/22 01/03/24 mcg (1,000 unit) tablet (Vitamin D3) clopidogrel 75 mg tablet 75 mg PO DAILY 08/13/22 01/03/24 tamsulosin 0.4 mg capsule 0.4 mg PO DAILY 08/13/22 01/03/24 trazodone 50 mg tablet 50 mg PO BEDTIME 08/13/22 01/03/24 budesonide-formoterol HFA 160 1 puff inhalation BID PRN unknown 02/13/23 01/03/24 mcg-4.5 mcg/actuation aerosol inhaler (Symbicort) bumetanide 0.5 mg tablet 0.5 mg PO BID 02/13/23 01/03/24 carvedilol 12.5 mg tablet 12.5 mg PO BID 02/13/23 01/03/24 esomeprazole magnesium 40 mg 40 mg PO BID 02/13/23 01/03/24 capsule,delayed release sodium bicarbonate 650 mg tablet 650 mg PO DAILY 07/04/23 01/03/24 Previous Rx's Medication Instructions Recorded loperamide 2 mg capsule 2 mg PO QID PRN loose stool #14 08/09/22 caps cyanocobalamin (vitamin B-12) 500 mcg (1/2 x 1,000 mcg) PO DAILY 08/16/22 1,000 mcg tablet (Vitamin B-12) #30 tabs hydrocodone 5 mg-acetaminophen 325 1 tab PO Q6H PRN pain #10 tabs 02/13/23 mg tablet levocetirizine 5 mg tablet (24HR 5 mg PO DAILY PRN allergy symptoms 06/26/23 Allergy Relief) #20 tabs hydralazine 50 mg tablet 50 mg PO TID #270 tabs 09/26/23 isosorbide mononitrate 60 mg 60 mg PO DAILY #90 tabs 10/06/23 tablet,extended release 24 hr albuterol sulfate 90 mcg/actuation 1 inh inhalation Q6H PRN shortness 01/06/24 aerosol inhaler of breath or wheezing #8.5 grams glucometer testing kit #1 ea 01/06/24 insulin aspart U-100 100 unit/mL See Rx Instructions .Route 01/06/24 (3 mL) subcutaneous pen (Novolog .COMPLEX #15 mL FlexPen U-100 Insulin aspart) Allergies Allergy/AdvReac Type Severity Reaction Status Date / Time aspirin Allergy ALGY-Hives Verified 01/15/24 21:06 Review of Systems Narrative: Constitutional symptoms: Negative except as documented in HPI. Skin symptoms: Negative except as documented in HPI. Eye symptoms: Negative except as documented in HPI. ENMT symptoms: Negative except as documented in HPI. Respiratory symptoms: Negative except as documented in HPI. Cardiovascular symptoms: Negative except as documented in HPI. Gastrointestinal symptoms: Negative except as documented in HPI. Genitourinary symptoms: Negative except as documented in HPI. Musculoskeletal symptoms: Negative except as documented in HPI. Neurologic symptoms: Negative except as documented in HPI. Psychiatric symptoms: Negative except as documented in HPI. Endocrine symptoms: Negative except as documented in HPI. PFSH ED PFSH: Medical History (Updated 01/15/24 @ 22:45 by Crissy Cuevas MD) Chronic kidney disease CKD (chronic kidney disease) Chest pain Carotid bruit Gout Peripheral vascular disease History of peripheral stenting Gallbladder cancer Colon cancer COPD (chronic obstructive pulmonary disease) Abscess of face Peripheral arterial disease Diabetes mellitus Cancer Hypertension Glaucoma Surgical History History of PTCA History of partial colectomy History of cholecystectomy Family History Brother Bleeding disorder Clotting disorder CAD (coronary artery disease) Cancer Diabetes x 5 Stroke Sister Bleeding disorder Clotting disorder Chronic kidney disease (CKD) Diabetes x 6 Lung disease x 2 Stroke Father Bleeding disorder Clotting disorder CAD (coronary artery disease) Chronic kidney disease (CKD) Diabetes Mother CAD (coronary artery disease) Cancer Diabetes Stroke Grandfather CAD (coronary artery disease) Cancer Diabetes Grandmother Cancer Dementia Diabetes Family/Other Cancer Chronic kidney disease (CKD) Dementia Diabetes Lung disease Denies family history of Suicide Anesthesia complication Social History Smoking and tobacco/nicotine status: current every day tobacco/nicotine user Quit status (tobacco/nicotine): has tried quititng Second hand smoke exposure: Yes Alcohol intake: never Substance/Drug Use: never Adopted: No Caregiver/support person: No Lives independently: Yes Household members: spouse Housing: Apartment Marital status: Number of children: 4 Number of grandchildren: 1 Highest education level completed: 12th Grade, No Diploma service: No Current occupational status: disabled Current occupational exposures/hazards: No Pets and animals: No Leisure activites: exercise and clubs Sexually active: No Do you think of yourself as: Straight/Heterosexual Current gender identity: Male Shelly/Sabianist: Yazidism Special shelly needs: No Agree to transfusion: Yes Physical Exam Narrative: EXAM NARRATIVE: General: Alert, no acute distress. Skin: Warm, dry. Head: Normocephalic, atraumatic. Neck: Supple, trachea midline. Eye: Extraocular movements are intact. Ears, nose, mouth and throat: Oral mucosa moist. Cardiovascular: Regular rate and rhythm, Normal peripheral perfusion. 3+ pitting edema of the feet 2+ shins. Respiratory: some expiratory wheeze, mild increased wob, breath sounds are equal, Symmetrical chest wall expansion. Gastrointestinal: Soft, Nontender, Non distended, Normal bowel sounds. Musculoskeletal: Normal ROM, no deformity. Neurological: Alert and oriented to person, place, time, and situation, No focal neurological deficit observed. Psychiatric: Cooperative, appropriate mood & affect. Course Vital Signs: Vital signs: Vital Signs Temperature 98.3 F 01/15/24 21:01 Pulse Rate 94 01/15/24 21:01 Respiratory Rate 18 01/15/24 21:01 Blood Pressure 137/88 01/15/24 21:01 Pulse Oximetry 98 01/15/24 21:01 Oxygen Delivery Me thod Nasal Cannula 01/15/24 21:38 Oxygen Flow Rate 2 01/15/24 21:38 MDM - SOB/Dyspnea Medical Decision Making Differential diagnosis for patient with shortness of breath includes but is not limited to and based on the above HPI, review of systems and physical exam: Pneumonia. Bronchitis. Asthma or COPD with acute exacerbation. Acute coronary syndrome / [place]. Pulmonary embolism. Anxiety. Congestive heart failure. Viral infections including influenza and Covid-19. Atrial fibrillation. Anxiety. Pleural effusion. Pneumothorax. Orders placed to evaluate differential diagnosis based on the above differential, HPI and physical exam EKG: Time 2044. Rate 85. Normal sinus rhythm, nonspecific ST changes, no ectopy, incomplete right bundle branch block, This was reviewed and interpreted by myself the ER physician at 2046. Repeat EKG: Time 225. Rate 78. Normal sinus rhythm, nonspecific ST changes/Q waves, no ectopy, n incomplete right bundle branch block, This was reviewed and interpreted by myself the ER physician at 2300. No significant changes from EKG done previously today in the emergency room. Chest x-ray: Mild lower lung opacities possible pleural effusions. No definite CHF or pulmonary edema. This was reviewed and interpreted by myself the emergency room physician. I also reviewed the radiology report. Lab Review: Laboratory results were reviewed and interpreted by myself the emergency room physician. Mild leukocytosis with a hemoglobin of 11.5. Stable anemia with hemoglobin 8. BUN and creatinine are elevated over his baseline at 37 and 3.0. Over the last 6 months he has stayed around 2.4-2.7. proBNP is elevated over his baseline around 1999. Liver enzymes are normal. COVID flu and RSV are negative. CT of the chest: This was done secondary to an abnormal chest x-ray to help further identify what pathology is going on with the patient at this point. Parenchymal scarring. Resolution of previously seen upper lobe opacities. Some mediastinal hilar lymph nodes. Small pericardial effusion. This was reviewed and interpreted by myself the emergency room physician. I also reviewed the radiology report. See full report below I reviewed the patient's medical record. Reexamination: Patient is resting comfortably in oxygenating well on his 2 L nasal cannula. He wakes up and talks to me. I spoke with his at length. No altered mental status. No focal motor deficits. Consultation: I spoke with Dr. Johnson who is on-call for the hospitalist service who agrees to admitting the patient Assessment and plan: Acute on chronic renal failure Dyspnea Pleural effusions Chronic hypoxemic respiratory failure Worsening edema Elevated troponin Coronary artery disease Chest pain ?Breathing treatment and Solu-Medrol in the emergency room. I am holding on any diuretics as his renal function is worse but his swelling is worse as well. -I discussed the patient with the hospitalist on-call who is admitting the patient. - Discussed findings and plan with patient. Answered any questions. - All laboratory values were reviewed and interpreted personally by myself, the ER physician - All imaging was reviewed and interpreted personally by myself, the ER physician. - Evaluation and treatment of this problem were appropriate in the emergency setting Lab Data 01/15/24 21:27 01/15/24 21:27 Labs/Radiology: Radiology Impressions Chest X-Ray 01/15/24 20:44 IMPRESSION: 1. Mild left lower lung opacities, see above discussion. 2. Suspect small bilateral pleural effusions. 3. No definite CHF/pulmonary edema. 4. Other findings discussed above. Chest CT 01/15/24 21:17 IMPRESSION: 1. Mild probable parenchymal scarring or atelectasis in the left lower lung, not significantly changed. 2. Interval resolution of previously seen upper lobe opacities. 3. Small bilateral pleural effusions, slightly decreased in the interval. 4. Several borderline prominent mediastinal and hilar lymph nodes, similar to the prior exam. 5. Small pericardial effusion, not significantly changed. 6. Stable left adrenal nodule, see above. 7. Other findings discussed above. Laboratory Results WBC 11.49 10^3/uL (3.29-11.43) H 01/15/24 21:27 RBC 2.69 10^6/uL (3.85-5.65) L 01/15/24 21: Hgb 8.00 g/dL (11.27-16.99) L 01/15/24 21: Hct 25.0 % (37-53) L 01/15/24: MCV 92.9 fl (82-101) 01/15/24 21: MCH 29.7 pg (27-33) 01/15/24 21: MCHC 32.0 g/dL (30-55) 01/15/24 21: RDW 14.3 % (12.1-15.1) 01/15/24: Plt Count 150 10^3/cmm (157-399) L 01/15/24: MPV 10.7 fL (7.4-10.4) H 01/15/24: Neut % (Auto) 76.1 % 01/15/24: Lymph % (Auto) 12.0 % 01/15/24: [place] % (Auto) 10.5 % 01/15/24 21: Eos % (Auto) 0.8 % 01/15/24: Baso % (Auto) 0.2 % 01/15/24: Neut # (Auto) 8.74 10^3/uL (1.8-7.7) H 01/15/24: Lymph # (Auto) 1.4 10^3/uL (0.8-4.8) 01/15/24: [place] # (Auto) 1.2 10^3/uL (0.2-0.9) H 01/15/24 21: Eos # (Auto) 0.1 10^3/uL (0.0-0.8) 01/15/24: Baso # (Auto) 0.0 10^3/uL (0.0-0.1) 01/15/24: Nucleated RBC % (auto) 0 % 01/15/24: Nucleated RBCs # 0.0 /100WBC 01/15/24 21: Specimen Type Arterial 01/15/24 21:40 Sample Site Radial, right 01/15/24 21:40 ABG pH 7.37 (7.35-7.45) 01/15/24 21:40 ABG pCO2 37.4 mmHg (35-45) 01/15/24 21:40 ABG pO2 52.6 mmHg (80.0-100.0) L 01/15/24 21:40 ABG PO2/FiO2 Ratio 187 01/15/24 21:40 ABG HCO3 21.4 mmol/L (22-26) L 01/15/24 21:40 ABG O2 Saturation 86.4 01/15/24 21:40 ABG Base Excess -3.6 mmol/L (-2.0-2.0) L 01/15/24 21:40 Khanh Test Pos 01/15/24 21:40 A-a O2 Gradient 13.1 mmHg (5-10) H 01/15/24 21:40 Hematocrit 25.8 % (42-52) L 01/15/24 21:40 Hgb O2 Saturation 82.8 % (95-100) L 01/15/24 21:40 Carboxyhemoglobin 2.6 %THgb (0.4-20.1) 01/15/24 21:40 Methemoglobin 1.6 % (0.4-1.5) H 01/15/24 21:40 Total Hemoglobin 8.4 g/dL (14-18) L 01/15/24 21:40 Sodium 139.0 mmol/L (131-143) 01/15/24 21:40 Potassium 4.5 mmol/L (3.5-5.0) 01/15/24 21:40 Glucose 148.0 mg/dL (70-115) H 01/15/24 21:40 Ionized Calcium 1.2 mmol/L (1.1-1.4) 01/15/24 21:40 O2 Delivery Device Nc 01/15/24 21:40 O2 Liters/Min 2.0 % 01/15/24 21:40 FiO2 28.0 % 01/15/24 21:40 Carpenter Supervisor [employer] ID Ed 01/15/24 21:40 Sodium 137 mmol/L (136-145) 01/15/24 21:27 Potassium 4.7 mmol/L (3.5-5.1) 01/15/24 21:27 Chloride 108 mmol/L (98-107) H 01/15/24 21:27 Carbon Dioxide 19 mmol/L (22-29) L 01/15/24 21:27 Anion Gap 14.7 (5-19) 01/15/24 21:27 BUN 37 mg/dL (8-23) H 01/15/24 21:27 Creatinine 3.0 mg/dL (0.7-1.2) H 01/15/24 21:27 GFR Calculation 26.0 mL/min (90-130) L 01/15/24 21: Glucose 163 mg/dL (65-115) H 01/15/24 21:27 Calculated Osmolality 296 mOsm/kg (285-295) H 01/15/24 21: Calcium 7.6 mg/dL (8.5-10.5) L 01/15/24 21: Total Bilirubin 0.2 mg/dL (0.15-1.2) 01/15/24 21: AST 10 U/L (0-40) 01/15/24 21: ALT 9 U/L (0-41) 01/15/24 21: Alkaline Phosphatase 89 U/L (40-130) 01/15/24 21:27 Troponin T Baseline 108 ng/L (0-15) H* 01/15/24 21: NT-Pro-B Natriuret Pep 1895 pg/mL (0-125) H 01/15/24 21:27 Total Protein 5.7 g/dL (6.6-8.7) L 01/15/24 21: Albumin 3.3 g/dL (3.5-5.2) L 01/15/24 21: Globulin 2.4 g/dL (1.3-4.6) 01/15/24 21:27 Coronavirus (PCR) Negative (Negative) 01/15/24 21:27 Influenza A (PCR) Negative (Negative) 01/15/24 21: Influenza Type B (PCR) Negative (Negative) 01/15/24 21: RSV (PCR) Negative (Negative) 01/15/24 21:27 All radiology interpretation(s) finalized by discharge Discharge Plan Discharge Patient Disposition: Admitted As Inpatient Admit Provider: Genevieve Johnson Clinical Impression: Dyspnea, Elevated troponin, Chest pain, Coronary artery disease, Chronic hypoxemic respiratory failure, Acute on chronic renal insufficiency Condition: Stable 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
--- NOTE | 2024-01-15 21:17 | CTR_ITS ---
PROCEDURE INFORMATION: Exam: CT Chest Without Contrast; Diagnostic Exam date and time: 01/15/2024 9:37 PM Age: 58 years old Clinical indication: Abnormal findings; Abnormal radiologic exam of lung or chest; Patient HX: Recent pneumonia, HX of chf, copd; Additional info: Abnormal chest xray TECHNIQUE: Imaging protocol: Diagnostic computed tomography of the chest without contrast. Radiation optimization: All CT scans at this facility use at least one of these dose optimization techniques: automated exposure control; mA and/or kV adjustment per patient size (includes targeted exams where dose is matched to clinical indication); or iterative reconstruction. COMPARISON: CT chest wo con [id number] 01/03/2024 12:36 AM RADIATION DOSE METRICS: Total DLP (mGy-cm): 676.51 FINDINGS: Lungs: The previously seen nodular airspace opacities in the upper lobes have essentially resolved in the interval. Mild probable parenchymal scarring or atelectasis in the left lower lung, not significantly changed. Pleural spaces: No evidence for pneumomediastinum or pneumothorax. Small bilateral pleural effusions, slightly decreased in the interval. Heart: Small pericardial effusion, not significantly changed. Coronary arteries: Coronary artery calcifications noted. Lymph nodes: Several borderline prominent mediastinal and hilar lymph nodes, similar to the prior exam. Vasculature: No evidence of focal thoracic aortic aneurysm. Gallbladder and biliary ducts: Prior cholecystectomy, no significant biliary tree dilation. Images that include the upper abdomen otherwise appear essentially unremarkable for age. Adrenal glands/upper abdomen: is a 23 mm nodule in the left adrenal gland, not significantly changed. Statistically, this is most likely a benign adenoma. In addition, it measures essentially water attenuation. The right adrenal gland appears unremarkable. Prior cholecystectomy, no significant biliary tree dilation. Images of the include the upper abdomen otherwise appear essentially unremarkable for age. Bones/joints: Mild to moderate degenerative disc changes throughout the thoracic spine. Soft tissues: Some subcutaneous edema is again seen in the thorax and upper abdominal garrett. CT/CT chest wo con [id number] IMPRESSION: 1. Mild probable parenchymal scarring or atelectasis in the left lower lung, not significantly changed. 2. Interval resolution of previously seen upper lobe opacities. 3. Small bilateral pleural effusions, slightly decreased in the interval. 4. Several borderline prominent mediastinal and hilar lymph nodes, similar to the prior exam. 5. Small pericardial effusion, not significantly changed. 6. Stable left adrenal nodule, see above. 7. Other findings discussed above.
[2024-01-15 21:35] LABS: Basophils % 0.2 %; Eosinophils # 0.1 10^3/uL (0.0-0.8); Eosinophils % 0.8 %; Lymphocytes # 1.4 10^3/uL (0.8-4.8); Mean Corpuscular Hemoglobin 29.7 pg (27-33); Mean Corpuscular Volume 92.9 fl (82-101); Mean Platelet Volume 10.7 fL (7.4-10.4); Monocytes # 1.2 10^3/uL (0.2-0.9); Monocytes % 10.5 %; Neutrophils # 8.74 10^3/uL (1.8-7.7); Neutrophils % 76.1 %; Nucleated Red Blood Cells % 0 %; Platelet Count 150 10^3/cmm (157-399); Red Blood Count 2.69 10^6/uL (3.85-5.65); Red Cell Distribution Width 14.3 % (12.1-15.1); White Blood Count 11.49 10^3/uL (3.29-11.43)
[2024-01-15 21:49] LABS: ABG PCO2 37.4 mmHg (35-45); ABG PH Result 7.37 (7.35-7.45); Arterial Blood Gas Hematocrit 25.8 % (42-52); Base Excess ABG -3.6 mmol/L (-2.0-2.0); Blood Gas Allen Test Pos; Blood Gas Sample Type Arterial; Carboxyhemoglobin 2.6 %THgb (0.4-20.1); HCO3 ABG 21.4 mmol/L (22-26); HGB O2 Sat 82.8 % (95-100); Ionized Calcium Level - ABG 1.2 mmol/L (1.1-1.4); Methemoglobin 1.6 % (0.4-1.5); Oxygen Saturation ABG 86.4; PO2 ABG 52.6 mmHg (80.0-100.0); Potassium Level - ABG 4.5 mmol/L (3.5-5.0); Total Hemoglobin 8.4 g/dL (14-18)
[2024-01-15 21:50] LABS: Alveolar-Arterial Oxygen Gradi 13.1 mmHg (5-10); Blood Gas Operator Identificat ED; Blood Gas Sample Site Radial, right; Oxygen Device NC; PO2 FiO2 Ratio Arterial Blood 187
[2024-01-15 21:57] LABS: Troponin(5th) Baseline 108 ng/L (0-15)
[2024-01-15 22:05] LABS: Alanine Aminotransferase 9 U/L (0-41); Albumin Level 3.3 g/dL (3.5-5.2); Anion Gap 14.7 (5-19); Aspartate Amino Transferase 10 U/L (0-40); Blood Urea Nitrogen 37 mg/dL (8-23); Calcium 7.6 mg/dL (8.5-10.5); Carbon Dioxide 19 mmol/L (22-29); Chloride 108 mmol/L (98-107); Creatinine Clr Calc Pharmacy 28.9901; Globulin 2.4 g/dL (1.3-4.6); Glucose 163 mg/dL (65-115); NT Pro B Type Natriuretic Pept 1895 pg/mL (0-125); Osmolality Calculated 296 mOsm/kg (285-295); Potassium 4.7 mmol/L (3.5-5.1); Sodium 137 mmol/L (136-145); Total Bilirubin 0.2 mg/dL (0.15-1.2); Total Protein 5.7 g/dL (6.6-8.7)
[2024-01-15 22:25] LABS: Covid PCR NEGATIVE (Negative); Influenza A NEGATIVE (Negative); Influenza B NEGATIVE (Negative); Respiratory Syncytial Virus Ce NEGATIVE (Negative)
--- NOTE | 2024-01-15 22:44 | P.HP_ITS ---
Providers/Chief Complaint 2 Primary Care Provider: Yenny Navarro MD Chief Complaint: SOb History of Present Illness Alek Hopper is a 58 year old male With history of chronickidney disease, hypertension, chronic anemia, present with chief complaint of shortness of breath and chest discomfort.Patient was recently discharged from the hospital offer management of pneumonia, Has history of preserved ejection fraction, COPD uses 2 L at baseline. Patient isStating that he was asked to hold diuretics, but his worsening of swelling and hyperkalemia prompted him to continue bumex 0.5 mg twice a day. Patient has follow-up with Dr. Carballo receiving manager as well who has diagnosed him in stage IV kidney disease and wanted to follow-up on him closely. Patient is stating that he has been getting short of breath associated w orthopnea PND, gained couple of pounds as well, he does not watch his sodium and fluid intake, today he started spearing seeing chest soreness which lasted for about an hour it was associated with shortness of breath and nausea and diaphoresis. He is not endorsing fever, diarrhea or vomiting. Patient is denying previous history of coronary disease or stent. No family history of early NM. In the ER he has been diagnosed with non-STEMI currently requiring 2 L of oxygen, patient is stating that he only uses 2 L of oxygen at nighttime does not use it during the day No active chest pain during my evaluation Review of Systems 2 Eyes: Denies: change in vision ENMT: Denies: throat pain Card: Reports: chest pain, edema and swelling of feet/ankles Resp: Reports: dyspnea GI: Reports: nausea : Denies: flank pain Medications/Allergies Home Medications Medication Instructions Recorded Confirmed Last Taken Type allopurinol 100 mg tablet 100 mg PO DAILY 03/10/20 01/03/24 01/02/24 07:00 History aspirin 81 mg tablet,delayed 81 mg PO DAILY 03/10/20 01/03/24 01/02/24 History release (Adult Aspirin Regimen) docusate sodium 100 mg capsule 100 mg PO BID PRN Constipation 03/10/20 01/03/24 01/03/22 History dulaglutide 1.5 mg/0.5 mL 1.5 mg SUBCUT Q7D 03/10/20 01/03/24 01/01/24 History subcutaneous pen injector simvastatin 10 mg tablet 10 mg PO BEDTIME 01/03/22 01/03/24 01/01/24 History loperamide 2 mg capsule 2 mg PO QID PRN loose stool #14 08/09/22 01/03/24 Unknown Rx caps cholecalciferol (vitamin D3) 25 75 mcg PO BEDTIME 08/13/22 01/03/24 01/01/24 History mcg (1,000 unit) tablet (Vitamin D3) clopidogrel 75 mg tablet 75 mg PO DAILY 08/13/22 01/03/24 01/02/24 07:00 History tamsulosin 0.4 mg capsule 0.4 mg PO DAILY 08/13/22 01/03/24 01/02/24 07:00 History trazodone 50 mg tablet 50 mg PO BEDTIME 08/13/22 01/03/24 01/01/24 History cyanocobalamin (vitamin B-12) 500 mcg (1/2 x 1,000 mcg) PO DAILY 08/16/22 01/03/24 01/02/24 19:00 Rx 1,000 mcg tablet (Vitamin B-12) #30 tabs budesonide-formoterol HFA 160 1 puff inhalation BID PRN unknown 02/13/23 01/03/24 01/02/24 History mcg-4.5 mcg/actuation aerosol inhaler (Symbicort) bumetanide 0.5 mg tablet 0.5 mg PO BID 02/13/23 01/03/24 01/02/24 12:00 History carvedilol 12.5 mg tablet 12.5 mg PO BID 02/13/23 01/03/24 01/02/24 19:00 History esomeprazole magnesium 40 mg 40 mg PO BID 02/13/23 01/03/24 01/01/24 History capsule,delayed release hydrocodone 5 mg-acetaminophen 325 1 tab PO Q6H PRN pain #10 tabs 02/13/23 01/03/24 01/02/24 Rx mg tablet levocetirizine 5 mg tablet (24HR 5 mg PO DAILY PRN allergy symptoms 06/26/23 01/03/24 Unknown Rx Allergy Relief) #20 tabs sodium bicarbonate 650 mg tablet 650 mg PO DAILY 07/04/23 01/03/24 01/02/24 07:00 History hydralazine 50 mg tablet 50 mg PO TID #270 tabs 09/26/23 01/03/24 01/02/24 12:00 Rx isosorbide mononitrate 60 mg 60 mg PO DAILY #90 tabs 10/06/23 01/03/24 01/02/24 07:00 Rx tablet,extended release 24 hr albuterol sulfate 90 mcg/actuation 1 inh inhalation Q6H PRN shortness 01/06/24 Unknown Rx aerosol inhaler of breath or wheezing #8.5 grams glucometer testing kit #1 ea 01/06/24 Unknown Rx insulin aspart U-100 100 unit/mL See Rx Instructions .Route 01/06/24 Unknown Rx (3 mL) subcutaneous pen (Novolog .COMPLEX #15 mL FlexPen U-100 Insulin aspart) Allergies Allergy/AdvReac Type Severity Reaction Status Date / Time aspirin Allergy ALGY-Hives Verified 01/15/24 21:06 PFSH Acute 2 PFSH: Medical History Chronic kidney disease CKD (chronic kidney disease) Chest pain Carotid bruit Gout Peripheral vascular disease History of peripheral stenting Gallbladder cancer Colon cancer COPD (chronic obstructive pulmonary disease) Abscess of face Peripheral arterial disease Diabetes mellitus Cancer Hypertension Glaucoma Surgical History History of PTCA History of partial colectomy History of cholecystectomy Family History Brother Bleeding disorder Clotting disorder CAD (coronary artery disease) Cancer Diabetes x 5 Stroke Sister Bleeding disorder Clotting disorder Chronic kidney disease (CKD) Diabetes x 6 Lung disease x 2 Stroke Father Bleeding disorder Clotting disorder CAD (coronary artery disease) Chronic kidney disease (CKD) Diabetes Mother CAD (coronary artery disease) Cancer Diabetes Stroke Grandfather CAD (coronary artery disease) Cancer Diabetes Grandmother Cancer Dementia Diabetes Family/Other Cancer Chronic kidney disease (CKD) Dementia Diabetes Lung disease Denies family history of Suicide Anesthesia complication Social History Smoking and tobacco/nicotine status: current every day tobacco/nicotine user Quit status (tobacco/nicotine): has tried quititng Second hand smoke exposure: Yes Alcohol intake: never Substance/Drug Use: never Adopted: No Caregiver/support person: No Lives independently: Yes Household members: spouse Housing: Apartment Marital status: Number of children: 4 Number of grandchildren: 1 Highest education level completed: 12th Grade, No Diploma service: No Current occupational status: disabled Current occupational exposures/hazards: No Pets and animals: No Leisure activites: exercise and clubs Sexually active: No Do you think of yourself as: Straight/Heterosexual Current gender identity: Male Shelly/Judaism: Presybeterian Special shelly needs: No Agree to transfusion: Yes Vitals/I&O/Wt Last Vital Signs Temp 98.3 F 01/15/24 21:01 Pulse 94 01/15/24 21:01 Resp 18 01/15/24 21:01 BP 137/88 01/15/24 21:01 Pulse Ox 98 01/15/24 21:01 O2 Del Method Nasal Cannula 01/15/24 21:38 O2 Flow Rate 2 01/15/24 21:38 Weight last 48 hrs Weight 86.183 kg Weight 106.594 kg Physical Exam 2 Narrative: Pleasant cooperative -Latvian male Currently on 2 L Active signs of fluid overload Significant edema of lower extremities 3+ Anasarca GCS 15 Nonfocal neuroexam S1, S2 at the bedside Pleasant and cooperative Alert oriented x 3 GCS 15 Data 01/15/24 21:27 01/15/24 21:27 A&P Assessment and plan (1) Hypertension: Qualifiers: Hypertension type: primary hypertension Qualified Code(s): I10 - Essential (primary) hypertension (2) Acute diastolic heart failure: (3) Chest pain: (4) Elevated troponin: (5) Non-STEMI (non-ST elevated myocardial infarction): (6) Peripheral vascular disease: (7) Acute on chronic renal failure: Qualifiers: Acute renal failure type: unspecified Chronic kidney disease stage: u nspecified stage Qualified Code(s): N17.9 - Acute kidney failure, unspecified; N18.9 - Chronic kidney disease, unspecified (8) Shortness of breath: Plan Non-stemi No previous history of coronary disease Patient is stating that he had a stent placed for his peripheral vascular disease in the remote past Start acute coronary syndrome protocol Request echo Lovenox one time daily secondary to creatinine No active chest pain Patient has allergy to aspirin will givePlavix No active chest pain Acute and chronic kidney disease stage IV Cardio renal etiology most likely, Place Taylor catheter accurately measure urine output, in case of worsening of kidney function may need nephrology consultation inpatient Would use IV diuretics Anemia of chronic disease: Hemoglobin 8 Goal hemoglobin above 8 Metabolic acidosis: Continue bicarb tablets Anasarca Patient seems to have CHF and chronic kidney disease combination Dietary indiscretion Type 2diabetic, will use consistent carbohydrate diet insulin sliding scale Acute hypoxia: Currently on 2 L of oxygen, stating that he uses 2 L only at nighttime Also has pleural effusion on x-ray Full code Hypertension: continue, hydralazine, Coreg, Imdur Consistent carb diet Please consult cardiology in the morning, his troponins are trending down, type II NM?, Secondary to renal disease? Attestations 2 Medical Necessity Statement*: More than two midnights anticipated Diagnoses Primary hypertension I10 Hypertension type: primary hypertension Acute diastolic heart failure I50.31 Chest pain R07.9 Elevated troponin R79.89 Non-STEMI (non-ST elevated myocardial infarction) I21.4 Peripheral vascular disease I73.9 Acute on chronic renal failure N17.9; N18.9 Acute renal failure type: unspecified Chronic kidney disease stage: unspecified stage Shortness of breath R06.02
--- NOTE | 2024-01-15 22:44 | ECG_ITS ---
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 Measurements Intervals [place] Rate: 78 P: 58 MS: 180 QRS: 6 QRSD: 99 T: 98 QT: 384 QTc: 439 Interpretive Statements SINUS RHYTHM INCOMPLETE RIGHT BUNDLE BRANCH BLOCK [90+ ms QRS DURATION, TERMINAL R IN V1/V2, 40+ ms S IN I/aVL/V4/V5/V6] SEPTAL MYOCARDIAL INFARCTION , OF INDETERMINATE AGE [40+ ms Q WAVE IN V1/V2] Compared to ECG 01/15/2024 20:45:13 No significant changes Electronically Signed On 01-21-2024 21:03:02 ANESTHESIA TECHNICIAN by Akiko Vaughn M.D. [id number]
[2024-01-15 22:50] LABS: Alkaline Phosphatase 89 U/L (40-130)
[2024-01-15] MEDS: albuterol 2.5 mg/3 mL Neb INHALATION (23:05)
[2024-01-15 23:06] VITALS: PULSE 85; RESP 17; O2SAT 95
[2024-01-15 23:12] VITALS: PULSE 77
[2024-01-15 23:31] VITALS: BP 152/75; PULSE 78; RESP 18; O2SAT 96
[2024-01-15] MEDS: methylPREDNISolone sod succ 125 mg/2 mL INJ IVP (23:40)
[2024-01-16] VITALS (14 sets, daily range): BP systolic 129–172; BP diastolic 74–95; PULSE 72–82; RESP 14–21; TEMP 36.6–37; O2SAT 93–100
[2024-01-16 00:01] LABS: Troponin 5 2HR 102.7 ng/L (0-15); Troponin 5 2HR Delta -5.3 ABS# (0-10)
--- NOTE | 2024-01-16 00:18 | USCV_ITS ---
Alek Hopper Age: 58 Gender: M : 1965 Exam Date: 01/16/2024 01:05 Ordering Phys: Genevieve Johnson MD Technologist: RAGHAV Exam Location: [facility] [place] Indication: CHF, history of COPD, chronic hypoxemia, O2 dependent 2L, DM, SOB, chronic renal disease. BP: 129 / 95 HR: 78 Rhythm: Sinus Technical Quality: Adequate MEASUREMENTS (Male / Female) Normal Values 2D ECHO LV Diastolic Diameter PLAX 4.9 cm 4.2 - 5.9 / 3.9 - 5.3 cm IVS Diastolic Thickness 2.3 cm 0.6 - 1.0 / 0.6 - 0.9 cm IVS Systolic Thickness 2.6 cm LVPW Diastolic Thickness 2.2 cm 0.6 - 1.0 / 0.6 - 0.9 cm LVPW Systolic Thickness 2.5 cm LVOT Diameter 2.7 cm LV Ejection Fraction 2D Teich 64.3 % LV Ejection Fraction MOD 4C 30.3 % LV Ejection Fraction MOD 2C 88.4 % LV Ejection Fraction 2C AL 88.6 % LA Diameter 4.0 cm Aorta at Sinotubular Diameter 3.4 cm IVC Diameter 1.9 cm M-MODE LA Ao Ratio MM 1.3 AV Cusp Separation MM 2.3 cm DOPPLER AV Peak Velocity 127.0 cm/s LVOT Peak Velocity 97.0 cm/s AV Area Cont Eq vti 4.6 cm squared AV Area Cont Eq pk 4.4 cm squared MV Peak Velocity 122.0 cm/s MV Area PHT 7.9 cm squared Mitral E to A Ratio 1.9 TV Peak E Velocity 75.0 cm/s PV Peak Velocity 126.0 cm/s FINDINGS Left Ventricle Normal left ventricular size, systolic function and wall thickness, with no regional wall motion abnormalities. Left ventricular ejection fraction is estimated at 60 %. Grade II/IV diastolic dysfunction, moderately elevated filling pressures. Right Ventricle The right ventricle is normal in size and function. RVSP could not be calculated due to incomplete tricuspid regurgitation velocity profile. Right Atrium The right atrium is normal in size. Left Atrium Mildly increased left atrial size. Mitral Valve Mildly thickened mitral valve. No mitral valve stenosis. Mild- moderate mitral valve regurgitation. Aortic Valve Thickened aortic valve. Mild aortic valve regurgitation. Tricuspid Valve Moderate tricuspid valve regurgitation. Pulmonic Valve Trace pulmonary valve regurgitation. Pericardium Normal pericardium without effusion. Aorta Normal ascending aorta dimension. IVC The inferior vena cava appears normal. CONCLUSIONS Normal left ventricular size, systolic function and wall thickness, with no regional wall motion abnormalities. Left ventricular ejection fraction is estimated at 60 %. Grade II/IV diastolic dysfunction, moderately elevated filling pressures. Mildly thickened mitral valve. No mitral valve stenosis. Mild- moderate mitral valve regurgitation. Thickened aortic valve. Mild aortic valve regurgitation. Moderate tricuspid valve regurgitation. The right ventricle is normal in size and function. RVSP could not be calculated due to incomplete tricuspid regurgitation velocity profile. There is no pericardial effusion. Right atrial pressure is around 5 mm of mercury. Genevieve Nunez MD (Electronically Signed) Final Date: 16 January 2024 19:38 S
[2024-01-16] MEDS: clopidogrel 300 mg Tablet PO (01:07)
[2024-01-16] MEDS: enoxaparin 100 mg/mL Syringe 90 MG SUBCUT ×2 (01:07→21:30)
[2024-01-16] MEDS: HYDROcodone-acetaminophen 5-325 mg Tablet 1 TAB PO (01:42)
[2024-01-16] MEDS: ipratropium-albuterol 3 mL Neb INHALATION ×3 (02:34→21:51)
--- NOTE | 2024-01-16 02:44 | ECG_ITS ---
[facility] Test Date: 2024-01-16 Pat Name: Alek Hopper Department: Room: 111 Gender: Male Director Audience Marketing: : 1965 Requested By: Crissy Butler Order Number: [id number] Dalton MD: Akiko Vaughn M.D. Measurements Intervals [place] Rate: 78 P: 52 MD: 187 QRS: 17 QRSD: 104 T: 111 QT: 382 QTc: 436 Interpretive Statements SINUS RHYTHM INCOMPLETE RIGHT BUNDLE BRANCH BLOCK [90+ ms QRS DURATION, TERMINAL R IN V1/V2, 40+ ms S IN I/aVL/V4/V5/V6] ABNORMAL QRS-T ANGLE [QRS-T AXIS DIFFERENCE > 60] Compared to ECG 01/15/2024 22:56:59 Myocardial infarct finding no longer present Electronically Signed On 01-21-2024 21:02:52 LEAD CLINICAL RESEARCH COORDINATOR by Akiko Vaughn M.D. [email or web address]
[2024-01-16 03:07] LABS: Basophils % 0.1 %; Eosinophils % 0.1 %; Hematocrit 25.8 % (37-53); Lymphocytes # 0.3 10^3/uL (0.8-4.8); Lymphocytes % 2.5 %; Mean Corpuscular HGB Conc 31.8 g/dL (30-55); Mean Corpuscular Hemoglobin 29.7 pg (27-33); Mean Corpuscular Volume 93.5 fl (82-101); Mean Platelet Volume 11.1 fL (7.4-10.4); Monocytes # 0.2 10^3/uL (0.2-0.9); Monocytes % 1.9 %; Neutrophils # 11.54 10^3/uL (1.8-7.7); Neutrophils % 94.9 %; Nucleated Red Blood Cells % 0 %; Platelet Count 152 10^3/cmm (157-399); Red Blood Count 2.76 10^6/uL (3.85-5.65); Red Cell Distribution Width 14.1 % (12.1-15.1); White Blood Count 12.16 10^3/uL (3.29-11.43)
[2024-01-16 03:29] LABS: Troponin 5 6HR 97.56 ng/L (0-15); Troponin 5 6HR Delta -10.44 ng/L (0-12)
[2024-01-16 03:31] LABS: Blood Urea Nitrogen 39 mg/dL (8-23); Calcium 7.6 mg/dL (8.5-10.5); Carbon Dioxide 19 mmol/L (22-29); Chloride 107 mmol/L (98-107); Creatinine Clr Calc Pharmacy 32.5717; Glucose 162 mg/dL (65-115); Magnesium 1.7 mg/dL (1.7-2.3); Osmolality Calculated 297 mOsm/kg (285-295); Sodium 137 mmol/L (136-145)
[2024-01-16 03:38] LABS: Anion Gap 16.3 (5-19); Potassium 5.3 mmol/L (3.5-5.1)
[2024-01-16 06:29] LABS: Glucose Point of Care 210 mg/dL (70-110)
[2024-01-16] MEDS: bumetanide 0.25 mg/mL SDV 10 mL 2 MG IVP (08:43)
[2024-01-16] MEDS: hyDRALAzine 50 mg Tablet PO ×3 (08:43→21:31)
[2024-01-16] MEDS: carvedilol 12.5 mg Tablet PO ×2 (08:43→17:37)
[2024-01-16] MEDS: sodium bicarbonate 650 mg Tablet PO (08:43)
[2024-01-16] MEDS: allopurinol 100 mg Tablet PO (08:43)
[2024-01-16] MEDS: clopidogrel 75 mg Tablet PO (08:43)
[2024-01-16] MEDS: isosorbide mononitrate ER 60 mg Tablet PO (08:43)
[2024-01-16] MEDS: atorvastatin 40 mg Tablet 80 MG PO (08:43)
[2024-01-16] MEDS: insulin lispro 100 unit/1 mL SUBCUT ×3 (08:52→17:37)
--- NOTE | 2024-01-16 09:28 | PC.CHAP ---
Pastoral Care Encounter/Spiritual Assessment Type of Contact [] Declined manager strategic partnerships visit [] Patient/Family/Request visit [] Outpatient visit [] Follow-up visit [] Physician referral [] Code/Alert [] Routine visit [] Staff referral [] Actively dying [x] Patient sleeping [] Family support [] [] Out of room [] Palliative care [] [] Receiving care in room [] Pre-surgical visit [] Trauma [] Long length of stay [] ICU visit [] Other: Relational/Emotional Strength [] Patient feels connected with others/family/visitors/staff [] Distress [] Loneliness/isolation [] Abandonment Spirituality of Patient [] Person of Shelly [] Attends Taoist of their Shelly [] Believes in Prayer [] Reads Bible or Cheondoism materials [] There are Spiritual issues to be addressed White Metal Caster Interventions [] Prayer [] Active listening [] Non-anxious presence [] Spiritual/emotional support [] Crisis/trauma care [] Spiritual counseling [] Bereavement support [] Provided bereavement packet [] Provided Bible/devotional materials [] Provided toy/stuffed animal, coloring book to patient or family member [] Provided Communion [] Anointing/Unity [] Salvation [] Completed spiritual assessment [] Other: Impact on Illness or Injury [] Angry [] Fearful [] Anxious [] Often cries [] Exhaustion [] Unable to work [] Unable to attend adventism [] Unable to walk/stand [] Unable to read [] Unable to drive [] Unable to eat/drink [] Unable to sleep [] Unable to be with family [] Patient intubated [] Other: Summary Time spent with patient
--- NOTE | 2024-01-16 09:49 | P.CONIM_ITS ---
Providers/Reason For Consult 2 Consulting Physician/Specialty*: Lamine Paz MD/telemetry nephrology Reason for Consult*: Acute on chronic renal failure Requesting Physician: Dr. Jose Syed Attending Physician: Jose Johnson MD Primary Care Provider: Yenny Navarro MD History of Present Illness History of Present Illness Alek Hopper is a 58 year old male h/o chronic kidney disease stage IV baseline creatinine over 2 and half milligrams per deciliter. History of, hypertension, chronic anemia, COPD, heart failure preserved EF. Patient had recent ammonia and diuretics were held he was given antibiotics. The patient presented yesterday with worsening shortness of breath dyspnea on exertion, orthopnea chest pain nausea weakness and swelling. Patient was admitted to the hospital for acute on chronic heart failure preserved EF exacerbation, and with rising creatinine. Patient also has mild hyperkalemia and renal was asked to see the patient. Patient has family history of coronary artery disease. Patient is followed by cardiology. Review of Systems 2 Narrative: Weak shortness of breath dyspnea on exertion orthopnea chest pain swelling difficulty urinating nausea some vomiting cough. No fevers no diarrhea. Poor sensation in feet. Poor vision. Medications/Allergies Home Medications Medication Instructions Recorded Confirmed Last Taken Type allopurinol 100 mg tablet 100 mg PO DAILY 03/10/20 01/16/24 01/02/24 07:00 History aspirin 81 mg tablet,delayed 81 mg PO DAILY 03/10/20 01/16/24 01/02/24 History release (Adult Aspirin Regimen) docusate sodium 100 mg capsule 100 mg PO BID PRN Constipation 03/10/20 01/16/24 01/03/22 History dulaglutide 1.5 mg/0.5 mL 1.5 mg SUBCUT Q7D 03/10/20 01/16/24 01/01/24 History subcutaneous pen injector simvastatin 10 mg tablet 10 mg PO BEDTIME 01/03/22 01/16/24 01/01/24 History loperamide 2 mg capsule 2 mg PO QID PRN loose stool #14 08/09/22 01/16/24 Unknown Rx caps cholecalciferol (vitamin D3) 25 75 mcg PO BEDTIME 08/13/22 01/16/24 01/01/24 History mcg (1,000 unit) tablet (Vitamin D3) clopidogrel 75 mg tablet 75 mg PO DAILY 06/12/2601/16/24 01/02/24 07:00 History tamsulosin 0.4 mg capsule 0.4 mg PO DAILY 08/13/22 01/16/24 01/02/24 07:00 History trazodone 50 mg tablet 50 mg PO BEDTIME 08/13/22 01/16/24 01/01/24 History cyanocobalamin (vitamin B-12) 500 mcg (1/2 x 1,000 mcg) PO DAILY 08/16/22 01/16/24 01/02/24 19:00 Rx 1,000 mcg tablet (Vitamin B-12) #30 tabs budesonide-formoterol HFA 160 1 puff inhalation BID PRN unknown 02/13/23 01/16/24 01/02/24 History mcg-4.5 mcg/actuation aerosol inhaler (Symbicort) bumetanide 0.5 mg tablet 0.5 mg PO BID 02/13/23 01/16/24 01/02/24 12:00 History carvedilol 12.5 mg tablet 12.5 mg PO BID 02/13/23 01/16/24 01/02/24 19:00 History esomeprazole magnesium 40 mg 40 mg PO BID 02/13/23 01/16/24 01/01/24 History capsule,delayed release hydrocodone 5 mg-acetaminophen 325 1 tab PO Q6H PRN pain #10 tabs 02/13/23 01/16/24 01/02/24 Rx mg tablet levocetirizine 5 mg tablet (24HR 5 mg PO DAILY PRN allergy symptoms 06/26/23 01/16/24 Unknown Rx Allergy Relief) #20 tabs sodium bicarbonate 650 mg tablet 650 mg PO DAILY 07/04/23 01/16/24 01/02/24 07:00 History hydralazine 50 mg tablet 50 mg PO TID #270 tabs 09/26/23 01/16/24 01/02/24 12:00 Rx isosorbide mononitrate 60 mg 60 mg PO DAILY #90 tabs 10/06/23 01/16/24 01/02/24 07:00 Rx tablet,extended release 24 hr albuterol sulfate 90 mcg/actuation 1 inh inhalation Q6H PRN shortness 01/06/24 01/16/24 Unknown Rx aerosol inhaler of breath or wheezing #8.5 grams glucometer testing kit #1 ea 01/06/24 01/16/24 Unknown Rx insulin aspart U-100 100 unit/mL See Rx Instructions .Route 01/06/24 01/16/24 Unknown Rx (3 mL) subcutaneous pen (Novolog .COMPLEX #15 mL FlexPen U-100 Insulin aspart) Allergies Allergy/AdvReac Type Severity Reaction Status Date / Time aspirin Allergy ALGY-Hives Verified 01/15/24 21:06 Current Medications Generic Name Dose Route Start Last Admin Trade Name Freq PRN Reason Stop Dose Admin Hydrocodone Bitart/Acetaminophen 1 tab 01/16/24 00:31 01/16/24 01:42 Hydrocodone-Acetaminophen 5-325 Mg Tablet PO 1 tab Q6H PRN Administration pain Albuterol/Ipratropium 3 ml 01/16/24 00:18 01/16/24 09:30 Ipratropium-Albuterol 3 Ml Neb INHALATION 3 ml Q6H PRN Administration SHORTNESS OF BREATH Allopurinol 100 mg 01/16/24 09:00 01/16/24 08:43 Allopurinol 100 Mg Tablet PO 100 mg DAILY EV Administration Atorvastatin Calcium 80 mg 01/16/24 09:00 01/16/24 08:43 Atorvastatin 40 Mg Tablet PO 80 mg DAILY EV Administration Bumetanide 2 mg 01/16/24 09:30 01/16/24 08:43 Bumetanide 0.25 Mg/Ml Sdv 10 Ml IVP 2 mg Q12H EV Administration Carvedilol 12.5 mg 01/16/24 09:00 01/16/24 08:43 Carvedilol 12.5 Mg Tablet PO 12.5 mg BID EV Administration Clopidogrel Bisulfate 75 mg 01/16/24 09:00 01/16/24 08:43 Clopidogrel 75 Mg Tablet PO 75 mg DAILY EV Administration Hydralazine HCl 50 mg 01/16/24 09:00 01/16/24 08:43 Hydralazine 50 Mg Tablet PO 50 mg TID EV Administration Insulin Human Lispro 0 unit 01/16/24 08:00 01/16/24 08:52 Insulin Lispro 100 Unit/1 Ml SUBCUT 6 unit TIDWM EV Administration Protocol Isosorbide Mononitrate 60 mg 01/16/24 09:00 01/16/24 08:43 Isosorbide Mononitrate Er 60 Mg Tablet PO 60 mg DAILY EV Administration Sodium Bicarbonate 650 mg 01/16/24 09:00 01/16/24 08:43 Sodium Bicarbonate 650 Mg Tablet PO 650 mg DAILY EV Administration PFSH Acute 2 PFSH: Medical History Chronic kidney disease CKD (chronic kidney disease) Chest pain Carotid bruit Gout Peripheral vascular disease History of peripheral stenting Gallbladder cancer Colon cancer COPD (chronic obstructive pulmonary disease) Abscess of face Peripheral arterial disease Diabetes mellitus Cancer Hypertension Glaucoma Surgical History History of PTCA History of partial colectomy History of cholecystectomy Family History Brother Bleeding disorder Clotting disorder CAD (coronary artery disease) Cancer Diabetes x 5 Stroke Sister Bleeding disorder Clotting disorder Chronic kidney disease (CKD) Diabetes x 6 Lung disease x 2 Stroke Father Bleeding disorder Clotting disorder CAD (coronary artery disease) Chronic kidney disease (CKD) Diabetes Mother CAD (coronary artery disease) Cancer Diabetes Stroke Grandfather CAD (coronary artery disease) Cancer Diabetes Grandmother Cancer Dementia Diabetes Family/Other Cancer Chronic kidney disease (CKD) Dementia Diabetes Lung disease Denies family history of Suicide Anesthesia complication Social History Smoking and tobacco/nicotine status: current every day tobacco/nicotine user Quit status (tobacco/nicotine): has tried quititng Second hand smoke exposure: Yes Alcohol intake: never Substance/Drug Use: never Adopted: No Caregiver/support person: No Lives independently: Yes Household members: spouse Housing: Apartment Marital status: Number of children: 4 Number of grandchildren: 1 Highest education level completed: 12th Grade, No Diploma service: No Current occupational status: disabled Current occupational exposures/hazards: No Pets and animals: No Leisure activites: exercise and clubs Sexually active: No Do you think of yourself as: Straight/Heterosexual Current gender identity: Male Shelly/Nondenominational: Hindu Special shelly needs: No Agree to transfusion: Yes Vitals/I&O/Wt Last Vital Signs Temp 98.2 F 01/16/24 07:31 Pulse 75 01/16/24 09:39 Resp 16 01/16/24 09:39 BP 152/76 01/16/24 07:31 Pulse Ox 97 01/16/24 09:39 O2 Del Method Nasal Cannula 01/16/24 09:39 O2 Flow Rate 2 01/16/24 09:39 01/15/24 01/16/24 01/16/24 22:59 06:59 14:59 Output Total 300 / 300 Balance -300 / -300 Weight last 48 hrs Weight 108.862 kg Weight 110.359 kg Weight 86.183 kg Weight 106.594 kg Physical Exam 2 Narrative: Patient is in bed at a 40 degree angle. Vital signs noted. HEENT normocephalic atraumatic. Neck is supple. Lungs wheezes rubs or rhonchi bilaterally. Heart regular with systolic murmur. Abdomen is soft positive bowel sounds. Extremities 2+ bilateral edema. Neuro awake alert oriented x 3. Urinary Catheter Management: Taylor: Cath Placed During This Visit: yes Reason for Continuing Indwelling Catheter: Accurate Measurement of Urinary Output in Critically Ill Patients Urinary Catheter Date of Insertion: 01/16/24 Urinary Catheter Time of Insertion: 00:30 Data 01/16/24 02:59 01/16/24 02:59 A&P Assessment and plan (1) Acute on chronic renal insufficiency: 58-year-old gentleman COPD hypertension CKD stage IV diabetes heart failure preserved EF. 1. CKD stage IV will check renal ultrasound with renal artery duplex. Will check urinalysis with urine microalbumin, protein and creatinine. Will also check serum protein electrophoresis. Most likely this is from hypertension diabetes cardiorenal syndrome however need to be thorough. no significant microalbiminuria Patient had an episode over a year ago where he required temporary hemodialysis 2. Severe shortness of breath can be from volume overload versus COPD versus pneumonia. 3. Hyperkalemia will treat medically. 4. Diabetic control. 5. Will stop bicarbonate as his acid-base status is normal. 6. Anemia evaluation. 7. Monitor diuresis on Bumex. seen and examined using audio-visual equipement with the aid of a nurse pt consents to telehealth Plan see above Consult Attestations 2 Medical Necessity Statement: chest pain, sob, monique on ckd Time Spent in Patient Care: Greater than 35 minutes (>than 50% of time spent in counselling and/or direct pt care on unit) . Coding Level of Care Code Acute Code for Chg Fwd Diagnoses Acute on chronic renal insufficiency N28.9; N18.9
[2024-01-16 10:42] LABS: Hepatitis C Virus Antibody Non-Reactive (Nonreactive)
[2024-01-16 10:43] LABS: NT Pro B Type Natriuretic Pept 1648 pg/mL (0-125)
[2024-01-16 10:53] LABS: Uric Acid 6.4 mg/dL (3.4-7.0)
[2024-01-16 11:02] LABS: Glucose Point of Care 259 mg/dL (70-110)
[2024-01-16] MEDS: metOLazone 5 MG Tablet PO (11:32)
[2024-01-16] MEDS: sodium polystyrene sulfonate 15 gm/60 mL Btl 30 GM PO (11:33)
--- NOTE | 2024-01-16 14:58 | P.PN_ITS ---
Subjective 2 Subjective: Patient was seen this morning, he does report shortness of breath, lower extreme edema and no chest pain this morning Vitals/I&O/Wt Last Vital Signs Temp 98.0 F 01/16/24 10:57 Pulse 77 01/16/24 10:57 Resp 21 H 01/16/24 10:57 BP 152/74 01/16/24 10:57 Pulse Ox 100 01/16/24 10:57 O2 Del Method Nasal Cannula 01/16/24 10:57 O2 Flow Rate 2 01/16/24 09:39 01/15/24 01/16/24 01/16/24 22:59 06:59 14:59 Intake Total 840 / 840 Output Total 300 / 300 Balance -300 / -300 840 / 840 Weight last 48 hrs Weight 108.862 kg Weight 110.359 kg Weight 86.183 kg Weight 106.594 kg Physical Exam 2 Const: COMMON NORMALS: no acute distress and patient oriented x3 Resp: COMMON NORMALS: normal respiratory effort, No retractions and No use of accessory muscles AUSCULTATION: crackles Cardio: COMMON NORMALS: regular rate, regular rhythm, S1 normal heart sound present and S2 normal heart sound present RATE: regular rate RHYTHM: r egular rhythm HEART SOUNDS: S1 normal heart sound present and S2 normal heart sound present GI: COMMON NORMALS: Normal to inspection, nondistended, normoactive bowel sounds present, Soft to palpation and non-tender PALPATION: Yes Soft to palpation Extremity: NARRATIVE EXTREMITY EXAM: 2+ pitting edema Neuro: COMMON NORMALS: patient oriented x3 Psych: COMMON NORMALS: mental status grossly normal Urinary Catheter Management: Taylor: Cath Placed During This Visit: yes Reason for Continuing Indwelling Catheter: Accurate Measurement of Urinary Output in Critically Ill Patients Urinary Catheter Date of Insertion: 01/16/24 Urinary Catheter Time of Insertion: 00:30 Data 01/16/24 02:59 01/16/24 02:59 A&P Assessment and plan (1) Hypertension: Qualifiers: Hypertension type: primary hypertension Qualified Code(s): I10 - Essential (primary) hypertension (2) Acute diastolic heart failure: (3) Chest pain: (4) Elevated troponin: (5) Non-STEMI (non-ST elevated myocardial infarction): (6) Peripheral vascular disease: (7) Acute on chronic renal failure: Qualifiers: Acute renal failure type: unspecified Chronic kidney disease stage: u nspecified stage Qualified Code(s): N17.9 - Acute kidney failure, unspecified; N18.9 - Chronic kidney disease, unspecified (8) Shortness of breath: (9) CHF exacerbation: Plan Non-stemi No previous history of coronary disease stress test 2021 IMPRESSIONS 1. Myocardial perfusion imaging revealing features suggesting small to moderate area of myocardial scarring with a very small area of aashish-infarction ischemia, in the distribution of the right coronary artery. 2. Slightly diminished LV ejection fraction 49%. 3. Segmental wall motion analysis revealing mild diffuse hypokinesia of the LV apex. 4. Mildly dilated LV cavity with an end-systolic volume of 94 ml. No similar previous studies are available for comparison Patient is stating that he had a stent placed for his peripheral vascular disease in the remote past plan: Start acute coronary syndrome protocol Request echo Lovenox one time daily secondary to creatinine No active chest pain Patient has allergy to aspirin will give Plavix No active chest pain cardiology consulted acute chf exacerbation, systolic and diastolic -continue bumex 2mg q12h -monitor uop, monitor cr, monitor K Acute and chronic kidney disease stage IV Cardio renal etiology most likely, Place Taylor catheter accurately measure urine output, in case of worsening of kidney function nephrology consulted Would use IV diuretics Anemia of chronic disease: Hemoglobin 8 Goal hemoglobin above 8 Metabolic acidosis: Continue bicarb tablets Anasarca Patient seems to have CHF and chronic kidney disease combination Dietary indiscretion Type 2diabetic, will use consistent carbohydrate diet insulin sliding scale Acute hypoxia: Currently on 2 L of oxygen, stating that he uses 2 L only at nighttime Also has pleural effusion on x-ray Full code Hypertension: continue, hydralazine, Coreg, Imdur Consistent carb diet spoke to nephrology, spoke to cardiology, spoke to nursing staff, discussed cr, stress test, patient chf, chest pain Attestations 2 Medical Necessity Statement*: patient requires hospitalization for NSTEMI, CHF exacerbation, RIP Diagnoses Primary hypertension I10 Hypertension type: primary hypertension Acute diastolic heart failure I50.31 Chest pain R07.9 Elevated troponin R79.89 Non-STEMI (non-ST elevated myocardial infarction) I21.4 Peripheral vascular disease I73.9 Acute on chronic renal failure N17.9; N18.9 Acute renal failure type: unspecified Chronic kidney disease stage: unspecified stage Shortness of breath R06.02 CHF exacerbation I50.9
[2024-01-16 15:02] LABS: Anion Gap 15.7 (5-19); Blood Urea Nitrogen 45 mg/dL (8-23); Calcium 7.8 mg/dL (8.5-10.5); Carbon Dioxide 20 mmol/L (22-29); Chloride 108 mmol/L (98-107); Creatinine Clr Calc Pharmacy 33.4654; Glucose 167 mg/dL (65-115); Osmolality Calculated 301 mOsm/kg (285-295); Potassium 5.7 mmol/L (3.5-5.1); Sodium 138 mmol/L (136-145)
[2024-01-16 16:25] LABS: Glucose Point of Care 277 mg/dL (70-110)
[2024-01-16 17:04] LABS: Bilirubin Urine Negative (Negative); Blood Urine 2+ (Negative); Glucose Urine UA Negative (Normal); Ketones Urine Negative (Negative); Leukocyte Esterase Urine Trace (Negative); Nitrate Urine Negative (Negative); Protein Urine 1+ (Negative); Urine Appearance Clear (CLEAR); Urine Color Yellow (Yellow); Urobilinogen Urine 0.2 mg/dL (Negative)
[2024-01-16 17:09] LABS: Bacteria Urine None Seen /hpf; Hyaline Casts Urine 0.81 /lpf; RBC Urine 21-50 /hpf (0-2); Squamous Epithelial Cell Urine 0-5 /hpf (0-5); WBC Urine 0-5 /hpf (0-5)
[2024-01-16 17:10] LABS: Add Urine Culture? Yes
[2024-01-16 18:18] LABS: Creatinine Urine, Random 68 mg/dL (39-259); Microalbum Creatinine Ratio Ur 309 mg/dL (0-20); Microalbumin Random Urine 21 ug/dL (0-20); Potassium, Radom Urine 21 mmol/L; Urine Creatinine 69 mg/dL (39-259); Urine Random Chloride 100 mmol/L; Urine Random Sodium 105 mmol/L
[2024-01-16 18:20] LABS: Urine Protein Random 33 mg/dL
[2024-01-16] MEDS: bumetanide 0.25 mg/mL SDV 10 mL 1 MG IVP (21:31)
--- NOTE | 2024-01-16 21:43 | P.CONIM_ITS ---
Providers/Reason For Consult 2 Consulting Physician/Specialty*: Cardiology Reason for Consult*: Elevated cardiac marker Chest pain Requesting Physician: Dr. Irvin Garcia Attending Physician: Jose Johnson MD Primary Care Provider: Yenny Navarro MD History of Present Illness History of Present Illness Alek Hopper is a 58 year old male past medical history significant for chronic kidney disease stage IV baseline creatinine 2.5-3.0, COPD, chronic anemia, continues tobacco abuse, diabetes mellitus, hypertension who recently treated for pneumonia and being admitted with worsening of shortness of breath PND orthopnea suggestive of volume overload status with acute on chronic diastolic heart failure. Patient was also noted to be hyperkalemic. He was started on diuretics feeling better however patient complaining of off-and-on chest pressure with elevated cardiac markers. Twelve-lead EKG shows interventricular conduction delay nonspecific ST changes otherwise no significant ongoing ischemia. Echocardiogram shows normal ejection fraction no significant wall motion abnormality has moderate tricuspid valve regurgitation and mild to moderate mitral valve regurgitation. He has a negative stress test in 2021. Currently chest pain-free sitting in the bed and eating his dinner. Review of Systems 2 Narrative: Weak shortness of breath dyspnea on exertion orthopnea chest pain swelling difficulty urinating nausea some vomiting cough. No fevers no diarrhea. Poor sensation in feet. Poor vision. Eyes: Denies: change in vision or photophobia ENMT: Denies: throat pain or enlarged tonsils Card: Reports: chest pain, edema and swelling of feet/ankles Resp: Reports: dyspnea GI: Reports: nausea : Denies: flank pain Psych: Reports: sleeping more All/Imm: Denies: acute wheezing Medications/Allergies Home Medications Medication Instructions Recorded Confirmed Last Taken Type allopurinol 100 mg tablet 100 mg PO DAILY 03/10/20 01/16/24 01/02/24 07:00 History aspirin 81 mg tablet,delayed 81 mg PO DAILY 03/10/20 01/16/24 01/02/24 History release (Adult Aspirin Regimen) docusate sodium 100 mg capsule 100 mg PO BID PRN Constipation 03/10/20 01/16/24 01/03/22 History dulaglutide 1.5 mg/0.5 mL 1.5 mg SUBCUT Q7D 03/10/20 01/16/24 01/01/24 History subcutaneous pen injector simvastatin 10 mg tablet 10 mg PO BEDTIME 01/03/22 01/16/24 01/01/24 History loperamide 2 mg capsule 2 mg PO QID PRN loose stool #14 08/09/22 01/16/24 Unknown Rx caps cholecalciferol (vitamin D3) 25 75 mcg PO BEDTIME 08/13/22 01/16/24 01/01/24 History mcg (1,000 unit) tablet (Vitamin D3) clopidogrel 75 mg tablet 75 mg PO DAILY 08/13/22 01/16/24 01/02/24 07:00 History tamsulosin 0.4 mg capsule 0.4 mg PO DAILY 08/13/22 01/16/24 01/02/24 07:00 History trazodone 50 mg tablet 50 mg PO BEDTIME 08/13/22 01/16/24 01/01/24 History cyanocobalamin (vitamin B-12) 500 mcg (1/2 x 1,000 mcg) PO DAILY 08/16/22 01/16/24 01/02/24 19:00 Rx 1,000 mcg tablet (Vitamin B-12) #30 tabs budesonide-formoterol HFA 160 1 puff inhalation BID PRN unknown 02/13/23 01/16/24 01/02/24 History mcg-4.5 mcg/actuation aerosol inhaler (Symbicort) bumetanide 0.5 mg tablet 0.5 mg PO BID 02/13/23 01/16/24 01/02/24 12:00 History carvedilol 12.5 mg tablet 12.5 mg PO BID 02/13/23 01/16/24 01/02/24 19:00 History esomeprazole magnesium 40 mg 40 mg PO BID 02/13/23 01/16/24 01/01/24 History capsule,delayed release hydrocodone 5 mg-acetaminophen 325 1 tab PO Q6H PRN pain #10 tabs 02/13/23 01/16/24 01/02/24 Rx mg tablet levocetirizine 5 mg tablet (24HR 5 mg PO DAILY PRN allergy symptoms 06/26/23 01/16/24 Unknown Rx Allergy Relief) #20 tabs sodium bicarbonate 650 mg tablet 650 mg PO DAILY 07/04/23 01/16/24 01/02/24 07:00 History hydralazine 50 mg tablet 50 mg PO TID #270 tabs 09/26/23 01/16/24 01/02/24 12:00 Rx isosorbide mononitrate 60 mg 60 mg PO DAILY #90 tabs 10/06/23 01/16/24 01/02/24 07:00 Rx tablet,extended release 24 hr albuterol sulfate 90 mcg/actuation 1 inh inhalation Q6H PRN shortness 01/06/24 01/16/24 Unknown Rx aerosol inhaler of breath or wheezing #8.5 grams glucometer testing kit #1 ea 01/06/24 01/16/24 Unknown Rx insulin aspart U-100 100 unit/mL See Rx Instructions .Route 01/06/24 01/16/24 Unknown Rx (3 mL) subcutaneous pen (Novolog .COMPLEX #15 mL FlexPen U-100 Insulin aspart) Allergies Allergy/AdvReac Type Severity Reaction Status Date / Time aspirin Allergy ALGY-Hives Verified 01/15/24 21:06 Current Medications Generic Name Dose Route Start Last Admin Trade Name Freq PRN Reason Stop Dose Admin Hydrocodone Bitart/Acetaminophen 1 tab 01/16/24 00:31 01/16/24 01:42 Hydrocodone-Acetaminophen 5-325 Mg Tablet PO 1 tab Q6H PRN Administration pain Albuterol/Ipratropium 3 ml 01/16/24 00:18 01/16/24 09:30 Ipratropium-Albuterol 3 Ml Neb INHALATION 3 ml Q6H PRN Administration SHORTNESS OF BREATH Allopurinol 100 mg 01/16/24 09:00 01/16/24 08:43 Allopurinol 100 Mg Tablet PO 100 mg DAILY EV Administration Atorvastatin Calcium 80 mg 01/16/24 09:00 01/16/24 08:43 Atorvastatin 40 Mg Tablet PO 80 mg DAILY EV Administration Carvedilol 12.5 mg 01/16/24 09:00 01/16/24 17:37 Carvedilol 12.5 Mg Tablet PO 12.5 mg BID EV Administration Clopidogrel Bisulfate 75 mg 01/16/24 09:00 01/16/24 08:43 Clopidogrel 75 Mg Tablet PO 75 mg DAILY EV Administration Hydralazine HCl 50 mg 01/16/24 09:00 01/16/24 15:40 Hydralazine 50 Mg Tablet PO 50 mg TID EV Administration Insulin Human Lispro 0 unit 01/16/24 08:00 01/16/24 17:37 Insulin Lispro 100 Unit/1 Ml SUBCUT 10 unit TIDWM EV Administration Protocol Isosorbide Mononitrate 60 mg 01/16/24 09:00 01/16/24 08:43 Isosorbide Mononitrate Er 60 Mg Tablet PO 60 mg DAILY EV Administration Metolazone 5 mg 01/16/24 10:15 01/16/24 11:32 Metolazone 5 Mg Tablet PO 5 mg ONCE EV Administration PFSH Acute 2 PFSH: Medical History Chronic kidney disease CKD (chronic kidney disease) Chest pain Carotid bruit Gout Peripheral vascular disease History of peripheral stenting Gallbladder cancer Colon cancer COPD (chronic obstructive pulmonary disease) Abscess of face Peripheral arterial disease Diabetes mellitus Cancer Hypertension Glaucoma Surgical History History of PTCA History of partial colectomy History of cholecystectomy Family History Brother Bleeding disorder Clotting disorder CAD (coronary artery disease) Cancer Diabetes x 5 Stroke Sister Bleeding disorder Clotting disorder Chronic kidney disease (CKD) Diabetes x 6 Lung disease x 2 Stroke Father Bleeding disorder Clotting disorder CAD (coronary artery disease) Chronic kidney disease (CKD) Diabetes Mother CAD (coronary artery disease) Cancer Diabetes Stroke Grandfather CAD (coronary artery disease) Cancer Diabetes Grandmother Cancer Dementia Diabetes Family/Other Cancer Chronic kidney disease (CKD) Dementia Diabetes Lung disease Denies family history of Suicide Anesthesia complication Social History Smoking and tobacco/nicotine status: current every day tobacco/nicotine user Quit status (tobacco/nicotine): has tried quititng Second hand smoke exposure: Yes Alcohol intake: never Substance/Drug Use: never Adopted: No Caregiver/support person: No Lives independently: Yes Household members: spouse Housing: Apartment Marital status: Number of children: 4 Number of grandchildren: 1 Highest education level completed: 12th Grade, No Diploma service: No Current occupational status: disabled Current occupational exposures/hazards: No Pets and animals: No Leisure activites: exercise and clubs Sexually active: No Do you think of yourself as: Straight/Heterosexual Current gender identity: Male Shelly/Adventist: Gnosticist Special shelly needs: No Agree to transfusion: Yes Dietary Habits: Current diet type/program: regular Vitals/I&O/Wt Last Vital Signs Temp 98.6 F 01/16/24 20:00 Pulse 82 01/16/24 20:00 Resp 21 H 01/16/24 20:00 BP 165/78 01/16/24 20:00 Pulse Ox 100 01/16/24 20:00 O2 Del Method Nasal Cannula 01/16/24 20:00 O2 Flow Rate 2 01/16/24 20:00 01/16/24 01/16/24 01/16/24 06:59 14:59 22:59 Intake Total 840 / 840 600 / 1440 Output Total 300 / 300 1650 / 1650 Balance -300 / -300 840 / 840 -1050 / -210 Weight last 48 hrs Weight 240 lb Weight 243 lb 4.8 oz Weight 190 lb Weight 235 lb Physical Exam 2 Const: OTHER: GENERAL: Patient is alert, awake and oriented x3. HEART: Regular S1 and S2. No murmur, rub or gallop. LUNGS: Clear to auscultate bilaterally. CENTRAL NERVOUS SYSTEM: Grossly nonfocal. EXTREMITIES: Lower extremities with out edema bilaterally. Urinary Catheter Management: Taylor: Cath Placed During This Visit: yes Reason for Continuing Indwelling Catheter: Acute Urinary Retention or Obstruction Urinary Catheter Date of Insertion: 01/16/24 Urinary Catheter Time of Insertion: 00:30 Data 01/16/24 02:59 01/16/24 14:20 A&P Assessment and plan (1) CHF exacerbation: Patient feeling better since admission he is sitting in the bed talking to me in full sentences and eating his dinner. At this point we will continue current diuresis. Echocardiogram is suggestive of preserved ejection fraction Qualifiers: Heart failure type: diastolic Qualified Code(s): I50.33 - Acute on chronic diastolic (congestive) heart failure (2) Acute on chronic renal insufficiency: As per nephrology (3) Elevated troponin: Could be multifactorial including underlying coronary artery disease versus reduced clearance and demand ischemia. Patient had negative stress test 2 years ago. Given history and risk factors he is moderate to high risk for obstructive coronary artery disease ideally may need left heart catheterization however due to underlying kidney disease and baseline creatinine stress test may can be considered. We will therefore ask for Lexiscan MIBI stress test since last stress test was 2 years ago. Further plan will be advised after reviewing stress test and extent of ischemia. For now agree with anticoagulation. (4) Tobacco dependence: Advised quitting smoking. (5) Chest pain: Chest pain pattern is nonspecific not classical with right side to frontal precordial chest pressure however in the face of abnormal cardiac markers may need to rule out ischemia, proceed with Lexiscan MIBI stress test Qualifiers: Chest pain type: precordial pain Qualified Code(s): R07.2 - Precordial pain Coding Level of Care Code Acute Code for [facility] Fwd Diagnoses Acute on chronic diastolic congestive heart failure I50.33 Heart failure type: diastolic Acute on chronic renal insufficiency N28.9; N18.9 Elevated troponin R79.89 Tobacco dependence F17.200 Precordial pain R07.2 Chest pain type: precordial pain
[2024-01-16 22:30] LABS: Glucose Point of Care 174 mg/dL (70-110)
[2024-01-17] VITALS (16 sets, daily range): BP systolic 144–169; BP diastolic 66–89; PULSE 73–88; RESP 14–24; TEMP 36.5–37.6; O2SAT 95–98
[2024-01-17] MEDS: ipratropium-albuterol 3 mL Neb INHALATION ×2 (03:49→21:22)
[2024-01-17 06:21] LABS: PROTEIN, TOTAL 5.5 g/dL (6.1-8.1)
[2024-01-17 06:40] LABS: Basophils % 0.1 %; Eosinophils % 0.1 %; Hematocrit 23.7 % (37-53); Lymphocytes # 1.5 10^3/uL (0.8-4.8); Lymphocytes % 10.9 %; Mean Corpuscular HGB Conc 31.6 g/dL (30-55); Mean Corpuscular Hemoglobin 29.6 pg (27-33); Mean Corpuscular Volume 93.7 fl (82-101); Mean Platelet Volume 10.8 fL (7.4-10.4); Monocytes # 1.3 10^3/uL (0.2-0.9); Monocytes % 9.4 %; Neutrophils # 10.54 10^3/uL (1.8-7.7); Neutrophils % 79.1 %; Nucleated Red Blood Cells % 0 %; Platelet Count 136 10^3/cmm (157-399); Red Blood Count 2.53 10^6/uL (3.85-5.65); White Blood Count 13.35 10^3/uL (3.29-11.43)
[2024-01-17 06:59] LABS: Alanine Aminotransferase 12 U/L (0-41); Albumin Level 2.9 g/dL (3.5-5.2); Alkaline Phosphatase 89 U/L (40-130); Anion Gap 13.9 (5-19); Aspartate Amino Transferase 12 U/L (0-40); Blood Urea Nitrogen 44 mg/dL (8-23); Calcium 7.5 mg/dL (8.5-10.5); Carbon Dioxide 21 mmol/L (22-29); Chloride 107 mmol/L (98-107); Creatinine Clr Calc Pharmacy 37.3268; Ferritin 177 ng/mL (30-400); Globulin 1.9 g/dL (1.3-4.6); Glomerular Filtration Rate 30.6 mL/min (90-130); Glucose 139 mg/dL (65-115); Iron 17 ug/dL (59-158); Magnesium 1.7 mg/dL (1.7-2.3); Osmolality Calculated 297 mOsm/kg (285-295); Percent Saturation 8.5 % (20-50); Phosphorus 3.9 mg/dL (2.5-4.5); Potassium 4.9 mmol/L (3.5-5.1); Sodium 137 mmol/L (136-145); Total Bilirubin 0.2 mg/dL (0.15-1.2); Total Iron Binding Capacity 198 mcg/dl; Total Protein 4.8 g/dL (6.6-8.7); Unsaturated Iron Binding 181 ug/dL (112-347)
[2024-01-17 07:08] LABS: Calcium 7.5 mg/dL (8.5-10.5); Parathyroid Hormone 140.7 pg/mL (15-65)
[2024-01-17 07:09] LABS: NT Pro B Type Natriuretic Pept 2182 pg/mL (0-125)
[2024-01-17 07:14] LABS: 25 Hydroxy Vitamin D 25 ng/mL (30-100)
[2024-01-17 07:15] LABS: Anti-Double Strand DNA AB <1 IU/mL
[2024-01-17 07:30] LABS: Glucose Point of Care 156 mg/dL (70-110)
[2024-01-17] MEDS: clopidogrel 75 mg Tablet PO (08:50)
[2024-01-17] MEDS: hyDRALAzine 50 mg Tablet PO ×3 (08:50→20:52)
[2024-01-17] MEDS: allopurinol 100 mg Tablet PO (08:50)
[2024-01-17] MEDS: carvedilol 12.5 mg Tablet PO ×2 (08:50→17:10)
[2024-01-17] MEDS: insulin lispro 100 unit/1 mL SUBCUT ×3 (08:50→18:22)
[2024-01-17] MEDS: atorvastatin 40 mg Tablet 80 MG PO (08:51)
[2024-01-17] MEDS: isosorbide mononitrate ER 60 mg Tablet PO (08:51)
--- NOTE | 2024-01-17 09:28 | US_ITS ---
WS: [id number] RENAL ULTRASOUND HISTORY: monique COMPARISON: 08/13/2022 TECHNIQUE: 2-D and color Doppler imaging of the kidney submitted. Quality this examination is compromised by body habitus. Right kidney: 13.1 cm x 6.2 cm x 6.6 cm. Cortex: 1.9 cm There are several hypoechoic areas within the kidney which are probably cysts. Better seen on the adan or study from 2022. No hydronephrosis. Left kidney: 15.0 cm x 6.7 cm x 6.8 cm. Cortex: 2.1 cm Normal size kidney. No hydronephrosis. Single parapelvic cyst. Aorta: Not imaged. Urinary Bladder: Nondistended urinary bladder with a Taylor catheter. US/US renal BI* [id number] IMPRESSION: 1. No hydronephrosis. 2. Bilateral renal cysts. These are poorly visualized today. Better seen on th e prior study from 2022. 3. Nondistended urinary bladder.
--- NOTE | 2024-01-17 09:29 | P.PN_ITS ---
Subjective 2 Subjective: The patient was seen and examined. Patient states that he walked yesterday however had dyspnea on exertion. The patient states he is urinating. He still has edema that is improving. No nausea or vomiting. No active chest pain. Medications: Reviewed: Yes Medication Review Details: Current Medications Acetaminophen (Acetaminophen 500 Mg Tablet) 500 mg PO Q4H PRN PRN Reason: fever Hydrocodone Bitart/Acetaminophen (Hydrocodone-Acetaminophen 5-325 Mg Tablet) 1 tab PO Q6H PRN PRN Reason: pain Last Admin: 01/16/24 01:42 Dose: 1 tab Albuterol/Ipratropium (Ipratropium-Albuterol 3 Ml Neb) 3 ml INHALATION Q6H.[facility]P [facility] Last Admin: 01/17/24 09:17 Dose: Not Given Allopurinol (Allopurinol 100 Mg Tablet) 100 mg PO DAILY [facility] Last Admin: 01/17/24 08:50 Dose: 100 mg Atorvastatin Calcium (Atorvastatin 40 Mg Tablet) 80 mg PO DAILY [facility] Last Admin: 01/17/24 08:51 Dose: 80 mg Bumetanide (Bumetanide 0.25 Mg/Ml Sdv 10 Ml) 1 mg IVP Q12H [facility] Last Admin: 01/16/24 21:31 Dose: 1 mg Carvedilol (Carvedilol 12.5 Mg Tablet) 12.5 mg PO BID [facility] Last Admin: 01/17/24 08:50 Dose: 12.5 mg Clopidogrel Bisulfate (Clopidogrel 75 Mg Tablet) 75 mg PO DAILY [facility] Last Admin: 01/17/24 08:50 Dose: 75 mg Enoxaparin Sodium (Enoxaparin 100 Mg/Ml Syringe) 90 mg SUBCUT Q24H [facility] Last Admin: 01/16/24 21:30 Dose: 90 mg Glucagon (Glucagon 1 Mg/Ml Kit 1 Ml) 1 mg IM ONCE PRN; Protocol PRN Reason: Adult Acute Hypoglycemia Nursing Prot. Hydralazine HCl (Hydralazine 50 Mg Tablet) 50 mg PO TID [facility] Last Admin: 01/17/24 08:50 Dose: 50 mg Dextrose (D5w) 500 mls @ 0 mls/hr IV ONCE PRN; Protocol PRN Reason: Adult Acute Hypoglycemia Prot Dextrose (D10w) 125 mls @ 750 mls/hr IV PRN PRN; Protocol PRN Reason: Adult Acute Hypoglycemia Nursing Protocol Dextrose (D10w) 250 mls @ 1,000 mls/hr IV PRN PRN; Protocol PRN Reason: Adult Acute Hypoglycemia Nursing Protocol Insulin Human Lispro (Insulin Lispro 100 Unit/1 Ml) 0 unit SUBCUT TIDWM EV; Protocol Last Admin: 01/17/24 08:50 Dose: 4 unit Isosorbide Mononitrate (Isosorbide Mononitrate Er 60 Mg Tablet) 60 mg PO DAILY [facility] Last Admin: 01/17/24 08:51 Dose: 60 mg Metolazone (Metolazone 5 Mg Tablet) 5 mg PO ONCE [facility] Last Admin: 01/16/24 11:32 Dose: 5 mg Ondansetron HCl (Ondansetron 2 Mg/Ml Sdv 2 Ml) 4 mg IVP Q6H PRN PRN Reason: NAUSEA AND VOMITING Sodium Chloride (Sodium Chloride 0.9% 100 Ml Bag) 50 ml IV PRN PRN PRN Reason: Blood transfusion prime and flush Stop: 01/18/24 08:22 Vitals/I&O/Wt Last Vital Signs Temp 99.6 F 01/17/24 08:00 Pulse 88 01/17/24 08:00 Resp 18 01/17/24 08:00 BP 150/89 01/17/24 08:00 Pulse Ox 96 01/17/24 08:00 O2 Del Method Nasal Cannula 01/17/24 08:00 O2 Flow Rate 2 01/17/24 08:00 01/16/24 01/17/24 01/17/24 22:59 06:59 14:59 Intake Total 600 / 1440 240 / 1680 240 / 240 Output Total 1650 / 1650 1500 / 3150 Balance -1050 / -210 -1260 / -1470 240 / 240 Weight last 48 hrs Weight 108.862 kg Weight 110.359 kg Weight 86.183 kg Weight 106.594 kg Physical Exam 2 Narrative: Patient is in bed sitting up. Vital signs noted. Improved oxygenation. HEENT normocephalic atraumatic. Neck is supple. Lungs wheezes on left greater than right side. Decrease crackles. Heart regular with systolic murmur. Abdomen is soft positive bowel sounds. Extremities 2+ bilateral edema. Neuro awake alert oriented x 3. Urinary Catheter Management: Taylor: Cath Placed During This Visit: yes Reason for Continuing Indwelling Catheter: Acute Urinary Retention or Obstruction Urinary Catheter Date of Insertion: 01/16/24 Urinary Catheter Time of Insertion: 00:30 Data 01/17/24 06:22 01/17/24 06:22 A&P Assessment and plan (1) Acute on chronic renal insufficiency: 58-year-old gentleman COPD hypertension CKD stage IV diabetes heart failure preserved EF. Echo per cardiology shows normal EF no significant wall motion abnormalities with moderate tricuspid valve regurgitation and mild to moderate mitral valve regurgitation. 1. CKD stage IV-baseline creatinine appears to be over 2.5 mg/dL. Renal ultrasound reviewed right kidney 13.1 cm multiple cysts left kidney 15 cm positive multiple bilateral renal cysts no hydronephrosis. Renal artery duplex is pending. Urinalysis 1+ protein 2+ blood trace leuk esterase, 21-50 RBCs Urine microalbumin creatinine ratio 309 Urine protein creatinine ratio of approximately 500. -Renal function is back to baseline. -Follow-up serum protein electrophoresis. Patient CKD is is most likely this is from hypertension diabetes cardiorenal syndrome. Patient had an episode over a year ago where he required temporary hemodialysis Patient's PTH is 140 will monitor. Will replace vitamin D. Serologies are so far negative or pending. 2. Severe shortness of breath can be from volume overload versus COPD versus pneumonia. Breathing much improved. BNP remains elevated at 2182 -If the patient needs a cardiac cath he is at increased risk for contrast- induced acute kidney injury. Would like patient to be euvolemic prior to the cardiac catheterization. 3. Hyperkalemia improved. 4. Diabetic control. 5. Anemia evaluation. Iron saturation 8.5%. Start IV iron. Await ferritin. 6. Patient has history of tobacco use and hematuria. Patient will need outpatient urological evaluation seen and examined using audio-visual equipement with the aid of a nurse pt consents to telehealth Plan see above Attestations 2 Medical Necessity Statement*: Acute on chronic heart failure preserved EF exacerbation renal failure Time Spent in Patient Care: 16 - 35 minutes (>than 50% of time sp ent in counselling and/or direct pt care on unit) . Coding Level of Care Code Acute Code for [facility] Fwd Diagnoses Acute on chronic renal insufficiency N28.9; N18.9
--- NOTE | 2024-01-17 09:59 | USCV_ITS ---
Alek Hopper Age: 58 Gender: M : 1965 Exam Date: 01/17/2024 04:53 Ordering Phys: Lamine Paz MD Technologist: [place] [facility] [place]: htn Aortic Velocity @ SMA (cm/s) 102 RIGHT KIDNEY LEFT KIDNEY Velocity (cm/s) Velocity (cm/s) Sys/Messer Sys/Messer Resistive Index Resistive Index 85.0 / 28.0 0.66 Proximal Renal Artery 59.0 / 19.0 0.68 83.0 / 24.0 0.71 Mid Renal Artery 58.0 / 18.0 0.68 79.0 / 26.0 0.66 Distal Renal Artery 84.0 / 24.0 0.71 70.0 / 24.0 0.70 Hilar 46.0 / 15.0 0.67 45.0 / 11.0 0.75 Upper Pole 44.0 / 13.0 0.69 32.0 / 8.0 0.73 Mid Pole 30.0 / 10.0 0.66 50.0 / 12.0 0.75 Lower Pole 30.0 / 9.0 0.70 0.85 Renal Aortic Ratio 0.84 Accleration Time (sec) 404.00 Hilar 589.00 268.00 Upper Pole 171.00 243.00 Mid Pole 254.00 598.00 Lower Pole 116.00 13.8 Kidney Length (cm) 12.5 FINDINGS No comparison. Normal size kidneys. No evidence of abdominal aortic aneurysm. There is no evidence of hemodynamically significant right renal artery stenosis. There is no evidence of hemodynamically significant left renal artery stenosis. CONCLUSIONS No sonographic evidence of renal aortic stenosis or aneurysm. Dr. Alma Go DO (Electronically Signed) Final Date: 17 January 2024 09:37 S
--- NOTE | 2024-01-17 10:12 | PC.CHAP ---
Pastoral Care Encounter/Spiritual Assessment Type of Contact [] Declined bander operator visit [] Patient/Family/Request visit [] Outpatient visit [] Follow-up visit [] Physician referral [] Code/Alert [] Routine visit [] Staff referral [] Actively dying [] Patient sleeping [] Family support [] [] Out of room [] Palliative care [] [x] Receiving care in room [] Pre-surgical visit [] Trauma [] Long length of stay [] ICU visit [] Other: Relational/Emotional Strength [] Patient feels connected with others/family/visitors/staff [] Distress [] Loneliness/isolation [] Abandonment Spirituality of Patient [] Person of Shelly [] Attends Druze of their Shelly [] Believes in Prayer [] Reads Bible or Anglican materials [] There are Spiritual issues to be addressed Narcotics Investigator Interventions [] Prayer [] Active listening [] Non-anxious presence [] Spiritual/emotional support [] Crisis/trauma care [] Spiritual counseling [] Bereavement support [] Provided bereavement packet [] Provided Bible/devotional materials [] Provided toy/stuffed animal, coloring book to patient or family member [] Provided Communion [] Anointing/Garner [] Salvation [] Completed spiritual assessment [] Other: Impact on Illness or Injury [] Angry [] Fearful [] Anxious [] Often cries [] Exhaustion [] Unable to work [] Unable to attend congregation [] Unable to walk/stand [] Unable to read [] Unable to drive [] Unable to eat/drink [] Unable to sleep [] Unable to be with family [] Patient intubated [] Other: Summary Time spent with patient
[2024-01-17] MEDS: ferric gluconate 125 MG in sodium chloride 0.9% (100 ml) 100 ML 110 MG IV (10:33)
[2024-01-17] MEDS: EPOETIN ALFA-EPBX 10,000 UNIT/ML SDV (ESRD) 10000 UNIT SUBCUT (10:33)
[2024-01-17] MEDS: ergocalciferol (vitamin D2) 50,000 Unit Capsule 50000 UNIT PO (10:33)
[2024-01-17 11:36] LABS: Glucose Point of Care 215 mg/dL (70-110)
--- NOTE | 2024-01-17 11:40 | PC.SOCIAL ---
IMM Updated Updated pt on IMM. No questions voiced. Provided pt a copy. Initialed, dated, & timed a copy & placed in chart.
[2024-01-17] MEDS: enoxaparin 100 mg/mL Syringe 90 MG SUBCUT ×2 (12:20→23:28)
--- NOTE | 2024-01-17 14:08 | P.PN_ITS ---
Documented by User: Zulema Castillo NP 01/17/24 14:25 Subjective 2 Subjective: Patient doing well this morning. He is sitting up in bed and eating his meal. He denies any chest pain at this time. Creatinine slightly improved at 2.6. He has 1+ edema bilaterally. Lungs are clear. He denies any shortness of breath at this time Medications: Reviewed: Yes Vitals/I&O/Wt Last Vital Signs Temp 98.5 F 01/17/24 13:11 Pulse 87 01/17/24 13:11 Resp 20 H 01/17/24 13:11 BP 153/73 01/17/24 13:11 Pulse Ox 97 01/17/24 12:00 O2 Del Method Nasal Cannula 01/17/24 12:00 O2 Flow Rate 2 01/17/24 12:00 01/16/24 01/17/24 01/17/24 22:59 06:59 14:59 Intake Total 600 / 1440 240 / 1680 350 / 350 Output Total 1650 / 1650 1500 / 3150 750 / 750 Balance -1050 / -210 -1260 / -1470 -400 / -400 Weight last 48 hrs Weight 240 lb Weight 243 lb 4.8 oz Weight 190 lb Weight 235 lb Physical Exam 2 Narrative: General: No apparent distress, healthy appearing, well nourished Muskuloskeletal: Full ROM Respiratory: Normal respiratory effort, clear to auscultation bilaterally throughout all lung carrasco, no use of accessory muscles Cardio: No JVD, regular rate, regular rhythm, S1 S2 normal, no murmurs GI: Normal to inspection, nondistended Extremities: Full ROM, normal, normal capillary refill, no cyanosis, 1+ edema bilateral lower extremities Neuro: Alert and oriented x4, no focal motor deficits Psych: Affect normal, denies suicidal ideation, mental status grossly normal Skin: No rashes or lesions noted, no wounds Urinary Catheter Management: Taylor: Cath Placed During This Visit: yes Reason for Continuing Indwelling Catheter: Acute Urinary Retention or Obstruction Urinary Catheter Date of Insertion: 01/16/24 Urinary Catheter Time of Insertion: 00:30 Data 01/17/24 18:04 01/17/24 18:04 Micro: Microbiology 01/16/24 16:00 Urine Culture - Preliminary Urine,Clean Catch A&P Assessment and plan (1) CHF exacerbation: Patient feeling better since admission. he is chest pain free. He has grade II/IV diastolic dysfunction with preserved EF. Qualifiers: Heart failure type: diastolic Qualified Code(s): I50.33 - Acute on chronic diastolic (congestive) heart failure (2) Acute on chronic renal insufficiency: As per nephrology (3) Elevated troponin: Could be multifactorial including underlying coronary artery disease, anemia, demand ischemia, renal disease. Patient had negative stress test 2 years ago. Given history and risk factors he is moderate to high risk for obstructive coronary artery disease ideally may need left heart catheterization, however due to underlying kidney disease and baseline creatinine stress test will be considered first. Lexiscan MIBI stress test has been ordered. Further plan will be advised after reviewing stress test and extent of ischemia. For now will continue to observe. (4) Tobacco dependence: Advised quitting smoking. (5) Chest pain: Chest pain has resolved at this time. Due to abnormal cardiac markers, multiple risk factors, we need to rule out ischemia, proceed with Lexiscan MIBI stress test Qualifiers: Chest pain type: precordial pain Qualified Code(s): R07.2 - Precordial pain Plan Chest pain has resolved at this time. Due to abnormal cardiac markers, multiple risk factors, we need to rule out ischemia, proceed with Lexiscan MIBI stress test Attestations 2 Medical Necessity Statement*: patient requires hospitalization for NSTEMI, CHF exacerbation, RIP Coding Level of Care Code Acute Code for [facility] Fwd Diagnoses Acute on chronic diastolic congestive heart failure I50.33 Heart failure type: diastolic Acute on chronic renal insufficiency N28.9; N18.9 Elevated troponin R79.89 Tobacco dependence F17.200 Precordial pain R07.2 Chest pain type: precordial pain Documented by User: Genevieve Nunez MD 01/17/24 21:25 Subjective 2 Subjective: Patient was evaluated and cared for in conjunction with an advanced practice practitioner. I personally examined the patient and reviewed the chart and all pertinent data including imaging, telemetry, and laboratory results. I discussed the patient in detail with the advanced practice practitioner. Please see their note for complete H&P testing result and agreed upon plan of care for the patient. Patient denies any chest pain sitting in the bed eating GENERAL: Patient is alert, awake and oriented x3. HEART: Regular S1 and S2. No murmur, rub or gallop. LUNGS: Clear to auscultate bilaterally. CENTRAL NERVOUS SYSTEM: Grossly nonfocal. EXTREMITIES: Lower extremities with out edema bilaterally. Assessment and plan Elevated cardiac markers Chest pain Hypertension Diastolic heart failure decompensated Chronic kidney disease Continue diuretics Proceed with Lexiscan MIBI stress in the morning to assess burden For further details please see below Patient doing well this morning. He is sitting up in bed and eating his meal. He denies any chest pain at this time. Creatinine slightly improved at 2.6. He has 1+ edema bilaterally. Lungs are clear. He denies shortness of breath at this time Physical Exam 2 Urinary Catheter Management: Taylor: Cath Placed During This Visit: yes Data 01/17/24 18:04 01/17/24 18:04 A&P Assessment and plan (1) CHF exacerbation: Qualifiers: Heart failure type: diastolic Qualified Code(s): I50.33 - Acute on chronic diastolic (congestive) heart failure (2) Acute on chronic renal insufficiency: (3) Elevated troponin: (4) Tobacco dependence: (5) Chest pain: Qualifiers: Chest pain type: precordial pain Qualified Code(s): R07.2 - Precordial pain Coding Level of Care Code Acute Code for [facility] Diagnoses Acute on chronic diastolic congestive heart failure I50.33 Heart failure type: diastolic Acute on chronic renal insufficiency N28.9; N18.9 Elevated troponin R79.89 Tobacco dependence F17.200 Precordial pain R07.2 Chest pain type: precordial pain
[2024-01-17] MEDS: bumetanide 0.25 mg/mL SDV 10 mL 1 MG IVP (14:38)
--- NOTE | 2024-01-17 16:02 | P.PN_ITS ---
Subjective 2 Subjective: Patient was seen this morning, is at bedside, denies any fevers, no chills, no cough he tells me his swelling has significantly proved, his shortness of breath is significant improved, his abdominal bloating has significantly improved, he denies any bloody or black stools, we discussed his improving renal function, with further diuresis, discussed his anemia, will transfuse 1 unit PRBC, monitor his hemoglobin thereafter, he is on Lovenox he denies any bloody or black stools, will have to watch his hemodynamics monitor his hemoglobin closely, he voices understanding, possible stress testing tomorrow based on clinical progress, but denies any active chest pain Vitals/I&O/Wt Last Vital Signs Temp 97.7 F 01/17/24 15:07 Pulse 79 01/17/24 15:07 Resp 14 01/17/24 14:11 BP 169/79 01/17/24 15:07 Pulse Ox 97 01/17/24 12:00 O2 Del Method Nasal Cannula 01/17/24 12:00 O2 Flow Rate 2 01/17/24 12:00 01/17/24 01/17/24 01/17/24 06:59 14:59 22:59 Intake Total 240 / 1680 350 / 350 350 / 700 Output Total 1500 / 3150 750 / 750 Balance -1260 / -1470 -400 / -400 350 / -50 Weight last 48 hrs Weight 108.862 kg Weight 110.359 kg Weight 86.183 kg Weight 106.594 kg Physical Exam 2 Const: COMMON NORMALS: no acute distress and patient oriented x3 Resp: COMMON NORMALS: normal respiratory effort, No retractions and No use of accessory muscles AUSCULTATION: crackles Cardio: COMMON NORMALS: regular rate, regular rhythm, S1 normal heart sound present and S2 normal heart sound present RATE: regular rate RHYTHM: r egular rhythm HEART SOUNDS: S1 normal heart sound present and S2 normal heart sound present GI: COMMON NORMALS: Normal to inspection, nondistended, normoactive bowel sounds present and non-tender Extremity: NARRATIVE EXTREMITY EXAM: 1+ edema Neuro: COMMON NORMALS: patient oriented x3, CN's II-XII intact bilaterally and moves all extremities Psych: COMMON NORMALS: mental status grossly normal Urinary Catheter Management: Taylor: Cath Placed During This Visit: yes Reason for Continuing Indwelling Catheter: Acute Urinary Retention or Obstruction Urinary Catheter Date of Insertion: 01/16/24 Urinary Catheter Time of Insertion: 00:30 Data 01/17/24 06:22 01/17/24 06:22 Micro: Microbiology 01/16/24 16:00 Urine Culture - Preliminary Urine,Clean Catch A&P Assessment and plan (1) Hypertension: Qualifiers: Hypertension type: primary hypertension Qualified Code(s): I10 - Essential (primary) hypertension (2) Acute diastolic heart failure: (3) Chest pain: Qualifiers: Chest pain type: precordial pain Qualified Code(s): R07.2 - Precordial pain (4) Elevated troponin: (5) Non-STEMI (non-ST elevated myocardial infarction): (6) Peripheral vascular disease: (7) Acute on chronic renal failure: Qualifiers: Acute renal failure type: unspecified Chronic kidney disease stage: u nspecified stage Qualified Code(s): N17.9 - Acute kidney failure, unspecified; N18.9 - Chronic kidney disease, unspecified (8) Shortness of breath: (9) CHF exacerbation: Qualifiers: Heart failure type: diastolic Qualified Code(s): I50.33 - Acute on chronic diastolic (congestive) heart failure (10) Acute anemia: Plan Non-stemi No previous history of coronary disease stress test 2021 IMPRESSIONS 1. Myocardial perfusion imaging revealing features suggesting small to moderate area of myocardial scarring with a very small area of aashish-infarction ischemia, in the distribution of the right coronary artery. 2. Slightly diminished LV ejection fraction 49%. 3. Segmental wall motion analysis revealing mild diffuse hypokinesia of the LV apex. 4. Mildly dilated LV cavity with an end-systolic volume of 94 ml. No similar previous studies are available for comparison Patient is stating that he had a stent placed for his peripheral vascular disease in the remote past plan: Start acute coronary syndrome protocol Cardiac echo CONCLUSIONS Normal left ventricular size, systolic function and wall thickness, with no regional wall motion abnormalities. Left ventricular ejection fraction is estimated at 60 %. Grade II/IV diastolic dysfunction, moderately elevated filling pressures. Mildly thickened mitral valve. No mitral valve stenosis. Mild- moderate mitral valve regurgitation. Thickened aortic valve. Mild aortic valve regurgitation. Moderate tricuspid valve regurgitation. The right ventricle is normal in size and function. RVSP could not be calculated due to incomplete tricuspid regurgitation velocity profile. There is no pericardial effusion. Right atrial pressure is around 5 mm of mercu Creatinine clearance has been improved, Lovenox dose was changed to 90 mg every 12 hours No active chest pain Patient has allergy to aspirin will give Plavix No active chest pain cardiology consulted PMNR, for cardiac stress test tomorrow acute chf exacerbation, systolic and diastolic -continue bumex 1 mg q12h -monitor uop, monitor cr, monitor K Acute and chronic kidney disease stage IV Cardio renal etiology most likely, Place Taylor catheter accurately measure urine output, in case of worsening of kidney function nephrology consulted Would use IV diuretics Acute on chronic anemia Multifactorial from anemia of chronic disease, CKD, early iron deficiency anemia Goal hemoglobin above 8 -Hemoglobin 7.5 will transfuse 1 unit PRBC -RN studies ordered, shows evidence of early iron deficiency anemia -Currently receiving ferric gluconate -Monitor hemoglobin every 6 hours -Protonix, Carafate -Hemoccult stool Metabolic acidosis: Continue bicarb tablets Anasarca Patient seems to have CHF and chronic kidney disease combination Dietary indiscretion Type 2diabetic, will use consistent carbohydrate diet insulin sliding scale Acute hypoxia: Currently on 2 L of oxygen, stating that he uses 2 L only at nighttime Also has pleural effusion on x-ray Full code Hypertension: continue, hydralazine, Coreg, Imdur Consistent carb diet Plan for today, monitor hemoglobin transfuse 1 unit PRBC, continue IV diuresis, n.p.o. midnight for cardiac stress test tomorrow morning Attestations 2 Medical Necessity Statement*: Patient requires hospitalization, for chest pain, acute CHF exacerbation, RIP, acute anemia Diagnoses Primary hypertension I10 Hypertension type: primary hypertension Acute diastolic heart failure I50.31 Precordial pain R07.2 Chest pain type: precordial pain Elevated troponin R79.89 Non-STEMI (non-ST elevated myocardial infarction) I21.4 Peripheral vascular disease I73.9 Acute on chronic renal failure N17.9; N18.9 Acute renal failure type: unspecified Chronic kidney disease stage: unspecified stage Shortness of breath R06.02 Acute on chronic diastolic congestive heart failure I50.33 Heart failure type: diastolic Acute anemia D64.9
[2024-01-17] MEDS: pantoprazole 40 mg SDV IVP (17:10)
[2024-01-17] MEDS: sucralfate 1 gm/10 mL Oral Liq UDC PO ×2 (17:10→20:52)
[2024-01-17 17:15] LABS: ALBUMIN 2.9 g/dL (3.8-4.8); ALPHA 1 GLOBULIN 0.4 g/dL (0.2-0.3); ALPHA 2 GLOBULIN 0.8 g/dL (0.5-0.9); BETA 1 GLOBULIN 0.3 g/dL (0.4-0.6); BETA 2 GLOBULIN 0.3 g/dL (0.2-0.5); GAMMA GLOBULIN 0.8 g/dL (0.8-1.7)
[2024-01-17 17:42] LABS: Glucose Point of Care 149 mg/dL (70-110)
[2024-01-17 18:21] LABS: Hematocrit 27.6 % (37-53)
[2024-01-17 18:34] LABS: Blood Urea Nitrogen 45 mg/dL (8-23); Calcium 7.4 mg/dL (8.5-10.5); Carbon Dioxide 22 mmol/L (22-29); Chloride 109 mmol/L (98-107); Creatinine Clr Calc Pharmacy 33.4654; Glucose 144 mg/dL (65-115); Osmolality Calculated 304 mOsm/kg (285-295); Sodium 140 mmol/L (136-145)
[2024-01-17 20:18] LABS: Glucose Point of Care 162 mg/dL (70-110)
[2024-01-17 23:12] LABS: Hematocrit 25.8 % (37-53)
[2024-01-18] VITALS (15 sets, daily range): BP systolic 137–184; BP diastolic 72–84; PULSE 73–90; RESP 12–18; TEMP 36.6–37.3; O2SAT 90–98
[2024-01-18] MEDS: bumetanide 0.25 mg/mL SDV 10 mL 1 MG IVP (01:54)
[2024-01-18] MEDS: ipratropium-albuterol 3 mL Neb INHALATION ×3 (03:11→20:24)
[2024-01-18 04:04] LABS: Basophils % 0.1 %; Eosinophils # 0.1 10^3/uL (0.0-0.8); Eosinophils % 0.5 %; Hematocrit 26.2 % (37-53); Lymphocytes # 2.3 10^3/uL (0.8-4.8); Lymphocytes % 20.4 %; Mean Corpuscular HGB Conc 31.7 g/dL (30-55); Mean Corpuscular Hemoglobin 29.2 pg (27-33); Mean Corpuscular Volume 92.3 fl (82-101); Mean Platelet Volume 10.5 fL (7.4-10.4); Monocytes # 1.2 10^3/uL (0.2-0.9); Monocytes % 10.7 %; Neutrophils # 7.55 10^3/uL (1.8-7.7); Neutrophils % 67.9 %; Nucleated Red Blood Cells % 0 %; Platelet Count 152 10^3/cmm (157-399); Red Blood Count 2.84 10^6/uL (3.85-5.65); Red Cell Distribution Width 14.9 % (12.1-15.1); White Blood Count 11.11 10^3/uL (3.29-11.43)
[2024-01-18 04:32] LABS: Alanine Aminotransferase 13 U/L (0-41); Alkaline Phosphatase 93 U/L (40-130); Aspartate Amino Transferase 10 U/L (0-40); Blood Urea Nitrogen 45 mg/dL (8-23); Calcium 7.5 mg/dL (8.5-10.5); Carbon Dioxide 21 mmol/L (22-29); Chloride 109 mmol/L (98-107); Creatinine Clr Calc Pharmacy 35.9444; Globulin 2.5 g/dL (1.3-4.6); Glomerular Filtration Rate 29.3 mL/min (90-130); Glucose 138 mg/dL (65-115); Magnesium 1.6 mg/dL (1.7-2.3); Osmolality Calculated 302 mOsm/kg (285-295); Phosphorus 3.9 mg/dL (2.5-4.5); Sodium 139 mmol/L (136-145); Total Bilirubin 0.3 mg/dL (0.15-1.2); Total Protein 5.5 g/dL (6.6-8.7)
[2024-01-18] MEDS: sucralfate 1 gm/10 mL Oral Liq UDC PO ×4 (05:11→20:33)
[2024-01-18] MEDS: pantoprazole 40 mg SDV IVP ×2 (05:11→16:00)
[2024-01-18 06:24] LABS: Glucose Point of Care 118 mg/dL (70-110)
[2024-01-18] MEDS: regadenoson 0.4 Mg/5 ml Syringe IVP (07:21)
[2024-01-18 08:45] LABS: Anti-Nuclear Antibody Pattern Cytoplasmic; Anti-Nuclear Antibody Screen POSITIVE (NEGATIVE)
--- NOTE | 2024-01-18 09:25 | P.PN_ITS ---
Subjective 2 Subjective: status post stress test this morning. dec edema. feels better. denies n/v/f/c/valerio/d/sob/cp Medications: Reviewed: Yes Medication Review Details: Current Medications Acetaminophen (Acetaminophen 500 Mg Tablet) 500 mg PO Q4H PRN PRN Reason: fever Hydrocodone Bitart/Acetaminophen (Hydrocodone-Acetaminophen 5-325 Mg Tablet) 1 tab PO Q6H PRN PRN Reason: pain Last Admin: 01/16/24 01:42 Dose: 1 tab Albuterol/Ipratropium (Ipratropium-Albuterol 3 Ml Neb) 3 ml INHALATION Q6H.RESP [facility] Last Admin: 01/18/24 07:47 Dose: Not Given Allopurinol (Allopurinol 100 Mg Tablet) 100 mg PO DAILY [facility] Last Admin: 01/17/24 08:50 Dose: 100 mg Aminophylline (Aminophylline 25 Mg/Ml Sdv 20 Ml) 25 mg IVP Q2M PRN PRN Reason: see dose instructions Stop: 01/19/24 06:23 Atorvastatin Calcium (Atorvastatin 40 Mg Tablet) 80 mg PO DAILY [facility] Last Admin: 01/17/24 08:51 Dose: 80 mg Bumetanide (Bumetanide 1 Mg Tablet) 0.5 mg PO BID [facility] Carvedilol (Carvedilol 12.5 Mg Tablet) 12.5 mg PO BID [facility] Last Admin: 01/17/24 17:10 Dose: 12.5 mg Clopidogrel Bisulfate (Clopidogrel 75 Mg Tablet) 75 mg PO DAILY [facility] Last Admin: 01/17/24 08:50 Dose: 75 mg Enoxaparin Sodium (Enoxaparin 100 Mg/Ml Syringe) 90 mg SUBCUT Q12H [facility] Last Admin: 01/17/24 23:28 Dose: 90 mg Ergocalciferol (Ergocalciferol (Vitamin D2) 50,000 Unit Capsule) 50,000 unit PO Q7D [facility] Stop: 01/25/24 09:59 Last Admin: 01/17/24 10:33 Dose: 50,000 unit Glucagon (Glucagon 1 Mg/Ml Kit 1 Ml) 1 mg IM ONCE PRN; Protocol PRN Reason: Adult Acute Hypoglycemia Nursing Prot. Hydralazine HCl (Hydralazine 50 Mg Tablet) 50 mg PO TID [facility] Last Admin: 01/17/24 20:52 Dose: 50 mg Dextrose (D5w) 500 mls @ 0 mls/hr IV ONCE PRN; Protocol PRN Reason: Adult Acute Hypoglycemia Prot Dextrose (D10w) 125 mls @ 750 mls/hr IV PRN PRN; Protocol PRN Reason: Adult Acute Hypoglycemia Nursing Protocol Dextrose (D10w) 250 mls @ 1,000 mls/hr IV PRN PRN; Protocol PRN Reason: Adult Acute Hypoglycemia Nursing Protocol Ferric Sodium Gluconate 125 mg (/ Sodium Chloride) 110 mls @ 110 mls/hr IV Q24H [facility] Stop: 01/24/24 10:59 Last Infusion: 01/17/24 11:57 Dose: Infused Insulin Human Lispro (Insulin Lispro 100 Unit/1 Ml) 0 unit SUBCUT TIDWM [facility]; Protocol Last Admin: 01/17/24 18:22 Dose: 4 unit Isosorbide Mononitrate (Isosorbide Mononitrate Er 60 Mg Tablet) 60 mg PO DAILY [facility] Last Admin: 01/17/24 08:51 Dose: 60 mg Metolazone (Metolazone 5 Mg Tablet) 5 mg PO ONCE [facility] Last Admin: 01/16/24 11:32 Dose: 5 mg Nitroglycerin (Nitroglycerin 0.4 Mg Sublingual Tablet) 0.4 mg SUBLINGUAL Q5M PRN PRN Reason: CHEST PAIN Stop: 01/19/24 06:23 Ondansetron HCl (Ondansetron 2 Mg/Ml Sdv 2 Ml) 4 mg IVP Q6H PRN PRN Reason: NAUSEA AND VOMITING Ondansetron HCl (Ondansetron 2 Mg/Ml Sdv 2 Ml) 4 mg IVP Q2M PRN PRN Reason: NAUSEA Pantoprazole Sodium (Pantoprazole 40 Mg Sdv) 40 mg IVP Q12H [facility] Last Admin: 01/18/24 05:11 Dose: 40 mg Sucralfate (Sucralfate 1 Gm/10 Ml Oral Liq Udc) 1 gm PO Q6H [facility] Last Admin: 01/18/24 05:11 Dose: 1 gm Vitals/I&O/Wt Last Vital Signs Temp 99.1 F 01/18/24 04:00 Pulse 85 01/18/24 07:42 Resp 15 01/18/24 04:00 BP 137/84 01/18/24 07:42 Pulse Ox 96 01/18/24 04:00 O2 Del Method Nasal Cannula 01/18/24 04:00 O2 Flow Rate 2 01/17/24 20:00 FiO2 21 01/18/24 03:11 01/17/24 01/18/24 01/18/24 22:59 06:59 14:59 Intake Total 690 / 1040 Output Total 1100 / 1850 2000 / 3850 Balance -410 / -810 -2000 / -2810 Physical Exam 2 Narrative: Patient is in bed comfortable Vital signs noted. HEENT normocephalic atraumatic. Neck is supple. Lungs - dull bases, much improved air movement b/l. Heart regular with systolic murmur. Abdomen is soft positive bowel sounds. Extremities 1+ bilateral edema. Neuro awake alert oriented x 3. Urinary Catheter Management: Taylor: Cath Placed During This Visit: yes Reason for Continuing Indwelling Catheter: Acute Urinary Retention or Obstruction Urinary Catheter Date of Insertion: 01/16/24 Urinary Catheter Time of Insertion: 00:30 Data 01/18/24 03:26 01/18/24 03:26 Micro: Microbiology 01/16/24 16:00 Urine Culture - Final Urine,Clean Catch 01/18/24 06:35 Occult Blood (FIT) - Final Stool - Stool Aspirate A&P Assessment and plan (1) Acute on chronic renal insufficiency: 58-year-old gentleman COPD hypertension CKD stage IV diabetes heart failure preserved EF. Echo per cardiology shows normal EF no significant wall motion abnormalities with moderate tricuspid valve regurgitation and mild to moderate mitral valve regurgitation. 1. CKD stage IV-baseline creatinine appears to be over 2.5 mg/dL. Renal ultrasound reviewed right kidney 13.1 cm multiple cysts left kidney 15 cm positive multiple bilateral renal cysts no hydronephrosis. Renal artery duplex is pending. Urinalysis 1+ protein 2+ blood trace leuk esterase, 21-50 RBCs Urine microalbumin creatinine ratio 309 Urine protein creatinine ratio of approximately 500. -Renal function is back to baseline. -Follow-up serum protein electrophoresis. Patient CKD is is most likely this is from hypertension diabetes cardiorenal syndrome. Patient had an episode over a year ago where he required temporary hemodialysis Patient's PTH is 140 will monitor. Will replace vitamin D. Serologies are so far negative or pending, except + JAY 1:80. send complements, unlikely SLE nephritis. will need to follow agree w/ decreasing bumex 2. S/p stress test this morning -If the patient needs a cardiac cath he is at increased risk for contrast- induced acute kidney injury. Would like patient to be euvolemic prior to the cardiac catheterization. 3. Hyperkalemia improved. 4. Diabetic control. 5. Anemia evaluation. Iron saturation 8.5%. ferritin 177, Start IV iron. 6. Patient has history of tobacco use and hematuria. Patient will need outpatient urological evaluation seen and examined using audio-visual equipement with the aid of a nurse pt consents to telehealth Plan see above Attestations 2 Medical Necessity Statement*: cardiac evaluation, ckd Time Spent in Patient Care: 16 - 35 minutes (>than 50% of time sp ent in counselling and/or direct pt care on unit) . Coding Level of Care Code Acute Code for [facility] Diagnoses Acute on chronic renal insufficiency N28.9; N18.9
[2024-01-18 10:14] LABS: Complement C3 131 mg/dL (90-180)
[2024-01-18] MEDS: atorvastatin 40 mg Tablet 80 MG PO (10:17)
[2024-01-18] MEDS: carvedilol 12.5 mg Tablet PO ×2 (10:18→18:03)
[2024-01-18] MEDS: clopidogrel 75 mg Tablet PO (10:18)
[2024-01-18] MEDS: isosorbide mononitrate ER 60 mg Tablet PO (10:18)
[2024-01-18] MEDS: allopurinol 100 mg Tablet PO (10:18)
[2024-01-18] MEDS: hyDRALAzine 50 mg Tablet PO ×3 (10:18→20:33)
[2024-01-18] MEDS: ferric gluconate 125 MG in sodium chloride 0.9% (100 ml) 100 ML 110 MG IV (10:44)
--- NOTE | 2024-01-18 11:35 | NMCV_ITS ---
NM lynette perf SPECT r/s* [id number] Alek Hopper Age: 58 Gender: M : 1965 Exam Date: 01/18/2024 06:30 Ordering Phys: Zulema Castillo NP Technologist: ANNIE Killian Exam Location: [facility] Indications: CP STRESS TEST Please see separate stress test report in [facility] for full findings IMAGE PROTOCOL Rest/Stress 1 Lexiscan Day Radiopharmaceutical Dose (mCi) Administration Site Administered by Rest: Tc-99m 10.6 IV ANNIE Batista Sestamibi Stress:Tc-99m 33 IV ANNIE Killian Sestamisuzi Rest: 18-Jan-2024 60 Discovery 630 Stress: 18-Jan-2024 30 Discovery 630 0.4mg Lexiscan. Supine position only as patient was unable to lay prone. SPECT RESULTS Technical Quality: Good Raw Data Analysis: Normal Image Corrections: No attenuation or motion correction applied Summed Stress Score: 1 Summed Rest Score: 8 Summed Difference Score: 0 PERFUSION FINDINGS Patchy areas of decreased tracer uptake were noted in the anterior wall and inferior wall regions. No significant reversibility was noted in these regions. FUNCTIONAL RESULTS (calculated via Gated SPECT) Stress Image LV EF (%): 53 Stress EDV (mL):207 TID: 0.97 Stress ESV (mL):98 FUNCTIONAL FINDINGS: Segmental wall motion analysis revealed no gross wall motion abnormalities. Dilated LV cavity IMPRESSIONS 1. Myocardial perfusion imaging revealing patchy areas of persistent decreased tracer uptake involving the inferior wall and anterior wall regions suggesting myocardial scarring versus attenuation artifact 2. Normal LV ejection fraction of 53%. 3. LV wall motion analysis revealing no gross wall motion abnormalities. 4. Mildly dilated left ventricle with an end-systolic volume of 98 mL Compared to the study from 12/24/2021, no ischemic segments are noted at this time. Dr Akiko Vaughn MD [facility] (Electronically Signed) Final Date: 18 January 2024 12:14 S
[2024-01-18 11:48] LABS: Glucose Point of Care 155 mg/dL (70-110)
[2024-01-18] MEDS: insulin lispro 100 unit/1 mL SUBCUT (12:11)
[2024-01-18] MEDS: enoxaparin 100 mg/mL Syringe 90 MG SUBCUT (12:11)
--- NOTE | 2024-01-18 13:58 | P.PN_ITS ---
Subjective 2 Subjective: - Patient was seen this morning -He tells that he is breathing significa ntly better, his edema is improving, no chest pain overnight he was able to ambulate -He is a bit anxious about the stress te st but denies any chest pain or shortness of breath during the test Vitals/I&O/Wt Last Vital Signs Temp 97.8 F 01/18/24 11:43 Pulse 84 01/18/24 13:26 Resp 16 01/18/24 13:20 BP 154/72 01/18/24 11:43 Pulse Ox 97 01/18/24 13:20 O2 Del Method Nasal Cannula 01/18/24 13:20 O2 Flow Rate 2 01/18/24 13:20 FiO2 21 01/18/24 03:11 01/17/24 01/18/24 01/18/24 22:59 06:59 14:59 Intake Total 690 / 1040 470 / 470 Output Total 1100 / 1850 2000 / 3850 1200 / 1200 Balance -410 / -810 -2000 / -2810 -730 / -730 Physical Exam 2 Const: COMMON NORMALS: no acute distress and patient oriented x3 Resp: COMMON NORMALS: normal respiratory effort, No retractions, No use of accessory muscles and clear to auscultation bilaterally AUSCULTATION: clear to auscultation bilaterally Cardio: COMMON NORMALS: regular rate, regular rhythm, S1 normal heart sound present and S2 normal heart sound present RATE: regular rate RHYTHM: r egular rhythm HEART SOUNDS: S1 normal heart sound present and S2 normal heart sound present GI: COMMON NORMALS: Normal to inspection, nondistended, normoactive bowel sounds present and non-tender Extremity: COMMON NORMALS: no pedal edema Neuro: COMMON NORMALS: patient oriented x3 Psych: COMMON NORMALS: mental status grossly normal Urinary Catheter Management: Taylor: Cath Placed During This Visit: yes Reason for Continuing Indwelling Catheter: Acute Urinary Retention or Obstruction Urinary Catheter Date of Insertion: 01/16/24 Urinary Catheter Time of Insertion: 00:30 Data 01/18/24 03:26 01/18/24 03:26 Micro: Microbiology 01/16/24 16:00 Urine Culture - Final Urine,Clean Catch 01/18/24 06:35 Occult Blood (FIT) - Final Stool - Stool Aspirate A&P Assessment and plan (1) Hypertension: Qualifiers: Hypertension type: primary hypertension Qualified Code(s): I10 - Essential (primary) hypertension (2) Acute diastolic heart failure: (3) Chest pain: Qualifiers: Chest pain type: precordial pain Qualified Code(s): R07.2 - Precordial pain (4) Elevated troponin: (5) Non-STEMI (non-ST elevated myocardial infarction): (6) Peripheral vascular disease: (7) Acute on chronic renal failure: Qualifiers: Acute renal failure type: unspecified Chronic kidney disease stage: u nspecified stage Qualified Code(s): N17.9 - Acute kidney failure, unspecified; N18.9 - Chronic kidney disease, unspecified (8) Shortness of breath: (9) CHF exacerbation: Qualifiers: Heart failure type: diastolic Qualified Code(s): I50.33 - Acute on chronic diastolic (congestive) heart failure (10) Acute anemia: Plan Non-stemi No previous history of coronary disease stress test 2021 IMPRESSIONS 1. Myocardial perfusion imaging revealing features suggesting small to moderate area of myocardial scarring with a very small area of aashish-infarction ischemia, in the distribution of the right coronary artery. 2. Slightly diminished LV ejection fraction 49%. 3. Segmental wall motion analysis revealing mild diffuse hypokinesia of the LV apex. 4. Mildly dilated LV cavity with an end-systolic volume of 94 ml. No similar previous studies are available for comparison Patient is stating that he had a stent placed for his peripheral vascular disease in the remote past plan: Start acute coronary syndrome protocol Cardiac echo CONCLUSIONS Normal left ventricular size, systolic function and wall thickness, with no regional wall motion abnormalities. Left ventricular ejection fraction is estimated at 60 %. Grade II/IV diastolic dysfunction, moderately elevated filling pressures. Mildly thickened mitral valve. No mitral valve stenosis. Mild- moderate mitral valve regurgitation. Thickened aortic valve. Mild aortic valve regurgitation. Moderate tricuspid valve regurgitation. The right ventricle is normal in size and function. RVSP could not be calculated due to incomplete tricuspid regurgitation velocity profile. There is no pericardial effusion. Right atrial pressure is around 5 mm of mercu Creatinine clearance has been improved, Lovenox dose was changed to 90 mg every 12 hours No active chest pain Patient has allergy to aspirin will give Plavix No active chest pain cardiology consulted cardiac stress test today acute chf exacerbation, systolic and diastolic - -5L -De-escalate to Bumex 0.5 mg p.o. twice daily -monitor uop, monitor cr, monitor K Acute and chronic kidney disease stage IV, improving 2.7 Cardio renal etiology most likely, Place Taylor catheter accurately measure urine output, in case of worsening of kidney function nephrology consulted Acute on chronic anemia Multifactorial from anemia of chronic disease, CKD, early iron deficiency anemia Goal hemoglobin above 8 -Hemoglobin 7.5, status post 1 unit PRBC -RN studies ordered, shows evidence of early iron deficiency anemia -Currently receiving ferric gluconate -Monitor hemoglobin -Protonix, Carafate -Hemoccult stool negative Metabolic acidosis: Continue bicarb tablets Anasarca Patient seems to have CHF and chronic kidney disease combination Dietary indiscretion Type 2diabetic, will use consistent carbohydrate diet insulin sliding scale Acute hypoxia: Currently on 2 L of oxygen, stating that he uses 2 L only at nighttime Also has pleural effusion on x-ray Full code Hypertension: continue, hydralazine, Coreg, Imdur Consistent carb diet Plan for today, acute anemia, CHF, chest pain Attestations 2 Medical Necessity Statement*: Patient requires hospitalization for chest pain, CHF, acute anemia Diagnoses Primary hypertension I10 Hypertension type: primary hypertension Acute diastolic heart failure I50.31 Precordial pain R07.2 Chest pain type: precordial pain Elevated troponin R79.89 Non-STEMI (non-ST elevated myocardial infarction) I21.4 Peripheral vascular disease I73.9 Acute on chronic renal failure N17.9; N18.9 Acute renal failure type: unspecified Chronic kidney disease stage: unspecified stage Shortness of breath R06.02 Acute on chronic diastolic congestive heart failure I50.33 Heart failure type: diastolic Acute anemia D64.9
--- NOTE | 2024-01-18 15:14 | P.PN_ITS ---
Documented by User: Zulema Castillo NP 01/18/24 15:20 Subjective 2 Subjective: Patient is doing well overall. Denies shortness of breath. Denies chest pain at this time. He is sitting up and eating in bed. He is resting comfortably. Medications: Reviewed: Yes Vitals/I&O/Wt Last Vital Signs Temp 97.8 F 01/18/24 11:43 Pulse 84 01/18/24 13:26 Resp 16 01/18/24 13:20 BP 154/72 01/18/24 11:43 Pulse Ox 97 01/18/24 13:20 O2 Del Method Nasal Cannula 01/18/24 13:20 O2 Flow Rate 2 01/18/24 13:20 FiO2 21 01/18/24 03:11 01/18/24 01/18/24 01/18/24 06:59 14:59 22:59 Intake Total 470 / 470 Output Total 2000 / 3850 1200 / 1200 Balance -2000 / -2810 -730 / -730 Physical Exam 2 Narrative: General: No apparent distress, healthy appearing, well nourished Muskuloskeletal: Full ROM Lymphatic: no lymphedema noted Respiratory: Normal respiratory effort, clear to auscultation bilaterally throughout all lung carrasco, no use of accessory muscles Cardio: No JVD, regular rate, regular rhythm, S1 S2 normal, no murmurs, peripheral pulses 2+ throughout GI: Normal to inspection, nondistended Extremities: Full ROM, normal, normal capillary refill, no cyanosis, trace edema bilateral lower extremities Neuro: Alert and oriented x4, no focal motor deficits Psych: Affect normal, denies suicidal ideation, mental status grossly normal Skin: No rashes or lesions noted, no wounds Urinary Catheter Management: Taylor: Cath Placed During This Visit: yes Reason for Continuing Indwelling Catheter: Acute Urinary Retention or Obstruction Urinary Catheter Date of Insertion: 01/16/24 Urinary Catheter Time of Insertion: 00:30 Data 01/18/24 03:26 01/18/24 03:26 Micro: Microbiology 01/16/24 16:00 Urine Culture - Final Urine,Clean Catch 01/18/24 06:35 Occult Blood (FIT) - Final Stool - Stool Aspirate A&P Assessment and plan (1) CHF exacerbation: Patient feeling better since admission. he is chest pain free. He has grade II/IV diastolic dysfunction with preserved EF. Recommend continue home dose diurectic. Qualifiers: Heart failure type: diastolic Qualified Code(s): I50.33 - Acute on chronic diastolic (congestive) heart failure (2) Acute on chronic renal insufficiency: As per nephrology (3) Elevated troponin: Could be multifactorial including underlying coronary artery disease, anemia, demand ischemia, renal disease. Patient had negative stress test 2 years ago. Stress test was negative for ischemia. The plan is to continue diuresing today. (4) Tobacco dependence: Advised quitting smoking. (5) Chest pain: Chest pain has resolved at this time. Lexiscan was negative. Qualifiers: Chest pain type: precordial pain Qualified Code(s): R07.2 - Precordial pain Plan Chest pain has resolved at this time. Stress test was negative. Recommend continue diuresis for 1 more day. Hopefully patient may be discharged tomorrow if improvement has been made and he remains chest pain-free. Attestations 2 Medical Necessity Statement*: Patient expected to cross 2 midnights due to NSTEMI/CHF exacerbation. Coding Level of Care Code Acute Code for [facility] Fwd Diagnoses Acute on chronic diastolic congestive heart failure I50.33 Heart failure type: diastolic Acute on chronic renal insufficiency N28.9; N18.9 Elevated troponin R79.89 Tobacco dependence F17.200 Precordial pain R07.2 Chest pain type: precordial pain Documented by User: Genevieve Nunez MD 01/18/24 22:14 Subjective 2 Subjective: Patient was evaluated and cared for in conjunction with an advanced practice practitioner. I personally examined the patient and reviewed the chart and all pertinent data including imaging, telemetry, and laboratory results. I discussed the patient in detail with the advanced practice practitioner. Please see their note for complete H&P testing result and agreed upon plan of care for the patient. Patient denies shortness of breath stress test negative GENERAL: Patient is alert, awake and oriented x3. HEART: Regular S1 and S2. No murmur, rub or gallop. LUNGS: Clear to auscultate bilaterally. CENTRAL NERVOUS SYSTEM: Grossly nonfocal. EXTREMITIES: Lower extremities with out edema bilaterally. Assessment and plan Diastolic decompensated heart failure Uncontrolled hypertension CKD Patient overall continues to be in decompensated diastolic heart failure, his lower extremity edema as per his is out of proportion. According to his he hides his symptoms. At this point we will continues to diurese. Will start patient on IV Bumex may will add metolazone if does not have better output over next 12 hours. Further plan will be devised as per progress of the patient. Patient stress test is negative for ischemia. Patient is doing well overall. Denies shortness of breath. Denies chest pain at this time. He is sitting up and eating in bed. He is resting comfortably. Physical Exam 2 Urinary Catheter Management: Taylor: Cath Placed During This Visit: yes Data 01/18/24 03:26 01/18/24 03:26 A&P Assessment and plan (1) CHF exacerbation: Qualifiers: Heart failure type: diastolic Qualified Code(s): I50.33 - Acute on chronic diastolic (congestive) heart failure (2) Acute on chronic renal insufficiency: (3) Elevated troponin: (4) Tobacco dependence: (5) Chest pain: Qualifiers: Chest pain type: precordial pain Qualified Code(s): R07.2 - Precordial pain Coding Level of Care Code Acute Code for [facility] Diagnoses Acute on chronic diastolic congestive heart failure I50.33 Heart failure type: diastolic Acute on chronic renal insufficiency N28.9; N18.9 Elevated troponin R79.89 Tobacco dependence F17.200 Precordial pain R07.2 Chest pain type: precordial pain
[2024-01-18 16:06] LABS: Glucose Point of Care 119 mg/dL (70-110)
[2024-01-18] MEDS: bumetanide 1 mg Tablet 0.5 MG PO (18:03)
[2024-01-18] MEDS: bumetanide 0.25 mg/mL SDV 4 mL 1 MG IVP (20:32)
[2024-01-18 21:11] LABS: Glucose Point of Care 127 mg/dL (70-110)
[2024-01-19] VITALS (17 sets, daily range): BP systolic 151–185; BP diastolic 71–82; PULSE 81–98; RESP 14–20; TEMP 36.7–37.9; O2SAT 92–98
[2024-01-19] MEDS: ipratropium-albuterol 3 mL Neb INHALATION ×4 (02:07→20:42)
[2024-01-19 02:24] LABS: ANCA Screen NEGATIVE (NEGATIVE)
[2024-01-19] MEDS: pantoprazole 40 mg SDV IVP ×2 (04:15→15:29)
[2024-01-19] MEDS: sucralfate 1 gm/10 mL Oral Liq UDC PO ×4 (04:15→21:04)
[2024-01-19 04:56] LABS: Basophils % 0.1 %; Eosinophils # 0.1 10^3/uL (0.0-0.8); Eosinophils % 0.7 %; Hematocrit 26.4 % (37-53); Lymphocytes # 1.2 10^3/uL (0.8-4.8); Lymphocytes % 10.6 %; Mean Corpuscular HGB Conc 31.4 g/dL (30-55); Mean Corpuscular Hemoglobin 28.6 pg (27-33); Mean Platelet Volume 10.6 fL (7.4-10.4); Monocytes # 1.1 10^3/uL (0.2-0.9); Neutrophils # 8.61 10^3/uL (1.8-7.7); Nucleated Red Blood Cells % 0 %; Platelet Count 146 10^3/cmm (157-399); Red Cell Distribution Width 14.5 % (12.1-15.1); White Blood Count 11.04 10^3/uL (3.29-11.43)
[2024-01-19 05:33] LABS: Alanine Aminotransferase 15 U/L (0-41); Albumin Level 3.1 g/dL (3.5-5.2); Alkaline Phosphatase 100 U/L (40-130); Aspartate Amino Transferase 13 U/L (0-40); Blood Urea Nitrogen 41 mg/dL (8-23); Calcium 7.5 mg/dL (8.5-10.5); Carbon Dioxide 22 mmol/L (22-29); Chloride 108 mmol/L (98-107); Creatinine Clr Calc Pharmacy 38.9166; Globulin 2.4 g/dL (1.3-4.6); Glucose 136 mg/dL (65-115); Magnesium 1.3 mg/dL (1.7-2.3); Osmolality Calculated 300 mOsm/kg (285-295); Phosphorus 3.5 mg/dL (2.5-4.5); Sodium 139 mmol/L (136-145); Total Bilirubin 0.2 mg/dL (0.15-1.2); Total Protein 5.5 g/dL (6.6-8.7)
[2024-01-19 06:27] LABS: Glucose Point of Care 258 mg/dL (70-110)
[2024-01-19] MEDS: atorvastatin 40 mg Tablet 80 MG PO (08:21)
[2024-01-19] MEDS: hyDRALAzine 50 mg Tablet PO ×3 (08:21→21:03)
[2024-01-19] MEDS: enoxaparin 40 mg/0.4 mL Syringe SUBCUT (08:21)
[2024-01-19] MEDS: isosorbide mononitrate ER 60 mg Tablet PO (08:21)
[2024-01-19] MEDS: insulin lispro 100 unit/1 mL SUBCUT (08:21)
[2024-01-19] MEDS: clopidogrel 75 mg Tablet PO (08:21)
[2024-01-19] MEDS: bumetanide 0.25 mg/mL SDV 4 mL 1 MG IVP ×2 (08:22→21:03)
[2024-01-19] MEDS: allopurinol 100 mg Tablet PO (08:22)
[2024-01-19] MEDS: carvedilol 12.5 mg Tablet PO ×2 (08:22→17:39)
--- NOTE | 2024-01-19 08:47 | P.PN_ITS ---
Subjective 2 Subjective: no new complaints Medications: Reviewed: Yes Vitals/I&O/Wt Last Vital Signs Temp 98.0 F 01/19/24 07:43 Pulse 83 01/19/24 07:44 Resp 18 01/19/24 07:43 BP 167/82 01/19/24 07:43 Pulse Ox 94 01/19/24 07:43 O2 Del Method Room Air 01/19/24 07:43 O2 Flow Rate 2 01/19/24 02:07 FiO2 21 01/18/24 03:11 01/18/24 01/19/24 01/19/24 22:59 06:59 14:59 Intake Total 240 / 710 100 / 810 Output Total 1000 / 2200 1850 / 4050 Balance -760 / -1490 -1750 / -3240 Weight last 48 hrs Weight 109.406 kg Weight 109.406 kg Physical Exam 2 Narrative: Patient is in bed comfortable Vital signs noted. HEENT normocephalic atraumatic. Neck is supple. Lungs - dull bases, much improved air movement b/l. Heart regular with systolic murmur. Abdomen is soft positive bowel sounds. Extremities 1+ bilateral edema. Neuro awake alert oriented x 3. Urinary Catheter Management: Taylor: Cath Placed During This Visit: yes Reason for Continuing Indwelling Catheter: Acute Urinary Retention or Obstruction Urinary Catheter Date of Insertion: 01/16/24 Urinary Catheter Time of Insertion: 00:30 Data 01/19/24 04:31 01/19/24 04:31 Micro: Microbiology 01/16/24 16:00 Urine Culture - Final Urine,Clean Catch 01/18/24 06:35 Occult Blood (FIT) - Final Stool - Stool Aspirate A&P Assessment and plan (1) Acute on chronic renal insufficiency: 58-year-old gentleman COPD hypertension CKD stage IV diabetes heart failure preserved EF. Echo- shows normal EF no significant wall motion abnormalities with moderate tricuspid valve regurgitation and mild to moderate mitral valve regurgitation. 1. CKD stage IV-baseline creatinine appears to be over 2.5 mg/dL. Renal ultrasound reviewed right kidney 13.1 cm multiple cysts left kidney 15 cm positive multiple bilateral renal cysts no hydronephrosis. Renal artery duplex is pending. Urinalysis 1+ protein 2+ blood trace leuk esterase, 21-50 RBCs Urine microalbumin creatinine ratio 309 Urine protein creatinine ratio of approximately 500. -Renal function is back to baseline. -Follow-up serum protein electrophoresis. Patient had an episode over a year ago where he required temporary hemodialysis Patient's PTH is 140 will monitor. Will replace vitamin D. Serologies are so far negative or pending, except + JAY 1:80. send complements, unlikely SLE nephritis. will need to follow Good diuresis with IV bumex , -If the patient needs a cardiac cath he is at increased risk for contrast- induced acute kidney injury. Would like patient to be euvolemic prior to the cardiac catheterization. 3. Hyperkalemia improved. 4. Diabetic control. 5. Anemia evaluation. Iron saturation 8.5%. ferritin 177, Start IV iron. 6. Patient has history of tobacco use and hematuria. Patient will need outpatient urological evaluation seen and examined using audio-visual equipement with the aid of a nurse pt consents to telehealth Plan see above Attestations 2 Medical Necessity Statement*: per carlton Coding Level of Care Code Acute Code for [facility] Fwd Diagnoses Acute on chronic renal insufficiency N28.9; N18.9
--- NOTE | 2024-01-19 09:07 | PC.CHAP ---
Pastoral Care Encounter/Spiritual Assessment Type of Contact [] Declined anode adjuster visit [] Patient/Family/Request visit [] Outpatient visit [] Follow-up visit [] Physician referral [] Code/Alert [x] Routine visit [] Staff referral [] Actively dying [] Patient sleeping [] Family support [] [] Out of room [] Palliative care [] [x] Receiving care in room [] Pre-surgical visit [] Trauma [] Long length of stay [] ICU visit [] Other: Relational/Emotional Strength [] Patient feels connected with others/family/visitors/staff [] Distress [] Loneliness/isolation [] Abandonment Spirituality of Patient [] Person of Shelly [] Attends [employer] of their Shelly [] Believes in Prayer [] Reads Bible or Advent materials [] There are 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 issues 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 [] Prayer [] Active listening [] Non-anxious presence [] Spiritual/emotional support [] Crisis/trauma care [] Spiritual counseling [] Bereavement support [] Provided bereavement packet [] Provided Bible/devotional materials [] Provided toy/stuffed animal, coloring book to patient or family member [] Provided Communion [] Anointing/[place] [] Salvation [] Completed spiritual assessment [] Other: Impact on Illness or Injury [] Angry [] Fearful [] Anxious [] Often cries [] Exhaustion [] Unable to work [] Unable to attend taoism [] Unable to walk/stand [] Unable to read [] Unable to drive [] Unable to eat/drink [] Unable to sleep [] Unable to be with family [] Patient intubated [] Other: Summary Time spent with patient
[2024-01-19] MEDS: amlodipine 10 mg Tablet PO (09:57)
[2024-01-19] MEDS: magnesium lactate 84 mg Tablet PO ×2 (09:57→17:39)
[2024-01-19] MEDS: ferric gluconate 125 MG in sodium chloride 0.9% (100 ml) 100 ML 110 MG IV (09:58)
--- NOTE | 2024-01-19 10:58 | PC.SOCIAL ---
IMM Updated Updated pt on IMM. No questions voiced. Provided pt a copy. Initialed, dated, & timed copy in chart.
[2024-01-19 11:07] LABS: Glucose Point of Care 135 mg/dL (70-110)
--- NOTE | 2024-01-19 11:10 | PM.PN ---
Documented by User: Zulema Castillo NP 01/19/24 15:36 Subjective Subjective: Patient doing well today. Denies shortness of breath denies chest pain. States his throat feels a little dry from the diuresis. Creatinine actually has improved at 2.5. He is down over 3 L over 24 hours. Overall he is doing well without complaints. Medications: Reviewed: Yes Vitals/I&O/Wt Last Vital Signs Temp 98.0 F 01/19/24 07:43 Pulse 83 01/19/24 07:44 Resp 18 01/19/24 07:43 BP 167/82 01/19/24 07:43 Pulse Ox 94 01/19/24 07:43 O2 Del Method Room Air 01/19/24 07:43 O2 Flow Rate 2 01/19/24 02:07 FiO2 21 01/18/24 03:11 01/18/24 01/19/24 01/19/24 22:59 06:59 14:59 Intake Total 240 / 710 100 / 810 230 / 230 Output Total 1000 / 2200 1850 / 4050 1200 / 1200 Balance -760 / -1490 -1750 / -3240 -970 / -970 Weight last 48 hrs Weight 241 lb 3.2 oz Weight 241 lb 3.2 oz Physical Exam Narrative: General: No apparent distress, healthy appearing, well nourished Muskuloskeletal: Full ROM Respiratory: Normal respiratory effort, fine crackles bilateral lower lobes, no use of accessory muscles Cardio: No JVD, regular rate, regular rhythm, S1 S2 normal, no murmurs, peripheral pulses 2+ throughout GI: Normal to inspection, nondistended Extremities: Full ROM, normal, normal capillary refill, no cyanosis or edema Neuro: Alert and oriented x4, no focal motor deficits Psych: Affect normal, denies suicidal ideation, mental status grossly normal Skin: No rashes or lesions noted, no wounds Urinary Catheter Management: Taylor: Cath Placed During This Visit: yes Reason for Continuing Indwelling Catheter: Acute Urinary Retention or Obstruction Urinary Catheter Date of Insertion: 01/16/24 Urinary Catheter Time of Insertion: 00:30 Data 01/19/24 04:31 01/19/24 04:31 Micro: Microbiology 01/16/24 16:00 Urine Culture - Final Urine,Clean Catch 01/18/24 06:35 Occult Blood (FIT) - Final Stool - Stool Aspirate A&P Assessment and plan (1) CHF exacerbation: Patient feeling better since admission. he is chest pain free. He has grade II/IV diastolic dysfunction with preserved EF. Recommend continue home dose diuretic. Qualifiers: Heart failure type: diastolic Qualified Code(s): I50.33 - Acute on chronic diastolic (congestive) heart failure (2) Acute on chronic renal insufficiency: As per nephrology (3) Elevated troponin: Could be multifactorial including underlying coronary artery disease, anemia, demand ischemia, renal disease. Patient had negative stress test 2 years ago. Stress test was negative for ischemia. (4) Tobacco dependence: Advised quitting smoking. (5) Chest pain: Chest pain has resolved at this time. Lexiscan was negative. Qualifiers: Chest pain type: precordial pain Qualified Code(s): R07.2 - Precordial pain Plan Chest pain has resolved at this time. Stress test was negative. At this time the is quite worried that the patient needs another night. He still has some fine crackles bilateral lower lobes but overall is improving. Will continue IV diuresis today transition to p.o. tomorrow. Hopefully patient can be discharged tomorrow. Continue to monitor renal function with diuresis Attestations Medical Necessity Statement*: Patient requires hospitalization CHF exacerbation requiring IV diuresis Coding Level of Care Code Acute Code for [facility] Diagnoses Acute on chronic diastolic congestive heart failure I50.33 Heart failure type: diastolic Acute on chronic renal insufficiency N28.9; N18.9 Elevated troponin R79.89 Tobacco dependence F17.200 Precordial pain R07.2 Chest pain type: precordial pain Documented by User: Genevieve Nunez MD 01/19/24 16:27 Subjective Subjective: Patient was evaluated and cared for in conjunction with an advanced practice practitioner. I personally examined the patient and reviewed the chart and all pertinent data including imaging, telemetry, and laboratory results. I discussed the patient in detail with the advanced practice practitioner. Please see their note for complete H&P testing result and agreed upon plan of care for the patient. Diuresed well overnight GENERAL: Patient is alert, awake and oriented x3. HEART: Regular S1 and S2. No murmur, rub or gallop. LUNGS: Clear to auscultate bilaterally. CENTRAL NERVOUS SYSTEM: Grossly nonfocal. EXTREMITIES: Lower extremities with out edema bilaterally. Acute decompensated diastolic heart failure Abnormal cardiac markers Hypertension uncontrolled Acute on chronic renal failure Patient stress test was negative which rule out obstructive coronary artery disease most probably Patient started on IV Bumex and Zaroxolyn has diuresed well overnight we will continue 1 more day of diuresis Continue to monitor electrolyte balance We will reassess tomorrow to switch to the p.o. medicine Patient doing well today. Denies shortness of breath denies chest pain. States his throat feels a little dry from the diuresis. Creatinine actually has improved at 2.5. He is down over 3 L over 24 hours. Overall he is doing well without complaints. Physical Exam Urinary Catheter Management: Taylor: Cath Placed During This Visit: yes Data 01/19/24 04:31 01/19/24 04:31 A&P Assessment and plan (1) CHF exacerbation: Qualifiers: Heart failure type: diastolic Qualified Code(s): I50.33 - Acute on chronic diastolic (congestive) heart failure (2) Acute on chronic renal insufficiency: (3) Elevated troponin: (4) Tobacco dependence: (5) Chest pain: Qualifiers: Chest pain type: precordial pain Qualified Code(s): R07.2 - Precordial pain Coding Level of Care Code Acute Code for [facility] Diagnoses Acute on chronic diastolic congestive heart failure I50.33 Heart failure type: diastolic Acute on chronic renal insufficiency N28.9; N18.9 Elevated troponin R79.89 Tobacco dependence F17.200 Precordial pain R07.2 Chest pain type: precordial pain
[2024-01-19] MEDS: benzonatate 100 mg Capsule PO ×2 (11:56→21:08)
--- NOTE | 2024-01-19 13:56 | P.PN_ITS ---
Subjective 2 Subjective: - Patient was seen this morning -Denies any chest pain overnight -His shortness of breath is improving -He was diuresed over 7 L, -Currently receiving IV Bumex, Taylor cat heter in place -He did ambulate, denies any significant shortness of breath -Spoke to patient's she is worried about him going home too soon, discussed patient stress test, further diuresis, Vitals/I&O/Wt Last Vital Signs Temp 98.0 F 01/19/24 11:52 Pulse 81 01/19/24 11:52 Resp 18 01/19/24 07:43 BP 151/71 01/19/24 11:52 Pulse Ox 94 01/19/24 11:52 O2 Del Method Room Air 01/19/24 11:52 O2 Flow Rate 2 01/19/24 02:07 FiO2 21 01/18/24 03:11 01/18/24 01/19/24 01/19/24 22:59 06:59 14:59 Intake Total 240 / 710 100 / 810 450 / 450 Output Total 1000 / 2200 1850 / 4050 1200 / 1200 Balance -760 / -1490 -1750 / -3240 -750 / -750 Weight last 48 hrs Weight 109.406 kg Weight 109.406 kg Physical Exam 2 Const: COMMON NORMALS: no acute distress and patient oriented x3 Resp: COMMON NORMALS: normal respiratory effort, No retractions, No use of accessory muscles and clear to auscultation bilaterally AUSCULTATION: clear to auscultation bilaterally Cardio: COMMON NORMALS: regular rate, regular rhythm, S1 normal heart sound present and S2 normal heart sound present RATE: regular rate RHYTHM: r egular rhythm HEART SOUNDS: S1 normal heart sound present and S2 normal heart sound present GI: COMMON NORMALS: Normal to inspection, nondistended, normoactive bowel sounds present and non-tender Extremity: COMMON NORMALS: no clubbing, cyanosis or edema and no pedal edema Neuro: COMMON NORMALS: patient oriented x3 Psych: COMMON NORMALS: mental status grossly normal Urinary Catheter Management: Taylor: Cath Placed During This Visit: yes Reason for Continuing Indwelling Catheter: Acute Urinary Retention or Obstruction Urinary Catheter Date of Insertion: 01/16/24 Urinary Catheter Time of Insertion: 00:30 Data 01/19/24 04:31 01/19/24 04:31 Micro: Microbiology 01/16/24 16:00 Urine Culture - Final Urine,Clean Catch A&P Assessment and plan (1) Hypertension: Qualifiers: Hypertension type: primary hypertension Qualified Code(s): I10 - Essential (primary) hypertension (2) Acute diastolic heart failure: (3) Chest pain: Qualifiers: Chest pain type: precordial pain Qualified Code(s): R07.2 - Precordial pain (4) Elevated troponin: (5) Non-STEMI (non-ST elevated myocardial infarction): (6) Peripheral vascular disease: (7) Acute on chronic renal failure: Qualifiers: Acute renal failure type: unspecified Chronic kidney disease stage: u nspecified stage Qualified Code(s): N17.9 - Acute kidney failure, unspecified; N18.9 - Chronic kidney disease, unspecified (8) Shortness of breath: (9) CHF exacerbation: Qualifiers: Heart failure type: diastolic Qualified Code(s): I50.33 - Acute on chronic diastolic (congestive) heart failure (10) Acute anemia: Plan Non-stemi No previous history of coronary disease stress test 2021 IMPRESSIONS 1. Myocardial perfusion imaging revealing features suggesting small to moderate area of myocardial scarring with a very small area of aashish-infarction ischemia, in the distribution of the right coronary artery. 2. Slightly diminished LV ejection fraction 49%. 3. Segmental wall motion analysis revealing mild diffuse hypokinesia of the LV apex. 4. Mildly dilated LV cavity with an end-systolic volume of 94 ml. No similar previous studies are available for comparison Patient is stating that he had a stent placed for his peripheral vascular disease in the remote past plan: Start acute coronary syndrome protocol Cardiac echo CONCLUSIONS Normal left ventricular size, systolic function and wall thickness, with no regional wall motion abnormalities. Left ventricular ejection fraction is estimated at 60 %. Grade II/IV diastolic dysfunction, moderately elevated filling pressures. Mildly thickened mitral valve. No mitral valve stenosis. Mild- moderate mitral valve regurgitation. Thickened aortic valve. Mild aortic valve regurgitation. Moderate tricuspid valve regurgitation. The right ventricle is normal in size and function. RVSP could not be calculated due to incomplete tricuspid regurgitation velocity profile. There is no pericardial effusion. Right atrial pressure is around 5 mm of mercu Creatinine clearance has been improved, Lovenox dose was changed to 90 mg every 12 hours No active chest pain Patient has allergy to aspirin will give Plavix No active chest pain cardiology consulted Cardiac stress test IMPRESSIONS 1. Myocardial perfusion imaging revealing patchy areas of persistent decreased tracer uptake involving the inferior wall and anterior wall regions suggesting myocardial scarring versus attenuation artifact 2. Normal LV ejection fraction of 53%. 3. LV wall motion analysis revealing no gross wall motion abnormalities. 4. Mildly dilated left ventricle with an end-systolic volume of 98 mL Compared to the study from 12/24/2021, no ischemic segments are noted at this time. Plan ? Continue to medically manage ? Monitor for chest pain acute chf exacerbation, systolic and diastolic - -7L -Currently on Lasix 1 mg IV twice daily -monitor uop, monitor cr, monitor K Acute and chronic kidney disease stage IV, improving 2.5 Cardio renal etiology most likely, Place Taylor catheter accurately measure urine output, in case of worsening of kidney function nephrology consulted Acute on chronic anemia Multifactorial from anemia of chronic disease, CKD, early iron deficiency anemia Goal hemoglobin above 8 -Hemoglobin 8.3, status post 1 unit PRBC -RN studies ordered, shows evidence of early iron deficiency anemia -Currently receiving ferric gluconate -Monitor hemoglobin -Protonix, Carafate -Hemoccult stool negative Metabolic acidosis: Continue bicarb tablets Anasarca Patient seems to have CHF and chronic kidney disease combination Dietary indiscretion Type 2diabetic, will use consistent carbohydrate diet insulin sliding scale Acute hypoxia: Currently on 2 L of oxygen, stating that he uses 2 L only at nighttime Also has pleural effusion on x-ray Full code Hypertension: continue, hydralazine, Coreg, Imdur Consistent carb diet Plan for today, continue IV diuresis, possible discharge tomorrow Attestations 2 Medical Necessity Statement*: Patient requires hospitalization CHF exacerbation requiring IV diuresis Diagnoses Primary hypertension I10 Hypertension type: primary hypertension Acute diastolic heart failure I50.31 Precordial pain R07.2 Chest pain type: precordial pain Elevated troponin R79.89 Non-STEMI (non-ST elevated myocardial infarction) I21.4 Peripheral vascular disease I73.9 Acute on chronic renal failure N17.9; N18.9 Acute renal failure type: unspecified Chronic kidney disease stage: unspecified stage Shortness of breath R06.02 Acute on chronic diastolic congestive heart failure I50.33 Heart failure type: diastolic Acute anemia D64.9
[2024-01-19 17:16] LABS: Glucose Point of Care 123 mg/dL (70-110)
--- NOTE | 2024-01-19 17:19 | PC.NURSE ---
Provider is updated that patient takes trazadone 50mg at bedtime, provider okayed, order placed.
[2024-01-19 20:44] LABS: Glucose Point of Care 156 mg/dL (70-110)
[2024-01-19] MEDS: acetaminophen 500 mg Tablet PO (21:03)
[2024-01-19] MEDS: trazodone 50 mg Tablet PO (21:04)
[2024-01-20] VITALS (13 sets, daily range): BP systolic 147–176; BP diastolic 72–89; PULSE 76–89; RESP 13–18; TEMP 36.6–37.3; O2SAT 92–98
[2024-01-20] MEDS: ipratropium-albuterol 3 mL Neb INHALATION ×4 (01:57→20:46)
[2024-01-20] MEDS: pantoprazole 40 mg SDV IVP ×2 (03:56→16:19)
[2024-01-20] MEDS: sucralfate 1 gm/10 mL Oral Liq UDC PO ×4 (03:56→21:36)
--- NOTE | 2024-01-20 04:10 | PC.NURSE ---
Patient was informed that mchugh catheter is to be removed per Dr orders. Patient refused removal of catheter stating not till all the meds are done. Catheter is to be removed this morning after dose of bumex is given per patient request.
[2024-01-20 04:13] LABS: Basophils % 0.1 %; Eosinophils # 0.2 10^3/uL (0.0-0.8); Eosinophils % 1.7 %; Lymphocytes % 10.7 %; Mean Corpuscular HGB Conc 32.3 g/dL (30-55); Mean Corpuscular Hemoglobin 29.1 pg (27-33); Mean Platelet Volume 10.9 fL (7.4-10.4); Monocytes % 11.4 %; Neutrophils # 6.83 10^3/uL (1.8-7.7); Neutrophils % 75.4 %; Nucleated Red Blood Cells % 0 %; Platelet Count 134 10^3/cmm (157-399); Red Blood Count 2.89 10^6/uL (3.85-5.65); Red Cell Distribution Width 14.3 % (12.1-15.1); White Blood Count 9.05 10^3/uL (3.29-11.43)
[2024-01-20 04:35] LABS: Alanine Aminotransferase 22 U/L (0-41); Albumin Level 3.1 g/dL (3.5-5.2); Alkaline Phosphatase 92 U/L (40-130); Anion Gap 11.5 (5-19); Aspartate Amino Transferase 22 U/L (0-40); Blood Urea Nitrogen 39 mg/dL (8-23); Calcium 8.2 mg/dL (8.5-10.5); Carbon Dioxide 25 mmol/L (22-29); Chloride 105 mmol/L (98-107); Creatinine Clr Calc Pharmacy 40.5381; Globulin 2.5 g/dL (1.3-4.6); Glomerular Filtration Rate 33.6 mL/min (90-130); Glucose 104 mg/dL (65-115); Magnesium 1.4 mg/dL (1.7-2.3); Osmolality Calculated 294 mOsm/kg (285-295); Phosphorus 3.7 mg/dL (2.5-4.5); Potassium 4.5 mmol/L (3.5-5.1); Sodium 137 mmol/L (136-145); Total Bilirubin 0.3 mg/dL (0.15-1.2); Total Protein 5.6 g/dL (6.6-8.7)
[2024-01-20 06:31] LABS: Glucose Point of Care 150 mg/dL (70-110)
[2024-01-20] MEDS: bumetanide 0.25 mg/mL SDV 4 mL 1 MG IVP ×2 (08:39→20:13)
[2024-01-20] MEDS: enoxaparin 40 mg/0.4 mL Syringe SUBCUT (08:40)
[2024-01-20] MEDS: insulin lispro 100 unit/1 mL SUBCUT (08:40)
[2024-01-20] MEDS: atorvastatin 40 mg Tablet 80 MG PO (08:41)
[2024-01-20] MEDS: isosorbide mononitrate ER 60 mg Tablet PO (08:41)
[2024-01-20] MEDS: carvedilol 12.5 mg Tablet PO (08:41)
[2024-01-20] MEDS: hyDRALAzine 50 mg Tablet PO ×3 (08:41→21:36)
[2024-01-20] MEDS: magnesium lactate 84 mg Tablet PO ×2 (08:41→18:11)
[2024-01-20] MEDS: clopidogrel 75 mg Tablet PO (08:41)
[2024-01-20] MEDS: amlodipine 10 mg Tablet PO (08:41)
[2024-01-20] MEDS: allopurinol 100 mg Tablet PO (08:42)
--- NOTE | 2024-01-20 09:25 | XRR_ITS ---
PROCEDURE INFORMATION: Exam: XR Chest Exam date and time: 01/20/2024 10:28 AM Age: 58 years old Clinical indication: Shortness of breath; Additional info: SOB TECHNIQUE: Imaging protocol: Radiologic exam of the chest. Views: 1 view. COMPARISON: 1. CT chest wo con [id number] 01/15/2024 9:37 PM 2. CR (CHEST, ) 01/15/2024 9:01 PM FINDINGS: Lungs: Unremarkable. No consolidation. Pleural spaces: Unremarkable. No substantial pleural effusion. No pneumothorax. Heart/Mediastinum: Unremarkable. No cardiomegaly. Bones/joints: Degenerative changes along the spine. XR/XR chest 1V portable [id number] IMPRESSION: No acute findings.
--- NOTE | 2024-01-20 09:52 | P.PN_ITS ---
Subjective 2 Subjective: had fever last night upto 100.5 on 2L nc Medications: Reviewed: Yes Vitals/I&O/Wt Last Vital Signs Temp 98.7 F 01/20/24 07:48 Pulse 82 01/20/24 08:00 Resp 16 01/20/24 08:00 BP 174/89 01/20/24 07:48 Pulse Ox 97 01/20/24 08:00 O2 Del Method Nasal Cannula 01/20/24 08:00 O2 Flow Rate 1.5 01/20/24 08:00 FiO2 21 01/18/24 03:11 01/19/24 01/20/24 01/20/24 22:59 06:59 14:59 Output Total 1800 / 3000 1700 / 4700 Balance -1800 / -2550 -1700 / -4250 Weight last 48 hrs Weight 105.778 kg Weight 109.406 kg Weight 109.406 kg Physical Exam 2 Narrative: Patient is in bed comfortable Vital signs noted. HEENT normocephalic atraumatic. Neck is supple. Lungs - dull bases, much improved air movement b/l. Heart regular with systolic murmur. Abdomen is soft positive bowel sounds. Extremities 1+ bilateral edema. Neuro awake alert oriented x 3. Urinary Catheter Management: Taylor: Cath Placed During This Visit: yes Reason for Continuing Indwelling Catheter: Other Urinary Catheter Date of Insertion: 01/16/24 Urinary Catheter Time of Insertion: 00:30 Data 01/20/24 03:45 01/20/24 03:45 A&P Assessment and plan (1) Acute on chronic renal insufficiency: 58-year-old gentleman COPD hypertension CKD stage IV diabetes heart failure preserved EF. Echo- shows normal EF no significant wall motion abnormalities with moderate tricuspid valve regurgitation and mild to moderate mitral valve regurgitation. 1. CKD stage IV-baseline creatinine appears to be over 2.5 mg/dL. Renal ultrasound reviewed right kidney 13.1 cm multiple cysts left kidney 15 cm positive multiple bilateral renal cysts no hydronephrosis. Renal artery duplex is pending. Urinalysis 1+ protein 2+ blood trace leuk esterase, 21-50 RBCs Urine protein creatinine ratio of approximately 500. -Renal function is back to baseline. -Follow-up serum protein electrophoresis. Patient had an episode over a year ago where he required temporary hemodialysis Patient's PTH is 140 will monitor. Will replace vitamin D. Serologies are so far negative or pending, except + JAY 1:80. send complements, unlikely SLE nephritis. will need to follow Good diuresis with IV bumex , can switch to po bumex today , -If the patient needs a cardiac cath he is at increased risk for contrast- induced acute kidney injury. Would like patient to be euvolemic prior to the cardiac catheterization. 3. Hyperkalemia improved. 4. Diabetic control. 5. Anemia evaluation. Iron saturation 8.5%. ferritin 177, Start IV iron. 6. Patient has history of tobacco use and hematuria. Patient will need outpatient urological evaluation seen and examined using audio-visual equipement with the aid of a nurse pt consents to telehealth Plan see above Attestations 2 Medical Necessity Statement*: per carlton Coding Level of Care Code Acute Code for Chg Fwd Diagnoses Acute on chronic renal insufficiency N28.9; N18.9
[2024-01-20 09:56] LABS: C Reactive Protein 15.2 mg/L (0.0-4.9); Procalcitonin 0.31 ng/mL (0-0.5)
[2024-01-20 10:12] LABS: Bilirubin Urine Negative (Negative); Blood Urine 2+ (Negative); Glucose Urine UA Negative (Normal); Ketones Urine Negative (Negative); Leukocyte Esterase Urine Trace (Negative); Nitrate Urine Negative (Negative); Protein Urine 1+ (Negative); Specific Gravity, Urine 1.007 (1.005-1.030); Urine Appearance Clear (CLEAR); Urine Color Yellow (Yellow); Urobilinogen Urine 0.2 mg/dL (Negative)
[2024-01-20 10:14] LABS: Add Urine Microscopic? YES; Bacteria Urine None Seen /hpf; Hyaline Casts Urine 4.52 /lpf; RBC Urine 21-50 /hpf (0-2); Squamous Epithelial Cell Urine 0-5 /hpf (0-5)
[2024-01-20 10:18] LABS: Add Urine Culture? Yes
[2024-01-20] MEDS: ferric gluconate 125 MG in sodium chloride 0.9% (100 ml) 100 ML 110 MG IV (11:18)
[2024-01-20 11:25] LABS: Glucose Point of Care 125 mg/dL (70-110)
[2024-01-20 11:48] LABS: Adenovirus Not Detected (NOT DETECT); Chlamydia Pneumoniae Not Detected (NOT DETECT); Coronavirus 229E,HKU1,NL63,OC4 Not Detected (NOT DETECT); Human Metapneumovirus Not Detected (NOT DETECT); Human Rhinovirus/Enterovirus Not Detected (NOT DETECT); Influenza A Not Detected (NOT DETECT); Influenza A H1 Not Detected (NOT DETECT); Influenza A H1-2009 Not Detected (NOT DETECT); Influenza A H3 Not Detected (NOT DETECT); Influenza B Not Detected (NOT DETECT); Mycoplasma Pneumoniae Not Detected (NOT DETECT); Parainfluenza Virus Type 1 Not Detected (NOT DETECT); Parainfluenza Virus Type 2 Not Detected (NOT DETECT); Parainfluenza Virus Type 3 Not Detected (NOT DETECT); Parainfluenza Virus Type 4 Not Detected (NOT DETECT); Respiratory Syncytial Virus A Not Detected (NOT DETECT); Respiratory Syncytial Virus B Not Detected (NOT DETECT)
[2024-01-20 11:55] LABS: SARS-COV-2 Detected (NOT DETECT)
[2024-01-20] MEDS: cefTRIAXone 1,000 mg SDV 1000 MG IVP (12:25)
--- NOTE | 2024-01-20 14:54 | P.PN_ITS ---
Subjective 2 Subjective: - Patient was seen this morning, he has no complaints this morning, he is ambulating, his shortness of breath is improving, he is -12 L so far ? He did have a fever overnight temperature 100.2, he tells me that he was wrapped up under the covers, denies any cough, no shortness of breath, no dysuria, no hematuria no abdominal pain no diarrhea, but he does have a lot more sinus congestion he tells me he feels stuffy Vitals/I&O/Wt Last Vital Signs Temp 98.8 F 01/20/24 12:00 Pulse 77 01/20/24 14:00 Resp 18 01/20/24 14:00 BP 167/80 01/20/24 12:00 Pulse Ox 95 01/20/24 14:00 O2 Del Method Nasal Cannula 01/20/24 14:00 O2 Flow Rate 2 01/20/24 14:00 FiO2 21 01/18/24 03:11 01/19/24 01/20/24 01/20/24 22:59 06:59 14:59 Intake Total 110 / 110 Output Total 1800 / 3000 1700 / 4700 Balance -1800 / -2550 -1700 / -4250 110 / 110 Weight last 48 hrs Weight 105.778 kg Weight 109.406 kg Weight 109.406 kg Physical Exam 2 Const: COMMON NORMALS: no acute distress and patient oriented x3 Neck/C-Spine: COMMON NORMALS: no JVD Resp: COMMON NORMALS: normal respiratory effort, No retractions, No use of accessory muscles and clear to auscultation bilaterally AUSCULTATION: clear to auscultation bilaterally Cardio: COMMON NORMALS: no JVD, regular rate, regular rhythm, S1 normal heart sound present and S2 normal heart sound present RATE: regular rate RHYTHM: regular rhythm HEART SOUNDS: S1 normal heart sound present and S2 normal heart sound present GI: COMMON NORMALS: Normal to inspection, nondistended, normoactive bowel sounds present and non-tender Extremity: COMMON NORMALS: no pedal edema Neuro: COMMON NORMALS: patient oriented x3 Psych: COMMON NORMALS: mental status grossly normal Urinary Catheter Management: Taylor: Cath Placed During This Visit: yes Reason for Continuing Indwelling Catheter: Other Urinary Catheter Date of Insertion: 01/16/24 Urinary Catheter Time of Insertion: 00:30 Data 01/20/24 03:45 01/20/24 03:45 A&P Assessment and plan (1) Hypertension: Qualifiers: Hypertension type: primary hypertension Qualified Code(s): I10 - Essential (primary) hypertension (2) Acute diastolic heart failure: (3) Chest pain: Qualifiers: Chest pain type: precordial pain Qualified Code(s): R07.2 - Precordial pain (4) Elevated troponin: (5) Non-STEMI (non-ST elevated myocardial infarction): (6) Peripheral vascular disease: (7) Acute on chronic renal failure: Qualifiers: Acute renal failure type: unspecified Chronic kidney disease stage: u nspecified stage Qualified Code(s): N17.9 - Acute kidney failure, unspecified; N18.9 - Chronic kidney disease, unspecified (8) Shortness of breath: (9) CHF exacerbation: Qualifiers: Heart failure type: diastolic Qualified Code(s): I50.33 - Acute on chronic diastolic (congestive) heart failure (10) Acute anemia: Plan Non-stemi No previous history of coronary disease stress test 2021 IMPRESSIONS 1. Myocardial perfusion imaging revealing features suggesting small to moderate area of myocardial scarring with a very small area of aashish-infarction ischemia, in the distribution of the right coronary artery. 2. Slightly diminished LV ejection fraction 49%. 3. Segmental wall motion analysis revealing mild diffuse hypokinesia of the LV apex. 4. Mildly dilated LV cavity with an end-systolic volume of 94 ml. No similar previous studies are available for comparison Patient is stating that he had a stent placed for his peripheral vascular disease in the remote past plan: Start acute coronary syndrome protocol Cardiac echo CONCLUSIONS Normal left ventricular size, systolic function and wall thickness, with no regional wall motion abnormalities. Left ventricular ejection fraction is estimated at 60 %. Grade II/IV diastolic dysfunction, moderately elevated filling pressures. Mildly thickened mitral valve. No mitral valve stenosis. Mild- moderate mitral valve regurgitation. Thickened aortic valve. Mild aortic valve regurgitation. Moderate tricuspid valve regurgitation. The right ventricle is normal in size and function. RVSP could not be calculated due to incomplete tricuspid regurgitation velocity profile. There is no pericardial effusion. Right atrial pressure is around 5 mm of mercu Creatinine clearance has been improved, Lovenox dose was changed to 90 mg every 12 hours No active chest pain Patient has allergy to aspirin will give Plavix No active chest pain cardiology consulted Cardiac stress test IMPRESSIONS 1. Myocardial perfusion imaging revealing patchy areas of persistent decreased tracer uptake involving the inferior wall and anterior wall regions suggesting myocardial scarring versus attenuation artifact 2. Normal LV ejection fraction of 53%. 3. LV wall motion analysis revealing no gross wall motion abnormalities. 4. Mildly dilated left ventricle with an end-systolic volume of 98 mL Compared to the study from 12/24/2021, no ischemic segments are noted at this time. Plan ? Continue to medically manage ? Monitor for chest pain acute chf exacerbation, systolic and diastolic - -12L -Currently on Lasix 1 mg IV twice daily -monitor uop, monitor cr, monitor K Acute and chronic kidney disease stage IV, improving 2.5 Cardio renal etiology most likely, Place Taylor catheter accurately measure urine output, in case of worsening of kidney function nephrology consulted Acute on chronic anemia Multifactorial from anemia of chronic disease, CKD, early iron deficiency anemia Goal hemoglobin above 8 -Hemoglobin 8.3, status post 1 unit PRBC -RN studies ordered, shows evidence of early iron deficiency anemia -Currently receiving ferric gluconate -Monitor hemoglobin -Protonix, Carafate -Hemoccult stool negative Metabolic acidosis: Continue bicarb tablets Anasarca Patient seems to have CHF and chronic kidney disease combination Dietary indiscretion Type 2diabetic, will use consistent carbohydrate diet insulin sliding scale Acute hypoxia: Currently on 2 L of oxygen, stating that he uses 2 L only at nighttime Also has pleural effusion on x-ray Full code Hypertension: continue, hydralazine, Coreg, Imdur Consistent carb diet Plan for today, as patient had a low-grade fever, sinus congestion, will order respiratory viral panel, does have a Taylor catheter in place, order UA, inflammatory markers, chest x-ray, start IV Rocephin for possible UTI, COVID-19 test positive, placed patient on isolation, inflammatory markers Pro-Sudhir within normal notes, CRP 15.2, chest x-ray no acute findings currently no treatment required for COVID-19 will monitor clinical status Attestations 2 Medical Necessity Statement*: Patient requires hospitalization for CHF requiring IV diuresis, UTI requiring IV antibiotics, COVID-19 positivity Diagnoses Primary hypertension I10 Hypertension type: primary hypertension Acute diastolic heart failure I50.31 Precordial pain R07.2 Chest pain type: precordial pain Elevated troponin R79.89 Non-STEMI (non-ST elevated myocardial infarction) I21.4 Peripheral vascular disease I73.9 Acute on chronic renal failure N17.9; N18.9 Acute renal failure type: unspecified Chronic kidney disease stage: unspecified stage Shortness of breath R06.02 Acute on chronic diastolic congestive heart failure I50.33 Heart failure type: diastolic Acute anemia D64.9
--- NOTE | 2024-01-20 15:09 | P.PN_ITS ---
Subjective 2 Subjective: Patient developed overnight a fever infectious panel revealed COVID, overall he continues to diurese well and doing fine. He is not much short of breath he is feeling he is improving. Medications: Reviewed: Yes Medication Review Details: Current Medications Acetaminophen (Acetaminophen 500 Mg Tablet) 500 mg PO Q4H PRN PRN Reason: fever Hydrocodone Bitart/Acetaminophen (Hydrocodone-Acetaminophen 5-325 Mg Tablet) 1 tab PO Q6H PRN PRN Reason: pain Last Admin: 01/16/24 01:42 Dose: 1 tab Albuterol/Ipratropium (Ipratropium-Albuterol 3 Ml Neb) 3 ml INHALATION Q6H.RESP [facility] Last Admin: 01/18/24 07:47 Dose: Not Given Allopurinol (Allopurinol 100 Mg Tablet) 100 mg PO DAILY [facility] Last Admin: 01/17/24 08:50 Dose: 100 mg Aminophylline (Aminophylline 25 Mg/Ml Sdv 20 Ml) 25 mg IVP Q2M PRN PRN Reason: see dose instructions Stop: 01/19/24 06:23 Atorvastatin Calcium (Atorvastatin 40 Mg Tablet) 80 mg PO DAILY [facility] Last Admin: 01/17/24 08:51 Dose: 80 mg Bumetanide (Bumetanide 1 Mg Tablet) 0.5 mg PO BID [facility] Carvedilol (Carvedilol 12.5 Mg Tablet) 12.5 mg PO BID [facility] Last Admin: 01/17/24 17:10 Dose: 12.5 mg Clopidogrel Bisulfate (Clopidogrel 75 Mg Tablet) 75 mg PO DAILY [facility] Last Admin: 01/17/24 08:50 Dose: 75 mg Enoxaparin Sodium (Enoxaparin 100 Mg/Ml Syringe) 90 mg SUBCUT Q12H [facility] Last Admin: 01/17/24 23:28 Dose: 90 mg Ergocalciferol (Ergocalciferol (Vitamin D2) 50,000 Unit Capsule) 50,000 unit PO Q7D [facility] Stop: 01/25/24 09:59 Last Admin: 01/17/24 10:33 Dose: 50,000 unit Glucagon (Glucagon 1 Mg/Ml Kit 1 Ml) 1 mg IM ONCE PRN; Protocol PRN Reason: Adult Acute Hypoglycemia Nursing Prot. Hydralazine HCl (Hydralazine 50 Mg Tablet) 50 mg PO TID [facility] Last Admin: 01/17/24 20:52 Dose: 50 mg Dextrose (D5w) 500 mls @ 0 mls/hr IV ONCE PRN; Protocol PRN Reason: Adult Acute Hypoglycemia Prot Dextrose (D10w) 125 mls @ 750 mls/hr IV PRN PRN; Protocol PRN Reason: Adult Acute Hypoglycemia Nursing Protocol Dextrose (D10w) 250 mls @ 1,000 mls/hr IV PRN PRN; Protocol PRN Reason: Adult Acute Hypoglycemia Nursing Protocol Ferric Sodium Gluconate 125 mg (/ Sodium Chloride) 110 mls @ 110 mls/hr IV Q24H [facility] Stop: 01/24/24 10:59 Last Infusion: 01/17/24 11:57 Dose: Infused Insulin Human Lispro (Insulin Lispro 100 Unit/1 Ml) 0 unit SUBCUT TIDWM [facility]; Protocol Last Admin: 01/17/24 18:22 Dose: 4 unit Isosorbide Mononitrate (Isosorbide Mononitrate Er 60 Mg Tablet) 60 mg PO DAILY [facility] Last Admin: 01/17/24 08:51 Dose: 60 mg Metolazone (Metolazone 5 Mg Tablet) 5 mg PO ONCE [facility] Last Admin: 01/16/24 11:32 Dose: 5 mg Nitroglycerin (Nitroglycerin 0.4 Mg Sublingual Tablet) 0.4 mg SUBLINGUAL Q5M PRN PRN Reason: CHEST PAIN Stop: 01/19/24 06:23 Ondansetron HCl (Ondansetron 2 Mg/Ml Sdv 2 Ml) 4 mg IVP Q6H PRN PRN Reason: NAUSEA AND VOMITING Ondansetron HCl (Ondansetron 2 Mg/Ml Sdv 2 Ml) 4 mg IVP Q2M PRN PRN Reason: NAUSEA Pantoprazole Sodium (Pantoprazole 40 Mg Sdv) 40 mg IVP Q12H [facility] Last Admin: 01/18/24 05:11 Dose: 40 mg Sucralfate (Sucralfate 1 Gm/10 Ml Oral Liq Udc) 1 gm PO Q6H [facility] Last Admin: 01/18/24 05:11 Dose: 1 gm Vitals/I&O/Wt Last Vital Signs Temp 98.8 F 01/20/24 12:00 Pulse 77 01/20/24 14:00 Resp 18 01/20/24 14:00 BP 167/80 01/20/24 12:00 Pulse Ox 95 01/20/24 14:00 O2 Del Method Nasal Cannula 01/20/24 14:00 O2 Flow Rate 2 01/20/24 14:00 FiO2 21 01/18/24 03:11 01/20/24 01/20/24 01/20/24 06:59 14:59 22:59 Intake Total 110 / 110 Output Total 1700 / 4700 Balance -1700 / -4250 110 / 110 Weight last 48 hrs Weight 233 lb 3.2 oz Weight 241 lb 3.2 oz Weight 241 lb 3.2 oz Physical Exam 2 Const: OTHER: GENERAL: Patient is alert, awake and oriented x3. HEART: Regular S1 and S2. No murmur, rub or gallop. LUNGS: Clear to auscultate bilaterally. CENTRAL NERVOUS SYSTEM: Grossly nonfocal. EXTREMITIES: Lower extremities with out edema bilaterally. Urinary Catheter Management: Taylor: Cath Placed During This Visit: yes Reason for Continuing Indwelling Catheter: Other Urinary Catheter Date of Insertion: 01/16/24 Urinary Catheter Time of Insertion: 00:30 Data 01/20/24 03:45 01/20/24 03:45 A&P Assessment and plan (1) CHF exacerbation: Continue IV Bumex and Zaroxolyn Will switch to p.o. Bumex 1 mg twice a day Continue beta-chele hydralazine Plan for possible discharge tomorrow morning Qualifiers: Heart failure type: diastolic Qualified Code(s): I50.33 - Acute on chronic diastolic (congestive) heart failure (2) Acute on chronic renal insufficiency: Improved after diuresis continue diuresis overnight (3) Elevated troponin: Stress test negative most likely due to demand ischemia and reduced creatinine clearance (4) Tobacco dependence: Advised quitting smoking. (5) Chest pain: No more chest pain Qualifiers: Chest pain type: precordial pain Qualified Code(s): R07.2 - Precordial pain (6) COVID: As per medicine (7) Hypertension: Not well-controlled will increase Coreg to 25 mg p.o. twice daily Qualifiers: Hypertension type: primary hypertension Qualified Code(s): I10 - Essential (primary) hypertension Plan Planning for possible discharge tomorrow morning after switching patient to 1 mg of p.o. Bumex twice daily. Heart failure education will be given. Attestations 2 Medical Necessity Statement*: Patient require continuation of hospitalization for titration of medicine as above Coding Level of Care Code Acute Code for Chg Fwd Diagnoses Acute on chronic diastolic congestive heart failure I50.33 Heart failure type: diastolic Acute on chronic renal insufficiency N28.9; N18.9 Elevated troponin R79.89 Tobacco dependence F17.200 Precordial pain R07.2 Chest pain type: precordial pain COVID U07.1 Primary hypertension I10 Hypertension type: primary hypertension
[2024-01-20 17:25] LABS: Glucose Point of Care 133 mg/dL (70-110)
[2024-01-20] MEDS: carvedilol 12.5 mg Tablet 25 MG PO (18:10)
[2024-01-20 20:59] LABS: Glucose Point of Care 210 mg/dL (70-110)
[2024-01-20 21:34] LABS: Immunofixation Serum Normal pattern.
[2024-01-20] MEDS: trazodone 50 mg Tablet PO (21:36)
[2024-01-21] VITALS (12 sets, daily range): BP systolic 143–169; BP diastolic 71–82; PULSE 76–84; RESP 12–23; TEMP 36.5–37.1; O2SAT 92–99
[2024-01-21] MEDS: sucralfate 1 gm/10 mL Oral Liq UDC PO ×4 (04:21→21:23)
[2024-01-21] MEDS: pantoprazole 40 mg SDV IVP ×2 (04:21→16:00)
[2024-01-21 05:33] LABS: Basophils % 0.2 %; Eosinophils # 0.2 10^3/uL (0.0-0.8); Hematocrit 25.1 % (37-53); Lymphocytes % 12.6 %; Mean Corpuscular HGB Conc 32.3 g/dL (30-55); Mean Corpuscular Hemoglobin 29.7 pg (27-33); Mean Corpuscular Volume 91.9 fl (82-101); Mean Platelet Volume 11.1 fL (7.4-10.4); Monocytes # 0.9 10^3/uL (0.2-0.9); Monocytes % 10.9 %; Neutrophils # 5.89 10^3/uL (1.8-7.7); Neutrophils % 72.6 %; Nucleated Red Blood Cells % 0 %; Platelet Count 132 10^3/cmm (157-399); Red Blood Count 2.73 10^6/uL (3.85-5.65); Red Cell Distribution Width 14.3 % (12.1-15.1); White Blood Count 8.11 10^3/uL (3.29-11.43)
[2024-01-21 05:46] LABS: Alanine Aminotransferase 34 U/L (0-41); Albumin Level 2.9 g/dL (3.5-5.2); Alkaline Phosphatase 86 U/L (40-130); Anion Gap 11.3 (5-19); Aspartate Amino Transferase 34 U/L (0-40); Blood Urea Nitrogen 37 mg/dL (8-23); Calcium 8.2 mg/dL (8.5-10.5); Carbon Dioxide 25 mmol/L (22-29); Chloride 106 mmol/L (98-107); Creatinine Clr Calc Pharmacy 39.7822; Globulin 2.7 g/dL (1.3-4.6); Glomerular Filtration Rate 33.6 mL/min (90-130); Glucose 112 mg/dL (65-115); Magnesium 1.3 mg/dL (1.7-2.3); Osmolality Calculated 295 mOsm/kg (285-295); Phosphorus 3.5 mg/dL (2.5-4.5); Potassium 4.3 mmol/L (3.5-5.1); Sodium 138 mmol/L (136-145); Total Bilirubin 0.3 mg/dL (0.15-1.2); Total Protein 5.6 g/dL (6.6-8.7)
[2024-01-21 06:30] LABS: Glucose Point of Care 137 mg/dL (70-110)
[2024-01-21] MEDS: ipratropium-albuterol 3 mL Neb INHALATION ×3 (07:52→20:55)
[2024-01-21] MEDS: losartan 50 mg Tablet 25 MG PO (08:52)
[2024-01-21] MEDS: magnesium lactate 84 mg Tablet PO ×2 (08:53→17:06)
[2024-01-21] MEDS: bumetanide 1 mg Tablet PO ×2 (08:53→17:07)
[2024-01-21] MEDS: enoxaparin 40 mg/0.4 mL Syringe SUBCUT (08:53)
[2024-01-21] MEDS: atorvastatin 40 mg Tablet 80 MG PO (08:53)
[2024-01-21] MEDS: clopidogrel 75 mg Tablet PO (08:54)
[2024-01-21] MEDS: carvedilol 12.5 mg Tablet 25 MG PO ×2 (08:54→17:07)
[2024-01-21] MEDS: isosorbide mononitrate ER 60 mg Tablet PO (08:54)
[2024-01-21] MEDS: hyDRALAzine 50 mg Tablet PO ×3 (08:54→21:23)
[2024-01-21] MEDS: amlodipine 10 mg Tablet PO (08:54)
[2024-01-21] MEDS: allopurinol 100 mg Tablet PO (08:54)
[2024-01-21] MEDS: ferric gluconate 125 MG in sodium chloride 0.9% (100 ml) 100 ML 110 MG IV (10:15)
--- NOTE | 2024-01-21 10:20 | P.PN_ITS ---
Subjective 2 Subjective: tested + ve fpr COVID Medications: Reviewed: Yes Vitals/I&O/Wt Last Vital Signs Temp 98.8 F 01/21/24 08:00 Pulse 79 01/21/24 08:00 Resp 16 01/21/24 08:00 BP 158/80 01/21/24 08:52 Pulse Ox 93 01/21/24 08:00 O2 Del Method Nasal Cannula 01/21/24 08:00 O2 Flow Rate 2 01/21/24 08:00 FiO2 21 01/18/24 03:11 01/20/24 01/21/24 01/21/24 22:59 06:59 14:59 Intake Total 660 / 1250 200 / 1450 Output Total 1999 / 1999 800 / 2800 Balance -1340 / -750 -600 / -1350 Weight last 48 hrs Weight 105.324 kg Weight 105.778 kg Physical Exam 2 Narrative: Patient is in bed comfortable Vital signs noted. HEENT normocephalic atraumatic. Neck is supple. Lungs - dull bases, much improved air movement b/l. Heart regular with systolic murmur. Abdomen is soft positive bowel sounds. Extremities 1+ bilateral edema. Neuro awake alert oriented x 3. Urinary Catheter Management: Taylor: Cath Placed During This Visit: yes, but has since been removed by the nurse Reason for Continuing Indwelling Catheter: Accurate Measurement of Urinary Output in Critically Ill Patients Urinary Catheter Date of Insertion: 01/16/24 Urinary Catheter Time of Insertion: 00:30 Date Urinary Catheter Removed: 01/20/24 Time Urinary Catheter Discontinued: 17:00 Data 01/21/24 04:16 01/21/24 04:16 A&P Assessment and plan (1) Acute on chronic renal insufficiency: 58-year-old gentleman COPD hypertension CKD stage IV diabetes heart failure preserved EF. Echo- shows normal EF no significant wall motion abnormalities with moderate tricuspid valve regurgitation and mild to moderate mitral valve regurgitation. 1. CKD stage IV-baseline creatinine appears to be over 2.5 mg/dL. Renal ultrasound reviewed right kidney 13.1 cm multiple cysts left kidney 15 cm positive multiple bilateral renal cysts no hydronephrosis. Renal artery duplex is pending. Urinalysis 1+ protein 2+ blood trace leuk esterase, 21-50 RBCs Urine protein creatinine ratio of approximately 500. -Renal function is back to baseline.On PO Bumex -Follow up with Nephrology as out pt -Follow-up serum protein electrophoresis. Patient had an episode over a year ago where he required temporary hemodialysis Patient's PTH is 140 will monitor. Will replace vitamin D. Serologies are so far negative or pending, except + JAY 1:80. send complements, unlikely SLE nephritis. 3. Hyperkalemia improved. 4. Diabetic control. 5. Anemia evaluation. Iron saturation 8.5%. ferritin 177, Start IV iron. 6. Patient has history of tobacco use and hematuria. Patient will need outpatient urological evaluation seen and examined using audio-visual equipement with the aid of a nurse pt consents to telehealth Plan see above Attestations 2 Medical Necessity Statement*: per medicine Coding Level of Care Code Acute Code for Chg Fwd Diagnoses Acute on chronic renal insufficiency N28.9; N18.9
[2024-01-21] MEDS: cefTRIAXone 1,000 mg SDV 1000 MG IVP (10:58)
[2024-01-21] MEDS: dexamethasone 10 mg/mL INJ 6 MG IVP (11:57)
[2024-01-21 12:12] LABS: Glucose Point of Care 155 mg/dL (70-110)
[2024-01-21] MEDS: insulin lispro 100 unit/1 mL SUBCUT ×2 (12:27→17:07)
--- NOTE | 2024-01-21 13:47 | P.PN_ITS ---
Subjective 2 Subjective: Patient was seen this morning, he tells me he does not feel well, has sinus congestion, sinus pressure, fatigue, malaise, has a cough we discussed COVID-19 positivity, discussed arctic steroids, given his GFR about 30, I am a bit hesitant about trying Paxlovid or remdesivir, will continue to monitor, will consider possible Paxlovid as outpatient but it depends on his kidney function his GFR might not allow it Vitals/I&O/Wt Last Vital Signs Temp 98.0 F 01/21/24 12:00 Pulse 77 01/21/24 12:00 Resp 16 01/21/24 12:00 BP 144/72 01/21/24 12:00 Pulse Ox 92 01/21/24 12:00 O2 Del Method Nasal Cannula 01/21/24 12:00 O2 Flow Rate 2 01/21/24 12:00 FiO2 21 01/18/24 03:11 01/20/24 01/21/24 01/21/24 22:59 06:59 14:59 Intake Total 660 / 1250 200 / 1450 240 / 240 Output Total 2000 / 2000 800 / 2800 450 / 450 Balance -1340 / -750 -600 / -1350 -210 / -210 Weight last 48 hrs Weight 105.324 kg Weight 105.778 kg Physical Exam 2 Const: COMMON NORMALS: no acute distress and patient oriented x3 Resp: COMMON NORMALS: normal respiratory effort, No retractions, No use of accessory muscles and clear to auscultation bilaterally AUSCULTATION: clear to auscultation bilaterally Cardio: COMMON NORMALS: regular rate, regular rhythm, S1 normal heart sound present and S2 normal heart sound present RATE: regular rate RHYTHM: r egular rhythm HEART SOUNDS: S1 normal heart sound present and S2 normal heart sound present GI: COMMON NORMALS: Normal to inspection, nondistended, normoactive bowel sounds present and non-tender Extremity: COMMON NORMALS: no pedal edema Neuro: COMMON NORMALS: patient oriented x3 Psych: COMMON NORMALS: mental status grossly normal Urinary Catheter Management: Taylor: Cath Placed During This Visit: yes, but has since been removed by the nurse Reason for Continuing Indwelling Catheter: Accurate Measurement of Urinary Output in Critically Ill Patients Urinary Catheter Date of Insertion: 01/16/24 Urinary Catheter Time of Insertion: 00:30 Date Urinary Catheter Removed: 01/20/24 Time Urinary Catheter Discontinued: 17:00 Data 01/21/24 04:16 01/21/24 04:16 Micro: Microbiology 01/20/24 09:45 Urine Culture - Preliminary Urine,Clean Catch A&P Assessment and plan (1) Hypertension: Qualifiers: Hypertension type: primary hypertension Qualified Code(s): I10 - Essential (primary) hypertension (2) Acute diastolic heart failure: (3) Chest pain: Qualifiers: Chest pain type: precordial pain Qualified Code(s): R07.2 - Precordial pain (4) Elevated troponin: (5) Non-STEMI (non-ST elevated myocardial infarction): (6) Peripheral vascular disease: (7) Acute on chronic renal failure: Qualifiers: Acute renal failure type: unspecified Chronic kidney disease stage: u nspecified stage Qualified Code(s): N17.9 - Acute kidney failure, unspecified; N18.9 - Chronic kidney disease, unspecified (8) Shortness of breath: (9) CHF exacerbation: Qualifiers: Heart failure type: diastolic Qualified Code(s): I50.33 - Acute on chronic diastolic (congestive) heart failure (10) Acute anemia: (11) COVID-19: Plan Non-stemi No previous history of coronary disease stress test 2021 IMPRESSIONS 1. Myocardial perfusion imaging revealing features suggesting small to moderate area of myocardial scarring with a very small area of aashish-infarction ischemia, in the distribution of the right coronary artery. 2. Slightly diminished LV ejection fraction 49%. 3. Segmental wall motion analysis revealing mild diffuse hypokinesia of the LV apex. 4. Mildly dilated LV cavity with an end-systolic volume of 94 ml. No similar previous studies are available for comparison Patient is stating that he had a stent placed for his peripheral vascular disease in the remote past plan: Start acute coronary syndrome protocol Cardiac echo CONCLUSIONS Normal left ventricular size, systolic function and wall thickness, with no regional wall motion abnormalities. Left ventricular ejection fraction is estimated at 60 %. Grade II/IV diastolic dysfunction, moderately elevated filling pressures. Mildly thickened mitral valve. No mitral valve stenosis. Mild- moderate mitral valve regurgitation. Thickened aortic valve. Mild aortic valve regurgitation. Moderate tricuspid valve regurgitation. The right ventricle is normal in size and function. RVSP could not be calculated due to incomplete tricuspid regurgitation velocity profile. There is no pericardial effusion. Right atrial pressure is around 5 mm of mercu Creatinine clearance has been improved, Lovenox dose was changed to 90 mg every 12 hours No active chest pain Patient has allergy to aspirin will give Plavix No active chest pain cardiology consulted Cardiac stress test IMPRESSIONS 1. Myocardial perfusion imaging revealing patchy areas of persistent decreased tracer uptake involving the inferior wall and anterior wall regions suggesting myocardial scarring versus attenuation artifact 2. Normal LV ejection fraction of 53%. 3. LV wall motion analysis revealing no gross wall motion abnormalities. 4. Mildly dilated left ventricle with an end-systolic volume of 98 mL Compared to the study from 12/24/2021, no ischemic segments are noted at this time. Plan ? Continue to medically manage ? Monitor for chest pain acute chf exacerbation, systolic and diastolic - -12L -Currently on Bumex 1 mg p.o. twice daily -monitor uop, monitor cr, monitor K Acute and chronic kidney disease stage IV, improving 2.4 Cardio renal etiology most likely, Place Taylor catheter accurately measure urine output, in case of worsening of kidney function nephrology consulted Acute on chronic anemia Multifactorial from anemia of chronic disease, CKD, early iron deficiency anemia Goal hemoglobin above 8 -Hemoglobin 8.3, status post 1 unit PRBC -RN studies ordered, shows evidence of early iron deficiency anemia -Currently receiving ferric gluconate -Monitor hemoglobin -Protonix, Carafate -Hemoccult stool negative Metabolic acidosis: Continue bicarb tablets Anasarca Patient seems to have CHF and chronic kidney disease combination Dietary indiscretion Type 2diabetic, will use consistent carbohydrate diet insulin sliding scale Acute hypoxia: Currently on 2 L of oxygen, stating that he uses 2 L only at nighttime Also has pleural effusion on x-ray COVID-19, conservative interventions, Decadron UTI, Rocephin Full code Hypertension: continue, hydralazine, Coreg, Imdur Consistent carb diet Plan for today,, Decadron for COVID-19, Rocephin for UTI, plan of discharging next 24 hours Attestations 2 Medical Necessity Statement*: patient requires hospitalization for UTI, COVID-19, CHF Diagnoses Primary hypertension I10 Hypertension type: primary hypertension Acute diastolic heart failure I50.31 Precordial pain R07.2 Chest pain type: precordial pain Elevated troponin R79.89 Non-STEMI (non-ST elevated myocardial infarction) I21.4 Peripheral vascular disease I73.9 Acute on chronic renal failure N17.9; N18.9 Acute renal failure type: unspecified Chronic kidney disease stage: unspecified stage Shortness of breath R06.02 Acute on chronic diastolic congestive heart failure I50.33 Heart failure type: diastolic Acute anemia D64.9 COVID-19 U07.1
[2024-01-21 16:23] LABS: Glucose Point of Care 161 mg/dL (70-110)
--- NOTE | 2024-01-21 18:57 | P.PN_ITS ---
Subjective 2 Subjective: Overall feeling better but is sleepy appeared to be euvolemic Medications: Reviewed: Yes Medication Review Details: Current Medications Acetaminophen (Acetaminophen 500 Mg Tablet) 500 mg PO Q4H PRN PRN Reason: fever Hydrocodone Bitart/Acetaminophen (Hydrocodone-Acetaminophen 5-325 Mg Tablet) 1 tab PO Q6H PRN PRN Reason: pain Last Admin: 01/16/24 01:42 Dose: 1 tab Albuterol/Ipratropium (Ipratropium-Albuterol 3 Ml Neb) 3 ml INHALATION Q6H.RESP [facility] Last Admin: 01/18/24 07:47 Dose: Not Given Allopurinol (Allopurinol 100 Mg Tablet) 100 mg PO DAILY [facility] Last Admin: 01/17/24 08:50 Dose: 100 mg Aminophylline (Aminophylline 25 Mg/Ml Sdv 20 Ml) 25 mg IVP Q2M PRN PRN Reason: see dose instructions Stop: 01/19/24 06:23 Atorvastatin Calcium (Atorvastatin 40 Mg Tablet) 80 mg PO DAILY [facility] Last Admin: 01/17/24 08:51 Dose: 80 mg Bumetanide (Bumetanide 1 Mg Tablet) 0.5 mg PO BID [facility] Carvedilol (Carvedilol 12.5 Mg Tablet) 12.5 mg PO BID [facility] Last Admin: 01/17/24 17:10 Dose: 12.5 mg Clopidogrel Bisulfate (Clopidogrel 75 Mg Tablet) 75 mg PO DAILY [facility] Last Admin: 01/17/24 08:50 Dose: 75 mg Enoxaparin Sodium (Enoxaparin 100 Mg/Ml Syringe) 90 mg SUBCUT Q12H [facility] Last Admin: 01/17/24 23:28 Dose: 90 mg Ergocalciferol (Ergocalciferol (Vitamin D2) 50,000 Unit Capsule) 50,000 unit PO Q7D [facility] Stop: 01/25/24 09:59 Last Admin: 01/17/24 10:33 Dose: 50,000 unit Glucagon (Glucagon 1 Mg/Ml Kit 1 Ml) 1 mg IM ONCE PRN; Protocol PRN Reason: Adult Acute Hypoglycemia Nursing Prot. Hydralazine HCl (Hydralazine 50 Mg Tablet) 50 mg PO TID [facility] Last Admin: 01/17/24 20:52 Dose: 50 mg Dextrose (D5w) 500 mls @ 0 mls/hr IV ONCE PRN; Protocol PRN Reason: Adult Acute Hypoglycemia Prot Dextrose (D10w) 125 mls @ 750 mls/hr IV PRN PRN; Protocol PRN Reason: Adult Acute Hypoglycemia Nursing Protocol Dextrose (D10w) 250 mls @ 1,000 mls/hr IV PRN PRN; Protocol PRN Reason: Adult Acute Hypoglycemia Nursing Protocol Ferric Sodium Gluconate 125 mg (/ Sodium Chloride) 110 mls @ 110 mls/hr IV Q24H [facility] Stop: 01/24/24 10:59 Last Infusion: 01/17/24 11:57 Dose: Infused Insulin Human Lispro (Insulin Lispro 100 Unit/1 Ml) 0 unit SUBCUT TIDWM [facility]; Protocol Last Admin: 01/17/24 18:22 Dose: 4 unit Isosorbide Mononitrate (Isosorbide Mononitrate Er 60 Mg Tablet) 60 mg PO DAILY [facility] Last Admin: 01/17/24 08:51 Dose: 60 mg Metolazone (Metolazone 5 Mg Tablet) 5 mg PO ONCE [facility] Last Admin: 01/16/24 11:32 Dose: 5 mg Nitroglycerin (Nitroglycerin 0.4 Mg Sublingual Tablet) 0.4 mg SUBLINGUAL Q5M PRN PRN Reason: CHEST PAIN Stop: 01/19/24 06:23 Ondansetron HCl (Ondansetron 2 Mg/Ml Sdv 2 Ml) 4 mg IVP Q6H PRN PRN Reason: NAUSEA AND VOMITING Ondansetron HCl (Ondansetron 2 Mg/Ml Sdv 2 Ml) 4 mg IVP Q2M PRN PRN Reason: NAUSEA Pantoprazole Sodium (Pantoprazole 40 Mg Sdv) 40 mg IVP Q12H [facility] Last Admin: 01/18/24 05:11 Dose: 40 mg Sucralfate (Sucralfate 1 Gm/10 Ml Oral Liq Udc) 1 gm PO Q6H [facility] Last Admin: 01/18/24 05:11 Dose: 1 gm Vitals/I&O/Wt Last Vital Signs Temp 97.7 F 01/21/24 16:00 Pulse 84 01/21/24 16:00 Resp 20 H 01/21/24 16:00 BP 143/71 01/21/24 16:00 Pulse Ox 95 01/21/24 16:00 O2 Del Method Room Air 01/21/24 16:00 O2 Flow Rate 2 01/21/24 14:00 FiO2 21 01/18/24 03:11 01/21/24 01/21/24 01/21/24 06:59 14:59 22:59 Intake Total 200 / 1450 240 / 240 Output Total 800 / 2800 450 / 450 900 / 1350 Balance -600 / -1350 -210 / -210 -900 / -1110 Weight last 48 hrs Weight 232 lb 3.2 oz Weight 233 lb 3.2 oz Physical Exam 2 Const: OTHER: GENERAL: Patient is alert, awake and oriented x3. HEART: Regular S1 and S2. No murmur, rub or gallop. LUNGS: Clear to auscultate bilaterally. CENTRAL NERVOUS SYSTEM: Grossly nonfocal. EXTREMITIES: Lower extremities with out edema bilaterally. Urinary Catheter Management: Taylor: Cath Placed During This Visit: yes, but has since been removed by the nurse Reason for Continuing Indwelling Catheter: Accurate Measurement of Urinary Output in Critically Ill Patients Urinary Catheter Date of Insertion: 01/16/24 Urinary Catheter Time of Insertion: 00:30 Date Urinary Catheter Removed: 01/20/24 Time Urinary Catheter Discontinued: 17:00 Data 01/21/24 04:16 01/21/24 04:16 Micro: Microbiology 01/20/24 09:45 Urine Culture - Preliminary Urine,Clean Catch A&P Assessment and plan (1) CHF exacerbation: Discontinue IV diuretics Switch patient to Bumex 1 mg p.o. twice daily from tomorrow Continue to optimize medications including carvedilol hydralazine Qualifiers: Heart failure type: diastolic Qualified Code(s): I50.33 - Acute on chronic diastolic (congestive) heart failure (2) Acute on chronic renal insufficiency: Stable after diuresis (3) Elevated troponin: Demand ischemia since stress test negative (4) Tobacco dependence: Advised quitting smoking. (5) Chest pain: Denies any more chest pain Qualifiers: Chest pain type: precordial pain Qualified Code(s): R07.2 - Precordial pain (6) COVID: Treatment as per medicine (7) Hypertension: Not well-controlled will increase Coreg to 25 mg p.o. twice daily Qualifiers: Hypertension type: primary hypertension Qualified Code(s): I10 - Essential (primary) hypertension Plan As above Attestations 2 Medical Necessity Statement*: Defer to primary care team Coding Level of Care Code Acute Code for Chg Fwd Diagnoses Acute on chronic diastolic congestive heart failure I50.33 Heart failure type: diastolic Acute on chronic renal insufficiency N28.9; N18.9 Elevated troponin R79.89 Tobacco dependence F17.200 Precordial pain R07.2 Chest pain type: precordial pain COVID U07.1 Primary hypertension I10 Hypertension type: primary hypertension
[2024-01-21 21:04] LABS: Glucose Point of Care 273 mg/dL (70-110)
[2024-01-22] VITALS (17 sets, daily range): BP systolic 132–157; BP diastolic 68–80; PULSE 66–81; RESP 16–20; TEMP 36.6–36.9; O2SAT 94–99
[2024-01-22] MEDS: trazodone 50 mg Tablet PO (01:28)
[2024-01-22] MEDS: ipratropium-albuterol 3 mL Neb INHALATION ×2 (02:50→09:17)
[2024-01-22] MEDS: sucralfate 1 gm/10 mL Oral Liq UDC PO ×3 (03:11→15:17)
[2024-01-22] MEDS: pantoprazole 40 mg SDV IVP ×2 (03:11→15:17)
[2024-01-22 03:34] LABS: Hematocrit 25.1 % (37-53); Lymphocytes # 0.5 10^3/uL (0.8-4.8); Lymphocytes % 8.7 %; Mean Corpuscular HGB Conc 31.5 g/dL (30-55); Mean Corpuscular Hemoglobin 28.4 pg (27-33); Mean Corpuscular Volume 90.3 fl (82-101); Monocytes # 0.3 10^3/uL (0.2-0.9); Monocytes % 5.8 %; Neutrophils # 4.51 10^3/uL (1.8-7.7); Neutrophils % 85.1 %; Nucleated Red Blood Cells % 0 %; Platelet Count 147 10^3/cmm (157-399); Red Blood Count 2.78 10^6/uL (3.85-5.65); Red Cell Distribution Width 14.1 % (12.1-15.1)
[2024-01-22 04:04] LABS: Alanine Aminotransferase 32 U/L (0-41); Albumin Level 3.1 g/dL (3.5-5.2); Alkaline Phosphatase 102 U/L (40-130); Anion Gap 13.5 (5-19); Aspartate Amino Transferase 21 U/L (0-40); Blood Urea Nitrogen 40 mg/dL (8-23); Calcium 8.2 mg/dL (8.5-10.5); Carbon Dioxide 23 mmol/L (22-29); Chloride 103 mmol/L (98-107); Creatinine Clr Calc Pharmacy 41.5119; Globulin 2.7 g/dL (1.3-4.6); Glomerular Filtration Rate 35.3 mL/min (90-130); Glucose 184 mg/dL (65-115); Magnesium 1.5 mg/dL (1.7-2.3); Osmolality Calculated 295 mOsm/kg (285-295); Phosphorus 3.2 mg/dL (2.5-4.5); Potassium 4.5 mmol/L (3.5-5.1); Sodium 135 mmol/L (136-145); Total Bilirubin 0.2 mg/dL (0.15-1.2); Total Protein 5.8 g/dL (6.6-8.7)
[2024-01-22 06:28] LABS: Glucose Point of Care 189 mg/dL (70-110)
[2024-01-22] MEDS: losartan 50 mg Tablet 25 MG PO (08:54)
[2024-01-22] MEDS: enoxaparin 40 mg/0.4 mL Syringe SUBCUT (08:54)
[2024-01-22] MEDS: bumetanide 1 mg Tablet PO (08:55)
[2024-01-22] MEDS: amlodipine 10 mg Tablet PO (08:56)
[2024-01-22] MEDS: clopidogrel 75 mg Tablet PO (08:56)
[2024-01-22] MEDS: magnesium lactate 84 mg Tablet PO (08:56)
[2024-01-22] MEDS: isosorbide mononitrate ER 60 mg Tablet PO (08:56)
[2024-01-22] MEDS: atorvastatin 40 mg Tablet 80 MG PO (08:56)
[2024-01-22] MEDS: allopurinol 100 mg Tablet PO (08:57)
[2024-01-22] MEDS: carvedilol 12.5 mg Tablet 25 MG PO (08:57)
[2024-01-22] MEDS: hyDRALAzine 50 mg Tablet PO ×2 (08:57→15:17)
[2024-01-22] MEDS: insulin lispro 100 unit/1 mL SUBCUT ×2 (08:57→12:05)
[2024-01-22] MEDS: ferric gluconate 125 MG in sodium chloride 0.9% (100 ml) 100 ML 110 MG IV (10:39)
[2024-01-22] MEDS: dexamethasone 10 mg/mL INJ 6 MG IVP (10:42)
[2024-01-22] MEDS: cefTRIAXone 1,000 mg SDV 1000 MG IVP (10:42)
[2024-01-22] MEDS: benzonatate 100 mg Capsule PO (10:50)
[2024-01-22 11:52] LABS: Glucose Point of Care 194 mg/dL (70-110)
--- NOTE | 2024-01-22 12:32 | PM.DCS ---
Discharge Providers Date of Admission: 01/15/24 22:42 Date of Discharge: January 22, 2024 Attending Provider at Admission: Genevieve Johnson MD Attending Provider at Discharge: Jose Johnson MD Primary Care Provider: Yenny Navarro MD Diagnoses at Discharge Discharge Diagnosis (1) CHF exacerbation: Status: Acute Qualifiers: Heart failure type: diastolic Qualified Code(s): I50.33 - Acute on chronic diastolic (congestive) heart failure (2) Acute on chronic renal insufficiency: Status: Acute (3) Elevated troponin: Status: Acute (4) Tobacco dependence: Status: Acute (5) Chest pain: Status: Acute Qualifiers: Chest pain type: precordial pain Qualified Code(s): R07.2 - Precordial pain (6) COVID: Status: Acute (7) Hypertension: Status: Acute Qualifiers: Hypertension type: primary hypertension Qualified Code(s): I10 - Essential (primary) hypertension Reason for Visit Reason for Visit: SOb Hospital Course Hospital Course This is a 58-year-old male with a past medical history of CKD, hypertension hyperlipidemia, CAD, type 2 diabetes mellitus, anemia, who presents [facility] for shortness of breath and chest. Patient was admitted to [facility] for NSTEMI Non-stemi stress test 2021 IMPRESSIONS 1. Myocardial perfusion imaging revealing features suggesting small to moderate area of myocardial scarring with a very small area of aashish-infarction ischemia, in the distribution of the right coronary artery. 2. Slightly diminished LV ejection fraction 49%. 3. Segmental wall motion analysis revealing mild diffuse hypokinesia of the LV apex. 4. Mildly dilated LV cavity with an end-systolic volume of 94 ml. No similar previous studies are available for comparison Patient is stating that he had a stent placed for his peripheral vascular disease in the remote past plan: Start acute coronary syndrome protocol Cardiac echo CONCLUSIONS Normal left ventricular size, systolic function and wall thickness, with no regional wall motion abnormalities. Left ventricular ejection fraction is estimated at 60 %. Grade II/IV diastolic dysfunction, moderately elevated filling pressures. Mildly thickened mitral valve. No mitral valve stenosis. Mild- moderate mitral valve regurgitation. Thickened aortic valve. Mild aortic valve regurgitation. Moderate tricuspid valve regurgitation. The right ventricle is normal in size and function. RVSP could not be calculated due to incomplete tricuspid regurgitation velocity profile. There is no pericardial effusion. Right atrial pressure is around 5 mm of mercu No active chest pain cardiology consulted Cardiac stress test IMPRESSIONS 1. Myocardial perfusion imaging revealing patchy areas of persistent decreased tracer uptake involving the inferior wall and anterior wall regions suggesting myocardial scarring versus attenuation artifact 2. Normal LV ejection fraction of 53%. 3. LV wall motion analysis revealing no gross wall motion abnormalities. 4. Mildly dilated left ventricle with an end-systolic volume of 98 mL -Cardiology was consulted -Medically manage, therapeutic Lovenox, -After discussing with patient stress test results, as he remains asymptomatic, no recurrent chest pain, decision was made to medically manage -Continued his home aspirin, Plavix, statin, Coreg, with a close follow-up with primary care provider elevated -If patient does have any recurrent chest pain we might have to proceed coronary angiogram certainly this is a difficult decision given his CKD creatinine is chronically above 2, high risk of dialysis Acute CHF exacerbation, required inpatient diuresis, cardiology was consulted, diuresed over 14 L, discharged on Bumex 1 mg p.o. twice daily with potassium replacement therapy with a close follow-up with primary care provider to recheck hemoglobin For acute on chronic anemia, multifactorial from CKD, early onset iron deficiency anemia, patient required 2 units PRBC during his hospitalization, Hemoccult was negative fresh blood, discharged on Protonix, Carafate with close follow-up with general surgery as outpatient for consideration of EGD and colonoscopy Patient was positive for COVID-19 during his hospitalization, required concern interventions, Decadron, albuterol, inhaler therapy overall clinically improved, remains afebrile. On discharge I have detailed discussion with patient about the possibility of Paxlovid, given that his GFR is just above 30 and Paxlovid is relatively contraindicated in individuals of GFR less than 30, certainly this is a difficult decision, after discussing risk and benefits, he voiced understanding, all questions answered, agreed to hold off on Paxlovid for now. First COVID-19 discharge him on Decadron, albuterol, socially isolate, socially distance, facemask, hand wash, monitor blood sugars, Tylenol for fevers. In terms of hypercoagulability associate with COVID-19, discussed to continue to ambulate, monitor for hypercoagulable events such as chest pain or hemoptysis or calf swelling/pain if so come to the hospital. Patient had RIP on CKD during his hospitalization, improved with IV diuresis, likely cardiorenal syndrome Physical Exam Const: COMMON NORMALS: no acute distress and patient oriented x3 Resp: COMMON NORMALS: normal respiratory effort, No retractions, No use of accessory muscles and clear to auscultation bilaterally AUSCULTATION: clear to auscultation bilaterally Cardio: COMMON NORMALS: regular rate, regular rhythm, S1 normal heart sound present and S2 normal heart sound present RATE: regular rate RHYTHM: regular rhythm HEART SOUNDS: S1 normal heart sound present and S2 normal heart sound present GI: COMMON NORMALS: Normal to inspection, nondistended, normoactive bowel sounds present and non-tender Extremity: COMMON NORMALS: no pedal edema Neuro: COMMON NORMALS: patient oriented x3 Psych: COMMON NORMALS: mental status grossly normal Urinary Catheter Management: Taylor: Cath Placed During This Visit: yes, but has since been removed by the nurse Reason for Continuing Indwelling Catheter: Accurate Measurement of Urinary Output in Critically Ill Patients Urinary Catheter Date of Insertion: 01/16/24 Urinary Catheter Time of Insertion: 00:30 Date Urinary Catheter Removed: 01/20/24 Time Urinary Catheter Discontinued: 17:00 Discharge Data Studies Completed and Pending Completed Studies During Hospitalization Category Date Time Status CT chest wo con [id number] Stat Cat Scan 01/15/24 21:17 Completed XR chest 1V portable [id number] Routine Exams 01/20/24 09:25 Completed XR chest 1V portable [id number] Stat Exams 01/15/24 20:44 Completed NM lynette perf SPECT r/s* [id number] Routine Nuc Med 01/18/24 11:35 Completed CV renal doppler [id number] Routine Ultrasound 01/17/24 09:59 Completed CV. echo complete* [id number] Routine Ultrasound 01/16/24 00:18 Completed US renal BI* [id number] Routine Ultrasound 01/17/24 09:28 Completed Pending at discharge Category Date Time Status Sestamibi Stress Test Request Routine Exams 01/17/24 11:35 Ordered JAY Screen w/ Reflex Routine Lab 01/16/24 09:59 Results Anti-Neutrophil Cytoplasmic AB Routine Lab 01/16/24 09:59 Results FREE LIGHT CHAIN SERUM [KAPPA/LAMBDA Light Free Serum] Lab 01/16/24 09:59 Results Routine Leukocyte Reduced RBC Stat Lab 01/22/24 09:39 Results Type and Screen Stat Lab 01/22/24 09:39 Results Radiology Impressions Chest CT 01/15/24 21:17 IMPRESSION: 1. Mild probable parenchymal scarring or atelectasis in the left lower lung, not significantly changed. 2. Interval resolution of previously seen upper lobe opacities. 3. Small bilateral pleural effusions, slightly decreased in the interval. 4. Several borderline prominent mediastinal and hilar lymph nodes, similar to the prior exam. 5. Small pericardial effusion, not significantly changed. 6. Stable left adrenal nodule, see above. 7. Other findings discussed above. Chest X-Ray 01/20/24 09:25 IMPRESSION: No acute findings. Laboratory Results WBC 5.30 10^3/uL (3.29-11.43) 01/22/24 03:10 RBC 2.78 10^6/uL (3.85-5.65) L 01/22/24 03:10 Hgb 7.90 g/dL (11.27-16.99) L 01/22/24 03:10 Hct 25.1 % (37-53) L 01/22/24 03:10 MCV 90.3 fl (82-101) 01/22/24 03:10 MCH 28.4 pg (27-33) 01/22/24 03:10 MCHC 31.5 g/dL (30-55) 01/22/24 03:10 RDW 14.1 % (12.1-15.1) 01/22/24 03:10 Plt Count 147 10^3/cmm (157-399) L 01/22/24 03:10 MPV 11.0 fL (7.4-10.4) H 01/22/24 03:10 Neut % (Auto) 85.1 % 01/22/24 03:10 Lymph % (Auto) 8.7 % 01/22/24 03:10 [place]orne % (Auto) 5.8 % 01/22/24 03:10 Eos % (Auto) 0.0 % 01/22/24 03:10 Baso % (Auto) 0.0 % 01/22/24 03:10 Neut # (Auto) 4.51 10^3/uL (1.8-7.7) 01/22/24 03:10 Lymph # (Auto) 0.5 10^3/uL (0.8-4.8) L 01/22/24 03:10 [place] # (Auto) 0.3 10^3/uL (0.2-0.9) 01/22/24 03:10 Eos # (Auto) 0.0 10^3/uL (0.0-0.8) 01/22/24 03:10 Baso # (Auto) 0.0 10^3/uL (0.0-0.1) 01/22/24 03:10 Nucleated RBC % (auto) 0 % 01/22/24 03:10 Nucleated RBCs # 0.0 /100WBC 01/22/24 03:10 Specimen Type Arterial 01/15/24 21:40 Sample Site Radial, right 01/15/24 21:40 ABG pH 7.37 (7.35-7.45) 01/15/24 21:40 ABG pCO2 37.4 mmHg (35-45) 01/15/24 21:40 ABG pO2 52.6 mmHg (80.0-100.0) L 01/15/24 21:40 ABG PO2/FiO2 Ratio 187 01/15/24 21:40 ABG HCO3 21.4 mmol/L (22-26) L 01/15/24 21:40 ABG O2 Saturation 86.4 01/15/24 21:40 ABG Base Excess -3.6 mmol/L (-2.0-2.0) L 01/15/24 21:40 Khanh Test Pos 01/15/24 21:40 A-a O2 Gradient 13.1 mmHg (5-10) H 01/15/24 21:40 Hematocrit 25.8 % (42-52) L 01/15/24 21:40 Hgb O2 Saturation 82.8 % (95-100) L 01/15/24 21:40 Carboxyhemoglobin 2.6 %THgb (0.4-20.1) 01/15/24 21:40 Methemoglobin 1.6 % (0.4-1.5) H 01/15/24 21:40 Total Hemoglobin 8.4 g/dL (14-18) L 01/15/24 21:40 Sodium 139.0 mmol/L (131-143) 01/15/24 21:40 Potassium 4.5 mmol/L (3.5-5.0) 01/15/24 21:40 Glucose 148.0 mg/dL (70-115) H 01/15/24 21:40 Ionized Calcium 1.2 mmol/L (1.1-1.4) 01/15/24 21:40 O2 Delivery Device Nc 01/15/24 21:40 O2 Liters/Min 2.0 % 01/15/24 21:40 FiO2 28.0 % 01/15/24 21:40 Concrete Plant Laborer ID Ed 01/15/24 21:40 Sodium 135 mmol/L (136-145) L 01/22/24 03:10 Potassium 4.5 mmol/L (3.5-5.1) 01/22/24 03:10 Chloride 103 mmol/L (98-107) 01/22/24 03:10 Carbon Dioxide 23 mmol/L (22-29) 01/22/24 03:10 Anion Gap 13.5 (5-19) 01/22/24 03:10 BUN 40 mg/dL (8-23) H 01/22/24 03:10 Creatinine 2.3 mg/dL (0.7-1.2) H 01/22/24 03:10 GFR Calculation 35.3 mL/min (90-130) L 01/22/24 03:10 Glucose 184 mg/dL (65-115) H 01/22/24 03:10 POC Glucose 194 mg/dL (70-110) H 01/22/24 11:41 Calculated Osmolality 295 mOsm/kg (285-295) 01/22/24 03:10 Uric Acid 6.4 mg/dL (3.4-7.0) 01/15/24 02:59 Calcium 8.2 mg/dL (8.5-10.5) L 01/22/24 03:10 Phosphorus 3.2 mg/dL (2.5-4.5) 01/22/24 03:10 Magnesium 1.5 mg/dL (1.7-2.3) L 01/22/24 03:10 Iron 17 ug/dL (59-158) L 01/17/24 06:22 TIBC 198 mcg/dl 01/17/24 06:22 % Saturation 8.5 % (20-50) L 01/17/24 06:22 Unsat Iron Binding 181 ug/dL (112-347) 01/17/24 06:22 Ferritin 177 ng/mL (30-400) 01/17/24 06:22 Total Bilirubin 0.2 mg/dL (0.15-1.2) 01/22/24 03:10 AST 21 U/L (0-40) 01/22/24 03:10 ALT 32 U/L (0-41) 01/22/24 03:10 Alkaline Phosphatase 102 U/L (40-130) 01/22/24 03:10 Troponin T Baseline 108 ng/L (0-15) H* 01/15/24 21:27 Troponin T 120 Minute 102.7 ng/L (0-15) H 01/15/24 23:23 Delta Troponin T -5.3 ABS# (0-10) L 01/15/24 23:23 Troponin T Hi Sens 6Hr 97.56 ng/L (0-15) H 01/16/24 02:59 Troponin T Hi Sens 6Hr Delta -10.44 ng/L (0-12) L 01/16/24 02:59 C-Reactive Protein 15.2 mg/L (0.0-4.9) H 01/20/24 03:45 NT-Pro-B Natriuret Pep 2182 pg/mL (0-125) H 01/17/24 06:22 Total Protein 5.8 g/dL (6.6-8.7) L 01/22/24 03:10 Albumin 3.1 g/dL (3.5-5.2) L 01/22/24 03:10 Kfyxn-8-Euniyikmd 0.4 g/dL (0.2-0.3) H 01/16/24 14:20 Globulin 2.7 g/dL (1.3-4.6) 01/22/24 03:10 Ebyft-0-Rmgnmfmym 0.8 g/dL (0.5-0.9) 01/16/24 14:20 Pisu-6-Jvkdmdbl 0.3 g/dL (0.4-0.6) L 01/16/24 14:20 Ciab-7-Kkerltnn 0.3 g/dL (0.2-0.5) 01/16/24 14:20 Gamma Globulins 0.8 g/dL (0.8-1.7) 01/16/24 14:20 Abnorm Protein Band 1 Not Reportable 01/16/24 14:20 25-OH Vitamin D Total 25 ng/mL (30-100) L 01/17/24 06:22 Procalcitonin 0.31 ng/mL (0-0.5) 01/20/24 03:45 PTH Intact 140.7 pg/mL (15-65) H 01/17/24 06:22 Calcium (PTH Intact) 7.5 mg/dL (8.5-10.5) L 01/17/24 06:22 Urine Color Cancelled 01/20/24 09:45 Urine Color Yellow (Yellow) 01/20/24 09:45 Urine Appearance Cancelled 01/20/24 09:45 Urine Appearance Clear (CLEAR) 01/20/24 09:45 Urine pH 5.0 (5-7) 01/20/24 09:45 Urine pH Cancelled 01/20/24 09:45 Ur Specific [place] 1.007 (1.005-1.030) 01/20/24 09:45 Ur Specific [place] Cancelled 01/20/24 09:45 Urine Protein 1+ (Negative) A 01/20/24 09:45 Urine Protein Cancelled 01/20/24 09:45 Urine Glucose (UA) Cancelled 01/20/24 09:45 Urine Glucose (UA) Negative (Normal) 01/20/24 09:45 Urine Ketones Cancelled 01/20/24 09:45 Urine Ketones Negative (Negative) 01/20/24 09:45 Urine Blood 2+ (Negative) A 01/20/24 09:45 Urine Blood Cancelled 01/20/24 09:45 Urine Nitrate Cancelled 01/20/24 09:45 Urine Nitrate Negative (Negative) 01/20/24 09:45 Urine Bilirubin Cancelled 01/20/24 09:45 Urine Bilirubin Negative (Negative) 01/20/24 09:45 Prot Sulfosalicylic Acd Cancelled 01/20/24 09:45 Urine Urobilinogen 0.2 mg/dL (Negative) 01/20/24 09:45 Urine Urobilinogen Cancelled 01/20/24 09:45 Ur Leukocyte Esterase Cancelled 01/20/24 09:45 Ur Leukocyte Esterase Trace (Negative) A 01/20/24 09:45 Urine RBC 21-50 /hpf (0-2) H 01/20/24 09:45 Urine RBC Cancelled 01/20/24 09:45 Urine WBC 11-20 /hpf (0-5) H 01/20/24 09:45 Urine WBC Cancelled 01/20/24 09:45 Ur Squamous Epith Cells 0-5 /hpf (0-5) 01/20/24 09:45 Ur Squamous Epith Cells Cancelled 01/20/24 09:45 Ur Transition Epith Cell Cancelled 01/20/24 09:45 Ur Renal Epithelial Cell Cancelled 01/20/24 09:45 Calcium Oxalate Crystal Cancelled 01/20/24 09:45 Uric Acid Crystals Cancelled 01/20/24 09:45 Triple Phos Crystals Cancelled 01/20/24 09:45 Other Crystals Cancelled 01/20/24 09:45 Amorphous Sediment Cancelled 01/20/24 09:45 Amorphous Sediment Not Reportable 01/20/24 09:45 Urine Bacteria Cancelled 01/20/24 09:45 Urine Bacteria None seen /hpf (NONE) 01/20/24 09:45 Hyaline Casts 4.52 /lpf 01/20/24 09:45 Hyaline Casts Cancelled 01/20/24 09:45 Fine Granular Casts Cancelled 01/20/24 09:45 Coarse Granular Casts Cancelled 01/20/24 09:45 RBC Casts Cancelled 01/20/24 09:45 Other Casts Cancelled 01/20/24 09:45 Urine Mucus Cancelled 01/20/24 09:45 Urine Trichomonas Cancelled 01/20/24 09:45 Urine Yeast Cancelled 01/20/24 09:45 Urine Sperm Cancelled 01/20/24 09:45 Ur Oval Fat Bodies Cancelled 01/20/24 09:45 Ur Random Microalbumin 21 ug/dL (0-20) H 01/16/24 16:00 U Random Total Protein 33 mg/dL 01/16/24 16:00 Ur Random Sodium 105 mmol/L 01/16/24 16:00 Ur Random Potassium 21 mmol/L 01/16/24 16:00 Ur Random Chloride 100 mmol/L 01/16/24 16:00 Urine Creatinine 68 mg/dL (39-259) 01/16/24 16:00 Urine Creatinine 69 mg/dL (39-259) 01/16/24 16:00 Microalb/Creat Ratio 309 mg/dL (0-20) H 01/16/24 16:00 U Abnormal Prot Band 2 Not Reportable 01/16/24 14:20 U Abnormal Prot Band 3 Not Reportable 01/16/24 14:20 Pro Electrophoresis Int See note 01/16/24 14:20 Serum Immunofixation Normal pattern. 01/15/24 17:58 JAY Screen Positive (NEGATIVE) A 01/15/24 17:58 JAY Titer 1:80 titer H 01/15/24 17:58 JAY Pattern Cytoplasmic A 01/15/24 17:58 ANCA Screen Negative (NEGATIVE) 01/15/24 17:58 ANCA Titer Not Reportable 01/15/24 17:58 Anti-ds DNA IgG Ab <1 IU/mL 01/16/24 02:59 Complement C3 131 mg/dL (90-180) 01/18/24 03:26 Complement C4 25 mg/dL (10-40) 01/18/24 03:26 Adenovirus (PCR) Not detected (NOT DETECT) 01/20/24 09:45 C. pneumoniae DNA (PCR) Not detected (NOT DETECT) 01/20/24 09:45 Coronavirus (PCR) Negative (Negative) 01/15/24 21:27 Coronavirus 229E (PCR) Not detected (NOT DETECT) 01/20/24 09:45 Hepatitis C Antibody Non-reactive (Nonreactive) 01/15/24 02:59 Influenza A (PCR) Negative (Negative) 01/15/24 21:27 Human Metapneumovir PCR Not detected (NOT DETECT) 01/20/24 09:45 Influenza A (H1) PCR Not detected (NOT DETECT) 01/20/24 09:45 Influ A (H1/09) PCR Not detected (NOT DETECT) 01/20/24 09:45 Influenza A (H3) PCR Not detected (NOT DETECT) 01/20/24 09:45 Influenza Type A (PCR) Not detected (NOT DETECT) 01/20/24 09:45 Influenza Type B (PCR) Not detected (NOT DETECT) 01/20/24 09:45 M. pneumoniae (PCR) Not detected (NOT DETECT) 01/20/24 09:45 Parainfluenza 1 (PCR) Not detected (NOT DETECT) 01/20/24 09:45 Parainfluenza 2 (PCR) Not detected (NOT DETECT) 01/20/24 09:45 Parainfluenza 3 (PCR) Not detected (NOT DETECT) 01/20/24 09:45 Parainfluenza 4 (PCR) Not detected (NOT DETECT) 01/20/24 09:45 RSV (PCR) Negative (Negative) 01/15/24 21:27 RSV Type A (PCR) Not detected (NOT DETECT) 01/20/24 09:45 RSV Type B (PCR) Not detected (NOT DETECT) 01/20/24 09:45 Entero/Rhino (PCR) Not detected (NOT DETECT) 01/20/24 09:45 SARS-CoV-2 (PCR) Detected (NOT DETECT) A 01/20/24 09:45 Blood Type AB Positive 01/22/24 09:39 Rho(D) Type Rh positive 01/22/24 09:39 Antibody Screen Negative 01/22/24 09:39 Crossmatch See Detail 01/22/24 09:39 Vitals Last Vital Signs Temp 97.9 F 01/22/24 11:44 Pulse 81 01/22/24 11:44 Resp 19 H 01/22/24 11:44 BP 146/74 01/22/24 11:44 Pulse Ox 98 01/22/24 11:44 O2 Del Method Nasal Cannula 01/22/24 11:44 O2 Flow Rate 2 01/22/24 09:17 FiO2 21 01/18/24 03:11 Discharge Plan Discharge Patient Disposition: Home Condition: Stable Prescriptions: New magnesium L-lactate [Magtab] 84 mg Tablet Extended Release 84 mg PO BID 30 Days Qty: 60 0RF carvedilol 12.5 mg Tablet 25 mg PO BID 30 Days Qty: 120 0RF bumetanide 1 mg Tablet 1 mg PO BID 30 Days Qty: 60 0RF sucralfate 100 mg/mL Suspension 1 g PO BID 30 Days Qty: 600 0RF amlodipine 10 mg Tablet 10 mg PO DAILY 30 Days Qty: 30 0RF benzonatate 100 mg Capsule 100 mg PO TID PRN (Reason: Cough) 7 Days Qty: 28 0RF losartan 50 mg Tablet 25 mg PO DAILY 30 Days Qty: 15 0RF dexamethasone 6 mg tablet 6 mg PO DAILY 3 Days Qty: 3 0RF cefdinir 300 mg capsule 300 mg PO BID 5 Days Qty: 10 0RF potassium chloride [Klor-Con M10] 10 mEq tablet,ER particles/crystals 10 meq PO DAILY 30 Days Qty: 30 0RF pantoprazole [Protonix] 40 mg tablet,delayed release (DR/EC) 40 mg PO BID 30 Days Qty: 60 0RF Continued allopurinol 100 mg tablet 100 mg PO DAILY aspirin [Adult Aspirin Regimen] 81 mg tablet,delayed release (DR/EC) 81 mg PO DAILY docusate sodium 100 mg capsule 100 mg PO BID PRN (Reason: Constipation) dulaglutide 1.5 mg/0.5 mL pen injector 1.5 mg SUBCUT Q7D Rx Instructions: On Monday loperamide 2 mg capsule 2 mg PO QID PRN (Reason: loose stool) Qty: 14 0RF Rx Instructions: 2 tabs on first dose, 1 tab after that after each unformed stool, up to 7 tabs/day sodium bicarbonate 650 mg tablet 650 mg PO DAILY hydralazine 50 mg tablet 50 mg PO TID Qty: 270 3RF isosorbide mononitrate 60 mg tablet extended release 24 hr 60 mg PO DAILY Qty: 90 3RF simvastatin 10 mg tablet 10 mg PO BEDTIME trazodone 50 mg tablet 50 mg PO BEDTIME clopidogrel 75 mg tablet 75 mg PO DAILY tamsulosin 0.4 mg capsule 0.4 mg PO DAILY cholecalciferol (vitamin D3) [Vitamin D3] 25 mcg (1,000 unit) Tablet 75 mcg PO BEDTIME cyanocobalamin (vitamin B-12) [Vitamin B-12] 1,000 mcg Tablet 500 mcg PO DAILY Qty: 30 0RF budesonide-formoterol [Symbicort] 160-4.5 mcg/actuation Hfa Aerosol Inhaler 1 puff INHALATION BID PRN (Reason: unknown) hydrocodone-acetaminophen 5-325 mg tablet 1 tab PO Q6H PRN (Reason: pain) Qty: 10 0RF levocetirizine [24HR Allergy Relief] 5 mg tablet 5 mg PO DAILY PRN (Reason: allergy symptoms) Qty: 20 0RF insulin aspart U-100 [Novolog FlexPen U-100 Insulin] 100 unit/mL (3 mL) insulin pen See Rx Instructions .ROUTE .COMPLEX Qty: 15 0RF Rx Instructions: Inject, subcut, 3 times daily, after meals, based on sliding scale provided albuterol sulfate 90 mcg/actuation HFA aerosol inhaler 1 inh inhalation Q6H PRN (Reason: shortness of breath or wheezing) Qty: 8.5 0RF Discontinued carvedilol 12.5 mg tablet 12.5 mg PO BID esomeprazole magnesium 40 mg capsule,delayed release(DR/EC) 40 mg PO BID bumetanide 0.5 mg tablet 0.5 mg PO BID Hold Instructions: Resume on 01/08/24. No Action (DME) glucometer testing kit See Rx Instructions .Route .MEDSUPPLY Qty: 1 0RF Rx Instructions: Glucometer testing kit, check blood sugars 3 times daily Lancets #100 Strips #100 Discharge Orders: Discharge Order (Routine); Ordered 01/22/24 Ordered By: Jose Johnson Referrals: Zulema Castillo NP [Nurse Practitioner] - 01/29/24 1:30 pm Justus Collins DO [Physician] - 2 weeks (egd and colonoscopy for anemia) Yenny Navarro MD [Primary Care Provider] - 01/25/24 10:30 am Discharge Diet: Cardiac Discharge Activity: Resume usual activity Patient Instructions: Heart Failure (ED), Anemia (DC), COVID-19 (Coronavirus Disease 2019) (DC), CHF Stoplight, Opioid Safety Activity Restrictions/Additional Instructions: - Please have your primary care provider recheck your hemoglobin in 48 hours -Please have your primary care provider recheck your creatinine in 48 hours -For type 2 diabetes mellitus, please monitor blood sugar closely -Take Bumex 1 mg p.o. twice daily, with potassium, please have your primary care provider recheck your creatinine and 48 hours -Take Decadron 6 mg p.o. daily for COVID-19, albuterol as needed -Monitor for chest pain or sudden onset shortness of breath or calf pain or calf swelling if so please go to emergency room -Continue to self isolate, socially distance, facemask, hand wash Discharge Attestations Time Spent in Discharge Care*: greater than 30 min Status at Discharge: Cognitive status at discharge: cognitively intact, Behavioral status at discharge: cooperative, Quality Metrics Clinical Quality Measures [ No reported AMI, CVA or VTE this stay] Coding Level of Care Code 93604 Total time (in minutes) for Discharge: 45 Diagnoses Acute on chronic diastolic congestive heart failure I50.33 Heart failure type: diastolic Acute on chronic renal insufficiency N28.9; N18.9 Elevated troponin R79.89 Tobacco dependence F17.200 Precordial pain R07.2 Chest pain type: precordial pain COVID U07.1 Primary hypertension I10 Hypertension type: primary hypertension
--- NOTE | 2024-01-22 12:33 | PC.SOCIAL ---
IMM Update pg 2 of IMM Updated and reviewed w/ patient. Copy provided and copy dated, initialed and placed in chart.
--- NOTE | 2024-01-22 17:12 | PC.NURSE ---
pt received 1 unit prbc's and 1 mg bumex iv push as ordererd.tolerated well.no s/sxs transfusion reaction noted.discharge instructions given and explained.pt and cg verb understanding of instructions.discharged via w/c to exit at this time.spouse to drive pt home.
[2024-01-22 17:35] LABS: Glucose Point of Care 252 mg/dL (70-110)
[2024-01-23 15:55] LABS: KAPPA LIGHT CHAIN, FREE, SERUM 56.5 mg/L (3.3-19.4); LAMBDA LIGHT CHAIN, FREE, SERU 28.3 mg/L (5.7-26.3)
== END 2024-01-22 17:27 | disposition home or self-care (01) | DRG 291 ==
LOC: ER 22:54 → CSU 23:03
PROVIDERS: Internal Medicine Nephrology; Admitting Provider Internal Medicine; Emergency Provider Emergency Medicine; PCP Family Medicine; Visit Provider Family Medicine
DX: I13.0 Hypertensive heart and chronic kidney disease with heart failure and stage 1 through stage 4 chronic kidney disease, or unspecified chronic kidney disease (principal); I50.33 Acute on chronic diastolic (congestive) heart failure; U07.1 COVID-19; N18.4 Chronic kidney disease, stage 4 (severe); N39.0 Urinary tract infection, site not specified; E87.20 Acidosis, unspecified; N17.9 Acute kidney failure, unspecified; E11.22 Type 2 diabetes mellitus with diabetic chronic kidney disease; D63.1 Anemia in chronic kidney disease; Z87.01 Personal history of pneumonia (recurrent); J44.9 Chronic obstructive pulmonary disease, unspecified; Z99.81 Dependence on supplemental oxygen; E87.5 Hyperkalemia; R79.89 Other specified abnormal findings of blood chemistry; Z79.82 Long term (current) use of aspirin; Z79.02 Long term (current) use of antithrombotics/antiplatelets; Z79.891 Long term (current) use of opiate analgesic; Z79.4 Long term (current) use of insulin; M10.9 Gout, unspecified; E11.51 Type 2 diabetes mellitus with diabetic peripheral angiopathy without gangrene; Z95.820 Peripheral vascular angioplasty status with implants and grafts; Z85.038 Personal history of other malignant neoplasm of large intestine; H40.9 Unspecified glaucoma; Z90.49 Acquired absence of other specified parts of digestive tract; I08.1 Rheumatic disorders of both mitral and tricuspid valves; R09.02 Hypoxemia; F17.200 Nicotine dependence, unspecified, uncomplicated; Z83.2 Family history of diseases of the blood and blood-forming organs and certain disorders involving the immune mechanism; Z82.49 Family history of ischemic heart disease and other diseases of the circulatory system; Z80.9 Family history of malignant neoplasm, unspecified; Z83.3 Family history of diabetes mellitus; Z82.3 Family history of stroke; Z84.1 Family history of disorders of kidney and ureter
CPT/HCPCS: 0241U; 36415; 36416; 36430; 36600; 51702; 71045; 71250; 76770; 78452; 80048; 80051; 80053; 81001; 82044; 82274; 82306; 82310; 82330; 82436; 82570; 82728; 82805; 82962; 83540; 83550; 83735; 83880; 83883; 83970; 84100; 84133; 84145; 84155; 84156; 84165; 84300; 84484; 84550; 85014; 85018; 85025; 86036; 86038; 86140; 86160; 86225; 86334; 86803; 86850; 86900; 86920; 87086; 87486; 87581; 87633; 93005; 93017; 93306; 93975; 94640; 96372; 96375; 96376; 97116; 97161; 97165; 99285; A9270; A9500; J0696; J1100; J1650; J1815; J2470; J2785; J2916; J2919; J3490; J7613; P9016; P9040; Q3014; Q5105

== ENCOUNTER → 2024-01-30 15:00 | Outpatient (BNVA) | payer MEDICARE, MEDICAID, SELFPAY | PROVIDERS: PCP Family Medicine; Visit Provider Nurse Practitioner Family | DX: I13.0 Hypertensive heart and chronic kidney disease with heart failure and stage 1 through stage 4 chronic kidney disease, or unspecified chronic kidney disease (principal); N18.9 Chronic kidney disease, unspecified; I50.31 Acute diastolic (congestive) heart failure; E78.2 Mixed hyperlipidemia; E13.22 Other specified diabetes mellitus with diabetic chronic kidney disease | CPT/HCPCS: 99213 ==

== ENCOUNTER 2024-02-13 16:03 | Outpatient (CLI) | payer MEDICARE, MEDICAID, SELFPAY ==
--- NOTE | 2024-02-13 16:15 | USCV_ITS ---
Alek Hopper Age: 59 Gender: M : 1965 Exam Date: 02/13/2024 16:14 Ordering Phys: Zulema Castillo NP Technologist: TORSTEN Exam Location: [facility] – [place] Indication: swelling HISTORY: Lower extremity swelling. PROCEDURES: Venous duplex imaging was performed in only the right lower extremity. The following venous structures were evaluated: common femoral vein, profunda vein, proximal portion of the greater saphenous vein, superficial femoral vein, and the popliteal vein. In addition, the posterior tibial and peroneal trunk were evaluated. FINDINGS: No evidence of DVT seen in any vessel visualized at this time. CONCLUSIONS No evidence of right lower extremity DVT. Asif Smith MD (Electronically Signed) Final Date: 13 February 2024 16:59 S
== END 2024-02-13 16:04 | disposition home or self-care (01) ==
LOC: RAD 16:04
PROVIDERS: PCP Family Medicine; Visit Provider Nurse Practitioner Family
DX: M79.89 Other specified soft tissue disorders (principal)
CPT/HCPCS: 93971

== ENCOUNTER 2024-03-04 14:30 | Oncology outpatient (recurring) (ONCR) | payer MEDICARE, SELFPAY ==
[2024-02-22] MEDS: sodium chloride 0.9% 250 ML 75 ML IV (14:57)
[2024-02-22] MEDS: iron sucrose 200 MG in sodium chloride 0.9% 50 ML 100 MG IV (14:57)
[2024-02-22 15:47] VITALS: BP 151/76; PULSE 80; RESP 16; TEMP 36.4; O2SAT 94
[2024-02-29 10:41] VITALS: BP 141/72; PULSE 74; RESP 16; TEMP 36.5; O2SAT 96
[2024-02-29] MEDS: iron sucrose 200 MG in sodium chloride 0.9% 50 ML 240 MG IV (11:13)
[2024-02-29 11:39] VITALS: BP 133/73; PULSE 73; RESP 16; TEMP 36.8; O2SAT 94
[2024-03-04] MEDS: iron sucrose 200 MG in sodium chloride 0.9% 50 ML 240 MG IV (15:43)
[2024-03-04 16:16] VITALS: BP 155/72; PULSE 78; RESP 16; TEMP 36.6; O2SAT 95
== END 2024-03-05 23:59 | disposition home or self-care (01) ==
PROVIDERS: PCP Family Medicine; Visit Provider Family Medicine
DX: D50.9 Iron deficiency anemia, unspecified (principal); Z79.899 Other long term (current) drug therapy; Z53.9 Procedure and treatment not carried out, unspecified reason
CPT/HCPCS: 96365; J1756; J7050

== ENCOUNTER 2024-04-04 13:45 | Oncology outpatient (recurring) (ONCR) | payer MEDICARE, SELFPAY ==
[2024-03-07] MEDS: iron sucrose 200 MG in sodium chloride 0.9% 50 ML 240 MG IV (11:55)
[2024-03-07 12:35] VITALS: BP 124/78; PULSE 78; RESP 17; TEMP 36.6; O2SAT 98
[2024-03-11] MEDS: iron sucrose 200 MG in sodium chloride 0.9% 50 ML 240 MG IV (10:43)
[2024-03-11 10:59] VITALS: BP 133/67; PULSE 68; RESP 17; O2SAT 98
[2024-04-04 14:48] LABS: Basophils % 0.4 %; Eosinophils # 0.1 10^3/uL (0.0-0.8); Eosinophils % 1.3 %; Hematocrit 35.2 % (37-53); Lymphocytes # 1.3 10^3/uL (0.8-4.8); Lymphocytes % 18.7 %; Mean Platelet Volume 10.1 fL (7.4-10.4); Monocytes # 0.6 10^3/uL (0.2-0.9); Monocytes % 8.6 %; Neutrophils # 5.01 10^3/uL (1.8-7.7); Neutrophils % 70.4 %; Nucleated Red Blood Cells % 0 %; Platelet Count 179 10^3/cmm (157-399); Red Blood Count 3.87 10^6/uL (3.85-5.65); Red Cell Distribution Width 15.8 % (12.1-15.1); White Blood Count 7.11 10^3/uL (3.29-11.43)
[2024-04-04 15:10] LABS: Ferritin 534 ng/mL (30-400); Iron 55 ug/dL (59-158); Percent Saturation 28.3 % (20-50); Total Iron Binding Capacity 194 mcg/dl; Unsaturated Iron Binding 139 ug/dL (112-347)
== END 2024-04-05 23:59 | disposition home or self-care (01) ==
PROVIDERS: PCP Family Medicine; Visit Provider Family Medicine
DX: Z53.9 Procedure and treatment not carried out, unspecified reason (principal); D50.9 Iron deficiency anemia, unspecified
CPT/HCPCS: 36415; 82728; 83540; 83550; 85025; 96365; J1756

== ENCOUNTER 2024-04-18 12:47 | Outpatient (CLI) | payer MEDICARE, SELFPAY ==
[2024-04-18 13:16] LABS: Basophils % 0.5 %; Eosinophils # 0.1 10^3/uL (0.0-0.8); Eosinophils % 1.9 %; Hematocrit 37.9 % (37-53); Lymphocytes # 1.5 10^3/uL (0.8-4.8); Lymphocytes % 23.7 %; Mean Corpuscular HGB Conc 31.9 g/dL (30-55); Mean Corpuscular Hemoglobin 29.2 pg (27-33); Mean Corpuscular Volume 91.3 fl (82-101); Mean Platelet Volume 10.3 fL (7.4-10.4); Monocytes # 0.6 10^3/uL (0.2-0.9); Monocytes % 9.3 %; Neutrophils # 4.16 10^3/uL (1.8-7.7); Neutrophils % 64.3 %; Nucleated Red Blood Cells % 0 %; Platelet Count 150 10^3/cmm (157-399); Red Blood Count 4.15 10^6/uL (3.85-5.65); Red Cell Distribution Width 15.5 % (12.1-15.1); White Blood Count 6.46 10^3/uL (3.29-11.43)
[2024-04-18 13:41] LABS: Creatinine Urine, Random 186 mg/dL (39-259); Microalbumin Random Urine 8 ug/dL (0-20)
[2024-04-18 13:43] LABS: Chloride 104 mmol/L (98-107); Potassium 4.7 mmol/L (3.5-5.1); Sodium 139 mmol/L (136-145)
[2024-04-18 13:45] LABS: Parathyroid Hormone 150.9 pg/mL (15-65)
[2024-04-18 13:50] LABS: Microalbum Creatinine Ratio Ur 43 mg/dL (0-20)
[2024-04-18 13:55] LABS: 25 Hydroxy Vitamin D 33 ng/mL (30-100)
[2024-04-18 14:37] LABS: Anion Gap 14.7 (5-19); Blood Urea Nitrogen 38 mg/dL (8-23); Calcium 8.8 mg/dL (8.5-10.5); Carbon Dioxide 25 mmol/L (22-29); Glomerular Filtration Rate 24.9 mL/min (90-130); Glucose 106 mg/dL (65-115); Phosphorus 4.4 mg/dL (2.5-4.5)
== END 2024-04-18 12:48 | disposition home or self-care (01) ==
LOC: LAB 12:49
PROVIDERS: PCP Family Medicine; Visit Provider Registered Nurse
DX: N18.32 Chronic kidney disease, stage 3b (principal); E55.9 Vitamin D deficiency, unspecified
CPT/HCPCS: 36415; 80069; 82044; 82306; 82310; 83970; 85025

== ENCOUNTER 2024-07-08 11:21 | Outpatient (CLI) | payer MEDICARE, SELFPAY ==
[2024-07-08 12:46] LABS: Basophils # 0.1 10^3/uL (0.0-0.1); Basophils % 0.7 %; Eosinophils # 0.1 10^3/uL (0.0-0.8); Eosinophils % 1.4 %; Hematocrit 34.7 % (37-53); Lymphocytes # 1.5 10^3/uL (0.8-4.8); Lymphocytes % 17.6 %; Mean Corpuscular HGB Conc 33.7 g/dL (30-55); Mean Corpuscular Hemoglobin 31.5 pg (27-33); Mean Corpuscular Volume 93.5 fl (82-101); Mean Platelet Volume 10.5 fL (7.4-10.4); Monocytes # 0.6 10^3/uL (0.2-0.9); Monocytes % 7.5 %; Neutrophils # 5.99 10^3/uL (1.8-7.7); Neutrophils % 72.3 %; Nucleated Red Blood Cells % 0 %; Platelet Count 178 10^3/cmm (157-399); Red Blood Count 3.71 10^6/uL (3.85-5.65); Red Cell Distribution Width 13.4 % (12.1-15.1); White Blood Count 8.29 10^3/uL (3.29-11.43)
[2024-07-08 13:05] LABS: Albumin Level 3.9 g/dL (3.5-5.2); Anion Gap 19.4 (5-19); Blood Urea Nitrogen 61 mg/dL (8-23); Calcium 8.5 mg/dL (8.5-10.5); Carbon Dioxide 18 mmol/L (22-29); Chloride 104 mmol/L (98-107); Glomerular Filtration Rate 22.4 mL/min (90-130); Glucose 112 mg/dL (65-115); Potassium 5.4 mmol/L (3.5-5.1); Sodium 136 mmol/L (136-145)
== END 2024-07-08 11:22 | disposition home or self-care (01) ==
PROVIDERS: PCP Family Medicine; Visit Provider Registered Nurse
DX: N18.4 Chronic kidney disease, stage 4 (severe) (principal)
CPT/HCPCS: 36415; 80069; 85025

== ENCOUNTER 2024-09-03 13:22 | Outpatient (CLI) | payer MEDICARE, SELFPAY ==
[2024-09-03 14:19] LABS: Hematocrit 37.2 % (37-53); Hemoglobin 12.20 g/dL (11.27-16.99); Mean Corpuscular HGB Conc 32.8 g/dL (30-55); Mean Corpuscular Hemoglobin 31.0 pg (27-33); Mean Corpuscular Volume 94.4 fl (82-101); Nucleated Red Blood Cells % 0 %; Platelet Count 155 10^3/cmm (157-399); Red Blood Count 3.94 10^6/uL (3.85-5.65); White Blood Count 7.52 10^3/uL (3.29-11.43)
[2024-09-03 14:31] LABS: Albumin Level 4.2 g/dL (3.5-5.2); Anion Gap 16.4 (5-19); Blood Urea Nitrogen 52 mg/dL (8-23); Calcium 9.1 mg/dL (8.5-10.5); Carbon Dioxide 22 mmol/L (22-29); Chloride 105 mmol/L (98-107); Ferritin 389 ng/mL (30-400); Glucose 108 mg/dL (65-115); Iron 72 ug/dL (59-158); Potassium 4.4 mmol/L (3.5-5.1); Sodium 139 mmol/L (136-145)
[2024-09-03 14:36] LABS: Creatinine Urine, Random 180 mg/dL (39-259); Microalbum Creatinine Ratio Ur 39 mg/dL (0-20)
[2024-09-03 14:39] LABS: Calcium 9.1 mg/dL (8.5-10.5)
== END 2024-09-03 13:23 | disposition home or self-care (01) ==
LOC: LAB 13:23
PROVIDERS: PCP Nurse Practitioner Family; Visit Provider Registered Nurse
DX: D50.8 Other iron deficiency anemias (principal); N18.4 Chronic kidney disease, stage 4 (severe)
CPT/HCPCS: 36415; 80069; 82044; 82310; 82728; 83540; 83970; 85025

== ENCOUNTER 2025-01-13 12:32 | Outpatient (CLI) | payer MEDICARE, SELFPAY ==
[2025-01-13 14:01] LABS: Hematocrit 38.6 % (37-53); Hemoglobin 12.80 g/dL (11.27-16.99); Mean Corpuscular HGB Conc 33.2 g/dL (30-55); Mean Corpuscular Hemoglobin 31.7 pg (27-33); Mean Corpuscular Volume 95.5 fl (82-101); Nucleated Red Blood Cells % 0 %; Platelet Count 168 10^3/cmm (157-399); Red Blood Count 4.04 10^6/uL (3.85-5.65); White Blood Count 8.28 10^3/uL (3.29-11.43)
[2025-01-13 14:20] LABS: Calcium 8.7 mg/dL (8.5-10.5)
[2025-01-13 14:27] LABS: Albumin Level 4.1 g/dL (3.5-5.2); Anion Gap 15.9 (5-19); Blood Urea Nitrogen 54 mg/dL (8-23); Calcium 8.7 mg/dL (8.5-10.5); Carbon Dioxide 23 mmol/L (22-29); Chloride 101 mmol/L (98-107); Glucose 166 mg/dL (65-115); Potassium 4.9 mmol/L (3.5-5.1); Sodium 135 mmol/L (136-145)
== END 2025-01-13 12:33 | disposition home or self-care (01) ==
PROVIDERS: PCP Nurse Practitioner Family; Visit Provider Internal Medicine Nephrology
DX: N18.4 Chronic kidney disease, stage 4 (severe) (principal)
CPT/HCPCS: 36415; 80069; 82306; 82310; 83970; 85025